=== PATIENT | male | born 1980 | race Caucasian/White ===

== ENCOUNTER 2017-02-17 04:46 | Inpatient (IN) | payer MEDICAID, OTHER ==
[~2017-02-17] VITALS: Ht 172.7 cm; Wt 77.2 kg
[2017-02-17] VITALS (7 sets, daily range): BP systolic 130–157; BP diastolic 70–94; PULSE 77–105; RESP 16–18; O2SAT 94–100
[~2017-02-17 04:46] MED LIST: CHLO25TA22 PO; FERR-74 PO; KLO1T PO
--- NOTE | 2017-02-17 06:17 | ED.REPORT ---
HPI-General Illness Date of Service Feb 17, 2017 ED Provider: Danny Lees MD A 36 year old male who is a paranoid schizophrenic with a history of diabetes presents to the ER via EMS complaining of pain and loss of function of the right lower extremity. He also alleges that there are "black lumps" on the right lower extremity localized around the knee. Pain is exacerbated with any movement. Associated symptoms include "vomiting black tar", a "taste of blood" in his mouth, and blood in his urine. Patient denies any trauma or injury to the affected extremity, fever, chills, and cough. He has spent several days in bed due to his symptoms, and has not been ambulatory due to the pain, "crawling " around his residence. History of gout "when he eats a lot of sugar". Currently he lives at the [facility]. Patient is a difficult historian. Nursing Notes Stated Complaint: RIGHT LEG ABRASIONS Chief Complaint: Skin Rash/Abscess Nursing Notes Reviewed: Yes Allergies: Coded Allergies: haloperidol (Verified Allergy, Unknown, 07/29/16) Scheduled Chlorpromazine (Chlorpromazine) 25 Mg Tablet 100 MG PO BID Clonazepam (Clonazepam) 1 Mg Tablet 0.5 MG PO DAILYWL Clonazepam (Clonazepam) 1 Mg Tablet 1.5 MG PO HS Ferrous Sulfate (Feosol) 325 Mg Tablet 325 MG PO DAILYWM General Time Seen by MD: 06:00 Chief Complaint Rash, Other (Right Leg Pain) Hx Obtained From: Patient Arrived By: Ambulance Sudden in Onset?: No Onset Occurred: Onset unknown Location: : Leg right Quality: Painful Severity: Current: Mild Severity: Maximum: Moderate Associated with: Reports: Vomiting, Denies: Cough, Fever Context Related History: Reports Diabetes mellitus Similar Sx Previous: No Past Medical History Past Medical History Hidradenitis suppurativa Paranoid schizophrenic Reports: Diabetes mellitus, Hyperlipidemia, Hypertension, Mental illness Past Surgical History hidradenitis w/multiple I&D, followed at wound care Family History Reviewed, not relevant Smoking History Never Smoker Social History Lives in a "clean and sober" house, 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 Physical Exam Vital Signs Vital Signs Date Time Temp Pulse Resp B/P Pulse Ox O2 Delivery O2 Flow Rate FiO2 02/17/17 08:03 37.2 90 16 138/83 98 02/17/17 05:00 37.7 105 18 130/82 97 Room Air Initial VS: Reviewed Head / Eyes: Atraumatic, Normocephalic Neck: Supple, Non-tender, Full range of motion Abdomen / GI: Soft, Non-tender, No guarding, No rebound, No distention Skin: Warm, Dry, No cyanosis Neurologic: Alert, Oriented, Nonfocal General/Constitutional: Awake, Alert, Well developed, Well nourished Respiratory / Chest: Breath sounds NL, No respiratory distress, No rales, No rhonchi, No wheezing Cardiovascular: Heart rate NL, Regular rhythm, Heart sounds NL, Cap refill not delayed, Peripheral circulation NL Lower Extremity / Pelvis / MS: No deformity, Neurologic intact, Vascular intact Brown pigment to the lateral aspect of the right knee Excoriated ulcers, inferior edge of the right knee cap, and medial aspect of lower leg. Extreme pain with movement of the right hip and knee. Right hip moves freely. Right knee is limited, resistance to range of motion. I am unable to fully flex or fully extend the right knee. Ankle / Foot: Atraumatic, Inspection NL, Full range of motion, Non-tender, No deformity, Neurologic intact, Vascular intact Interpretation & Diagnostics Lab Results Interpretation Result Diagram: 02/17/17 0730 02/17/17 0730 Test 02/17/17 07:21 02/17/17 07:30 02/17/17 09:22 Urine Color Yellow (YELLOW) Urine Appearance Hazy (CLEAR,HAZY) Urine pH 5.5 (5.0-8.0) Urine Specific [place] 1.025 (1.003-1.035) Urine Protein 30mg/dL (NEG,TRACE) Urine Glucose (UA) Negativemg/dL (NEGATIVE) Urine Ketones Negativemg/dL (NEGATIVE) Urine Occult Blood Trace (NEGATIVE) Urine Nitrite Negative (NEGATIVE) Urine Bilirubin Negative (NEGATIVE) Urine Urobilinogen Normalmg/dL (NORMAL) Urine Leukocyte Esterase Negative (NEGATIVE) Urine RBC 0-2/hpf (0-2) Urine WBC 0-5/hpf (0-5) Urine Epithelial Cells Occasional/hpf (NONE-MOD) Urine Crystals Amorphous urates (NONE Urine Bacteria Few/hpf (NONE-FEW) Urine Hyaline Casts None/lpf (NONE) Urine Granular Casts Occasional (NONE SEEN) Urine Waxy Casts None seen (NONE SEEN) Urine Red Blood Cell Casts None seen (NONE SEEN) Urine White Blood Cell Casts None seen (NONE SEEN) Urine Mucus None seen (None Seen) Urine Trichomonas None seen (NONE SEEN) Urine Yeast None (NONE SEEN) Urinalysis Comment None Urine Culture Reflexed Not indicated White Blood Count 14.4th/mm3 (3.8-10.1) Red Blood Count 4.60mil/mm3 (4.40-5.80) Hemoglobin 13.0g/dL (13.8-17.2) Hematocrit 36.8% (41.0-50.0) Mean Corpuscular Volume 80.0fL (81-100) Mean Corpuscular Hemoglobin 28.3pg (27.0-35.0) Mean Corpuscular Hemoglobin Concent 35.3% (32.0-37.0) Red Cell Distribution Width 13.7% (12.3-15.4) Platelet Count 294bil/L (150-400) Neutrophils (%) (Auto) 78.3% (40-74) Lymphocytes (%) (Auto) 10.2% (14-46) Monocytes (%) (Auto) 11.2% (4-12) Eosinophils (%) (Auto) 0% (0-5) Basophils (%) (Auto) 0.1% (0-3) Erythrocyte Sedimentation Rate 64mm/hr (0-15) Sodium Level 132mEq/L (134-144) Potassium Level 2.7mEq/L (3.5-5.2) Chloride Level 88mEq/L (97-108) Carbon Dioxide Level 24mmol/L (18-29) Blood Urea Nitrogen 30mg/dL (6-20) Creatinine 2.47mg/dL (0.76-1.27) Estimat Glomerular Filtration Rate 31mL/min (>59) Glucose Level 133mg/dL (60-99) Lactic Acid Level 0.8mmol/L (0.4-2.0) Calcium Level 7.6mg/dL (8.5-10.1) Phosphorus Level 3.2mg/dL (2.5-4.9) Magnesium Level 0.9mg/dL (1.6-2.6) Total Bilirubin 2.1mg/dL (0.0-1.2) Aspartate Amino Transf (AST/SGOT) 62U/L (0-50) Alanine Aminotransferase (ALT/SGPT) 46U/L (0-44) Alkaline Phosphatase 133U/L (25-150) Total Creatine Kinase 1422U/L (21-232) C-Reactive Protein 27.3mg/dL (0.0-0.5) Total Protein 6.9g/dL (6.4-8.4) Albumin 3.6g/dL (3.4-5.0) Thyroid Stimulating Hormone (TSH) 0.547uIU/mL (0.450-4.500) Salicylates Level < 3.0ug/mL (30-250) Acetaminophen Level < 15.0ug/mL Rx (10-25) Hold Jacobs Top Tube Received (Received) X-Ray Chest Interpretation Chest Xray Interpretation: IMPRESSION: Mildly reduced inspiratory volume, slight stranding behind the left heart potentially a manifestation of mild or early pneumonia. Followup PA and lateral chest plain film would be very helpful in more accurately assessing for pneumonia in that area. Dictated by: Gregg Pratt M.D. on 02/17/2017 at 9:49 Approved by: Gregg Pratt M.D. on 02/17/2017 at 9:50 View: Portable, 1 view Interpretation / Wet Read by: Interpret - Radiologist X-Ray Interpretation Xray Interpretation: IMPRESSION: No displaced fracture seen. If there is continued pain, followup exam or additional imaging such as MRI or CT could be performed for further assessment. Dictated by: Dimitri Thompson [facility] Interpreted: Gregg Pratt MD on 02/17/2017 at 9:11 Transcribed by: ALEXANDER on 02/17/2017 at 9:12 X-Ray Ordered: Pelvis, Hip right Interpretation / Wet Read by: Interpret - Radiologist Xray Interpretation: FINDINGS: Bones: No fractures or dislocations. No suspicious bony lesions. Soft tissues: Moderate diffuse disc shunt joint effusion. No suspicious soft tissue calcifications. IMPRESSION: 1. Moderate joint effusion. Dictated by: Dimitri WAYNE Interpreted: Gregg Pratt MD on 02/17/2017 at 9:10 Transcribed by: KEILA on 02/17/2017 at 13:41 PLEASE REVIEW 1ST SENTENCE UNDER SOFT TISSUES, NEEDS CORRECTED X-Ray Ordered: Knee right Interpretation / Wet Read by: Interpret - Radiologist US Renal/Urinary Tract PROCEDURE: US RENAL SONOGRAM INDICATIONS: acute renal failure TECHNIQUE: Real-time scanning was performed of the kidneys and bladder, with image documentation. COMPARISON: None. FINDINGS: Kidneys: Kidneys are normal in size. Right kidney measures 9.0 cm long; left kidney measures 9.1 cm long. Right renal cortical thickness is 1.6 cm; left renal cortical thickness is 1.4 cm. Renal cortical echotexture is normal. 6 mm nonobstructing left renal calcification. No suspicious solid mass lesions. Mildly complex right kidney cyst not significantly changed measuring 2.5 x 3.4 x 2.6 cm. Bladder: Pre-void bladder volume is 192 mL. Post-void residual is unable to be assessed. Miscellaneous: No free pelvic fluid. IMPRESSION: Mildly complex right renal cyst with no significant change and nonobstructing left renal calcification. Dictated by: Dimitri WAYNE Interpreted: Gregg Pratt MD on 02/17/2017 at 11:01 Transcribed by: ALEXANDER on 02/17/2017 at 11:04 Exam Performed by: Allied health pract Exam Type: Diagnostic Clinical Category: Symptom-based Exam Interpreted by: Radiologist Indication: Acute renal failure Re-Eval/Medical Decision Source of Hx: Old records Time of Eval: 09:08 Re-Evaluation/Progress Note: Discussed lab and radiology results and need for admission. Patient is amenable to the plan. All other questions addressed. Consultation #1: Referral / Consult Name: Raegan Stanton MD Consulted With: Nephrology Call Returned at: 09:11 Note: Agrees to consult. Consultation #2: Referral / Consult Name: Dimitri Thompson RPA RA Consulted With: On-call physician (Radiology) Call Returned at: 10:12 Note: Dr. Thompson called to discuss arthrocentesis results. Consultation #3: Referral / Consult Name: Griffin Call MD Consulted With: Orthopedic Call Returned at: 10:18 Note: Agrees to consult. Consultation #4: Referral / Consult Name: Talon Saucedo MD Consulted With: On-call physician (Infectious Disease) Call Returned at: 10:22 Note: Agrees to consult. Consultation #5: Referral / Consult Name: Shilo Aguilar MD Consulted With: Hospitalist Call Returned at: 11:31 Medical Technologist Clinical: Agrees with eval, Agrees with plan, Accepts admit Counseled Regarding: Diagnosis, Lab results, Need for admission Discharge & Departure Primary Impression: Acute renal failure Acute renal failure type: unspecified Qualified Code: N17.9 - Acute kidney failure, unspecified Additional Impressions: Septic arthritis Hypomagnesemia Schizophrenia, paranoid, chronic Hypokalemia Acute hepatitis Disposition: ADMITTED TO HOSPITAL Discharge Condition All VS Reviewed: Yes Condition: Stable Referrals: Jennifer Kessler MD (PCP) Crit Care Except Billable Proc Time Spent: 30-74 minutes Services Performed: Patient management by me, Time spent at bedside, Reviewing test results, Reviewing imaging, Discussing patient care, Documentation in record Scribe Attestation Portions of this note were transcribed by Michael Ojeda. I, Dr. Lees, personally performed the history, physical exam and medical decision-making; I reviewed and confirmed the accuracy of the information in the transcribed note. Signed by: Loyda Hendrix, 02/17/2017 and 11:32 copies to: Jennifer Kessler MD, Kirk H MD Feb 17, 2017 06:16 MICHAEL OJEDA Feb 17, 2017 06:21
[2017-02-17 07:38] LABS: APPEARANCE,URINE HAZY (CLEAR,HAZY); COLOR,URINE YELLOW (YELLOW); OCCULT BLOOD,URINE TRACE (NEGATIVE); PH,URINE 5.5 (5.0-8.0)
[2017-02-17 07:39] LABS: UROBILINOGEN,URINE NORMAL (NORMAL)
[2017-02-17 07:43] LABS: BASOPHILS % (AUTO) 0.1 % (0-3); EOSINOPHILS % (AUTO) 0 % (0-5); MONOCYTES % (AUTO) 11.2 % (4-12); Mean Corpuscular Hemoglobin 28.3 pg (27.0-35.0); NEUTROPHILS % (AUTO) 78.3 % (40-74); Platelet Count 294 bil/L (150-400)
[2017-02-17 08:58] LABS: ERYTHROCYTE SEDIMENTATION RATE 64 mm/hr (0-15)
[2017-02-17] MEDS ORDERED: 0.9% Sodium Chloride 1,000 ML IV ONE (09:00)
--- NOTE | 2017-02-17 09:12 | DRSVH ---
PROCEDURE: X-RAY PELVIS W/LAT HIP (RT) ([id number]) INDICATIONS: pain and limited ROM, no trauma hx TECHNIQUE: AP pelvis with lateral view(s) of the right hip(s). COMPARISON: None. FINDINGS: Bones: No fractures or dislocations. Pelvic ring appears intact. No suspicious bony lesions. Soft tissues: The visualized bowel gas pattern is normal. No suspicious soft tissue calcifications. IMPRESSION: No displaced fracture seen. If there is continued pain, followup exam or additional rehana ging such as MRI or CT could be performed for further assessment. Dictated by: Dimitri Thompson [facility] Interpreted: Gregg Pratt MD on 02/17/2017 at 9:11 Transcribed by: ALEXANDER on 02/17/2017 at 9:12 Approved by: Gregg Pratt M.D. on 02/17/2017 at 17:07
--- NOTE | 2017-02-17 09:51 | DRSVH ---
PROCEDURE: X-RAY CHEST ONE VIEW, PORTABLE ([id number]) INDICATIONS: leukocytosis TECHNIQUE: One view of the chest was acquired. COMPARISON: [facility], , CHEST 1VW (PORTABLE), 12/05/2014, 18:35. [facility], CR, CHEST 1VW (PORTABLE), 09/27/2014, 17:26. FINDINGS: Surgical changes and devices: None. Lungs and pleura: No pleural effusions or pneumothorax. Lungs are abnormal with mild or early pneum onia left lung base behind the heart. Mediastinum: Mediastinal contours appear normal. Heart size is normal. Bones and chest wall: No suspicious bony lesions. Overlying soft tissues appear unremarkable. IMPRESSION: Mildly reduced inspiratory volume, slight stranding behind the left heart potentially a m anifestation of mild or early pneumonia. Followup PA and lateral chest plain film would be very help ful in more accurately assessing for pneumonia in that area. Dictated by: Gregg Pratt M.D. on 02/17/2017 at 9:49 Approved by: Gregg Pratt M.D. on 02/17/2017 at 9:50
[2017-02-17 10:11] LABS: Creatine Kinase 1422 U/L (21-232)
[2017-02-17] MEDS ORDERED: cefTRIAXone Inj 2,000 MG in Dextrose 5% Minibag Plus 50 ML IV ONE (10:15)
[2017-02-17 10:41] LABS: Phosphorus 3.2 mg/dL (2.5-4.9)
--- NOTE | 2017-02-17 10:41 | DRSVH ---
PROCEDURE: X-RAY RIGHT KNEE, ONE OR TWO VIEWS ([id number]) INDICATIONS: PAIN AND LIMITED RANGE OF MOTION, NO TRAUMA HISTORY. TECHNIQUE: Two views of the knee were acquired. COMPARISON: None. FINDINGS: Bones: No fractures or dislocations. No suspicious bony lesions. Soft tissues: Moderate diffuse disc shunt joint effusion. No suspicious soft tissue calcific ations. IMPRESSION: 1. Moderate joint effusion. Dictated by: Dimitri Thompson [facility] Interpreted: Gregg Pratt MD on 02/17/2017 at 9:10 Transcribed by: KEILA on 02/17/2017 at 13:41 Approved by: Gregg Pratt M.D. on 02/17/2017 at 17:07 PLEASE REVIEW 1ST SENTENCE UNDER SOFT TISSUES, NEEDS CORRECTED
[2017-02-17 11:03] LABS: Magnesium 0.9 mg/dL (1.6-2.6)
--- NOTE | 2017-02-17 11:04 | DRSVH ---
PROCEDURE: US RENAL SONOGRAM INDICATIONS: acute renal failure TECHNIQUE: Real-time scanning was performed of the kidneys and bladder, with image documentation. COMPARISON: None. FINDINGS: Kidneys: Kidneys are normal in size. Right kidney measures 9.0 cm long; left kidney measures 9.1 cm long. Right renal cortical thickness is 1.6 cm; left renal cortical thickness is 1.4 cm. Renal cor tical echotexture is normal. 6 mm nonobstructing left renal calcification. No suspicious solid mass lesions. Mildly complex right kidney cyst not significantly changed measuring 2.5 x 3.4 x 2.6 cm. Bladder: Pre-void bladder volume is 192 mL. Post-void residual is unable to be assessed. Miscellaneous: No free pelvic fluid. IMPRESSION: Mildly complex right renal cyst with no significant change and nonobstructing left renal calcification. Dictated by: Dimitri SMALL Interpreted: Gregg Pratt MD on 02/17/2017 at 11:01 Transcribed by: ALEXANDER on 02/17/2017 at 11:04 Approved by: Gregg Pratt M.D. on 02/17/2017 at 17:08
[2017-02-17] MEDS ORDERED: KCl 40 mEq/D5W 500 mL 40 MEQ in IV Premix 1 EACH IV ONE (11:05)
[2017-02-17] MEDS ORDERED: Magnesium Sulf 2 Gm/50mL Water 2 GM in IV Premix 1 EACH IV ONE (11:05)
[2017-02-17] MEDS ORDERED: Ondansetron 2 mg/mL 2 mL Inj IVPUSH PRN ×2 (11:10→11:50)
[2017-02-17] MEDS ORDERED: HYDROmorphone 1 mg/mL Inj IVPUSH PRN (11:10)
[2017-02-17] MEDS ORDERED: Vancomycin Dose per Pharmacist XX ONE (11:35)
[2017-02-17] MEDS ORDERED: Vancomycin Inj 1,250 MG in 0.9% Sodium Chloride 250 ML IV ONE (11:55)
[2017-02-17] MEDS: 0.9% NaCl + KCl 20 mEq/L 1,000 ML IV SCH ×3 (12:00→23:20)
--- NOTE | 2017-02-17 12:24 | NUR ---
ADMIT NOTE Admitted a 36/M into room 8507 following report from Rosmery Chandler RN in ED. Pt moaning/crying out while transferred to bed per SUBSTATION SUPERVISOR/ED staff report. Pt states, "They hurt me because they are so rough!" Pt req pain medication for R knee which appears swollen with some bruising/scabbing. Pt rec'd IV Dilaudid in ED 30 min prior. Pt repeating questions, using a very 'whiny' voice, asking about his motel room. Pt's IV came out shortly after admission to floor, awaiting a replacement. Tele placed per order, per tech: SR in 's. Denies any N/V/D at this time, just requesting PRN pain medication. Offered reposition, ice, heat - pt refusing all interventions. Pt on RA.Sitter at bedside from ED. Bed in lowest, locked position and call light in reach. Addendum: 02/17/17 at 1229 by RISSA PRESTON RN Pt refusing to allow this RN to perform assessment. When pt allows, will document.
[2017-02-17] MEDS ORDERED: Magnesium Sulf 4 Gm/100 mL H2O 4 GM in IV Premix 1 EACH IV ONE ×2 (12:25→19:50)
[2017-02-17] MEDS ORDERED: Alum-Mag Hydrox-Simeth 30 mL Suspension PO PRN (12:35)
[2017-02-17] MEDS: Potassium Chloride 20 mEq/15 mL 15mL Oral Soln PO SCH ×3 (12:47→20:57)
--- NOTE | 2017-02-17 14:19 | NUR ---
Synovial fluid Rec'd a call from lab that synovial fluid was not sufficient for cx. Timbo DIETZ with this information.
--- NOTE | 2017-02-17 14:29 | PCM.HPMED ---
Subjective Date of Service Feb 17, 2017 Primary Provider: Admitting Physician: Raegan Stanton MD Primary Care Physician: Jennifer Kessler MD Attending Physician: Raegan Stanton MD Chief Complaint: right leg pain History of Present Illness: Bladimir is a 36-year-old male with history of paranoid schizophrenia, polysubstance abuse, and alcoholism who presented to the ER via EMS for complaint of right knee pain x 2 days. Patient is a somewhat poor historian but , he reports noticing the right knee pain and swelling came on slowly about 2 days ago and states that it became so severe that he was unable to get out of bed for 2 days. He denies any trauma but notes there were "black lumps" around his right knee. He denies pain in any other joints, rashes elsewhere, or been recently sick. He notes that he has been more sweaty recently but when asked if he has had any fevers or chills he specifically denied. He denies any current nausea, vomiting but reports that he had a one-time episode of vomiting of black tarry substance yesterday. He has not had any diarrhea and has not noticed any dark stool or blood in his stool. He denies any urinary symptoms but reports that his urine is very dark and he thinks that is due to the drugs he used. He also denies any headaches, chest pain, shortness of breath, or neck stiffness. He does have a history of methamphetamine abuse and reports he last used yesterday, but he reports he only smokes it because he is afraid of needles. He states that he was at his baseline function prior to 2 days ago. He reports that he has been compliant with his psychiatric medication except when he uses drugs because he is unsure of how his medications would interact with the drugs. He reports he has only been using meth and smokes intermittently but denies any other drug usage. He has a history of alcoholism, reports he has been sober for a few years and only has had a sparse drink in between. He also voices that he has a history of gout when he eats a lot of sugar, but that usually manifests in his big toe. He currently lives by himself at the [facility] and denies any sexual activity. When he arrived to the ED he was noted to be febrile with temperature 37.7 in site of tachycardic with a pulse of 105. He had a right knee x-ray that showed moderate joint effusion without calcifications. His CBC showed a white count of 14.4 with neutrophils 78.3% and ESR 64. His CMP was remarkable for potassium of 2.7 with BUN of 30 and creatinine of 2.47. His CRP was 27.3 and he had very mild transaminitis with an elevated total bili of 2.1. His lactic acid was 0.8, but his magnesium was 0.9 and his total CK was 1422. With his acute renal failure, a renal sonogram was performed which showed an unchanged mildly complex 3 cm right renal cyst and a normal obstruction left renal calcification Orthopedics was consulted and an arthrocentesis was performed with aspirate sent for analysis and culture. Sugars were drawn and patient was started on ceftriaxone and vancomycin Review of Systems: Telephone review of systems negative except as stated in history of present illness Allergies Coded Allergies: haloperidol (Verified Allergy, Unknown, 07/29/16) Home Medications Clonazepam Chlorpromazine Feosol H Paranoid schizophrenia Polysubstance abuse History of alcoholism Hidradenitis suppurativa Surgical History Reports multiple I&D's for his hidradenitis on his left and right axilla Family History He is uncertain of any family history Social History Hx Alcohol Use: Yes (reports he has only had one drink in the past few months) Hx Substance Use: Yes (methamphetamine) Hx Tobacco Use: Yes (he reports he smokes tobacco intermittently) Living Arrangement: Alf Exam Vital Signs Vital Sign - Last Date Time Temp Pulse Resp B/P Pulse Ox O2 Delivery O2 Flow Rate FiO2 02/17/17 12:41 100 02/17/17 11:55 37.5 18 157/82 94 Room Air Exam General: Well-developed jittery male who appears in mild pain, and appears mildly anxious HEENT: Normocephalic, atraumatic, PERRLA, EOMI, poor dentition noted, oropharynx nonerythematous, mucosa mildly dry Neck: Soft, nontender, trachea midline CV: Regular rate and rhythm with no murmurs rubs or gallops noted. Peripheral pulses intact and equal Respiratory: CTAB, normal respiratory effort Abdomen: Obese, soft, nontender, nondistended, normoactive bowel sounds noted MSK: Right knee mildly erythematous and moderately swollen, bandage in place over site of previous arthrocentesis. There are multiple excoriations and scabs on anterior knee and thigh. Patient refused muscle strength testing due to pain. No other joint erythema or tenderness noted. Neuro: Patient is alert and oriented 3, cranial nerves II-12 grossly intact, no focal weakness except right leg which patient refused further testing due to pain. Skin: Warm, dry, intact, no rashes noted Psychiatric: Patient has been cooperative, although occasionally slow to answer. He is fidgety at baseline and demonstrates poor judgment. He denies any hallucinations or SI. Lab and Diagnostics Result Diagram: 02/17/17 0730 02/17/17 0730 X-Rays, CTs and MRIs CXR portable IMPRESSION: Mildly reduced inspiratory volume, slight stranding behind the left heart potentially a manifestation of mild or early pneumonia. Followup PA and lateral chest plain film would be very helpful in more accurately assessing for pneumonia in that area. Hip xray IMPRESSION: No displaced fracture seen. If there is continued pain, followup exam or additional imaging such as MRI or CT could be performed for further assessment. R knee xray IMPRESSION: 1. Moderate joint effusion. Additional Diagnostics: Renal sonogram FINDINGS: Kidneys: Kidneys are normal in size. Right kidney measures 9.0 cm long; left kidney measures 9.1 cm long. Right renal cortical thickness is 1.6 cm; left renal cortical thickness is 1.4 cm. Renal cortical echotexture is normal. 6 mm nonobstructing left renal calcification. No suspicious solid mass lesions. Mildly complex right kidney cyst not significantly changed measuring 2.5 x 3.4 x 2.6 cm. Bladder: Pre-void bladder volume is 192 mL. Post-void residual is unable to be assessed. Miscellaneous: No free pelvic fluid. IMPRESSION: Mildly complex right renal cyst with no significant change and nonobstructing left renal calcification. Assessment & Plan Bladimir is a 36-year-old male with history of paranoid schizophrenia, polysubstance abuse, and alcoholism who presented to the ER via EMS for complaint of right knee pain x 2 days. He was also found to be in acute renal insufficiency, with hypokalemia and hypomagnesemia. #Sepsis, acute, POA Patient meets sepsis criteria with a temperature of 37.7 and tachycardia 105 with leukocytosis of 14.4 and his right knee as the source of infection on admission Patient was hydrated in the ED with a bolus of normal saline He had blood cultures drawn and was started on IV ceftriaxone 2 g daily and IV vancomycin (02/17) Further management as below #Septic Arthritis, Right Knee, Present on Admission Patient's right knee pain is likely due to septic joint infection. An arthrocentesis was performed and aspirate was sent for analysis, but there was not enough aspirate for culture. Uncertain of etiology of his infection, but certainly trauma and substance abuse is high on the list due to his history and the multiple scabs near his knee. He also reports a history of gout and this is also on the differential. He does deny any trauma or recent procedures, and so endocarditis is possible but unlikely. Infectious disease team has been consultation for further antibiotic management IV Dilaudid 0.5-1.0 mg for pain management. We will continue with IV ceftriaxone and IV vancomycin #Acute renal insufficiency, SRINI Patient's creatinine on admit was 2.47. He was noted to have a normal creatinine 1.01 in June 2016. Likely due to his infection, poor fluid intake , substance abuse, and possibly his psychiatric medications. Nephrology has been consulted and will be assisting. We will place on telemetry for CV monitoring The running IV normal saline at 150 mils per hour We will continue further management per nephrology #Hypokalemia, POA Likely due to depletion and substance abusePotassium level on admit was 2.7. This was replenished with 60 mEq of potassium chloride IV rider Patient refused any PO potassium chloride replacement We will continue to monitor and replenish as needed ECG as needed #Hypomagnesemia, POA Patient does have history of hypomagnesemia. His magnesium on admission was 0.9 , this was replenished with 2 g of mag sulfate Continue to monitor and replenish as needed #History of polysubstance abuse, SRINI Reports only methamphetamine abuse currently. Likely contributing to patient's renal insufficiency and electrolyte abnormalities. #History of alcoholism, SRINI Reports only rare alcohol consumption in the past few years, it is noted that he lives at a [facility]. #Paranoid schizophrenia, SUZIEA Patient has a fairly extensive history of paranoid schizophrenia .Uncertain if patient has been compliant with his medication regimen. He currently is alert and oriented and denies any hallucinations or SI. Of note, patient does have a history of severe aggression, but is currently redirectable. We will consult psychiatry for medication management. Tylenol prn fever and pain Zofran prn nausea Bowel regimen prn constipation CODE STATUS: Patient wishes to be full resuscitation Admission status: Due to patient's medical complexity and risk of adverse events , he will require at least 2 midnights for evaluation, stabilization, and treatment. Pain Evaluation: Pain not Controlled VTE Prophylaxis: Sub-Q Heparin (Unfractionated) Resuscitation Status: CPR: Attempt Resuscitation Attending Statement The patient was seen and examined together with Dr. Gtz on 02/17/2017 and I agree with the history, exam and plan as outlined in the note above. Eusebio Gtz DO Feb 17, 2017 14:29 Shilo Aguilar MD Feb 17, 2017 16:38
[2017-02-17] MEDS ORDERED: OLAN20TA16 PO (14:30)
[2017-02-17] MEDS ORDERED: KLO5T PO ×2 (14:30)
[2017-02-17] MEDS ORDERED: OLAN10TA19 PO (14:30)
[2017-02-17] MEDS ORDERED: PROP20TA5 PO (14:30)
[2017-02-17] MEDS ORDERED: DIVA500T6 PO (14:30)
[2017-02-17 15:16] LABS: OSMOLALITY, URINE 424 mOs/kH2O (250-1200)
--- NOTE | 2017-02-17 15:20 | PCM.PHAPRO ---
Progress Vancomycin Management by Pharmacy: -pt being initiated on Vancomycin for knee infection, arthrocentesis performed and aspirate sent -concurrent antibiotics include Ceftriaxone 2gm iv [id number] -pt was febrile on admit, wbc 14.4 and pulse 105 -presents with acute renal insufficiency, serum creatinine 2.47, est clearance ~ 39ml/min -Plan: IV site was pulled out, now restarted and Vancomycin 1.25gm iv to be given around 1600 today x 1. will need to evaluate renal function in am before subsequent doses can be ordered. information will be relayed to floor pharmacist following on 02/18 Lianet Quinones [facility] Feb 17, 2017 15:20
--- NOTE | 2017-02-17 15:34 | CONS ---
[address] [address] CONSULTATION REPORT PATIENT: DARBY BUSBY : 1980 MR#: [id number] ADMIT: 02/17/2017 JOB ID: [id number] DATE OF SERVICE: REQUESTING PHYSICIAN: Sussy Aguilar MD. REASON FOR CONSULTATION: Management of abnormal kidney function. CHIEF COMPLAINT: Right leg pain. PRESENT ILLNESS: This is a 66-year-old, male with significant past medical history of paranoid schizophrenia, hypertension ,who came to the emergency department due to right lower extremity pain. I have gathered the information from the patient and the medical record. I am not certain if the patient is a reliable historian. He reported that he started having right leg pain two days prior to the admission. The pain is mainly localized on the right knee. He had been in the bed for two days, unable to move his right leg due to severe pain. He noticed some skin lesions on the right leg as well. He reported black lumps on the lower extremity. He endorsed some sweating but no significant fever or chills. He reports no nausea, vomiting or diarrhea. He denied history of cough. No chest pain. No palpitations. No headaches, no back pain. No dysuria. He claimed that he has had dark urine. He denies any history of fall. He has history of gout in the past. He stated that it affected on the left lower extremity. He reported that if he drinks too much sugar drinks or pops, it will aggravate gout. Recently he had used methamphetamines. He does not use any IV injections of illicit drugs. He reports history of hypertension, but he did say that he has no history of diabetes. However, in the medical record, stated that he has had history of diabetes. The patient's baseline creatinine was 1.01 in June 2016. He has no history of kidney stones or vasculitis. At one point, he was told that he has some kidney dysfunction. He has no family history of kidney disease. Nobody is on dialysis or received a kidney transplant. Upon arrival, his initial vitals showed temperature of 37.7, pulse 105, respiratory 18, blood pressure 130/82, O2 sat 97% on room air. WBC 14.4, sodium 132, potassium 2.7, chloride 88, bicarb 24, BUN 30, creatinine 2.47. Glucose 133. Calcium 7.6, total bilirubin 2.1. AST 62, ALT 46. CRP 27.3. He was found to have right knee swelling. He had right knee arthrocentesis at the emergency department. The patient received IV vancomycin, IV Dilaudid, IV ceftriaxone in the emergency department. During my visit, the patient is complaining of severe pain on the right knee. He demanded no one to touch his right knee. He reports that he has not had any good appetite over the past several days. He denies taking any NSAIDs. PAST MEDICAL HISTORY: Per previous medical records, positive for paranoid schizophrenia, type 2 diabetes, hypertension, dyslipidemia, gout, hidradenitis suppurativa. PAST SURGICAL HISTORY: Hidradenitis, status post multiple I and D's. FAMILY HISTORY: Noncontributory. SOCIAL HISTORY: The patient lives in a motel. He uses methamphetamines. Has a positive history of alcohol drinking. REVIEW OF SYSTEMS: Constitutional: Positive for sweating. No fever, no chills. HEENT: No headaches. No blurry vision. Cardiovascular: No palpitations, no chest pain. No shortness of breath. Pulmonary: No cough. No hemoptysis. GI: No nausea, vomiting, diarrhea. : No dysuria. No hematuria. Skin: Positive for skin lesion on the right lower extremity. No excoriation, no new rashes. Neuro: No neurological deficit. Musculoskeletal: Positive for right lower extremity pain and right knee swelling. MEDICATIONS: 1. Clonazepam. 2. Olanzapine. 3. Propranolol. 4. Divalproex. PHYSICAL EXAMINATION: Vitals: Temperature 37.5, pulse 93, respiratory rate 18, blood pressure 157/82, O2 sat 94% on room air. General appearance: Awake, alert, oriented x3. In no acute distress. Flat affect. HEENT: No pallor, no jaundice. No JVD. No lymphadenopathy. No thyroid enlargement. Heart: Regular rhythm. Normal S1, S2. Lungs: Clear to auscultation bilaterally. No wheezing. No rhonchi. Abdomen soft, active bowel sounds. No hepatosplenomegaly. Extremities: No pitting edema. Positive right lower extremity swelling from knee down, especially on the right knee. Severe pain to touch. Positive for warmth. Limited range of motion due to pain. LABORATORY: Sodium 132, potassium 2.7, chloride 88, bicarb 24, BUN 30, creatinine 2.47, glucose 133. Calcium 7.6. WBC 14.4, hemoglobin 13.0. UA: Specific gravity 1.025, protein 30, 0-2 RBCs, 0-5 WBC. Urine creatinine 271. Urine protein 46. Urine sodium 18. Serum salicylates less than 3. Acetaminophen less than 15. Renal sonogram showed prevoid bladder volume is 192 cc, mildly complex right renal cyst with no significant change, and nonobstructing left renal calcifications. ASSESSMENT: 1. Acute kidney injury secondary to sepsis, and intravascular volume depletion. 2. Hyponatremia, could be related to poor oral intake and possible methamphetamine induced. 3. Hypokalemia, likely due to methamphetamine-induced and poor oral intake. 4. Mildly elevated serum CPK, rule out related to methamphetamine. 5. Right knee swelling, status post arthrocentesis. Rule out septic arthritis versus gouty arthritis. 6. SIRS. 7. Polysubstance abuse. 8. Severe hypomagnesemia. PLAN: I will put patient on magnesium sulfate 4 g infusion over 2 hours. Start patient on normal saline plus potassium at 20 mEq running at 150 cc/hour. Will put patient on potassium solution 40 mEq every 6 hours for four doses. Continue IV antibiotics until finalized culture obtained. check hepatitis panel , HIV and uric acid. Avoid nephrotoxins. Adjust medication per GFR. I will check a serum osmolality and urine osmolality, assessing for hyponatremia. Thank you, Dr. Aguilar for allowing me to participate in the care of your patient. [facility]
[2017-02-17] MEDS: Vancomycin Dose per Pharmacist XX SCH (15:40)
[2017-02-17] MEDS: HYDROmorphone 0.5 mg/0.5 mL iSecure Syringe IVPUSH PRN ×2 (16:07→20:14)
--- NOTE | 2017-02-17 16:09 | DRSVH ---
PROCEDURE: US GUIDED ASPIRATION OF SUPERFICIAL FLUID INDICATIONS: knee effusion COMPARISON: None. FINDINGS: After informed consent obtained right knee joint was examined sonographically site chosen for percutaneous arthrocentesis. Skin was prepped and draped in the usual fashion 1% lidocaine infiltrated from the skin down to the j oint surface. An 18 gauge needle was introduced into the joint fluid and roughly 2 cc of slightly mu rky joint fluid was aspirated. Needle was removed. Patient expressed no complications and the fluid was sent to the laboratory for analysis. IMPRESSION: Successful sonographic guided right knee joint arthrocentesis. Dictated by: Dimitri WAYNE Interpreted: Gregg Pratt MD on 02/17/2017 at 16:08 Transcribed by: ALEXANDER on 02/17/2017 at 16:09 Approved by: Gregg Pratt M.D. on 02/17/2017 at 17:08
[2017-02-17] MEDS: Sodium Chloride LOK Flush 10 mL Syringe IVFLUSH SCH (16:10)
[2017-02-17] MEDS: Heparin 5,000 Unit/mL Inj SUBQ SCH (16:10)
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
[2017-02-17 16:25] LABS: Magnesium 1.5 mg/dL (1.6-2.6)
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
--- NOTE | 2017-02-17 16:40 | CONS ---
[address] [address] CONSULTATION REPORT PATIENT: DARBY BUSBY : 1980 MR#: [id number] ADMIT: 02/17/2017 JOB ID: [id number] DATE OF SERVICE: 02/17/2017 INFECTIOUS DISEASE CONSULTATION: I thank Dr. Lees for this consult. REASON FOR CONSULT: Possible septic left knee. HISTORY OF PRESENT ILLNESS: The patient is a 36-year-old possible septic right knee. HISTORY OF PRESENT ILLNESS: The patient is a 36-year-old paranoid schizophrenic with history of polysubstance abuse. He was living in a [facility] until fairly recently, but he says he was "kicked out" and is now living in the [facility] here in [place]. He reports that he was ambulatory in his usual state of health until just a couple days ago when he developed the very sudden onset of severe right knee pain to the point he could not bear weight or fully extend the knee. This eventually led him to the emergency department today where he was evaluated and felt to have a possible septic joint. A tap was done but minimal fluid was obtained and that was only sent for Gram stain and cell count. Protein and glucose were not possible given the small amount of fluid obtained. The patient tells us he has had no associated fevers, chills or sweats. He is a difficult historian as he says too many people have already interrogated him today. In addition, he obviously suffers from some degree of active psychosis as he explained to us. He thinks that the problem began when he spilled some juice on his right knee and then subsequently spilled some meth he was planning to smoke onto his knee and that the chemical reaction may have produced a gouty attack in his right knee. He states there has been no trauma to the knee, has not had any thorns or needles or any projectile stuck into the knee and denies any similar problem though he does tell us he has been told in the past he has gout in both his ankles as they occasionally swell and are tender. However, when he was told about this gout remains unclear. The patient is a reluctant historian and basically refuses to answer some questions and comply with much of the examination as he is frustrated with his ongoing interactions with our healthcare system. PAST MEDICAL HISTORY: 1. Polysubstance abuse. 2. Paranoid schizophrenia. 3. Possible gout. 4. Hidradenitis. 5. Diabetes. 6. Hypertension. SOCIAL HISTORY: The patient lives at the [facility] by himself. He used to live in a [facility]. He is unemployed and is disabled by virtue of his schizophrenia. He sometimes smokes cigarettes. Does not drink alcohol but does smoke meth and may abuse other drugs as well including reportedly cocaine. FAMILY HISTORY: Not currently possible as the patient refuses to answer. REVIEW OF SYSTEMS: In general, the patient was not compliant with our questions about the review of systems other than denied fevers, chills or headache. He reports he has recently been well. No cough, fevers, chills, sweats, chest pain, nausea, vomiting, diarrhea, dysuria. Remainder of the review of systems could not be obtained or was negative. PHYSICAL EXAM: Was very limited by the patient's noncompliance and anger about being examined. His temperature was 37.7 in the ED. He is afebrile now at 37.5. Pulse 100, respiratory rate 18, blood pressure 157/82. He is in no acute distress though is a bit agitated. Examination of the head, no evidence of recent trauma. Eyes without conjunctivitis. Oral cavity without thrush or pharyngitis. The neck without notable abnormalities. Lungs clear. Cardiac tones: Regular rate and rhythm without murmur. Abdomen without organomegaly. The patient's right knee is swollen but not erythematous or warm. There is an abrasion over the lateral aspect of the knee. He has trouble moving the knee back and forth, and at this point, reports it is locked in flexion secondary to ongoing "gout." Bilateral ankle edema is noted and his ankles are mildly puffy and a little bit tender around the ankle joint. There are no skin lesions present over the ankles, however. Neurologic examination could not be performed as the patient was not cooperative. Much of the examination was difficult or impossible due to noncooperation. LABORATORIES: Include a white count of 14,400, hematocrit is 37. Creatinine 2.47. Liver function tests: Bilirubin 2.1, AST 62, ALT 46, alk phos normal. CRP is 27. Toxicology was negative for salicylates. Urinalysis negative. Blood cultures negative. Gram stain from the knee shows a few polys, no organisms yet. Chest x-ray was done. Shows moderately reduced volume, some straining behind the left heart. It is not a quality film, however. No fracture of the pelvis was seen. Knee film notable for moderate effusion. Retroperitoneal ultrasound with no obstruction though there was a left renal calcification. IMPRESSION: This is a very difficult case of a schizophrenic gentleman who presents with right knee pain as well as what appears to be acute renal failure. The renal failure is likely on the basis of poor oral intake though it is difficult to say until we have more information on the patient. The nature of his swollen and somewhat tender right knee also remains unclear. The patient tells us he has a history of gout which could be implicated as part of perhaps his inflammatory arthritis as well as potentially having something to do with his renal failure, but at this point, we have no confirmation of that. If the patient indeed has a septic joint, the likely causes here would be Staph, strep or perhaps gonococcal though the reports in the chart say the patient is not sexually active. RECOMMENDATIONS: 1. We await the Gram stain and culture from the knee. 2. I have discussed this case with Dr. Call of [facility] and she is planning to examine the patient and do arthroscopy tomorrow and obtain additional cultures. 3. Will continue with ceftriaxone for the time being. 4. Will obtain a MRSA screen of the nares. 5. HIV and hepatitis C should be checked. 6. Uric acid will be added onto his labs. 7. Thank you for involving us in this complex case of this schizophrenic gentleman with a swollen tender right knee.
--- NOTE | 2017-02-17 18:32 | NUR ---
Consent for surgery Dr Call in this afternoon to discuss surgery tomorrow afternoon with pt. Pt did consent to surgery with Dr. Call and this data analyst report writer as witness, however, he refused to sign consent stating, "I'll do it in the morning. Do whatever you want, I'll sign in the morning." A second RN witnessed his consent for surgery. All the above staff signed consent form.
--- NOTE | 2017-02-17 19:24 | CONS ---
[address] [address] CONSULTATION REPORT PATIENT: DARBY BUSBY : 1980 MR#: [id number] ADMIT: 02/17/2017 JOB ID: [id number] DATE OF SERVICE: 02/17/2017 ORTHOPEDIC CONSULTATION: CPT code 16439-17 REASON FOR CONSULTATION: I was asked to see this 36-year-old male with a painful swollen right knee with potential septic right knee in orthopedic consultation by the emergency department physician as well as the hospitalist service. HISTORY OF PRESENT ILLNESS: The patient has severe paranoid schizophrenia with history of polysubstance abuse and normally also uses methamphetamine. He noticed that he had some pain over the right knee and some bruising. He was states he was unable to get out of bed for two days and was crawling around the floor of his hotel room. He denied any actual history of injury. This patient has been hospitalized in the past at [facility]. Supposedly he has been taking his psychiatric medication. He also indicates that he might have a history of gout. The ER physician did aspirate his knee for small amount of synovial fluid and this was sent for analysis and culture. There was only about 2 mL of fluid and not enough for a full cell count. The patient does indicate he has had gouty episodes in his great toe in the past. Upon admission, he was also noted to have an elevated BUN and creatinine; BUN is 30 and creatinine 2.47. PAST MEDICAL HISTORY: Positive for paranoid schizophrenia, polysubstance abuse, and history of alcoholism but he states that he has not been recently drinking, and hidradenitis suppurativa. Also includes a history of diabetes and hypertension. PAST SURGICAL HISTORY: He has had multiple I and D's for his hidradenitis of his left and right axilla. SOCIAL HISTORY: He is currently living in a hotel room. History of methamphetamine substance abuse. Smokes intermittently. He has lived in a long-term in the past, but most recently in a hotel. REVIEW OF SYSTEMS: Unobtainable. The patient is very lethargic and does not respond to all questions. FAMILY HISTORY: Not obtainable. PHYSICAL EXAMINATION: Temperature on admission was 37.7, now it is 36.9, pulse rate 105 on admission and now 77. Blood pressure 146/94, pulse ox of 97. The patient is lying in bed. He will answer a few questions, but very limited. He does complain of pain in his right knee and pain with any motion on the right knee. He has bruising over the anterolateral aspect of the right knee. There is evidence where he has had a recent knee arthrocentesis that was performed in the emergency department by the emergency department physician with ultrasound guided aspiration. The patient has pain with any range of motion to the knee. He has 2+ knee effusion. The calf is soft. He has mild swelling in the right ankle. Small abrasion over the anterior aspect of the right tibia. Most of the patient's pain appears to be over the right knee. The right hip was also examined. He can move his right hip but any movement cause him to move his knee and hehas severe knee pain. Neurologic exam was limited due to the patient's cooperation. He also had swelling in his normal left ankle. The patient is not cooperative with much of any questioning or any examination. IMAGING: X-rays of the right knee show the knee effusion. X-rays of the right hip: No abnormalities. LABORATORY TESTING: White count 14,400, hemoglobin of 13, hematocrit of 36.8, neutrophils 78.3% PMNs 10.2% lymphocytes. Sedimentation rate is 64. Sodium 134, potassium 3.1, chloride 91, CO2 of 26, BUN 25, creatinine 1.90. Calcium 7.4. Magnesium 1.5; that was repeated from an original low of 0.9. Blood cultures are pending as well as Gram stain and culture. The Gram stain did show some white cells but no organisms. IMPRESSION: Right knee pain and effusion. Probable septic right knee. Also need to possibly rule out gouty arthropathy. The patient is very painful and with his swelling and history and elevated sedimentation rate there is a high index of suspicion for a septic knee. The case has been discussed with Dr. Saucedo. With all of the contusion on the knee, I am going to go see if the patient might be able to undergo an MRI scan of the right knee as well. The plan is to keep him n.p.o. after midnight and plan for arthroscopic irrigation and debridement of the right knee joint and obtain cultures, and possibly even a small amount of tissue for biopsy. If there is any crystalline deposit in the knee that might be consistent with gout that certainly could also be removed and sent to pathology. I was able to explain to the patient well enough that he needed to have the knee washed out to determine if he has any intra-articular infection. The explanation for the surgical procedure was limited since the patient does have paranoid schizophrenia and he tends to be very lethargic. He did, however, verbally agree to undergo the surgery when the nurse was present in the room. We have had the surgical consent signed by the patient with two nurses witnessing. Additional laboratory testing will be performed including human immunodeficiency virus and hepatitis C as well as uric acid. Whether the patient actually has gouty arthropathy versus a septic joint, I still believe it is in his best interest to have him undergo an aspiration and irrigation and debridement of the knee arthroscopically to make a more definitive diagnosis. The patient has been placed on IV antibiotics as per infectious disease. CC: [facility] - Orthopedics [facility]
[2017-02-17] MEDS ORDERED: 0.9% Sodium Chloride 100 ML ONE (19:53)
--- NOTE | 2017-02-17 21:13 | NUR ---
Refusal of Care At 2044, patient refused physical assessment and vital signs. Patient appears agitated and said, "God! Why can't you just let me sleep?... Blood pressure doesn't matter!...I'm so cold, you guys don't give me enough blankets and then you want me to take them off?" Patient denied shortness of breath/chest pain. Unable to assess affected right leg. Patient refused to put socks on because he doesn't want to move his leg, despite being offered help. Patient's bed is low and locked, urinal within reach, call light on bedside table. Addendum: 02/18/17 at 0433 by ANN ALICIA RN Patient has refused vital signs again with 399 assessment. Also, telemetry leads disconnected and patient refuses to have them replaced. paged with update - new order that it's okay to leave telemetry off for now, but "will eventually need them back on." Also, okayed giving a few ice chips despite the NPO at midnight order, as patient was reporting wanting something to drink.
[2017-02-18] VITALS (15 sets, daily range): BP systolic 93–136; BP diastolic 66–84; PULSE 68–89; RESP 13–20; O2SAT 91–97
[2017-02-18] MEDS: Heparin 5,000 Unit/mL Inj SUBQ SCH ×4 (00:30→20:45)
[2017-02-18] MEDS: Sodium Chloride LOK Flush 10 mL Syringe IVFLUSH SCH ×3 (00:30→16:23)
[2017-02-18] MEDS: Potassium Chloride 20 mEq/15 mL 15mL Oral Soln PO SCH (04:00)
[2017-02-18] MEDS: HYDROmorphone 0.5 mg/0.5 mL iSecure Syringe IVPUSH PRN ×3 (04:24→19:35)
[2017-02-18] MEDS ORDERED: 0.9% Sodium Chloride 250 ML IV PRN (05:00)
[2017-02-18] MEDS: 0.9% NaCl + KCl 20 mEq/L 1,000 ML IV SCH (06:03)
[2017-02-18 06:47] LABS: BASOPHILS % (AUTO) 0.1 % (0-3); EOSINOPHILS % (AUTO) 0 % (0-5); MONOCYTES % (AUTO) 8.8 % (4-12); Mean Corpuscular Hemoglobin 28.1 pg (27.0-35.0); Mean Corpuscular Volume 81.6 fL (81-100); NEUTROPHILS % (AUTO) 81.9 % (40-74); Platelet Count 322 bil/L (150-400)
[2017-02-18 07:13] LABS: Magnesium 2.4 mg/dL (1.6-2.6); Phosphorus 2.7 mg/dL (2.5-4.9)
[2017-02-18] MEDS ORDERED: cefTRIAXone Inj 2,000 MG in Dextrose 5% Minibag Plus 50 ML IV SCH (08:00)
[2017-02-18] MEDS ORDERED: Propofol 10,000 mCg/mL 20 mL Inj ONE (08:44)
[2017-02-18] MEDS ORDERED: fentaNYL-PF 50 mCg/mL 2 mL Inj ONE (08:44)
[2017-02-18] MEDS: Pantoprazole 40 mg ER24 Tablet PO SCH (09:31)
[2017-02-18] MEDS: Vancomycin Dose per Pharmacist XX SCH (09:46)
[2017-02-18] MEDS: 0.9% Sodium Chloride 1,000 ML IV SCH ×2 (10:28→16:24)
--- NOTE | 2017-02-18 11:22 | PCM.PNNEPH ---
Subjective Date of Service Feb 18, 2017 Subjective Patient became hypertensive overnight. Potassium level is 3.7. He reported that pain on the right knee is somewhat better. He is being nothing by mouth for right knee arthroscopy today. Exam Vital Signs Vital Sign - Last Date Time Temp Pulse Resp B/P Pulse Ox O2 Delivery O2 Flow Rate FiO2 02/18/17 09:02 36.5 77 16 130/77 96 Room Air Intake and Output 02/17/17 02/17/17 02/18/17 Cumulative From/Thru 15:00 23:00 07:00 02/17/17 05:00 - 02/18/17 06:41 Intake Total 1000 ml 673 ml 1133 ml 2806 ml Output Total 300 ml 460 ml 200 ml 960 ml Balance 700 ml 213 ml 933 ml 1846 ml Intake Oral 673 ml 200 ml 873 ml IV Total 1000 ml 933 ml 1933 ml Output Urine Total 300 ml 460 ml 200 ml 960 ml # Bowel Movements 0 0 Exam General appearance: Awake, alert, oriented x3. In no acute distress. Flat affect. HEENT: No pallor, no jaundice. No JVD. No lymphadenopathy. No thyroid enlargement. Heart: Regular rhythm. Normal S1, S2. Lungs: Clear to auscultation bilaterally. No wheezing. No rhonchi. Abdomen soft, active bowel sounds. No hepatosplenomegaly. Extremities: No pitting edema. Positive right lower extremity swelling from knee down, especially on the right knee. Pain to touch. Positive for warmth. Limited range of motion due to pain. Lab and Diagnostics Result Diagram: 02/18/17 0632 02/18/17 0632 X-Rays, CTs and MRIs CXR portable IMPRESSION: Mildly reduced inspiratory volume, slight stranding behind the left heart potentially a manifestation of mild or early pneumonia. Followup PA and lateral chest plain film would be very helpful in more accurately assessing for pneumonia in that area. Hip xray IMPRESSION: No displaced fracture seen. If there is continued pain, followup exam or additional imaging such as MRI or CT could be performed for further assessment. R knee xray IMPRESSION: 1. Moderate joint effusion. Additional Diagnostics Renal sonogram FINDINGS: Kidneys: Kidneys are normal in size. Right kidney measures 9.0 cm long; left kidney measures 9.1 cm long. Right renal cortical thickness is 1.6 cm; left renal cortical thickness is 1.4 cm. Renal cortical echotexture is normal. 6 mm nonobstructing left renal calcification. No suspicious solid mass lesions. Mildly complex right kidney cyst not significantly changed measuring 2.5 x 3.4 x 2.6 cm. Bladder: Pre-void bladder volume is 192 mL. Post-void residual is unable to be assessed. Miscellaneous: No free pelvic fluid. IMPRESSION: Mildly complex right renal cyst with no significant change and nonobstructing left renal calcification. Plan Impression ASSESSMENT: 1. Acute kidney injury secondary to sepsis, and intravascular volume depletion. 2. Chronic kidney disease baseline serum creatinine 1-1.3. Etiology could be due to hypertensive nephrosclerosis and urate nephropathy. Nonobstructing nephrolithiasis, questionable uric acid stone. 3. Hyponatremia, could be related to poor oral intake and possible methamphetamine induced. 4. Hypokalemia, improving 5. Hypomagnesemia, improving 6. Mildly elevated serum CPK, rule out related to methamphetamine. 7. Right knee swelling, Rule out septic arthritis versus gouty arthritis. - Hyperuricemia noted. 8. SIRS. 9. Polysubstance abuse. 10. History of hypertension 11. History of diabetes and gout. Plan Continue normal saline plus potassium 20 milliequivalent to run at 100 mL per hour. Recommend to add allopurinol once the episode of acute arthritis subsided. Adjust the medication per eGFR. Avoid nephrotoxins. Raegan Stanton MD Feb 18, 2017 11:22
[2017-02-18] MEDS ORDERED: Lidocaine 2%-Epi 1:100,000 20 mL Inj NERVEBLOCK ONE (13:55)
--- NOTE | 2017-02-18 15:03 | NUR ---
Social Work: Screening Data: Pt is a 36 y/o male admitted for acute renal failure. Pt's PCP is Dr Kessler, pt's insurance is [facility]. EMR reviewed. Pt has a hx of schizophrenia and polysubstance/alcohol abuse. has ordered a Psych consult. FORENSIC MATERIALS ENGINEER will follow regarding d/c and FORENSIC MATERIALS ENGINEER needs after this consult. FORENSIC MATERIALS ENGINEER will continue to follow. Assessment: Pt with mental illness and CD at baseline. Plan: Psych will consult with pt. FORENSIC MATERIALS ENGINEER will follow regarding further FORENSIC MATERIALS ENGINEER needs. PANTERA Hernandez
--- NOTE | 2017-02-18 15:22 | PCM.PNMED ---
Subjective Date of Service Feb 18, 2017 Subjective Was not cooperative with care overnight. Was not febrile, but was mildly hypertensive. Patient was somnolent this morning. He was arousable but refused to answer questions. He did deny any specific pain before going back to sleep. Exam Vital Signs Vital Sign - Last Date Time Temp Pulse Resp B/P Pulse Ox O2 Delivery O2 Flow Rate FiO2 02/17/17 20:00 91 02/17/17 17:02 36.9 16 146/94 97 Room Air Intake and Output 02/17/17 02/17/17 02/18/17 Cumulative From/Thru 15:00 23:00 07:00 02/17/17 05:00 - 02/18/17 06:41 Intake Total 1000 ml 673 ml 1133 ml 2806 ml Output Total 300 ml 460 ml 200 ml 960 ml Balance 700 ml 213 ml 933 ml 1846 ml Intake Oral 673 ml 200 ml 873 ml IV Total 1000 ml 933 ml 1933 ml Output Urine Total 300 ml 460 ml 200 ml 960 ml # Bowel Movements 0 0 Exam General: Well-developed male who is somnolent CV: Regular rate and rhythm with no murmurs rubs or gallops noted. Peripheral pulses intact and equal Respiratory: CTAB, normal respiratory effort Abdomen: Obese, soft, nontender, nondistended, normoactive bowel sounds noted MSK: Patient refused examination Neuro: Somnolent but arousable. Psychiatric: Noncooperative today. IVs and Medications Medications Reviewed: Medications were reviewed in detail Lab and Diagnostics Result Diagram: 02/18/17 0632 02/18/17 0632 X-Rays, CTs and MRIs CXR portable IMPRESSION: Mildly reduced inspiratory volume, slight stranding behind the left heart potentially a manifestation of mild or early pneumonia. Followup PA and lateral chest plain film would be very helpful in more accurately assessing for pneumonia in that area. Hip xray IMPRESSION: No displaced fracture seen. If there is continued pain, followup exam or additional imaging such as MRI or CT could be performed for further assessment. R knee xray IMPRESSION: 1. Moderate joint effusion. Additional Diagnostics Renal sonogram FINDINGS: Kidneys: Kidneys are normal in size. Right kidney measures 9.0 cm long; left kidney measures 9.1 cm long. Right renal cortical thickness is 1.6 cm; left renal cortical thickness is 1.4 cm. Renal cortical echotexture is normal. 6 mm nonobstructing left renal calcification. No suspicious solid mass lesions. Mildly complex right kidney cyst not significantly changed measuring 2.5 x 3.4 x 2.6 cm. Bladder: Pre-void bladder volume is 192 mL. Post-void residual is unable to be assessed. Miscellaneous: No free pelvic fluid. IMPRESSION: Mildly complex right renal cyst with no significant change and nonobstructing left renal calcification. Assessment & Plan Bladimir is a 36-year-old male with history of paranoid schizophrenia, polysubstance abuse, and alcoholism who presented to the ER via EMS for complaint of right knee pain x 2 days. He was also found to be in acute renal insufficiency, with hypokalemia and hypomagnesemia. #Sepsis, acute, POA Patient meets sepsis criteria with a temperature of 37.7 and tachycardia 105 with leukocytosis of 14.4 and his right knee as the source of infection on admission Patient was hydrated in the ED with a bolus of normal saline He had blood cultures drawn and was started on IV ceftriaxone 2 g daily Further management as below #Septic Arthritis, Right Knee, Present on Admission Patient's right knee pain is likely due to septic joint infection. An arthrocentesis was performed and aspirate was sent for analysis, but there was not enough aspirate for culture. Uncertain of etiology of his infection, but certainly trauma and substance abuse is high on the list due to his history and the multiple scabs near his knee. He also reports a history of gout and this is also on the differential. He does deny any trauma or recent procedures, and so endocarditis is possible but unlikely. Infectious disease team has been consulted for further antibiotic management IV Dilaudid 0.5-1.0 mg for pain management. We will continue with IV ceftriaxone Plan for MRI of right knee and surgery with Orthopedics, Dr. Call, today. #Acute renal insufficiency, POA Patient's creatinine on admit was 2.47. He was noted to have a normal creatinine 1.01 in June 2016. Likely due to his infection, poor fluid intake , substance abuse, and possibly his psychiatric medications. Nephrology has been consulted and will be assisting. We will place on telemetry for CV monitoring We will continue further management per nephrology #Hypokalemia, POA - resolved Likely due to depletion and substance abusePotassium level on admit was 2.7. This was replenished with 60 mEq of potassium chloride IV rider Patient refused any PO potassium chloride replacement We will continue to monitor and replenish as needed ECG as needed Potassium levels improved after replenishing #Hypomagnesemia, POA - resolved Patient does have history of hypomagnesemia. His magnesium on admission was 0.9 , this was replenished with 2 g of mag sulfate Continue to monitor and replenish as needed #History of polysubstance abuse, POMarvin Reports only methamphetamine abuse currently. Likely contributing to patient's renal insufficiency and electrolyte abnormalities. #History of alcoholism, POMarvin Reports only rare alcohol consumption in the past few years, it is noted that he lives at a retirement alf. #Paranoid schizophrenia, POA Patient has a fairly extensive history of paranoid schizophrenia .Uncertain if patient has been compliant with his medication regimen. He currently is alert and oriented and denies any hallucinations or SI. We will consult psychiatry for medication management. Patient was somnolent and uncooperative when woken today. Tylenol prn fever and pain Zofran prn nausea Bowel regimen prn constipation CODE STATUS: Patient wishes to be full resuscitation Admission status: Due to patient's medical complexity and risk of adverse events , he will require at least 2 midnights for evaluation, stabilization, and treatment. Pain Evaluation: Adequate Pain Control VTE Prophylaxis: Sub-Q Heparin (Unfractionated) Resuscitation Status: CPR: Attempt Resuscitation Attending Statement The patient was seen and examined together with Dr. Gtz on 02/18/2017 and I agree with the history, exam and plan as outlined in the note above. Eusebio Gtz DO Feb 18, 2017 07:49 Shilo Aguilar MD Feb 19, 2017 09:19
--- NOTE | 2017-02-18 15:30 | PCM.PNPSY ---
Subjective Date of Service Feb 18, 2017 Subjective Received request for psychiatric consultation regarding patient with history of schizophrenia now presenting with knee infection. Patient seen this morning x 2 but was unable to be roused beyond brief awakening. Still awaiting records from [facility]. Spoke with outpatient provider who verified that his current medications are as follows: Olanzapine 10mg po daily and 20mg po nightly Divalproex 500mg po bid Clonazepam 0.5mg po bid Propranolol 20mg po bid Current Medications Current Medications Acetaminophen 975 mg ONCE ONCE PO Last administered on 02/17/17 11:22; Admin Dose 975 MG; Start 02/17/17 at 11:10; Stop 02/17/17 at 11:11; Status DC Ceftriaxone Sodium 2000 mg/ Dextrose/Water 50 ml @ 100 mls/hr ONCE ONCE IV Last administered on 02/17/17 10:34; Admin Dose 100 MLS/HR; Start 02/17/17 at 10:15; Stop 02/17/17 at 10:44; Status DC Ceftriaxone Sodium/Dextrose/ Water 50 ml @ 100 mls/hr Q24H IV Last administered on 02/18/17 09:33; Admin Dose 100 MLS/HR; Start 02/18/17 at 08:00 Clonazepam 0.5 mg BID PO Last administered on 02/18/17 09:31; Admin Dose 0.5 MG ; Start 02/17/17 at 12:45 Clonazepam 1 mg HS PO Last administered on 02/17/17 20:14; Admin Dose 1 MG; Start 02/17/17 at 21:00 Colchicine 0.6 mg 0.6 mg BID PO Last administered on 02/18/17 09:32; Admin Dose 0.6 MG; Start 02/18/17 at 08:30 Divalproex Sodium 500 mg BID PO Last administered on 02/18/17 09:32; Admin Dose 500 MG; Start 02/17/17 at 20:30 Hydromorphone HCl 0.5-1MG Q4H PRN IVPUSH Last administered on 02/18/17 09:34; Admin Dose 1 MG; Start 02/17/17 at 15:50 Hydromorphone HCl 1 mg 1 mg Q15MIN PRN IVPUSH Last administered on 02/17/17 11 :23; Admin Dose 1 MG; Start 02/17/17 at 11:10; Stop 02/17/17 at 15:47; Status DC Lorazepam 1 mg Q4H PRN IVPUSH Last administered on 02/17/17 16:37; Admin Dose 1 MG; Start 02/17/17 at 15:50 Magnesium Sulfate 2 gm/Premix 50 ml @ 50 mls/hr ONCE ONCE IV Last administered on 02/17/17 11:22; Admin Dose 50 MLS/HR; Start 02/17/17 at 11:05; Stop at 12:25; Status DC Magnesium Sulfate/ Premix 100 ml @ 33.333 mls/ hr ONCE ONCE IV Last administered on 02/17/17 19:57; Admin Dose 33.333 MLS/HR; Start 02/17/17 at 12: 25; Stop 02/17/17 at 16:11; Status DC Olanzapine 10 mg DAILY PO Last administered on 02/18/17 09:31; Admin Dose 10 MG ; Start 02/18/17 at 08:30 Olanzapine 20 mg 20 mg HS PO Last administered on 02/17/17 20:57; Admin Dose 20 MG; Start 02/17/17 at 21:00 Pantoprazole 40 mg DAILYAC PO Last administered on 02/18/17 09:31; Admin Dose 40 MG; Start 02/18/17 at 07:30 Potassium Chloride In D5W/ Premix 500 ml @ 125 mls/hr Q4H ONCE IV Last administered on 02/17/17 12:47; Admin Dose 125 MLS/HR; Start 02/17/17 at 11:05 ; Stop 02/17/17 at 16:11; Status DC Potassium Chloride/Sodium Chloride 1,000 ml @ 150 mls/hr Q6H40M IV Last administered on 02/18/17 06:03; Admin Dose 150 MLS/HR; Start 02/17/17 at 10:00 ; Stop 02/18/17 at 08:59; Status DC Propranolol HCl 20 mg BID PO Last administered on 02/18/17 09:31; Admin Dose 20 MG; Start 02/17/17 at 20:30 Sodium Chloride 100 ml @ ud STK-MED ONCE .ROUTE Last administered on 02/17/17 19:57; Admin Dose 10 MLS/HR; Start 02/17/17 at 19:53; Stop 02/17/17 at 19:54; Status DC Sodium Chloride 1,000 ml @ 0 mls/hr Q0M ONCE IV Last administered on 02/17/17 09:25; Admin Dose 1,000 MLS/HR; Start 02/17/17 at 09:00; Stop 02/17/17 at 09:02 ; Status DC Sodium Chloride 1,000 ml @ 150 mls/hr Q6H40M IV Last administered on 02/18/17 10:28; Admin Dose 150 MLS/HR; Start 02/18/17 at 09:55 Sodium Chloride 10 ml 10 ml MUSA IVFLUSH Last administered on 02/18/17 09:33; Admin Dose 10 ML; Start 02/17/17 at 16:30 Vancomycin HCl 1250 mg/Sodium Chloride 250 ml @ 166.667 mls/hr OT ONCE IV Last administered on 02/17/17 16:41; Admin Dose 166.667 MLS/HR; Start 02/17/17 at 11:55; Stop 02/17/17 at 13:24; Status DC Mental Status Exam Vital Signs Vital Signs Date Time Temp Pulse Resp B/P Pulse Ox O2 Delivery O2 Flow Rate FiO2 02/18/17 12:35 37.1 79 20 123/73 96 Room Air 02/18/17 09:02 36.5 77 16 130/77 96 Room Air Appearance: Neat/well groomed Attitude: Other (only briefly rousable) Behavior: Other (somnolent, snoring) Affect: Blunted Mood: Other (unable to assess) Speech Production: Muter Thought Content: Other (unable to assess) Orientation: Unable to assess Memory: Untestable Insight: Unable to assess Judgement: Unable to assess Result Diagram: 02/18/1732 02/18/1732 Mental Health Plan Patient is a 36 year old male with a history schizophrenia, chronic paranoid type and antisocial personality disorder features who presents with acute knee infection. Patient could not be properly assessed due to somnolence. Patient was recently seen in the outpatient clinic and was reported as medication adherent and at his baseline. Patient will need full assessment when awake. [place] AXIS I: Schizophrenia, Chronic paranoid type. Methamphetamine use disorder AXIS II: Antisocial features vs. disorder, by history AXIS III: See medical history AXIS IV: Unknown AXIS V: GAF unable to assess Treatments 1. Would continue with current psychiatric medications until further assessed. 2. If remains somnolent, not secondary to narcotics, would recommend decrease of clonazepam or moving olanzapine all to bedtime. 3. Will complete full consult when patient able to engage in same. If remains somnolent, will complete consult as best as possible from available records. 4. Please contact psychiatry if you have any further questions Bj Sabillon MD Feb 18, 2017 15:30 Bj Sabillon MD Feb 18, 2017 15:30
--- NOTE | 2017-02-18 15:47 | NUR ---
Transferred to OR Patient transferred to OR at 1540. Primary RN witnessed patient signed consent form.
[2017-02-18] MEDS ORDERED: Lactated Ringer's 500 ML IV PRN (16:03)
[2017-02-18] MEDS ORDERED: Lactated Ringer's 1,000 ML IV SCH (16:03)
--- NOTE | 2017-02-18 16:03 | PCM.HPANE ---
Patient Data Surgeon Admitting Provider:Shilo Aguilar MD Attending Provider:Shilo Aguilar MD Primary Care Physician:Jennifer Kessler MD Other Provider: Reason for Visit Acute Renal Failure Ht/WT & BMI Height (Feet): 5 Height (Inches): 8.00 Weight (Kilograms): 77.200 Body Mass Index 25.79 Allergies Coded Allergies: haloperidol (Verified Allergy, Unknown, 07/29/16) Past Anesthesia History Anesthesia History: Denies:: Fam Anesthesia Reaction, Fam Malignant Hypertherm Diabetes History Hx Diabetes?: No MRSA MRSA: Yes Medications Hypertension Medication: No Home Meds Incl Beta Tavares: No Reported Medications Propranolol HCl 20 Mg [id number] Mg PO BID #60 02/17/17 Olanzapine 20 Mg [id number] Mg PO HS #28 02/17/17 Olanzapine 10 Mg [id number] Mg PO QAM #28 02/17/17 Divalproex 500 Mg Tablet.dr500 Mg PO BID #56 02/17/17 Clonazepam 0.5 Mg Tablet1.5 Mg PO HS Ref 0 02/17/17 Clonazepam 0.5 Mg Tablet0.5 Mg PO DAILYWL #112 02/17/17 Discontinued Scripts Clonazepam 1 Mg Tablet1.5 Mg PO HS 30 Days Prov:Gal Lieberman MD 08/15/16 Clonazepam 1 Mg Tablet0.5 Mg PO DAILYWL 30 Days Prov:Gal Lieberman MD 08/15/16 Chlorpromazine 25 Mg [id number] Mg PO BID 30 Days Prov:Gal Lieberman MD 08/15/16 Ferrous Sulfate (Feosol)325 Mg [id number] Mg PO DAILYWM 30 Days Prov:Gal Lieberman MD 08/15/16 History History of ENT Problems?: No HEENT History: Denies:: Cataracts Dysphagia Glaucoma Sinus Problem Hx of Heart Problems?: Yes Cardiovascular History: Positive for:: Hypertension Denies:: Chest Pain Congestive Heart Failure Edema Pacemaker Hx of Respiratory Problem?: Yes Respiratory History: Positive for:: Cough (CHRONIC) Denies:: Asthma (QUESTIONABLE ASTHMA) COPD Chest Surgery Dyspnea Pneumonia Tuberculosis Use of C-PAP Machine Hx Neurologic Problems?: No Neurological History: Denies:: Dementia Headaches Parkinson's Disease Seizures Hx of GI Problems?: No Gastrointestinal History: Positive for:: Rectal Bleeding (MINIMAL R/O HEMORRHOIDS) Denies:: Diverticulitis Gastroesphageal Reflux Gastrointestinal Bleeding Heartburn Hepatitis Hiatal Hernia Hx of Problems?: No Genitourinary History: Denies:: HX of Hemodialysis Kidney Stones Urinary Tract Infection HX of Peritoneal Dialysis: No Male Hx: Denies:: Prostate Problems Scrotal Mass Testicular Surgery Skin History: Positive for:: History Skin Disorders? (LT AXILLARY HYDRADENITIS ) Denies:: Pressure Ulcers Hx Musculoskeletal Problems?: No Hx of Psycho/Social Problems?: Yes (SCHIZOPHRENIA) Psycho Social History: Positive for:: Hx Depression Denies:: Anxiety Bipolar Disorder Suicide Attempt Hx Surgeries?: Yes (SKIN GRAFT, ) Hx Any Other Health Problems?: No Other History: Positive for:: Hospitalization (MULTIPLE INVOL HOLDS/ HOSPITALIZATIONS FOR SCHIZOPHRENIA) Denies:: Cancer Endocrine Disease Thyroid Disease History Blood Transfusions: Positive for:: Accept Blood Products? Denies:: Blood Transfuse Reaction Blood Transfusions Hx Diabetes: No Hx Alcohol Use: Yes (reports he has only had one drink in the past few months) Hx Substance Use: Yes (methamphetamine)Have You Smoked inLast 12 mo: No Stop/Bang Treated for Sleep Apnea?: No Do You Have a CPAP Machine?: No S-Snoring: Do You Snore Loudly: No T-Tired: feel tired, fatigued: Yes O-Obsered: Observed not breath: No P-Blood Pressure: treated: Yes B- Body Mass Index > 35 kg/m2: No A- Age over 50: No N- Neck Large Circumference: No G- Gender Male: Yes ANKITA Total Score: 3 ANKITA Risk Assessment: Low Risk, <3 Yes Risk Assessment Category Category 1A: Patient has history of documented sleep apnea, and HAS NOT received any narcotic, sedative or anesthesia administration during this stay. Category 1B: Patient has history of documented sleep apnea, and HAS received any narcotic , sedative or anesthesia administration during this stay Category 2: Patient has SUSPECTED Obstructive Sleep Apnea, and HAS received any narcotic , sedative or anesthesia administration during this stay. Category 3: Patient has SUSPECTED Obstructive Sleep Apnea and HAS NOT received narcotic, sedative or anesthesia administration during this stay. Category 4: Outpatient in Procedural Areas with known sleep apnea or who screen positive for High Risk via the STOP/BANG questionnaire. Exam Exam Vital Signs Vital Signs Date Time Temp Pulse Resp B/P Pulse Ox O2 Delivery O2 Flow Rate FiO2 02/18/17 12:35 37.1 79 20 123/73 96 Room Air 02/18/17 09:02 36.5 77 16 130/77 96 Room Air General Appearance: Oriented X3, Mild Distress Lungs: Normal Air Movement Heart: Regular Rate/Rhythm Meds/Labs/Diagnostics Admission Meds Current Medications Sodium Chloride 10 ml 10 ml MUSA IVFLUSH Last administered on 02/18/17 09:33; Start 02/17/17 at 16:30 Ceftriaxone Sodium/Dextrose/ Water (Rocephin Inj/ D5W Minibag Plus) 50 ml @ 100 mls/hr Q24H IV Last administered on 02/18/17 09:33; Start 02/18/17 at 08: 00 Clonazepam (KlonoPIN) 1 mg HS PO Last administered on 02/17/17 20:14; Start at 21:00 Pantoprazole (Protonix) 40 mg DAILYAC PO Last administered on 02/18/17 09:31; Start 02/18/17 at 07:30 Divalproex Sodium (Depakote) 500 mg BID PO Last administered on 02/18/17 09:32 ; Start 02/17/17 at 20:30 Propranolol HCl (Inderal) 20 mg BID PO Last administered on 02/18/17 09:31; Start 02/17/17 at 20:30 Olanzapine (ZyPREXA) 10 mg DAILY PO Last administered on 02/18/17 09:31; Start 02/18/17 at 08:30 Olanzapine 20 mg 20 mg HS PO Last administered on 02/17/17 20:57; Start at 21:00 Sodium Chloride (Normal Saline) 100 ml @ ud STK-MED ONCE .ROUTE Last administered on 02/17/17 19:57; Start 02/17/17 at 19:53; Stop 02/17/17 at 19:54 ; Status DC Colchicine 0.6 mg 0.6 mg BID PO Last administered on 02/18/17 09:32; Start at 08:30 Sodium Chloride (Normal Saline) 1,000 ml @ 150 mls/hr Q6H40M IV Last administered on 02/18/17 10:28; Start 02/18/17 at 09:55 Labs Test 02/17/17 07:21 02/17/17 07:30 02/17/17 09:22 02/17/17 15:32 Urine Color Yellow (YELLOW) Urine Appearance Hazy (CLEAR,HAZY) Urine pH 5.5 (5.0-8.0) Urine Specific [place] 1.025 (1.003-1.035) Urine Protein 30mg/dL (NEG,TRACE) Urine Glucose (UA) Negativemg/dL (NEGATIVE) Urine Ketones Negativemg/dL (NEGATIVE) Urine Occult Blood Trace (NEGATIVE) Urine Nitrite Negative (NEGATIVE) Urine Bilirubin Negative (NEGATIVE) Urine Urobilinogen Normalmg/dL (NORMAL) Urine Leukocyte Esterase Negative (NEGATIVE) Urine RBC 0-2/hpf (0-2) Urine WBC 0-5/hpf (0-5) Urine Epithelial Cells Occasional/hpf (NONE-MOD) Urine Crystals Amorphous urates (NONE Urine Bacteria Few/hpf (NONE-FEW) Urine Hyaline Casts None/lpf (NONE) Urine Granular Casts Occasional (NONE SEEN) Urine Waxy Casts None seen (NONE SEEN) Urine Red Blood Cell Casts None seen (NONE SEEN) Urine White Blood Cell Casts None seen (NONE SEEN) Urine Mucus None seen (None Seen) Urine Trichomonas None seen (NONE SEEN) Urine Yeast None (NONE SEEN) Urinalysis Comment None Urine Culture Reflexed Not indicated Urine Random Creatinine 271mg/dL (24-392) Urine Random Total Protein 46mg/dL (0-15) Urine Random Sodium 18mEq/L Urine Osmolality 424mOs/kH2O (250-1200) Osmolality 276 (275-300) Lactic Acid Level 0.8mmol/L (0.4-2.0) Total Creatine Kinase 1422U/L (21-232) Thyroid Stimulating Hormone (TSH) 0.547uIU/mL (0.450-4.500) Salicylates Level < 3.0ug/mL (30-250) Acetaminophen Level < 15.0ug/mL Rx (10-25) Hold Jacobs Top Tube Received (Received) Hemoglobin A1c 5.6% (4.8-5.6) Test 02/17/17 17:56 02/18/17 06:32 Hold Urine Received (Received) White Blood Count 13.2th/mm3 (3.8-10.1) Red Blood Count 4.30mil/mm3 (4.40-5.80) Hemoglobin 12.1g/dL (13.8-17.2) Hematocrit 35.1% (41.0-50.0) Mean Corpuscular Volume 81.6fL (81-100) Mean Corpuscular Hemoglobin 28.1pg (27.0-35.0) Mean Corpuscular Hemoglobin Concent 34.5% (32.0-37.0) Red Cell Distribution Width 13.9% (12.3-15.4) Platelet Count 322bil/L (150-400) Neutrophils (%) (Auto) 81.9% (40-74) Lymphocytes (%) (Auto) 8.9% (14-46) Monocytes (%) (Auto) 8.8% (4-12) Eosinophils (%) (Auto) 0% (0-5) Basophils (%) (Auto) 0.1% (0-3) Erythrocyte Sedimentation Rate 76mm/hr (0-15) Sodium Level 134mEq/L (134-144) Potassium Level 3.7mEq/L (3.5-5.2) Chloride Level 94mEq/L (97-108) Carbon Dioxide Level 24mmol/L (18-29) Blood Urea Nitrogen 27mg/dL (6-20) Creatinine 1.98mg/dL (0.76-1.27) Estimat Glomerular Filtration Rate 40mL/min (>59) Glucose Level 130mg/dL (60-99) Uric Acid 11.3mg/dL (2.6-7.2) Calcium Level 7.6mg/dL (8.5-10.1) Phosphorus Level 2.7mg/dL (2.5-4.9) Magnesium Level 2.4mg/dL (1.6-2.6) Total Bilirubin 1.1mg/dL (0.0-1.2) Aspartate Amino Transf (AST/SGOT) 47U/L (0-50) Alanine Aminotransferase (ALT/SGPT) 56U/L (0-44) Alkaline Phosphatase 166U/L (25-150) C-Reactive Protein 26.1mg/dL (0.0-0.5) Total Protein 5.5g/dL (6.4-8.4) Albumin 3.0g/dL (3.4-5.0) Plan Impression Patient chart reviewed, patient interviewed and anesthestic plan with risks, benefits, and alternatives discussed, and informed consent obtained. NPO Status: 2300 04/24/17 ASA Physical Status: ASA3 Severe Disease Anesthetic Plan: GA Bene/Risks/Altern/Consents: Yes HP Complete Prior to Induction: Yes Adair Dinh MD Feb 18, 2017 16:03
[2017-02-18] MEDS ORDERED: Ondansetron 2 mg/mL 2 mL Inj IVPUSH PRN (16:05)
[2017-02-18] MEDS ORDERED: EPHEDrine Sulfate 50 mg/mL Inj IVPUSH PRN (16:05)
[2017-02-18] MEDS ORDERED: HYDROmorphone 1 mg/mL Inj IVPUSH PRN (16:05)
[2017-02-18] MEDS ORDERED: Phenylephrine 10,000 mCg/mL Inj IVPUSH PRN (16:05)
[2017-02-18] MEDS ORDERED: Dexamethasone 4 mg/mL Inj IVPUSH PRN (16:05)
[2017-02-18] MEDS ORDERED: Lactated Ringer's 1,000 ML IV ONE (16:18)
[2017-02-18] MEDS ORDERED: Vancomycin Inj 1,000 MG in IV Premix 1 EACH IV SCH (16:30)
[2017-02-18] MEDS ORDERED: Lidocaine 1%-Epi 1:100,000 20 mL Inj INFILTRATE ONE (16:55)
[2017-02-18] MEDS ORDERED: Bupivacaine-MPF 0.5% 30 mL Inj INFILTRATE ONE (18:00)
--- NOTE | 2017-02-18 18:37 | PCM.ANEP2 ---
Post Anesthesia Evaluation ASA/CMS Post Anesthesia VS in Patient's Normal Range?: Yes Resp Stable; Airway Patent?: Yes CV Function & Hydration Stable: Yes Mental Status Recovered?: Yes Pain control Satisfactory?: Yes N/V Control Satisfactory?: Yes Adair Dinh MD Feb 18, 2017 18:37
--- NOTE | 2017-02-18 18:37 | PCM.ANEP1 ---
Post Anesthesia Phase 1 PACU Phase 1 Assessment Vital Signs Vital Signs Date Time Temp Pulse Resp B/P Pulse Ox O2 Delivery O2 Flow Rate FiO2 02/18/17 12:35 37.1 79 20 123/73 96 Room Air Anesthetic Administered: GA Level of Alertness: Sleepy, easy to arouse Pain: No Pain Scale Score: 10 Nausea or Vomiting: No Oxygen Delivery: Simple Mask Lungs: Normal Air Movement Adair Dinh MD Feb 18, 2017 18:37
[2017-02-18] MEDS: fentaNYL-PF 50 mCg/mL 2 mL Inj IVPUSH PRN ×2 (18:40→19:00)
[2017-02-18 19:54] LABS: BFWBC 36600 /mm3; MONOCYTES,BODY FLUID 2 %; OTHER CELLS,BODY FLUID 0
--- NOTE | 2017-02-18 21:37 | NUR ---
Return to [facility]/Refusal of care Patient arrived from PACU at 1920. Patient very agitated, repeating "You gave me heroin! I'm not an addict and you gave me heroin!" Patient received Fentanyl in OR. Patient hungry, gave food. Patient refused to elevate leg or use ice pack. Patient refused physical assessment. Patient refused Heparin. Will continue to provide care as patient allows.
--- NOTE | 2017-02-18 22:32 | OP ---
[address] [address] OPERATIVE REPORT PATIENT: DARBY BUSBY : 1980 MR#: [id number] ADMIT: 02/17/2017 JOB ID: [id number] DATE OF SURGERY: 02/18/2017 PREOPERATIVE DIAGNOSIS(ES): 1. Septic right knee. ICD 10 code for the septic knee M00.9. 2. Possible acute gouty arthropathy, right knee. ICD 10 code M10.9. POSTOPERATIVE DIAGNOSIS(ES): 1. Septic right knee. ICD 10 code for the septic knee M00.9. 2. Possible acute gouty arthropathy, right knee. ICD 10 code M10.9. PROCEDURE: 1. Right knee arthroscopic irrigation for septic joint. CPT - code 84096 2. Right knee partial synovectomy for gouty arthropathy. CPT - code 25194 3. Aspiration right knee joint CPT -code 64007 Fluid sent for cultures, gram stain and crystal analysis SURGEON: Dr. Griffin Call. ANESTHESIA: General. ESTIMATED BLOOD LOSS: Less than 5 mL. DRAINS: None. COMPLICATIONS: None. INDICATIONS: This is a 36-year-old male with a history of severe paranoid schizophrenia plus having pain, fevers and erythema of the right knee. He came to the hospital. A small amount of fluid was aspirated from his knee and noted to be cloudy and sent for bacteriology. He was admitted on the hospitalist service and placed on IV antibiotics. The patient evidently had been crawling around on the floor of his hotel with significant knee pain. He does have significant paranoid schizophrenia and has required hospitalization in the past for his mental illness. I was able to at least obtain an informed consent for surgery today. He also has a possible history of gouty arthropathy.Infectious disease has recommended arthroscopic lavage of his knee and possible tissue biopsy. PROCEDURE IN DETAIL: Under adequate general anesthetic, a well-padded tourniquet was applied to the right thigh. The right leg was placed in the arthroscopic leg rosen. Please note that prior to inflation of the tourniquet, I did aspirate the joint for 20 mL of yellow, cloudy fluid that was sent for aerobic, anaerobic cultures, gram stain, sensitivity as well as culture for GC and analysis for protein, crystals and glucose. There did appear to be some crystalline deposit in the fluid that was aspirated. The left leg was prepped and draped in sterile fashion. After appropriate time-out was called, the left leg was elevated, and it was not exsanguinated due to the infection. Tourniquet was inflated to 300 mmHg. The arthroscope was introduced into the anterolateral portal after 1st infiltrating with 1% lidocaine with epinephrine. A sequential examination of the knee was carried out. He was found have a significant amount of crystalloid deposit in the suprapatellar pouch with some chronic synovitis. The medial compartment and medial gutter actually showed a fair amount of crystalline deposit also within the medial gutter with chronic synovitis. The medial compartment itself had some crystalloid deposit along the meniscal rim but the meniscus was intact. The ACL was also intact, but there was a fair amount of crystalloid deposit within the intercondylar notch. The lateral compartment was also inspected. There was some mild fraying of the articular cartilage, but the lateral meniscus was intact. Attention was next turned to the anterior, medial and inferior portal. This was infiltrated with 1% lidocaine with epinephrine to help control any bleeding. A small incision was made. Utilizing the basket forceps as well as the pituitary grasper, a couple of specimens were removed and sent to Pathology to check for crystals. The arthroscopic shaver was then introduced into the joint and some of the crystalline deposit and chronic synovitis in the suprapatellar pouch was debrided as well as some of the crystalloid deposit along the anteromedial gutter and anterior aspect of the medial compartment was debrided. The knee joint was thoroughly irrigated with arthroscopic fluid. It was irrigated clear. Prior to deflation of the tourniquet, the wounds were closed with some interrupted sutures of 3-0 nylon. The patient was noted to have some skin partial thickness breakdown over the anterolateral portion of the knee but not directly over the surgical wounds. He was noted to have this preoperatively. The joint was infiltrated with 20 mL of 0.5% plain Marcaine. Xeroform and dry sterile bulky dressing was applied. The tourniquet was released just after suturing the wounds. The patient had good capillary refill and good return of pedal pulses. The patient was taken to recovery room in stable condition. Sponge and needle count correct. No complications. PLAN: The patient will still be maintained on the hospitalist service. He is to continue on IV antibiotics including IV vancomycin and Ancef. We will await permanent cultures. It is also apparent that he has acute gouty arthropathy in the joint with crystalline deposits. Evidently his uric acid was 12. The original knee dressing should stay in place for approximately two days and then it may be removed. Compliance issues may be a significant factor with this patient with severe mental illness. He should be able to be mobilized with physical therapy and weight bear as tolerated on that knee depending on his cooperation. I have also suggested that he be covered with Lovenox or subcutaneous heparin for DVT prophylaxis. Sutures will need to be removed in about two weeks. He may be seen back in the clinic in two weeks postoperatively. CC: [facility] CC: Lakesha Prince
[2017-02-19] MEDS: HYDROmorphone 0.5 mg/0.5 mL iSecure Syringe IVPUSH PRN ×5 (00:40→21:38)
[2017-02-19] MEDS: 0.9% Sodium Chloride 1,000 ML IV SCH ×3 (00:41→13:31)
[2017-02-19 00:53] VITALS: BP 110/74; PULSE 91; RESP 16; O2SAT 95
[2017-02-19] MEDS ORDERED: Acetaminophen 32.5 mg/mL 20 mL Liquid PO ONE (03:10)
[2017-02-19] MEDS: Heparin 5,000 Unit/mL Inj SUBQ SCH ×3 (03:15→20:44)
--- NOTE | 2017-02-19 03:21 | NUR ---
Temp/Refusal of care Patient's temperature overnight has been 38.4, 37.7, and then 38.2. Patient not cooperative with taking PO Tylenol. MD called, came to assess patient and ordered liquid PO Tylenol. Patient was agitated by being woken up, said, "Why can't you just leave me alone?!...You get paid by the hour, why can't you go see someone else?". Patient then requested to have "medication for my leg, Dilaudid, and warm blankets." Patient then agreeable to take PO Tylenol pills. Administered Tylenol and Dilaudid, gave warm blankets, and patient seemed to fall back asleep. Reported to MD that patient is refusing Heparin, ice to knee, and to keep leg elevated.
[2017-02-19 06:19] LABS: BASOPHILS % (AUTO) 0.3 % (0-3); EOSINOPHILS % (AUTO) 0.4 % (0-5); Mean Corpuscular Hemoglobin 28.1 pg (27.0-35.0); Mean Corpuscular Volume 84.2 fL (81-100); Platelet Count 301 bil/L (150-400)
[2017-02-19 06:29] VITALS: BP 124/82; PULSE 80; RESP 18; O2SAT 95
--- NOTE | 2017-02-19 06:31 | NUR ---
IV out/refusal of care Patient was found at 0620 with IV site displaced, catheter intact laying in the bed. Patient and bedding cleaned up. Attempted to take off old dressing that was saturated, and patient yelled, "What the f... are you doing? Just leave it alone!" Attempted to explain to patient that he needs IV access for his Dilaudid, and he replied, "I don't care! Just go away! You're talking too much!" As of now, patient does not have IV access. Will pass on to day RN.
[2017-02-19 06:36] LABS: ERYTHROCYTE SEDIMENTATION RATE 80 mm/hr (0-15)
[2017-02-19 06:41] LABS: Phosphorus 2.3 mg/dL (2.5-4.9)
[2017-02-19] MEDS: Sodium Chloride LOK Flush 10 mL Syringe IVFLUSH SCH ×4 (08:30→20:55)
[2017-02-19] MEDS: Pantoprazole 40 mg ER24 Tablet PO SCH (10:18)
--- NOTE | 2017-02-19 11:03 | NUR ---
IV Access/Behavior/Medications Pt pulled out IV during night. Unwilling to allow placement of new access per NOC report. Pt given sometime to relax. Attempted again to get IV access. Pt refuses, complains of having pain with last IV start. States "they shoved it in my bone and blood was spurting everywhere." Pt unwilling to allow other nurses to try. Pt gets angry with questioning and assessments. Will swear and yell. Reported pain earlier for knee at 8/10. Paged for order of PO medication because IV access is not available. Dose given, Pain diminished. paged about inability for IV access, plan to speak with pt during rounding.
--- NOTE | 2017-02-19 11:28 | PCM.PNNEPH ---
Subjective Date of Service Feb 19, 2017 Subjective Patient underwent right knee arthroscopic irrigation and partial synovectomy yesterday. During my visit today patient was screaming in pain and requested for more pain medications. Exam Vital Signs Vital Sign - Last Date Time Temp Pulse Resp B/P Pulse Ox O2 Delivery O2 Flow Rate FiO2 02/19/17 06:29 36.4 80 18 124/82 95 Room Air Intake and Output 02/18/17 02/18/17 02/19/17 Cumulative From/Thru 15:00 23:00 07:00 02/17/17 05:00 - 02/19/17 05:07 Intake Total 400 ml 1286 ml 4492 ml Output Total 1170 ml 2130 ml Balance -770 ml 1286 ml 2362 ml Intake Oral 0 ml 873 ml IV Total 400 ml 1286 ml 3619 ml Output Urine Total 1170 ml 2130 ml # Bowel Movements 0 0 Exam General appearance: Awake, alert, oriented x3. Incipient pain HEENT: No pallor, no jaundice. No JVD. No lymphadenopathy. No thyroid enlargement. Heart: Regular rhythm. Normal S1, S2. Lungs: Clear to auscultation bilaterally. No wheezing. No rhonchi. Abdomen soft, active bowel sounds. No hepatosplenomegaly. Extremities: 1+ pitting edema. Dressing on the right knee. Limited range of motion of right knee due to pain. Lab and Diagnostics Result Diagram: 02/19/17 0603 02/19/17 0603 X-Rays, CTs and MRIs CXR portable IMPRESSION: Mildly reduced inspiratory volume, slight stranding behind the left heart potentially a manifestation of mild or early pneumonia. Followup PA and lateral chest plain film would be very helpful in more accurately assessing for pneumonia in that area. Hip xray IMPRESSION: No displaced fracture seen. If there is continued pain, followup exam or additional imaging such as MRI or CT could be performed for further assessment. R knee xray IMPRESSION: 1. Moderate joint effusion. Additional Diagnostics Renal sonogram FINDINGS: Kidneys: Kidneys are normal in size. Right kidney measures 9.0 cm long; left kidney measures 9.1 cm long. Right renal cortical thickness is 1.6 cm; left renal cortical thickness is 1.4 cm. Renal cortical echotexture is normal. 6 mm nonobstructing left renal calcification. No suspicious solid mass lesions. Mildly complex right kidney cyst not significantly changed measuring 2.5 x 3.4 x 2.6 cm. Bladder: Pre-void bladder volume is 192 mL. Post-void residual is unable to be assessed. Miscellaneous: No free pelvic fluid. IMPRESSION: Mildly complex right renal cyst with no significant change and nonobstructing left renal calcification. Plan Impression ASSESSMENT: 1. Acute kidney injury secondary to sepsis, and intravascular volume depletion. Improving 2. Chronic kidney disease baseline serum creatinine 1-1.3. Etiology could be due to hypertensive nephrosclerosis and urate nephropathy. Nonobstructing nephrolithiasis, questionable uric acid stone. 3. Hypocalcemia and hypophosphatemia, need to rule out vitamin D deficiency. 4. Mildly elevated serum CPK, rule out related to methamphetamine. 5. Right knee swelling, Rule out septic arthritis versus gouty arthritis. - Hyperuricemia noted. 6. History of paranoid schizophrenia. 7. Polysubstance abuse. 8. History of hypertension 9. History of diabetes and gout. Plan Start on Neutra-Phos 250 mg 4 times a day. Check vitamin D level Repeat CBC and BMP and magnesium and phosphorus. Decrease rate of NS to 80 mL per hour. Once the inflammation subsided, recommend to start allopurinol 100 mg daily. Raegan Stanton MD Feb 19, 2017 11:28
--- NOTE | 2017-02-19 11:58 | PCM.PNORTH ---
Subjective Date of Service: Feb 19, 2017 Visit Information: Reason for Visit Acute Renal Failure Surgery/Surgery Date Post-Op Day # Date of Admission: Feb 17, 2017 at 09:50 Hospital Day # Subjective Status post day #1 right knee washout for possible septic joint. Patient not complaining of pain. Patient is not communicating super well, feels like he was doing really well today until somebody made him move in bed. Postop General: No Complaints, No Shortness of Breath, No Chest Pain Objective Exam Objective Patient is resting in bed when entering the room. Does not appear to be in acute distress. Not answering questions appropriately, not communicating with some questions that were asked as he wants to rest. Patient does have schizophrenia. Right knee dressing is clean dry and intact. Calf has significant edema which is his baseline but does not appear red, tight, soft and nontender with palpation. Patient able to wiggle toes, sensation intact. Vital Signs and I/O Vital Sign - Last Date Time Temp Pulse Resp B/P Pulse Ox O2 Delivery O2 Flow Rate FiO2 02/19/17 06:29 36.4 80 18 124/82 95 Room Air Intake and Output 02/18/17 02/18/17 02/19/17 Cumulative From/Thru 15:00 23:00 07:00 02/17/17 05:00 - 02/19/17 05:07 Intake Total 400 ml 1286 ml 4492 ml Output Total 1170 ml 2130 ml Balance -770 ml 1286 ml 2362 ml Intake Oral 0 ml 873 ml IV Total 400 ml 1286 ml 3619 ml Output Urine Total 1170 ml 2130 ml # Bowel Movements 0 0 Lab & Micro Results Laboratory Tests Test 02/18/17 19:12 02/19/17 06:03 Body Fluid Source Synovial fluid Body Fluid Color Bloody (Clear) Body Fluid Appearance Turbid Body Fluid WBC 60057/mm3 Body Fluid RBC 27633/mm3 Body Fluid Polynuclear WBCs 98% Body Fluid Lymphocytes 0% Body Fluid Monocytes 2% Body Fluid Eosinophils 0% Body Fluid Basophils 0% White Blood Count 9.6th/mm3 (3.8-10.1) Red Blood Count 3.99mil/mm3 (4.40-5.80) Hemoglobin 11.2g/dL (13.8-17.2) Hematocrit 33.6% (41.0-50.0) Mean Corpuscular Volume 84.2fL (81-100) Mean Corpuscular Hemoglobin 28.1pg (27.0-35.0) Mean Corpuscular Hemoglobin Concent 33.3% (32.0-37.0) Red Cell Distribution Width 14.3% (12.3-15.4) Platelet Count 301bil/L (150-400) Neutrophils (%) (Auto) 63.0% (40-74) Lymphocytes (%) (Auto) 23.1% (14-46) Monocytes (%) (Auto) 13.0% (4-12) Eosinophils (%) (Auto) 0.4% (0-5) Basophils (%) (Auto) 0.3% (0-3) Erythrocyte Sedimentation Rate 80mm/hr (0-15) Sodium Level 140mEq/L (134-144) Potassium Level 4.3mEq/L (3.5-5.2) Chloride Level 101mEq/L (97-108) Carbon Dioxide Level 26mmol/L (18-29) Blood Urea Nitrogen 23mg/dL (6-20) Creatinine 1.51mg/dL (0.76-1.27) Glucose Level 159mg/dL (60-99) Calcium Level 7.8mg/dL (8.5-10.1) Phosphorus Level 2.3mg/dL (2.5-4.9) C-Reactive Protein 22.3mg/dL (0.0-0.5) Albumin 2.7g/dL (3.4-5.0) Microbiology 02/17/17 Blood Culture - Preliminary, Resulted No growth at 2 days; culture examined... 02/18/17 Gram Stain - Final, Resulted 02/18/17 Fluid Crystals - Final, Resulted 02/18/17 Culture & Sensitivity - Preliminary, Resulted No growth to date Result Diagram: 02/19/17 0603 02/19/17 0603 Assessment & Plan Impression Status post day #1 right knee washout. Culture still pending. Patient is comfortable. Problems: Plan Dressing will remain clean dry and intact until tomorrow when this will most likely be changed. Patient will continue Lovenox for DVT prophylaxis. Patient will be able to be weightbearing as tolerated and able to work with physical therapy for transfers and gait training if patient compliant and agreeable. Anticipated that the patient will stay in the hospital for at least 1 more day until he can have appropriate antibiotic coverage depending on cultures. VTE Prophylaxis: Sub-Q Heparin (Unfractionated) Resuscitation Status: CPR: Attempt Resuscitation Jesus He PA-C Feb 19, 2017 11:58
[2017-02-19] MEDS ORDERED: Vancomycin Inj 1,000 MG in IV Premix 1 EACH IV SCH (12:30)
--- NOTE | 2017-02-19 15:26 | PCM.PNMED ---
Subjective Date of Service Feb 19, 2017 Subjective Bladimir Freedman is a 36-year-old male with history of paranoid schizophrenia, polysubstance abuse, and alcoholism who presented to the ER via EMS for complaint of right knee pain x 2 days. He was also found to be in acute renal insufficiency, with hypokalemia and hypomagnesemia. Currently under treatment for gouty arthritis and possible septic arthritis. Hospital day #3 Overnight: Patient lost his IV access and refused to have another IV placed. He intermittently refused care. Today: The patient is sleeping and does not want to interact with any of the staff saying that "we just need to let him get some sleep." He noted to the RN that he has knee pain that is 8/10. A comprehensive review of systems could not be performed due to the patient's non-compliance. Exam Vital Signs Vital Sign - Last Date Time Temp Pulse Resp B/P Pulse Ox O2 Delivery O2 Flow Rate FiO2 02/19/17 06:29 36.4 80 18 124/82 95 Room Air Intake and Output 02/18/17 02/18/17 02/19/17 Cumulative From/Thru 15:00 23:00 07:00 02/17/17 05:00 - 02/19/17 05:07 Intake Total 400 ml 1286 ml 4492 ml Output Total 1170 ml 2130 ml Balance -770 ml 1286 ml 2362 ml Intake Oral 0 ml 873 ml IV Total 400 ml 1286 ml 3619 ml Output Urine Total 1170 ml 2130 ml # Bowel Movements 0 0 Exam General: Well-developed male who is somnolent CV: Regular rate and rhythm with no murmurs rubs or gallops noted. Peripheral pulses intact and equal Respiratory: CTAB, normal respiratory effort Abdomen: Obese, soft, nontender, nondistended, normoactive bowel sounds noted MSK: Patient refused examination Neuro: Somnolent but awakens to voice Psychiatric: Noncooperative today. IVs and Medications Medications Reviewed: Medications were reviewed in detail Lab and Diagnostics Result Diagram: 02/19/17 0603 02/19/17 0603 X-Rays, CTs and MRIs X-RAY CHEST ONE VIEW, PORTABLE IMPRESSION: Mildly reduced inspiratory volume, slight stranding behind the left heart potentially a manifestation of mild or early pneumonia. Followup PA and lateral chest plain film would be very helpful in more accurately assessing for pneumonia in that area. Dictated by: Gregg Pratt M.D. on 02/17/2017 at 9:49 US RENAL SONOGRAM IMPRESSION: Mildly complex right renal cyst with no significant change and nonobstructing left renal calcification. Dictated by: Dimitri Thompson [facility] Interpreted: Gregg Pratt MD on 02/17/2017 at 11 :01 Assessment & Plan Bladimir Freedman is a 36-year-old male with history of paranoid schizophrenia, polysubstance abuse, and alcoholism who presented to the ER via EMS for complaint of right knee pain x 2 days. He was also found to be in acute renal insufficiency, with hypokalemia and hypomagnesemia. Currently under treatment for gouty arthritis and possible septic arthritis. Hospital day #3 1. Gouty arthritis with possible septic arthritis, right knee, present on admission -Noted to have gout crystals on arthroscopic irrigation with probable superimposed infection -Infectious disease team has been consulted for further antibiotic management -IV Dilaudid 0.5-1.0 mg for pain management. -We will continue with IV ceftriaxone and vancomycin -Orthopedics consulted, appreciate the expertise of Dr. Call. 2. Sepsis, acute, present on admission, resolved -Patient meets sepsis criteria with a temperature of 37.7 and tachycardia 105 with leukocytosis of 14.4 and his right knee as the source of infection on admission -Patient was hydrated in the ED with a bolus of normal saline -He had blood cultures drawn and was started on IV ceftriaxone 2 g daily 3. Acute renal insufficiency, present on admission, improving -Patient's creatinine on admit was 2.47. He was noted to have a normal creatinine 1.01 in June 2016. -Likely due to his infection and poor fluid intake. -Nephrology has been consulted appreciate the expertise -Patient refusing telemetry -We will continue further management per nephrology -Normal saline at 80 cc/hr 4. Hypokalemia, present on admission - resolved -Likely due to depletion and substance abuse -Potassium level on admit was 2.7. This was replenished with 60 mEq of potassium chloride IV rider -Patient refused any PO potassium chloride replacement -We will continue to monitor and replenish as needed 5. Hypocalcemia and hypophosphatemia -Need to rule out vitamin D deficiency. -Start on Neutra-Phos 250 mg 4 times a day per nephrology -Vitamin D level pending 6. Hypomagnesemia, present on admission - resolved -Patient does have history of hypomagnesemia. -His magnesium on admission was 0.9, this was replenished with 2 g of mag sulfate -Continue to monitor and replenish as needed 7. History of polysubstance abuse, present on admission -Reports only methamphetamine abuse currently. Likely contributing to patient's renal insufficiency and electrolyte abnormalities. 8. History of alcoholism, present on admission -Reports only rare alcohol consumption in the past few years, it is noted that he [facility] at a [facility]. 9. Paranoid schizophrenia, present on admission -Patient has a fairly extensive history of paranoid schizophrenia. -Uncertain if patient has been compliant with his medication regimen. He currently is alert and oriented and denies any hallucinations or SI. -Psychiatry consulted for medication management. Appreciate time and expertise. -Patient was somnolent and uncooperative when woken today. Tylenol prn fever and pain Zofran prn nausea Bowel regimen prn constipation CODE STATUS: Patient wishes to be full resuscitation Dispo: Anticipate patient will be in the hospital for several more days as his cultures result. VTE Prophylaxis: Sub-Q Heparin (Unfractionated) Resuscitation Status: CPR: Attempt Resuscitation Attending Statement The patient was seen and examined together with Dr. Oneal on 02/19/2017 and I agree with the history, exam and plan as outlined in the note above. Iris Oneal DO Feb 19, 2017 15:26 Shilo Aguilar MD Feb 20, 2017 11:27 Iris Oneal DO Feb 19, 2017 15:26
--- NOTE | 2017-02-19 15:27 | PROG NOTE ---
[address] [address] PROGRESS NOTE PATIENT: DARBY BUSBY : 1980 MR#: [id number] ADMIT: 02/17/2017 JOB ID: [id number] DATE: 02/19/2017 INFECTIOUS DISEASE FOLLOW UP NOTE: REASON FOR FOLLOWUP: Monoarthritis. INTERVAL HISTORY: Recall that this is a 36-year-old gentleman we were asked to see a couple of days ago because of a tender right knee which was thought to be potentially septic at that time. The patient told us he thought he had developed gout because of bad dietary habits and spilling some fluid on his knee. He was not clear as to whether he had a prior history as it is very hard to get a history from him because of his underlying paranoid schizophrenia. In any event, over the past couple days, the patient has undergone additional evaluation including an arthroscopic evaluation of his right knee. He continues to have a great deal of pain there but is free of fever or chills. PHYSICAL EXAMINATION: Is limited by the patient's lack of cooperation. His current temperature is 36.4, but he was febrile to 38.4 earlier. Pulse 80, respiratory rate 18, blood pressure 124/82. He does not appear in any acute distress but is not getting along well with some of the nursing and allied staff on the ortiz. His lungs are clear. His abdomen is without notable abnormality. His knee remains painful. LABORATORIES: Labs include white count 9600, which has dropped from 14,000. Sed rate is around 80. His creatinine is 1.51 down from 2.5 a couple days ago. His CRP is 22, still extremely elevated. Uric acid was 11.3 which is grossly elevated. Albumin 2.7. The sample from the knee done yesterday by Orthopedics has 36,000 white cells and 54,000 red cells. The fluid that was obtained from the culture is positive for monosodium urate crystals. No white cells or organisms were seen and the culture remains negative at this point. Note that an earlier tap in the ED was sent for crystals and those were negative interestingly. Blood cultures are negative and the cultures both from the ED and from yesterday's tap are negative. IMPRESSION: This patient is now status post a right knee washout. It appears that this was all due to gout as the patient had told us on the first day. It is worthwhile keeping in mind that about 5 or 10% of the time when we appear to have a classic gouty monoarthritis such as this that Staph aureus will grow in the culture a few days later so will be keeping our eye on the patient's cultures over the next few days but do not plan to see him again unless something changes. RECOMMENDATIONS: 1. Antibiotics can be discontinued at this time as we have no proof of a septic joint. 2. Will follow along with you until the cultures are negative which will be in a total of five days. Assuming that no bacteria are cultured from this, will conclude that this was a monoarthritis due to gout involving the right knee. ID will sign off at this point [facility]
[2017-02-19] MEDS: Sodium-Potassium Phosphorus Packet PO SCH ×3 (15:40→20:54)
[2017-02-19 17:42] VITALS: BP 109/68; PULSE 91; RESP 18; O2SAT 95
[2017-02-19 20:47] VITALS: BP 129/82; PULSE 84; RESP 18; O2SAT 97
[2017-02-20] MEDS: Heparin 5,000 Unit/mL Inj SUBQ SCH ×2 (00:44→11:15)
[2017-02-20] MEDS: 0.9% Sodium Chloride 1,000 ML IV SCH ×3 (00:44→15:51)
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
--- NOTE | 2017-02-20 01:37 | NUR ---
refusal of care Pt refused any form of assessment, including LE assessment, and his heparin shot. was re approached, still refused. Dilaudid given per pt's request for 07/09 R leg pain with good relief. Addendum: 02/20/17 at 0542 by ROBB VASQUEZ RN refused RLE ortho assessment. Pt accidentally pulled IV out from rolling in bed too much. Tylenol given for pain. able to go back to sleep.
[2017-02-20] MEDS: HYDROmorphone 0.5 mg/0.5 mL iSecure Syringe IVPUSH PRN (02:52)
[2017-02-20 06:19] VITALS: PULSE 85; RESP 18; O2SAT 96
[2017-02-20] MEDS: HYDROcodone-APAP 5-325 mg Tablet PO PRN ×2 (09:30→21:03)
[2017-02-20] MEDS: Pantoprazole 40 mg ER24 Tablet PO SCH (09:32)
[2017-02-20] MEDS: Sodium-Potassium Phosphorus Packet PO SCH ×4 (09:34→21:07)
[2017-02-20] MEDS: Sodium Chloride LOK Flush 10 mL Syringe IVFLUSH SCH ×2 (09:34→15:51)
--- NOTE | 2017-02-20 09:52 | NUR ---
Evaluation completed. Please go to "Notes" then click on "Assessments and Notes" (bottom left corner of screen). Then select appropriate discipline tab on top of screen.
[2017-02-20 10:22] LABS: BASOPHILS % (AUTO) 0.2 % (0-3); MONOCYTES % (AUTO) 10.6 % (4-12); Mean Corpuscular Hemoglobin 27.5 pg (27.0-35.0); Mean Corpuscular Volume 84.6 fL (81-100); NEUTROPHILS % (AUTO) 63.8 % (40-74); Platelet Count 351 bil/L (150-400)
[2017-02-20 10:54] LABS: Phosphorus 2.7 mg/dL (2.5-4.9)
[2017-02-20] MEDS ORDERED: Magnesium Sulf 4 Gm/100 mL H2O 4 GM in IV Premix 1 EACH IV ONE (11:40)
[2017-02-20 12:00] VITALS: BP 132/92; PULSE 90; RESP 16; O2SAT 94
[2017-02-20] MEDS: Magnesium Chloride SR 64 mg ER24 Tablet PO SCH (12:34)
--- NOTE | 2017-02-20 12:44 | NUR ---
Aggression/meds Pt very aggressive towards RN this AM. Stated didn't "appreciate" being woken up at 09 today. Lots of profanity used. Allowed RN to assess R leg/ft initially and refused at the next check. Pt compliant with oral and IV meds. Will continue to monitor.
--- NOTE | 2017-02-20 14:11 | PCM.PNMED ---
Subjective Date of Service Feb 20, 2017 Subjective Continues to refuse care over night. Was afebrile. Bladimir again was very sleepy this morning. He was difficult to arouse, but when he did wake up, he answered only simple questions. He reports continued pain in his right knee. Denies any pain elsewhere. He only wants to be left alone to go back to sleep because he thinks sleeping will heal his pain. Exam Vital Signs Vital Sign - Last Date Time Temp Pulse Resp B/P Pulse Ox O2 Delivery O2 Flow Rate FiO2 02/20/17 06:19 85 18 96 Room Air 02/19/17 20:47 37.3 129/82 Intake and Output 02/19/17 02/19/17 02/20/17 Cumulative From/Thru 15:00 23:00 07:00 02/17/17 05:00 - 02/20/17 06:59 Intake Total 830 ml 800 ml 1870 ml 7992 ml Output Total 1450 ml 1850 ml 1150 ml 6580 ml Balance -620 ml -1050 ml 720 ml 1412 ml Intake Oral 830 ml 800 ml 1870 ml 4373 ml IV Total 3619 ml Output Urine Total 1450 ml 1850 ml 1150 ml 6580 ml # Bowel Movements 0 Exam General: Well-developed male who is somnolent but arousable with loud noises CV: Regular rate and rhythm with no murmurs rubs or gallops noted. Peripheral pulses intact and equal Respiratory: CTAB, normal respiratory effort Abdomen: Obese, soft, nontender, nondistended, normoactive bowel sounds noted MSK: Right knee tender to palpation, wrapped in compressive dressing. Neuro: Somnolent but awakens to loud noises, answers yes or no questions. Psychiatric:slightly more cooperative today. IVs and Medications Medications Reviewed: Medications were reviewed in detail Lab and Diagnostics Result Diagram: 02/19/1760202/19/17 06 X-Rays, CTs and MRIs X-RAY CHEST ONE VIEW, PORTABLE IMPRESSION: Mildly reduced inspiratory volume, slight stranding behind the left heart potentially a manifestation of mild or early pneumonia. Followup PA and lateral chest plain film would be very helpful in more accurately assessing for pneumonia in that area. Dictated by: Gregg Pratt M.D. on 02/17/2017 at 9:49 US RENAL SONOGRAM IMPRESSION: Mildly complex right renal cyst with no significant change and nonobstructing left renal calcification. Dictated by: Dimitri Thompson [facility] Interpreted: Gregg Pratt MD on 02/17/2017 at 11 :01 Assessment & Plan Bladimir Freedman is a 36-year-old male with history of paranoid schizophrenia, polysubstance abuse, and alcoholism who presented to the ER via EMS for complaint of right knee pain x 2 days. He was also found to be in acute renal insufficiency, with hypokalemia and hypomagnesemia. Currently under treatment for gouty arthritis and possible septic arthritis. Hospital day #3 1. Gouty arthritis exacerbation of right knee, present on admission -Noted to have gout crystals on arthroscopic irrigation by orthopedics. -Infectious disease team has been consulted for further antibiotic management -Pain management switched to PO [place] -IV ceftriaxone and vancomycin started initially, but discontinued due to the low likelihood of infection. -Orthopedics consulted, appreciate the expertise of Dr. Call. -Initiated Colchicine and Allopurinol for treatment of his gout. 2 Acute renal insufficiency, present on admission, improving -Patient's creatinine on admit was 2.47. He was noted to have a normal creatinine 1.01 in June 2016. -Likely due to his gout and poor fluid intake. -Nephrology has been consulted appreciate the expertise -Patient refused telemetry -Normal saline at 80 cc/hr - Cr normalized today 4. Hypokalemia, present on admission - resolved -Likely due to depletion and substance abuse -Potassium level on admit was 2.7. This was replenished with 60 mEq of potassium chloride IV rider -Patient refused any PO potassium chloride replacement -We will continue to monitor and replenish as needed 5. Hypocalcemia and hypophosphatemia -Need to rule out vitamin D deficiency. -Started on Neutra-Phos 250 mg 4 times a day per nephrology -Vitamin D level pending 6. Hypomagnesemia, present on admission - resolved -Patient does have history of chronic hypomagnesemia. -His magnesium on admission was 0.9, this was replenished with 2 g of mag sulfate -Was low again with Mg of 1.0, will replenish with IV rider. He is also on Slow mag daily 7. History of polysubstance abuse, present on admission -Reports only methamphetamine abuse currently. Likely contributing to patient's renal insufficiency and electrolyte abnormalities. 8. History of alcoholism, present on admission -Reports only rare alcohol consumption in the past few years, it is noted that [facility] at a [facility]. 9. Paranoid schizophrenia, present on admission -Patient has a fairly extensive history of paranoid schizophrenia. -Uncertain if patient has been compliant with his medication regimen. He currently is alert and oriented and denies any hallucinations or SI. -Psychiatry consulted for medication management. Appreciate time and expertise. -Patient was somnolent again, will plan to decrease morning Clonazepam dosage. Tylenol prn fever and pain Zofran prn nausea Bowel regimen prn constipation CODE STATUS: Patient wishes to be full resuscitation Dispo: Likely discharge in 1-2 more days if stable. Pain Evaluation: Adequate Pain Control VTE Prophylaxis: Sub-Q Heparin (Unfractionated) Resuscitation Status: CPR: Attempt Resuscitation Attending Statement The patient was seen and examined together with Dr. Gtz on 02/20/2017 and I agree with the history, exam and plan as outlined in the note above. Eusebio Gtz DO Feb 20, 2017 07:59 Shilo Aguilar MD Feb 21, 2017 11:22
--- NOTE | 2017-02-20 14:35 | PCM.PNPSY ---
Subjective Date of Service Feb 20, 2017 Subjective The patient had a number of physical requests and requested additional pain medication. He denied acute psychiatric issues. Sleep: okay Appetite: okay Suicidal and homicidal ideation: denies Auditory hallucinations/Visual hallucinations: denies Other Psychotic Symptoms: N/A Anxiety/Depression: "why are you asking me all these questions?" Current Medications Current Medications Acetaminophen 975 mg Q6H PRN PO Last administered on 02/20/17 09:31; Admin Dose 975 MG; Start 02/18/17 at 18:55 Acetaminophen/ Hydrocodone Bitart 1 tablet 1 tablet Q4 PRN PO Last administered on 02/20/17 09:30; Admin Dose 1 TABLET; Start 02/20/17 at 09:15 Bupivacaine HCl 30 ml STK-MED ONCE INFILTRATE Last administered on 02/18/17 18: 00; Admin Dose 30 ML; Start 02/18/17 at 18:00; Stop 02/18/17 at 18:22; Status DC Colchicine 1.2 mg ONCE ONCE PO Last administered on 02/19/17 15:40; Admin Dose 1.2 MG; Start 02/19/17 at 08:45; Stop 02/19/17 at 09:09; Status DC Fentanyl Citrate 25-50 mcg IV every 5 min p... Q5MIN PRN IVPUSH Last administered on 02/18/17 19:00; Admin Dose 50 MCG; Start 02/18/17 at 16:05; Stop 02/18/17 at 19:21; Status DC Lactated Ringer's 1,000 ml @ ud STK-MED ONCE IV Last administered on 02/18/17 16:18; Start 02/18/17 at 16:18; Stop 02/18/17 at 17:01; Status DC Lidocaine/ Epinephrine 10 ml STK-MED ONCE INFILTRATE Last administered on 16:55; Admin Dose 10 ML; Start 02/18/17 at 16:55; Stop 02/18/17 at 18:22; Status DC Magnesium Chloride 64 mg DAILY PO Last administered on 02/20/17 12:34; Admin Dose 64 MG; Start 02/20/17 at 11:40; Stop 02/27/17 at 11:41 Magnesium Sulfate/ Premix 100 ml @ 25 mls/hr ONCE ONCE IV Last administered on 02/20/17 12:31; Admin Dose 25 MLS/HR; Start 02/20/17 at 11:40; Stop at 15:39 Oxycodone HCl 5 mg ONCE ONCE PO Last administered on 02/19/17 10:20; Admin Dose 5 MG; Start 02/19/17 at 09:58; Stop 02/19/17 at 09:59; Status DC Potassium/ Phosphorus/Sodium 1 ea PCHS PO Last administered on 02/20/17 12:32; Admin Dose 1 EA; Start 02/19/17 at 13:00; Stop 02/26/17 at 13:01 Vancomycin/0.9 % Sod Chloride/ Premix 200 ml @ 133.333 mls/hr Q24H IV Last administered on 02/18/17 20:44; Admin Dose 133.333 MLS/HR; Start 02/18/17 at 16 :30; Stop 02/19/17 at 11:35; Status DC Mental Status Exam Vital Signs Vital Signs Date Time Temp Pulse Resp B/P Pulse Ox O2 Delivery O2 Flow Rate FiO2 02/20/17 12:00 36.5 90 16 132/92 94 Room Air Appearance: Neat/well groomed Attitude: Cooperative, Guarded Behavior: Other (marginally cooperative with interview) Affect: Restricted Mood: Euthymic, Irritable Thought Process/Associations: Logical/Sequential, Goal Directed Speech Production: Paucity Speech Rate: Normal Speech Articulation: Normal Thought Content: Appropriate Danger to Self/Suicidal Ideati: None Danger to Others: None Delusions: Paranoid (Denies) Hallucinations: Auditory (Denies), Visual (Denies) Consciousness: Somnolent Orientation: Person, Place, Situation Memory: Untestable (due to minimal cooperation, but appears grossly intact.) Estimate Intellectual Function: Average Basis for IQ estimate: Word use/vocabulary, Educational history Attention/Concentration & Cogn: Impaired Insight: Limited Judgement: Limited Result Diagram: 02/20/17 1015 02/20/17 1015 Mental Health Plan The patient is a 36-year-old male with an extensive mental health, criminal, and substance use history, who presents with right knee sepsis. According to his outpatient treatment team, he is likely near his baseline. He is not expressing any acute symptoms and his irritability and anger appear to be more related to personality disorder. He appears to be adequately treated with his current medications. [place] AXIS I: Schizophrenia, Chronic paranoid type. Methamphetamine use disorder AXIS II: Antisocial features vs. disorder, by history AXIS III: See medical history AXIS IV: Unknown but significant history of multiple incarcerations, substance use, and recent loss of housing. AXIS V: GAF 45 Medications 1. Clonazepam 0.5 mg daily and 1.5 mg nightly. 2. Ferrous sulfate 325 mg daily. 3. Olanzapine 10 mg daily and 20 mg nightly. 4. Propranolol 20 mg twice daily. 5. Divalproex 500mg twice daily Treatments 1. Would continue psychiatric medications as currently written. 2. Should the patient develop excessive sedation, clonazepam could be reduced to 0.5 mg daily and 1 mg at bedtime. 3. The patient is reporting no acute psychiatric issues and would like no changes to his current regimen. 4. Will follow-up patient on 02/22/17 and if remains stable, will sign off. 5. Please contact psychiatry if you have any further questions Bj Sabillon MD Feb 20, 2017 14:35
--- NOTE | 2017-02-20 15:31 | PATH ---
SURGICAL PATHOLOGY Attending Physician:Damián Becker CASE STATUS: Signed Out PATIENT NAME: DARBY BUSBY PID: [id number] : 1980 DATE COLLECTED:02/18/2017 00:00 SPECIMEN: Soft Tissue Mass, Biopsy CLINICAL HISTORY: SEPTIC RIGHT KNEE JOINT 1). CRYSTAL TISSUE RIGHT KNEE FINAL DIAGNOSIS: 1.SPECIMEN DESIGNATED CRYSTAL TISSUE, RIGHT KNEE: FIBROFATTY TISSUE WITH SEVERE DIFFUSE ACUTE INFLAMMATION WITH FOCAL NECROSIS. ICD10 M00.9 GROSS DESCRIPTION: The specimen is received in one formalin filled container labeled with the patient's name, sublabeled "crystal tissue RT knee" and consists of 3 portions of tissue which aggregate to 0.7 x 0.5 x 0.2 CM. The specimen is entirely submitted in one cassette. 02/19/2017 [facility] MICRO DESCRIPTION: See diagnosis. ICD-9 CODES: CPT CODES: 62049 Electronically Signed Out Charles Argueta MD [facility] Pathology [facility] [address], [place] [address] Technical component performed at [facility], [facility] [address], [place], [address]
--- NOTE | 2017-02-20 18:28 | NUR ---
R knee dressing change Surgeon in to assess and rewrap R knee. Will continue to follow pt but left instructions for RN care to area. 5x9 xeroform, 4x4, cast dressing, jacek wrap. Order placed in chart.
[2017-02-20 20:57] VITALS: BP 110/74; PULSE 98; RESP 18; O2SAT 96
--- NOTE | 2017-02-20 20:58 | PROG NOTE ---
[address] [address] PROGRESS NOTE PATIENT: DARBY BUSBY : 1980 MR#: [id number] ADMIT: 02/17/2017 JOB ID: [id number] DATE: 02/20/2017 CONSULTATION FOLLOWUP NOTE: Patient's dressing was changed today from his right knee arthroscopy and debridement of his significantly swollen, gouty knee. There was no sign of infection. He did have an area that was somewhat abraded preoperatively over the lateral aspect of the knee and that was re-dressed with some Xeroform. The arthroscopic wounds are clean and dry. Neurovascular exam is intact. IMPRESSION: Gouty arthropathy, right knee with acute knee pain. PLAN: Patient will be difficult to manage with his significant paranoid schizophrenia. I have concerns that if he is discharged to his own recognizance that he may well come back in with superinfection in the knee wound since he will not be able to care for the wounds himself. Those sutures need to be removed probably in about 10 days. I highly recommend hopefully that he may continue with medical treatment here until at least the wounds are stable. If you have any further questions, please do not hesitate to contact us. The patient may be ambulated. Weight bear as tolerated with a walker or crutches. They may do some gentle range of motion to knee. CC: [facility]
[2017-02-21] MEDS ORDERED: Vancomycin Serum Trough XX ONE
[2017-02-21] MEDS: Sodium Chloride LOK Flush 10 mL Syringe IVFLUSH SCH ×3 (00:30→17:35)
[2017-02-21 05:23] VITALS: BP 135/84; PULSE 86; RESP 18; O2SAT 95
[2017-02-21 05:58] LABS: BASOPHILS % (AUTO) 0.1 % (0-3); EOSINOPHILS % (AUTO) 4.3 % (0-5); MONOCYTES % (AUTO) 8.2 % (4-12); Mean Corpuscular Hemoglobin 27.8 pg (27.0-35.0); Mean Corpuscular Volume 85.4 fL (81-100); NEUTROPHILS % (AUTO) 52.3 % (40-74); Platelet Count 403 bil/L (150-400)
[2017-02-21 06:19] LABS: Magnesium 1.8 mg/dL (1.6-2.6)
[2017-02-21 06:36] LABS: ERYTHROCYTE SEDIMENTATION RATE 48 mm/hr (0-15)
[2017-02-21] MEDS: Sodium-Potassium Phosphorus Packet PO SCH ×5 (08:30→20:38)
[2017-02-21] MEDS ORDERED: Ergocalciferol (Vit D2) 50,000 Unit Capsule PO SCH (08:35)
[2017-02-21] MEDS: HYDROcodone-APAP 5-325 mg Tablet PO PRN ×3 (09:38→20:40)
[2017-02-21] MEDS: Magnesium Chloride SR 64 mg ER24 Tablet PO SCH (09:40)
--- NOTE | 2017-02-21 11:45 | NUR ---
BM Pt refusing to communicate date of last BM stating, "Just leave me alone!" Attempted to discuss importance of regular BM's while using narcotics, pt continued to refuse to give date or allow this RN to do an assessment for bowel tones, distention, etc. This RN asked pt if I got an order for MiraLax would it be okay to give him that and pt said, "I don't care what you do! Just leave me alone!" This RN verified that when order rec'd for MiraLax, it would be given mixed in juice and pt stated again, "I don't care." paged for order.
--- NOTE | 2017-02-21 12:29 | PCM.PNMED ---
Subjective Date of Service Feb 21, 2017 Subjective Was afebrile overnight. Patient was awake and eating breakfast this morning. He reports he still has some moderate pain in his right knee, but denies pain elsewhere and denies any shortness of breath. Exam Vital Signs Vital Sign - Last Date Time Temp Pulse Resp B/P Pulse Ox O2 Delivery O2 Flow Rate FiO2 02/21/17 05:23 37.0 86 18 135/84 95 Room Air Intake and Output 02/20/17 02/20/17 02/21/17 Cumulative From/Thru 14:59 22:59 06:59 02/17/17 05:00 - 02/21/17 06:08 Intake Total 1450 ml 1338 ml 85767 ml Output Total 200 ml 2375 ml 9155 ml Balance 1250 ml -1037 ml 1625 ml Intake Oral 1000 ml 436 ml 5809 ml IV Total 450 ml 902 ml 4971 ml Output Urine Total 200 ml 2375 ml 9155 ml # Bowel Movements 0 Exam General: Well-developed male who appears in no acute distress while eating breakfast CV: Regular rate and rhythm with no murmurs rubs or gallops noted. Peripheral pulses intact and equal Respiratory: CTAB, normal respiratory effort Abdomen: Obese, soft, nontender, nondistended, normoactive bowel sounds noted MSK: Right knee tender to palpation, wrapped in compressive dressing. Peripheral pulses intact and equal. 1+ pitting edema of RLE Neuro: Alert and oriented, nonfocal exam Psychiatric:slightly more cooperative today. IVs and Medications Medications Reviewed: Medications were reviewed in detail Lab and Diagnostics Result Diagram: 02/21/1752402/21/17524 X-Rays, CTs and MRIs X-RAY CHEST ONE VIEW, PORTABLE IMPRESSION: Mildly reduced inspiratory volume, slight stranding behind the left heart potentially a manifestation of mild or early pneumonia. Followup PA and lateral chest plain film would be very helpful in more accurately assessing for pneumonia in that area. Dictated by: Gregg Pratt M.D. on 02/17/2017 at 9:49 US RENAL SONOGRAM IMPRESSION: Mildly complex right renal cyst with no significant change and nonobstructing left renal calcification. Dictated by: Dimitri Thompson [facility] Interpreted: Gregg Pratt MD on 02/17/2017 at 11 :01 Assessment & Plan Bladimir Freedman is a 36-year-old male with history of paranoid schizophrenia, polysubstance abuse, and alcoholism who presented to the ER via EMS for complaint of right knee pain x 2 days. He was also found to be in acute renal insufficiency, with hypokalemia and hypomagnesemia. Currently under treatment for gouty arthritis and possible septic arthritis. Hospital day #3 1. Gouty arthritis exacerbation of right knee, present on admission -Noted to have gout crystals on arthroscopic irrigation by orthopedics. -Infectious disease team has been consulted for further antibiotic management -Pain management switched to PO [place] -IV ceftriaxone and vancomycin started initially, but discontinued due to the low likelihood of infection. -Orthopedics consulted, appreciate the expertise of Dr. Call. -Initiated Colchicine and Allopurinol for treatment of his gout. -Dressing change by orthopedics yesterday afternoon. They recommend custodial facility placement while the knee heals after surgery 2 Acute renal insufficiency, present on admission, improving -Patient's creatinine on admit was 2.47. He was noted to have a normal creatinine 1.01 in June 2016. -Likely due to his gout and poor fluid intake. -Nephrology has been consulted appreciate the expertise -Patient refused telemetry -Resolved 4. Hypokalemia, present on admission - resolved -Likely due to depletion and substance abuse -Potassium level on admit was 2.7. This was replenished with 60 mEq of potassium chloride IV rider -Patient refused any PO potassium chloride replacement -We will continue to monitor and replenish as needed 5. Hypocalcemia and hypophosphatemia secondary to vitamin D deficiency -Vitamin D level of 10 -Started on Neutra-Phos 250 mg 4 times a day per nephrology -Ergocalciferol started per nephrology 6. Hypomagnesemia, present on admission - resolved -Patient does have history of chronic hypomagnesemia. -His magnesium level has been labile, but easily correctable with IV magnesium riders -Magnesium today was 1.8. Daily Slow-Mag was started by nephrology 7. History of polysubstance abuse, present on admission -Reports only methamphetamine abuse currently. Likely contributing to patient's renal insufficiency and electrolyte abnormalities. 8. History of alcoholism, present on admission -Reports only rare alcohol consumption in the past few years, it is noted that [facility] a [facility]. 9. Paranoid schizophrenia, present on admission -Patient has a fairly extensive history of paranoid schizophrenia. -Uncertain if patient has been compliant with his medication regimen. He currently is alert and oriented and denies any hallucinations or SI. -Psychiatry consulted for medication management. Appreciate time and expertise. -Patient less somnolent today with decrease in clonazepam dosage Tylenol prn fever and pain Zofran prn nausea Bowel regimen prn constipation CODE STATUS: Patient wishes to be full resuscitation Prophylaxis: Patient refused his heparin and Lovenox injections despite education on necessity Dispo: Likely discharge in 1-2 more days if stable. Pain Evaluation: Adequate Pain Control VTE Prophylaxis: Sub-Q Heparin (Unfractionated) Resuscitation Status: CPR: Attempt Resuscitation Attending Statement The patient was seen and examined together with Dr. Gtz on 02/21/2017 and I agree with the history, exam and plan as outlined in the note above. Eusebio Gtz DO Feb 21, 2017 12:29 Shilo Aguilar MD Feb 22, 2017 11:31
[2017-02-21 12:33] VITALS: BP 128/89; PULSE 90; RESP 20; O2SAT 99
--- NOTE | 2017-02-21 12:49 | PCM.PNNEPH ---
Subjective Date of Service Feb 21, 2017 Subjective Patient has no fever overnight. He is not cooperative. Kidney function continues to improve. Exam Vital Signs Vital Sign - Last Date Time Temp Pulse Resp B/P Pulse Ox O2 Delivery O2 Flow Rate FiO2 02/21/17 12:33 36.8 90 20 128/89 99 Room Air Intake and Output 02/20/17 02/20/17 02/21/17 Cumulative From/Thru 15:00 23:00 07:00 02/17/17 05:00 - 02/21/17 06:08 Intake Total 1450 ml 1338 ml 62830 ml Output Total 200 ml 2375 ml 9155 ml Balance 1250 ml -1037 ml 1625 ml Intake Oral 1000 ml 436 ml 5809 ml IV Total 450 ml 902 ml 4971 ml Output Urine Total 200 ml 2375 ml 9155 ml # Bowel Movements 0 Exam General appearance: Lying in bed comfortably in on acute distress. HEENT: No pallor, no jaundice. No JVD. No lymphadenopathy. No thyroid enlargement. Heart: Regular rhythm. Normal S1, S2. Lungs: Clear to auscultation bilaterally. No wheezing. No rhonchi. Abdomen soft, active bowel sounds. No hepatosplenomegaly. Extremities: 1+ pitting edema. Dressing on the right knee. Limited range of motion of right knee due to pain. Lab and Diagnostics Result Diagram: 02/21/1752402/21/17524 X-Rays, CTs and MRIs X-RAY CHEST ONE VIEW, PORTABLE IMPRESSION: Mildly reduced inspiratory volume, slight stranding behind the left heart potentially a manifestation of mild or early pneumonia. Followup PA and lateral chest plain film would be very helpful in more accurately assessing for pneumonia in that area. Dictated by: Gregg Pratt M.D. on 02/17/2017 at 9:49 US RENAL SONOGRAM IMPRESSION: Mildly complex right renal cyst with no significant change and nonobstructing left renal calcification. Dictated by: Dimitri Thompson [facility] Interpreted: Gregg Pratt MD on 02/17/2017 at 11 :01 Plan Impression 1. Acute kidney injury secondary to sepsis, and intravascular volume depletion. Improving 2. Hypocalcemia and hypophosphatemia, secondary to vitamin D deficiency. 3. Right knee swelling related to acute gouty arthritis. Septic arthritis ruled out. Status post right arthroscopy and synovectomy. (+) Monosodium urate crystals. 4. History of gout and hyperuricemia. 5. History of paranoid schizophrenia. 6. Polysubstance abuse. 7. History of hypertension. 8. History of diabetes. Plan: Will start patient on ergocholecalciferol 50,000 units by route weekly. Renal service will sign off. Please do not hesitate to call with any questions or concern. Raegan Stanton MD Feb 21, 2017 12:49
[2017-02-21] MEDS: Polyethylene Glycol (PEG) 17 Gm Powder PO SCH (13:51)
--- NOTE | 2017-02-21 14:38 | NUR ---
Social Work-continued d/c planning: data& assessment:EMR reviewed. Pt is on day 4 of hospitalization for acute renal failure per H&P. Per MD, pt is several days out from discharge. SW followed up with pt at bedside to discuss CD assessment and discharge planning, SW role explained. Pt under covers and not willing to engage with SW. SW discussed DPOA/ advanced directive, pt states he is not interested in any information and does not want to do this. SW asked pt about his substance use and ETOH history. Pt states he has not used in a long time and wants SW to leave. Psychiatry will continue to follow with pt. SW will continue to follow. Plan:Pt to discharge back to [facility] when medically stable. SW to follow up again regarding CD assessment, pt not willing to engage today. Psychiatry will continue to follow with pt. SW will continue to follow. PANTERA Roberts
--- NOTE | 2017-02-21 18:12 | NUR ---
Compliance Pt continues to refuse to allow assessments to done, R knee bandage to be assessed, stating, "Leave me alone!" MiraLax given earlier, when questioned further about date of last BM, pt states, "I told you earlier!" Pt refused to work with PT x2. Pt has a hx of DM, refused blood sugars. Initially refused to allow this RN to flush IV then did allow later. Pt did self transfer to BR and pulled call light in BR once there. Per [employer] DEVEL[employer]CHIT[employer], pt a little unsteady while amb back to bed. Currently resting comfortably, bed in lowest, locked position and call light in reach.
[2017-02-21 20:34] VITALS: BP 133/85; PULSE 86; RESP 18; O2SAT 96
[2017-02-22] MEDS: Sodium Chloride LOK Flush 10 mL Syringe IVFLUSH SCH ×3 (00:22→15:48)
[2017-02-22 05:13] VITALS: BP 139/86; PULSE 93; RESP 18; O2SAT 96
--- NOTE | 2017-02-22 05:48 | NUR ---
PT ACTIVITY/REFUSAL OF CARE Pt has remained in bed during shift. Pt either spilled urine or was incontinent on large amt of urine. Bedding and gown changed. Pt continues to refuse physical assessments. Pt does take scheduled medications. Continue to monitor. Call light in reach. Intentional rounding.
[2017-02-22 05:54] LABS: BASOPHILS % (AUTO) 0.3 % (0-3); EOSINOPHILS % (AUTO) 3.5 % (0-5); MONOCYTES % (AUTO) 9.5 % (4-12); Mean Corpuscular Volume 84.2 fL (81-100); NEUTROPHILS % (AUTO) 49.6 % (40-74); Platelet Count 404 bil/L (150-400)
[2017-02-22 06:32] LABS: Magnesium 1.1 mg/dL (1.6-2.6)
[2017-02-22] MEDS ORDERED: Magnesium Sulf 4 Gm/100 mL H2O 4 GM in IV Premix 1 EACH IV ONE ×2 (06:40→08:40)
[2017-02-22] MEDS: Sodium-Potassium Phosphorus Packet PO SCH ×4 (08:48→20:18)
[2017-02-22] MEDS: Magnesium Chloride SR 64 mg ER24 Tablet PO SCH (08:49)
[2017-02-22] MEDS: HYDROcodone-APAP 5-325 mg Tablet PO PRN ×2 (08:50→20:18)
[2017-02-22] MEDS: Polyethylene Glycol (PEG) 17 Gm Powder PO SCH (08:50)
--- NOTE | 2017-02-22 10:00 | NUR ---
IV IV became dislodged, wrapped around pt's torso and in blankets. Pt telling this RN to "just leave it" when attempting to remove remainder of drsg and place a band-aid. IV therapy called due to pt's behavior with IV placement in the past. Addendum: 02/22/17 at 1226 by RISSA PRESTON RN IVT was able to replace IV that was dislodged. Pt swearing but allowed IV to be placed. Shortly after, pt did allow this RN to change drsg to R knee. Following drsg change, urinal spilled in bed so pt assisted to chair at bedside so linen and gown could be change. Pt screaming and yelling about financial issues, wanting his mother to let him live with her and getting his tattoo's removed. Pt assisted back to bed and currently resting.
--- NOTE | 2017-02-22 11:19 | PCM.PNPSY ---
Subjective Date of Service Feb 22, 2017 Subjective Following introductions, the patient stated, " I thought you said you weren't going to bother me for a few minutes?" I clarified with the patient that this was a psychiatric visit and he briefly answered questions and he reported no acute psychiatric issues. He denied side effects to medications. Sleep: okay Appetite: okay Suicidal and homicidal ideation: denies Auditory hallucinations/Visual hallucinations: denies Other Psychotic Symptoms: N/A Anxiety/Depression: Denies Current Medications Current Medications Allopurinol 100 mg HS PO Last administered on 02/21/17 20:37; Admin Dose 100 MG ; Start 02/20/17 at 21:00 Clonazepam 0.5 mg 0.5 mg DAILY PO Last administered on 02/22/17 08:48; Admin Dose 0.5 MG; Start 02/21/17 at 08:30 Ergocalciferol 50,000 unit WEEKLY PO Last administered on 02/21/17 09:39; Admin Dose 50,000 UNIT; Start 02/21/17 at 08:35 Magnesium Chloride 64 mg DAILY PO Last administered on 02/22/17 08:49; Admin Dose 64 MG; Start 02/20/17 at 11:40; Stop 02/27/17 at 11:41 Magnesium Sulfate/ Premix 100 ml @ 25 mls/hr ONCE ONCE IV Last administered on 02/20/17 12:31; Admin Dose 25 MLS/HR; Start 02/20/17 at 11:40; Stop at 15:39; Status DC Magnesium Sulfate/ Premix 100 ml @ 25 mls/hr ONCE ONCE IV Last administered on 02/22/17 06:49; Admin Dose 25 MLS/HR; Start 02/22/17 at 06:40; Stop at 10:39; Status DC Morphine Sulfate 2 mg ONCE ONCE IVPUSH Last administered on 02/20/17 18:13; Admin Dose 2 MG; Start 02/20/17 at 18:05; Stop 02/20/17 at 18:08; Status DC Polyethylene Glycol 17 gm 17 gm DAILY PO Last administered on 02/22/17 08:50; Admin Dose 17 GM; Start 02/21/17 at 11:45 Mental Status Exam Vital Signs Vital Signs Date Time Temp Pulse Resp B/P Pulse Ox O2 Delivery O2 Flow Rate FiO2 02/22/17 05:13 37.1 93 18 139/86 96 Room Air Appearance: Neat/well groomed Attitude: Guarded Behavior: Other (marginally cooperative with interview) Affect: Restricted Mood: Euthymic, Irritable Thought Process/Associations: Logical/Sequential, Goal Directed Speech Production: Paucity Speech Rate: Normal Speech Articulation: Normal Thought Content: Appropriate Danger to Self/Suicidal Ideati: None Danger to Others: None Delusions: Paranoid (Denies) Hallucinations: Auditory (Denies), Visual (Denies) Consciousness: Alert Orientation: Person, Place, Situation Memory: Untestable (due to minimal cooperation, but appears grossly intact.) Estimate Intellectual Function: Average Basis for IQ estimate: Word use/vocabulary, Educational history Attention/Concentration & Cogn: Impaired Insight: Limited Judgement: Limited Result Diagram: 02/22/17 0537 02/22/17 0537 Mental Health Plan The patient is a 36-year-old male with an extensive mental health, criminal, and substance use history, who presents with right knee sepsis. According to his outpatient treatment team, he is likely near his baseline. He is not expressing any acute symptoms and his irritability and anger appear to be more related to personality disorder rather than an exacerbation of his schizophrenia. He appears to be adequately treated with his current medications. [place] AXIS I: Schizophrenia, Chronic paranoid type. Methamphetamine use disorder AXIS II: Antisocial features vs. disorder, by history AXIS III: See medical history AXIS IV: Unknown but significant history of multiple incarcerations, substance use, and recent loss of housing. AXIS V: GAF 45 Medications 1. Clonazepam 0.5 mg daily 3. Olanzapine 10 mg daily and 20 mg nightly. 4. Propranolol 20 mg twice daily. 5. Divalproex 500mg twice daily 1. Colchicine 0.6mg po bid 2. [place] 5-325 q 4 hr prn pain 3. Polyethylene glycol 17gram daily 4. Magnesium chloride 64mg daily 5. Phos-NaK Powder daily 6. Allopurinol 100 mg nightly 7. Vitamin D2 50,000 units weekly 8. Lovenox 40 mg daily subcutaneous Treatments 1. Would continue psychiatric medications as currently written. 2. Should the patient develop difficulty sleeping, clonazepam could be increased to 0.5 mg twice daily. 3. The patient is reporting no acute psychiatric issues. 4. Will plan for follow-up on patient next week unless symptoms change; please contact psychiatry to see earlier. 5. Please contact psychiatry if you have any further questions Bj Sabiloln MD Feb 22, 2017 11:19
--- NOTE | 2017-02-22 11:34 | PCM.PNMED ---
Subjective Date of Service Feb 22, 2017 Subjective Pt is very uncooperative this morning. He states he continues to have pain in his knee and refuses to walk or participate with PT. He denies any other symptoms and demands to be "left alone". Exam Vital Signs Vital Sign - Last Date Time Temp Pulse Resp B/P Pulse Ox O2 Delivery O2 Flow Rate FiO2 02/22/17 05:13 37.1 93 18 139/86 96 Room Air Intake and Output 02/21/17 02/21/17 02/22/17 Cumulative From/Thru 15:00 23:00 07:00 02/17/17 05:00 - 02/22/17 06:35 Intake Total 1382 ml 1400 ml 97723 ml Output Total 1130 ml 1125 ml 73218 ml Balance 252 ml 275 ml 2152 ml Intake Oral 1382 ml 1400 ml 8591 ml IV Total 4971 ml Output Urine Total 1130 ml 1125 ml 93929 ml # Voids 1 1 # Bowel Movements 1 1 Exam GENERAL: NAD, Pt laying in bed comfortably HEENT: AT/NC, PERRLA, EOMI, Mucus Membranes are moist CARDIAC: RRR; No M/R/G PULM: CTAB; No wheezes or rhonchi bilaterally NEURO: Alert and oriented x3; Following all commands PSYCH: Very agitated Lab and Diagnostics Result Diagram: 02/22/1753602/22/17 05 X-Rays, CTs and MRIs X-RAY CHEST ONE VIEW, PORTABLE IMPRESSION: Mildly reduced inspiratory volume, slight stranding behind the left heart potentially a manifestation of mild or early pneumonia. Followup PA and lateral chest plain film would be very helpful in more accurately assessing for pneumonia in that area. Dictated by: Gregg Pratt M.D. on 02/17/2017 at 9:49 US RENAL SONOGRAM IMPRESSION: Mildly complex right renal cyst with no significant change and nonobstructing left renal calcification. Dictated by: Dimitri Thompson [facility] Interpreted: Gregg Pratt MD on 02/17/2017 at 11 :01 Assessment & Plan Bladimir Freedman is a 36-year-old male with history of paranoid schizophrenia, polysubstance abuse, and alcoholism who presented to the ER via EMS for complaint of right knee pain x 2 days. He was also found to be in acute renal insufficiency, with hypokalemia and hypomagnesemia. Currently under treatment for gouty arthritis and possible septic arthritis. Hospital day #3 1. Gouty arthritis exacerbation of right knee, present on admission -Noted to have gout crystals on arthroscopic irrigation by orthopedics. -Infectious disease team has been consulted for further antibiotic management -Pain management switched to PO [place] -IV ceftriaxone and vancomycin started initially, but discontinued after infection was ruled out -Orthopedics consulted, appreciate the expertise of Dr. Call. -Initiated Colchicine and Allopurinol for treatment of his gout. -Dressing change by orthopedics yesterday afternoon. They recommend longterm facility placement while the knee heals after surgery 2 Acute renal insufficiency, present on admission, Resolved -Patient's creatinine on admit was 2.47. He was noted to have a normal creatinine 1.01 in June 2016. -Likely due to his gout and poor fluid intake. -Nephrology has been consulted appreciate the expertise -Patient refused telemetry -Resolved 3. Hypomagnesemia - Replace with 4 grams Magnesium Sulphate IV now - Recheck Mg level in AM 4. Hypokalemia, present on admission - resolved -Likely due to depletion and substance abuse -Potassium level on admit was 2.7. This was replenished with 60 mEq of potassium chloride IV rider -Patient refused any PO potassium chloride replacement -We will continue to monitor and replenish as needed 5. Hypocalcemia and hypophosphatemia secondary to vitamin D deficiency -Vitamin D level of 10 -Started on Neutra-Phos 250 mg 4 times a day per nephrology -Ergocalciferol started per nephrology 6. History of polysubstance abuse, present on admission -Reports only methamphetamine abuse currently. Likely contributing to patient's renal insufficiency and electrolyte abnormalities. 7. History of alcoholism, present on admission -Reports only rare alcohol consumption in the past few years, it is noted that he lives at a long term shelter. 8. Paranoid schizophrenia, present on admission -Patient has a fairly extensive history of paranoid schizophrenia. -Uncertain if patient has been compliant with his medication regimen. He currently is alert and oriented and denies any hallucinations or SI. -Psychiatry consulted for medication management. Appreciate time and expertise. -Patient less somnolent today with decrease in clonazepam dosage Tylenol prn fever and pain Zofran prn nausea Bowel regimen prn constipation CODE STATUS: Patient wishes to be full resuscitation Prophylaxis: Patient refused his heparin and Lovenox injections despite education on necessity Dispo: Awaiting SNF placement, however this is proving difficult VTE Prophylaxis: Sub-Q Heparin (Unfractionated) Resuscitation Status: CPR: Attempt Resuscitation Shilo Aguilar MD Feb 22, 2017 11:34
[2017-02-22 17:31] VITALS: BP 135/84; PULSE 92; RESP 18; O2SAT 94
--- NOTE | 2017-02-22 20:07 | CONS ---
[address] [address] CONSULTATION REPORT PATIENT: DARBY BUSBY : 1980 MR#: [id number] ADMIT: 02/17/2017 JOB ID: [id number] DATE OF SERVICE: Orthopedic post op note CPT code 28747 02/22/2017 CHIEF COMPLAINT: Followup on this 36-year-old male with severe paranoid schizophrenic disorder with pain and swelling in the right knee. The patient has had acute gouty attack in the right knee and they were trying to rule out possible sepsis. I arthroscopically debrided his right knee on February 18, 2017. I did send off some analysis for crystal analysis as well as culture and sensitivity. Cultures thus far have been negative. He does have positive evidence for crystals. He had evidence for monosodium urate crystals seen. This is consistent with gout. Again, cultures thus far have been negative including GC. The patient's dressing has been changed by nursing staff regularly. The abrasion over the lateral aspect of the knee is healing and the surgical wounds are clean and dry. The patient has been noncompliant with any physical therapy. He has been out of bed to bedside commode and to the bathroom. He will not use a walker or crutches. He basically sleeps most of the day. The patient has been evaluated by Psychiatry as well. IMPRESSION: Acute gouty attack, right knee, with pain and swelling. The swelling is resolving and there were no obvious positive cultures at this time. PLAN: The patient will need his sutures removed on or about March 02. He may ambulate as tolerated. He is going to be followed by Psychiatry. The patient is not capable of caring for himself with his postsurgical wound. Trying to discharge him to his own recognizance would only most assuredly result in potential superinfection of the wounds. I would therefore hope that he remain under some type of protective and closely monitored medical situation. His sutures could be removed on or about March 02. He may weightbear as tolerated on the knee. He will not use crutches or a walker. If you have any further questions, please do not hesitate to contact us. I will sign off for now and plan to arrange for suture removal, either perhaps in the clinic, or if he is still at the hospital, one of the PAs could remove the sutures on her about March 02. CC: [facility] CC: Lakesha Prince
[2017-02-22 21:49] VITALS: BP 128/92; PULSE 102; RESP 18; O2SAT 94
[2017-02-23] MEDS: Sodium Chloride LOK Flush 10 mL Syringe IVFLUSH SCH ×3 (00:30→16:30)
[2017-02-23] MEDS: HYDROcodone-APAP 5-325 mg Tablet PO PRN ×2 (02:12→21:19)
[2017-02-23 05:21] VITALS: BP 129/80; PULSE 82; RESP 18; O2SAT 93
[2017-02-23] MEDS: Magnesium Chloride SR 64 mg ER24 Tablet PO SCH (08:40)
[2017-02-23] MEDS: Polyethylene Glycol (PEG) 17 Gm Powder PO SCH (08:41)
[2017-02-23] MEDS: Sodium-Potassium Phosphorus Packet PO SCH ×4 (08:41→22:00)
[2017-02-23] MEDS ORDERED: Magnesium Sulf 4 Gm/100 mL H2O 4 GM in IV Premix 1 EACH IV ONE (08:50)
--- NOTE | 2017-02-23 11:23 | NUR ---
Transfer to [facility] Patient report called to Juan Paz on [facility]. Patient notified of move and belongings packed. Patient transferred via bed to room 3008. [facility] nurse notified of patient arrival.
[2017-02-23 12:47] LABS: BASOPHILS % (AUTO) 0.6 % (0-3); EOSINOPHILS % (AUTO) 3.3 % (0-5); MONOCYTES % (AUTO) 9.5 % (4-12); Mean Corpuscular Hemoglobin 27.7 pg (27.0-35.0); Mean Corpuscular Volume 84.9 fL (81-100); NEUTROPHILS % (AUTO) 51.5 % (40-74); Platelet Count 447 bil/L (150-400)
[2017-02-23 13:24] LABS: Magnesium 3.2 mg/dL (1.6-2.6); Phosphorus 3.4 mg/dL (2.5-4.9)
[2017-02-23 14:07] VITALS: BP 125/83; PULSE 89; RESP 18; O2SAT 94
--- NOTE | 2017-02-23 15:54 | PCM.PNMED ---
Subjective Date of Service Feb 23, 2017 Subjective Afebrile and uneventful night Bladimir was in his usual state this morning. He just wanted to be left alone to sleep. He denied any CP, SOB, or fevers and only complains of pain in his right knee. He continues to refuse PT Exam Vital Signs Vital Sign - Last Date Time Temp Pulse Resp B/P Pulse Ox O2 Delivery O2 Flow Rate FiO2 02/23/17 14:07 36.8 89 18 125/83 94 Room Air Intake and Output 02/22/17 02/22/17 02/23/17 Cumulative From/Thru 14:59 22:59 06:59 02/17/17 05:00 - 02/23/17 06:14 Intake Total 1674 ml 1600 ml 48723 ml Output Total 2000 ml 1225 ml 49634 ml Balance -326 ml 375 ml 2201 ml Intake Oral 1500 ml 1600 ml 23855 ml IV Total 174 ml 5145 ml Output Urine Total 2000 ml 1225 ml 10137 ml # Voids 1 # Bowel Movements 0 1 Exam General: Well-developed male who appears in no acute distress while laying in bed CV: Regular rate and rhythm with no murmurs rubs or gallops noted. Peripheral pulses intact and equal Respiratory: CTAB, normal respiratory effort Abdomen: Obese, soft, nontender, nondistended, normoactive bowel sounds noted MSK: Right knee tender to palpation, wrapped in compressive dressing. Peripheral pulses intact and equal. 1-2+ pitting edema of RLE Neuro: Alert and oriented, nonfocal exam Psychiatric: Somewhat cooperative to questioning today. IVs and Medications Medications Reviewed: Medications were reviewed in detail Lab and Diagnostics Result Diagram: 02/23/17 1235 02/23/17 0500 X-Rays, CTs and MRIs X-RAY CHEST ONE VIEW, PORTABLE IMPRESSION: Mildly reduced inspiratory volume, slight stranding behind the left heart potentially a manifestation of mild or early pneumonia. Followup PA and lateral chest plain film would be very helpful in more accurately assessing for pneumonia in that area. Dictated by: Gregg Pratt M.D. on 02/17/2017 at 9:49 US RENAL SONOGRAM IMPRESSION: Mildly complex right renal cyst with no significant change and nonobstructing left renal calcification. Dictated by: Dimitri Thompson [facility] Interpreted: Gregg Pratt MD on 02/17/2017 at 11 :01 Assessment & Plan Bladimir Freedman is a 36-year-old male with history of paranoid schizophrenia, polysubstance abuse, and alcoholism who presented to the ER via EMS for complaint of right knee pain x 2 days. He was also found to be in acute renal insufficiency, with hypokalemia and hypomagnesemia. Currently under treatment for gouty arthritis 1. Gouty arthritis exacerbation of right knee, present on admission -Noted to have gout crystals on arthroscopic irrigation by orthopedics. -Infectious disease team has been consulted for further antibiotic management -Pain management switched to PO [place] -IV ceftriaxone and vancomycin started initially, but discontinued after infection was ruled out -Orthopedics consulted, appreciate the expertise of Dr. Call. -Initiated Colchicine and Allopurinol for treatment of his gout. -Dressing change by orthopedics yesterday afternoon. They recommend longterm facility placement while the knee heals after surgery -Knee and leg continues to be edematous due to patient's refusal of care other than dressing change. 2 Acute renal insufficiency, present on admission, Resolved -Patient's creatinine on admit was 2.47. He was noted to have a normal creatinine 1.01 in June 2016. -Likely due to his gout and poor fluid intake. -Nephrology has been consulted appreciate the expertise -Patient refused telemetry -Resolved 3. Hypomagnesemia,resolved -initial Mg 0.9.Mg improved today - Replaced with Magnesium Sulphate IV - Currently on Slow-mag daily. - Continue to monitor 4. Hypokalemia, present on admission - resolved -Likely due to depletion and substance abuse -Potassium level on admit was 2.7. This was replenished with potassium chloride IV rider -Patient refused any PO potassium chloride replacement -We will continue to monitor and replenish as needed 5. Hypocalcemia and hypophosphatemia secondary to vitamin D deficiency -Vitamin D level of 10 -Started on Neutra-Phos 250 mg 4 times a day per nephrology -Ergocalciferol 50,000 weekly started per nephrology 6. History of polysubstance abuse, present on admission -Reports only methamphetamine abuse currently. Likely contributing to patient's renal insufficiency and electrolyte abnormalities. 7. History of alcoholism, present on admission -Reports only rare alcohol consumption in the past few years, it is noted that he lives at a [facility]. 8. Paranoid schizophrenia, present on admission -Patient has a fairly extensive history of paranoid schizophrenia. -Uncertain if patient has been compliant with his medication regimen. He currently is alert and oriented and denies any hallucinations or SI. -Psychiatry consulted for medication management. Appreciate time and expertise. -Patient less somnolent today with decrease in clonazepam dosage Tylenol prn fever and pain Zofran prn nausea Bowel regimen prn constipation CODE STATUS: Patient wishes to be full resuscitation Prophylaxis: Patient refused his heparin and Lovenox injections despite education on necessity Dispo: Awaiting SNF placement, transferring to [facility] for surgical care. Pain Evaluation: Adequate Pain Control VTE Prophylaxis: Sub-Q Heparin (Unfractionated) Resuscitation Status: CPR: Attempt Resuscitation Attending Statement The patient was seen and examined independently on 02/23/2017and case discussed with Dr. Gtz , I agree with the history, exam and plan as outlined in the note above. Eusebio Gtz DO Feb 23, 2017 15:53 Cecilio Gan MD Feb 23, 2017 16:47
--- NOTE | 2017-02-23 19:42 | NUR ---
Care Refusal Patient refused some care, declining dressing changes and some medication despite education. Patient reports pain at a tolerable level, denies nausea or other difficulty. Care is ongoing.
[2017-02-23 21:20] VITALS: BP 130/89; PULSE 104; RESP 21; O2SAT 95
[2017-02-24] MEDS: Sodium Chloride LOK Flush 10 mL Syringe IVFLUSH SCH ×3 (01:13→16:07)
--- NOTE | 2017-02-24 04:38 | NUR ---
refusal of care pt took his scheduled medications. he was polite with staff and used call light appropriately. however he did refuse to allow nurse to do any assessments. he refused a dressing changed, then later asked for his dressing to be changed but again refused when nurse came in the room. pt states he will allow it to be changed later this morning. care continues
--- NOTE | 2017-02-24 06:35 | NUR ---
PtIdris witt AM. Addendum: 02/24/17 at 0635 by JAIRO GOODEN CNA Amended: Links added.
[2017-02-24 07:39] LABS: Magnesium 1.7 mg/dL (1.6-2.6)
[2017-02-24 10:06] VITALS: BP 138/89; PULSE 105; RESP 14; O2SAT 92
[2017-02-24] MEDS: Polyethylene Glycol (PEG) 17 Gm Powder PO SCH (10:27)
[2017-02-24] MEDS: HYDROcodone-APAP 5-325 mg Tablet PO PRN ×2 (10:29→16:07)
[2017-02-24] MEDS: Magnesium Chloride SR 64 mg ER24 Tablet PO SCH (10:32)
[2017-02-24] MEDS: Sodium-Potassium Phosphorus Packet PO SCH ×3 (10:40→18:08)
--- NOTE | 2017-02-24 11:57 | NUR ---
Social Work Note - Discharge LAY OUT MAKER met with pt - Pt may be able to d/c today. Pt states that he plans to return to [facility] - He is nervous because he is paid thru the month of January at the [facility] and he does not have money to extend his stay. Pt states that he got sick when he should have been looking for permanent housing. Pt makes $659.00 per month. PT has attempted to work with pt - Pt has refused to be evaluated. He is weight bearing as tolerated. He states that he has been up to the bathroom on his own. LAY OUT MAKER explored mental health - Pt states that he is OK - VOA states that he is open with [facility], that he is on an LRO for medication compliance. LRO continues through 02/28/17. Pt's worker is Domo Zamudio [phone]. Pt asked that LAY OUT MAKER call his [facility] worker - Left message for Domo. Pt understands that he may d/c today - he is not sure yet how he will transport home. LAY OUT MAKER will continue to follow. Plan: Return to [facility], [facility] is following for mental health. NICOL Schumacher Addendum: 02/24/17 at 1547 by EVELYN CONTI Social Work SW spoke with pt regarding discharge plan. Pt states his mom can take him home. SW spoke with mother Helen Freedman [phone] who is agreeable to taking pt back to [facility] at 6:30/7 pm. BRADLEY updated MD and RN. Pt to discharge home with mother to transport via POV. Merlyn Oliveros LAY OUT MAKER
--- NOTE | 2017-02-24 16:05 | PCM.DIMED ---
Discharge Instructions Date of Service Feb 24, 2017 Dates of Hospitalization Feb 17, 2017 at 09:50 Discharge Diagnosis Discharge Diagnosis Gouty arthritis right knee Medication Instructions Do dressing changes daily. Stitches need to come out 4/3 either with primary care provider or orthopedics Diet No restrictions, Other (cut down on red meat and seafood alcohol (beer, wine, liquor)-dose corn syrup. He lots of low-fat dairy products whole gr and vegetables) Patient Instructions Follow-up Provider: Jennifer Kessler MD Provider: Griffin Call MD Follow-up in: Other (4/3) Attending's Statement Patient refused to participate in physical therapy or anything nursing was offering. He was discharged with his mom are's assistance back to his hotel where he is patent to the end of the month. Enrike Norton MD Feb 24, 2017 16:05
[2017-02-24] MEDS ORDERED: MAGN64TA7 PO (16:13)
[2017-02-24] MEDS ORDERED: COLC0.6T52 PO (16:13)
[2017-02-24] MEDS ORDERED: Ergocalciferol (Vitamin D2) PO (16:13)
[2017-02-24] MEDS ORDERED: HYDR-4003 PO (16:13)
[2017-02-24] MEDS ORDERED: ZYL100 PO (16:13)
--- NOTE | 2017-02-24 16:22 | PCM.DC.MED ---
Discharge Summary Date of Service Feb 24, 2017 Dates of Hospitalization Date of Hospital Admission Feb 17, 2017 at 09:50 Date of Discharge: Feb 24, 2017 Providers: Admitting Physician: Shilo Aguilar MD Primary Care Physician: Jennifer Kessler MD Attending Physician: Shilo Aguilar MD Diagnosis at Time of Discharge Diagnosis at Time of Discharge Gouty arthritis right knee Consultations Psychiatry, orthopedics, infectious disease thank you Procedures XRay, CTs & MRIs X-RAY CHEST ONE VIEW, PORTABLE IMPRESSION: Mildly reduced inspiratory volume, slight stranding behind the left heart potentially a manifestation of mild or early pneumonia. Followup PA and lateral chest plain film would be very helpful in more accurately assessing for pneumonia in that area. Dictated by: Gregg Pratt M.D. on 02/17/2017 at 9:49 US RENAL SONOGRAM IMPRESSION: Mildly complex right renal cyst with no significant change and nonobstructing left renal calcification. Dictated by: Dimitri Thompson RR Interpreted: Gregg Pratt MD on 02/17/2017 at 11 :01 Brief History 36-year-old male with history of paranoid schizophrenia, polysubstance abuse, and alcoholism who presented to the ER via EMS for complaint of right knee pain x 2 days. Patient is a somewhat poor historian but , he reports noticing the right knee pain and swelling came on slowly about 2 days ago and states that it became so severe that he was unable to get out of bed for 2 days. He denies any trauma but notes there were "black lumps" around his right knee. Hospital Course 36-year-old male with history of paranoid schizophrenia, polysubstance abuse, and alcoholism who presented to the ER 02/17 via EMS for complaint of right knee pain x 2 days. He was also found to be in acute renal insufficiency, with hypokalemia and hypomagnesemia. Currently under treatment for gouty arthritis. 02/24 I met this patient on the date of discharge. As far as I can tell he has been lying in bed refusing physical therapy and many nurses interventions for the last several days. He does not open his eyes to speak with me, when I discuss what we are dealing with him he becomes very emotional and it is clear at that he is poorly functional. We do worry that his knee incision will become infected, stitches are to come out /3 he cannot be housed in the hospital with no further medical interventions especially since he is not participating in any therapy and has been witnessed ambulating and standing up independently so we are discharging him today. His mother is coming to pick him up at 6:30 PM to drop them off at the hotel where he resides. 1. Gouty arthritis exacerbation of right knee, present on admission -Noted to have gout crystals on arthroscopic irrigation by orthopedics. -Infectious disease team has been consulted for further antibiotic management -Pain management switched to PO [place] -IV ceftriaxone and vancomycin started initially, but discontinued after infection was ruled out -Orthopedics consulted, appreciate the expertise of Dr. Call. -Initiated Colchicine and Allopurinol for treatment of his gout. -Dressing change by orthopedics yesterday afternoon. They recommend [facility] facility placement while the knee heals after surgery -Knee and leg continues to be edematous due to patient's refusal of care other than dressing change. 2 Acute renal insufficiency/CKD3, present on admission, Resolved -Patient's creatinine on admit was 2.47. He was noted to have a normal creatinine 1.01 in June 2016. -Likely due to his gout and poor fluid intake. -Nephrology has been consulted appreciate the expertise -Patient refused telemetry -Resolved 3. Hypomagnesemia,resolved -initial Mg 0.9.Mg improved today - Replaced with Magnesium Sulphate IV - Currently on Slow-mag daily. - Continue to monitor 4. Hypokalemia, present on admission - resolved -Likely due to depletion and substance abuse -Potassium level on admit was 2.7. This was replenished with potassium chloride IV rider -Patient refused any PO potassium chloride replacement -We will continue to monitor and replenish as needed 5. Hypocalcemia and hypophosphatemia secondary to vitamin D deficiency -Vitamin D level of 10 -Started on Neutra-Phos 250 mg 4 times a day per nephrology -Ergocalciferol 50,000 weekly started per nephrology 6. History of polysubstance abuse, present on admission -Reports only methamphetamine abuse currently. Likely contributing to patient's renal insufficiency and electrolyte abnormalities. 7. History of alcoholism, present on admission -Reports only rare alcohol consumption in the past few years, it is noted that he lives at a [facility] detention. 8. Paranoid schizophrenia, present on admission -Patient has a fairly extensive history of paranoid schizophrenia. -Uncertain if patient has been compliant with his medication regimen. He currently is alert and oriented and denies any hallucinations or SI. -Psychiatry consulted for medication management. Appreciate time and expertise. -Patient less somnolent today with decrease in clonazepam dosage Tylenol prn fever and pain Zofran prn nausea Bowel regimen prn constipation CODE STATUS: Patient wishes to be full resuscitation Prophylaxis: Patient refused his heparin and Lovenox injections despite education on necessity Dispo: Awaiting SNF placement, transferring to [facility] for surgical care. Exam Vital Signs (Last) Date Time Temp Pulse Resp B/P Pulse Ox O2 Delivery O2 Flow Rate FiO2 02/24/17 10:06 36.8 105 14 138/89 92 Room Air Exam General: Well-developed male who appears in no acute distress while laying in bed Eyes: Patient refuses to open them, the eyelids are normal there is no discharge HEENT normal ears, normal nose, trachea midline CV: Normal rate Respiratory: normal respiratory rate/effort Abdomen: Obese, MSK: Extremities moving 4 despite the fact that patient states his leg is stiff I observe him bending both extremities beyond 90 Neuro: nonfocal exam, patient wakes up and is responsive and seems oriented 3 Psychiatric: Patient is lying in bed and minimized his interaction with staff all day. He attempted to ignore me when I came into the room. When I will not go away she becomes rather emotional saying simply he "cannot" and refuses to confront the situation any further. He seems to have the capacity of an 8-year- old Test 02/17/17 07:21 02/17/17 07:30 02/17/17 09:22 02/17/17 15:32 Urine Color Yellow (YELLOW) Urine Appearance Hazy (CLEAR,HAZY) Urine pH 5.5 (5.0-8.0) Urine Specific [place] 1.025 (1.003-1.035) Urine Protein 30mg/dL (NEG,TRACE) Urine Glucose (UA) Negativemg/dL (NEGATIVE) Urine Ketones Negativemg/dL (NEGATIVE) Urine Occult Blood Trace (NEGATIVE) Urine Nitrite Negative (NEGATIVE) Urine Bilirubin Negative (NEGATIVE) Urine Urobilinogen Normalmg/dL (NORMAL) Urine Leukocyte Esterase Negative (NEGATIVE) Urine RBC 0-2/hpf (0-2) Urine WBC 0-5/hpf (0-5) Urine Epithelial Cells Occasional/hpf (NONE-MOD) Urine Crystals Amorphous urates (NONE Urine Bacteria Few/hpf (NONE-FEW) Urine Hyaline Casts None/lpf (NONE) Urine Granular Casts Occasional (NONE SEEN) Urine Waxy Casts None seen (NONE SEEN) Urine Red Blood Cell Casts None seen (NONE SEEN) Urine White Blood Cell Casts None seen (NONE SEEN) Urine Mucus None seen (None Seen) Urine Trichomonas None seen (NONE SEEN) Urine Yeast None (NONE SEEN) Urinalysis Comment None Urine Culture Reflexed Not indicated Urine Random Creatinine 271mg/dL (24-392) Urine Random Total Protein 46mg/dL (0-15) Urine Random Sodium 18mEq/L Urine Osmolality 424mOs/kH2O (250-1200) Osmolality 276 (275-300) Lactic Acid Level 0.8mmol/L (0.4-2.0) Total Creatine Kinase 1422U/L (21-232) Thyroid Stimulating Hormone (TSH) 0.547uIU/mL (0.450-4.500) Salicylates Level < 3.0ug/mL (30-250) Acetaminophen Level < 15.0ug/mL Rx (10-25) Hold Jacobs Top Tube Received (Received) Hemoglobin A1c 5.6% (4.8-5.6) Test 02/17/17 17:56 02/18/17 06:32 02/18/17 19:12 02/20/17 10:15 Hold Urine Received (Received) Uric Acid 11.3mg/dL (2.6-7.2) Hepatitis B Surface Antigen Negative (Negative) HIV (1&2) Ag and Ab, 4th Generation Non reactive (Non Reactive) Body Fluid Source Synovial fluid Body Fluid Color Bloody (Clear) Body Fluid Appearance Turbid Body Fluid WBC 32382/mm3 Body Fluid RBC 21305/mm3 Body Fluid Polynuclear WBCs 98% Body Fluid Lymphocytes 0% Body Fluid Monocytes 2% Body Fluid Eosinophils 0% Body Fluid Basophils 0% Vitamin D 25-Hydroxy 10.9ng/mL (30.0-100.0) Test 02/21/17 05:25 02/23/17 05:00 02/23/17 12:35 02/24/17 06:00 Erythrocyte Sedimentation Rate 48mm/hr (0-15) C-Reactive Protein 7.2mg/dL (0.0-0.5) Phosphorus Level 3.4mg/dL (2.5-4.9) White Blood Count 6.3th/mm3 (3.8-10.1) Red Blood Count 4.76mil/mm3 (4.40-5.80) Hemoglobin 13.2g/dL (13.8-17.2) Hematocrit 40.4% (41.0-50.0) Mean Corpuscular Volume 84.9fL (81-100) Mean Corpuscular Hemoglobin 27.7pg (27.0-35.0) Mean Corpuscular Hemoglobin Concent 32.7% (32.0-37.0) Red Cell Distribution Width 14.4% (12.3-15.4) Platelet Count 447bil/L (150-400) Neutrophils (%) (Auto) 51.5% (40-74) Lymphocytes (%) (Auto) 33.7% (14-46) Monocytes (%) (Auto) 9.5% (4-12) Eosinophils (%) (Auto) 3.3% (0-5) Basophils (%) (Auto) 0.6% (0-3) Sodium Level 140mEq/L (134-144) Potassium Level 4.6mEq/L (3.5-5.2) Chloride Level 97mEq/L (97-108) Carbon Dioxide Level 28mmol/L (18-29) Blood Urea Nitrogen 19mg/dL (6-20) Creatinine 1.28mg/dL (0.76-1.27) Estimat Glomerular Filtration Rate 67mL/min (>59) Glucose Level 144mg/dL (60-99) Calcium Level 9.8mg/dL (8.5-10.1) Magnesium Level 1.7mg/dL (1.6-2.6) Total Bilirubin 0.2mg/dL (0.0-1.2) Aspartate Amino Transf (AST/SGOT) 43U/L (0-50) Alanine Aminotransferase (ALT/SGPT) 60U/L (0-44) Alkaline Phosphatase 277U/L (25-150) Total Protein 6.2g/dL (6.4-8.4) Albumin 3.0g/dL (3.4-5.0) Discharge Medications Discharge Medications ([Ergocalciferol (Vitamin D2)]) 54382 UNIT CAPSULE 50,000 UNIT PO WEEKLY Prescribed by: EMILIA ALMAZAN MD Allopurinol (Allopurinol) 100 Mg Tablet 100 MG PO HS Prescribed by: EMILIA ALMAZAN MD Clonazepam (Clonazepam) 0.5 Mg Tablet 0.5 MG PO DAILYWL (Reported) Clonazepam (Clonazepam) 0.5 Mg Tablet 1.5 MG PO HS (Reported) Colchicine (Colcrys) 0.6 Mg Tablet 0.6 MG PO BID Prescribed by: EMILIA ALMAZAN MD Divalproex (Divalproex) 500 Mg Tablet.dr 500 MG PO BID (Reported) Magnesium Chloride (Mag64) 64 Mg Tablet.er 64 MG PO DAILY Prescribed by: EMILIA ALMAZAN MD Olanzapine (Olanzapine) 10 Mg Tablet 10 MG PO QAM (Reported) Olanzapine (Olanzapine) 20 Mg Tablet 20 MG PO HS (Reported) Propranolol HCl (Propranolol HCl) 20 Mg Tablet 20 MG PO BID (Reported) As needed Hydrocodone-Acetaminophen 5-325 mg (Hydrocodone-Acetaminophen 5-325 mg) 1 Each Tablet 1 TABLET PO Q4 PRN PRN For Mild Pain Prescribed by: EMILIA ALMAZAN MD Additional med instructions Do dressing changes daily. Stitches need to come out 4/3 either with primary care provider or orthopedics Followup Plan Disposition: Patient mother is coming to pick him up and drop them off at the hotel where he is paid off till the end of the month. Follow-up plan Patient is instructed to do daily dressing changes, this seems unlikely given his refusal to have them done for him here in the hospital. Discharge Diet: No restrictions, Other (cut down on red meat and seafood alcohol (beer, wine, liquor)-dose corn syrup. He lots of low-fat dairy products whole gr and vegetables) Follow-up Provider: Jennifer Kessler MD Follow-up with PCP in: Other (as soon as possible) Provider: Griffin Call MD Follow-up in: Other (4/) Time spent Greater than 30 minutes Attending Statement If it were possible I would send out a home health nurse to do dressing changes however I do not think the patient would be compliant regardless. Serious concerns remain over this patient's capacity function independently care for his wound and take his medications. copies to: Jennifer Kessler MD, Andris E MD Feb 24, 2017 16:22
[2017-02-24] MEDS ORDERED: NAPH1POW2 PO (16:27)
--- NOTE | 2017-02-24 18:52 | NUR ---
DISCHARGE Patient to be discharged this evening, waiting for mother who is to give him ride. Iv catheter removed intact, dressing on knee changed (no signs of infection), medications and new prescriptions provided to patient as well as care notes on gout and infection. Patient denies pain, nausea and shortness of breath, verbalizes understanding of medications and follow up instructions.
== END 2017-02-24 18:52 | disposition home or self-care (01) | DRG 488 ==
LOC: SED 04:46 → MPC 09:50 → OSC 02-23 11:20
PROVIDERS: ADMIT Family Medicine; ATTEND Family Medicine
PROC: 3E1U38X Irrigation of Joints using Irrigating Substance, Percutaneous Approach, Diagnostic (ICD-10-PCS; 2017-02-18)
PROC: 0SBC4ZZ Excision of Right Knee Joint, Percutaneous Endoscopic Approach (ICD-10-PCS; principal; 2017-02-18 15:30)
DX: M10.9 Gout, unspecified (principal); F20.0 Paranoid schizophrenia; N17.9 Acute kidney failure, unspecified; E83.42 Hypomagnesemia; E55.9 Vitamin D deficiency, unspecified; N18.3 Chronic kidney disease, stage 3 (moderate); E87.6 Hypokalemia; E11.9 Type 2 diabetes mellitus without complications; E78.5 Hyperlipidemia, unspecified; F15.10 Other stimulant abuse, uncomplicated; F10.20 Alcohol dependence, uncomplicated; Z72.0 Tobacco use; F60.2 Antisocial personality disorder; E83.39 Other disorders of phosphorus metabolism; I12.9 Hypertensive chronic kidney disease with stage 1 through stage 4 chronic kidney disease, or unspecified chronic kidney disease

== ENCOUNTER 2017-03-09 18:54 | Inpatient (IN) | payer OTHER, MEDICAID ==
[~2017-03-09] VITALS: Ht 172.7 cm; Wt 76.9 kg
[~2017-03-09 18:54] MED LIST changes: -CHLO25TA22 PO; +COLC0.6T52 PO; +DIVA500T6 PO; +Ergocalciferol (Vitamin D2) PO; -FERR-74 PO; +HYDR-4003 PO; -KLO1T PO; +KLO5T PO; +MAGN64TA7 PO; +NAPH1POW2 PO; +OLAN10TA19 PO; +OLAN20TA16 PO; +PROP20TA5 PO; +ZYL100 PO
[2017-03-09 18:58] VITALS: BP 146/78; PULSE 123; RESP 20; O2SAT 98
--- NOTE | 2017-03-09 20:14 | ED.REPORT ---
HPI-Extremity Problem Lower Date of Service Mar 09, 2017 ED Provider: Moriah Laird History of Present Illness: 36-year-old male here for right lower extremity pain. He states he has gout. He does not know when his lower extremity started to hurt. He is a drug user last smoked meth this morning. States he is here week ago for leg infection. He vomited today but no fever and no current nausea. He is homeless. His right lower extremity is swollen he does not know when the swelling began. Multiple abrasions on his right lower leg. Looking back in his records it does appear that he was here and hospitalized in late January for psychiatric issues and lower extremity cellulitis. Nursing Notes Stated Complaint: GOUT IN RT LEG/NOT SLEEPING Chief Complaint: Extremity Trauma Nursing Notes Reviewed: Yes Allergies: Coded Allergies: haloperidol (Verified Allergy, Unknown, 07/29/16) Scheduled ([Ergocalciferol (Vitamin D2)]) 62965 UNIT CAPSULE 50,000 UNIT PO WEEKLY Allopurinol (Allopurinol) 100 Mg Tablet 100 MG PO HS Clonazepam (Clonazepam) 0.5 Mg Tablet 0.5 MG PO DAILYWL Clonazepam (Clonazepam) 0.5 Mg Tablet 1.5 MG PO HS Colchicine (Colcrys) 0.6 Mg Tablet 0.6 MG PO BID Divalproex (Divalproex) 500 Mg Tablet.dr 500 MG PO BID Magnesium Chloride (Mag64) 64 Mg Tablet.er 64 MG PO DAILY Naph,Mb-Db/K pH,Mbdb (Phos-Nak Packet) 1 Each Powd.pack 1 EA PO PCHS Olanzapine (Olanzapine) 10 Mg Tablet 10 MG PO QAM Olanzapine (Olanzapine) 20 Mg Tablet 20 MG PO HS Propranolol HCl (Propranolol HCl) 20 Mg Tablet 20 MG PO BID Scheduled PRN Hydrocodone-Acetaminophen 5-325 mg (Hydrocodone-Acetaminophen 5-325 mg) 1 Each Tablet 1 TABLET PO Q4 PRN PRN For Mild Pain General Time Seen by MD: 20:13 Chief Complaint Leg injury right Hx Obtained From: Patient Arrived By: Walk-in Onset Occurred: Onset unknown Location: : Leg left: Leg right Severity: Current: Moderate Severity: Maximum: Severe Associated with: Reports: Vomiting Recent Healthcare: Recent doctor visit, Recent hospitalization Similar Sx Previous: Yes Risk-Extremity Prob Lower Well's Criteria for DVT Entire leg swollen (1), Calf swelling >3cm (1) Past Medical History Past Medical History Hidradenitis suppurativa Paranoid schizophrenic Reports: Diabetes mellitus, Hyperlipidemia, Hypertension, Mental illness Past Surgical History hidradenitis w/multiple I&D, followed at wound care Family History Reviewed, not relevant Smoking History Never Smoker Social History Lives in a "clean and sober" house, despite continuing to drink ETOH Alcohol Use: In recovery Drug Use: Meth Other Social History: Good social support, Local resident Occupation disabled Ambulatory Status Independent Review of Systems Basic Review of Systems Eyes: Vision NL, No discharge ENT: Hearing NL, No pain, No nasal congestion, No pharyngeal pain Respiratory: No shortness of breath, No cough, No wheeze Cardiovascular: No chest pain, No dyspnea on exertion, No orthopnea, No parox noct dyspnea, No palpitations GI: No abdominal pain, No anorexia, No nausea, No vomiting Constitutional: Denies: Fatigue Musculoskeletal: Reports: Extremity pain, Extremity swelling, Joint pain, Joint swelling Complete sys rev & neg: except as marked. GI: Reports: Vomiting Physical Exam Initial Vital Signs Vital Signs (First) Date Time Temp Pulse Resp B/P Pulse Ox O2 Delivery O2 Flow Rate FiO2 03/09/17 18:58 36.8 123 20 146/78 98 Room Air Initial VS: Reviewed Head / Eyes: Atraumatic, Normocephalic, PERRL Respiratory: Breath sounds normal, Clear to auscultation, No respiratory distress Cardiovascular: Regular rate & rhythm, Heart sounds normal, Intact distal pulses Skin: Warm, Dry, No cyanosis Neurologic: Alert, Oriented, Nonfocal Psychiatric: Mood/affect normal, Behavior normal, Normal thought content RLE very edematous, cellulitic, erythematous with superficial abrasians which he picks at. RLE >LLE. 2+pitting edema Ankle / Foot: Atraumatic, Inspection NL, Full range of motion, No swelling, Non -tender, No deformity, Neurologic intact, Vascular intact, No edema mild swelling R foot General/Constitutional: Awake, Alert, Well appearing Respiratory / Chest: Breath sounds NL, Breath sounds = bilat, No respiratory distress, No rales, No rhonchi, No wheezing Cardiovascular: Heart rate NL, Regular rhythm, Heart sounds NL, Peripheral circulation NL Color / Condition: Positive: Erythema localized (RLE), Rash present Interpretation & Diagnostics Lab Results Interpretation Test 03/09/17 21:45 Re-Eval/Medical Decision Med Decision/Clinical Course [address] Marion Discharge & Departure Referrals: Jennifer Kessler MD (PCP) Moriah Laird Mar 09, 2017 20:14
[2017-03-09] MEDS ORDERED: 0.9% Sodium Chloride 1,000 ML IV ONE (20:41)
--- NOTE | 2017-03-09 21:37 | DRSVH ---
PROCEDURE: X-RAY CHEST ONE VIEW, PORTABLE ([id number]) INDICATIONS: Infection TECHNIQUE: One view of the chest was acquired. COMPARISON: [facility], CR, XR CHEST 1VW (PORTABLE), 02/17/2017, 9:22. FINDINGS: Surgical changes and devices: None. Lungs and pleura: No pleural effusions or pneumothorax. Lungs are clear. Mediastinum: Mediastinal contours appear normal. Heart size is normal. Bones and chest wall: No suspicious bony lesions. Overlying soft tissues appear unremarkable. IMPRESSION: 1. No acute cardiopulmonary disease. Dictated by: Toni Fraire M.D. on 03/09/2017 at 21:33 Approved by: Toni Fraire M.D. on 03/09/2017 at 21:35
[2017-03-09 21:55] LABS: BASOPHILS % (AUTO) 0.4 % (0-3); EOSINOPHILS % (AUTO) 0.8 % (0-5); MONOCYTES % (AUTO) 12.1 % (4-12); Mean Corpuscular Hemoglobin 27.4 pg (27.0-35.0); Mean Corpuscular Volume 82.1 fL (81-100); NEUTROPHILS % (AUTO) 63.5 % (40-74); Platelet Count 409 bil/L (150-400)
[2017-03-09 22:25] LABS: Magnesium 1.1 mg/dL (1.6-2.6)
[2017-03-09] MEDS ORDERED: Magnesium Sulf 4 Gm/100 mL H2O 4 GM in IV Premix 1 EACH IV ONE (22:35)
[2017-03-09] MEDS ORDERED: Potassium Chloride 20 mEq SR Tablet PO ONE (22:35)
[2017-03-09] MEDS ORDERED: Piperacillin-Tazo 3.375 Gm Inj 3.375 GM in Dextrose 5% Minibag Plus 50 ML IV ONE (23:55)
[2017-03-10] MEDS ORDERED: Vancomycin Dose per Pharmacist XX ONE
[2017-03-10] MEDS ORDERED: Vancomycin Inj 1,750 MG in 0.9% Sodium Chloride 500 ML IV ONE (00:05)
[2017-03-10 01:46] VITALS: BP 140/73; PULSE 107; RESP 20; O2SAT 99
[2017-03-10 02:44] VITALS: BP 140/73; PULSE 107; RESP 20; O2SAT 99
[2017-03-10 03:08] VITALS: BP 121/80; PULSE 96; RESP 18; O2SAT 97
[2017-03-10] MEDS ORDERED: Ondansetron 2 mg/mL 2 mL Inj IVPUSH PRN (03:20)
[2017-03-10] MEDS ORDERED: Alum-Mag Hydrox-Simeth 30 mL Suspension PO PRN (03:20)
[2017-03-10] MEDS ORDERED: Polyethylene Glycol (PEG) 17 Gm Powder PO PRN (03:20)
--- NOTE | 2017-03-10 03:28 | PCM.HPMED ---
Subjective Date of Service Mar 10, 2017 Primary Provider: Admitting Physician: Pretty Reis DO Primary Care Physician: Jennifer Kessler MD Attending Physician: Pretty Reis DO Admit Status: From the Emergency Department Chief Complaint: Right leg pain History of Present Illness: 36 y/o male with history of paranoid schizophrenia, polysubstance abuse, and alcoholism who presented to the ED with the complaint of pain in his right leg and concern for gout flare. Patient is a somewhat poor historian and does not remember when his leg started to hurt. He denies any trauma and denies pain in any other joints, fever or chills. Additionally, he denies any current nausea but reports an episode of vomiting earlier today. He denies shortness of breath , chest pain, palpitations, GI or symptoms. He endorses smoking meth intermittently but denies any IV use or other drugs. He has a history of alcoholism and reports he has been sober for a few years with only an occasional drink. He also reports a history of gout with typical flares in his big toe. Of note, he was admitted to [facility] on 02/17/17 for a septic right knee and underwent arthroscopic irrigation and partial synovectomy for gouty arthropathy on 02/18/17 (Dr. Call). Per chart review, there was concern at time of discharge for reinfection due to patient compliance with dressing changes and ongoing care. In the ED, vitals: 36.8, BP 146/78, pulse 123, RR 20, SpO2 98% on room air. Labs : wbc 11.0, H/H 11.8/35.4, plts 409, sodium 135, potassium 3.2, chloride 89, bicarb 26, BUN 22, creatinine 1.68, serum glucose 129, magnesium 1.1. Ultrasound of right lower extremity with no evidence of DVT. Review of Systems: A comprehensive review of systems was conducted with the patient and found to be negative except as above in the History of Present Illness. Allergies Coded Allergies: haloperidol (Verified Allergy, Unknown, 07/29/16) Home Medications Reported, med rec incomplete at time of admission. Allopurinol 100 MG PO HS Clonazepam 0.5 MG PO DAILYWL Clonazepam 1.5 MG PO HS Colchicine0.6 MG PO BID Divalproex 500 MG PO BID Magnesium Chloride 64 MG PO DAILY Olanzapine 10 MG PO QAM Olanzapine 20 MG PO HS Propranolol HCl 20 MG PO BID Hydrocodone-Acetaminophen 5-325 mg 1 TABLET PO Q4 PRN For Mild Pain PMH Hidradenitis suppurativa Paranoid schizophrenic Diabetes mellitus Hyperlipidemia Hypertension Mental illness Polysubstance abuse History of alcoholism Surgical History Reports multiple I&D's for his hidradenitis on his left and right axilla Family History Uncertain of any family history. Social History Hx Alcohol Use: Yes (once in a while) Hx Substance Use: Yes (methamphetamine) Hx Tobacco Use: Yes (he reports he smokes tobacco intermittently) Smoking Status: Never Smoker Living Arrangement: Other (Lives in a "clean and sober" house, despite continuing to drink ETOH) Exam Vital Signs Vital Sign - Last Date Time Temp Pulse Resp B/P Pulse Ox O2 Delivery O2 Flow Rate FiO2 03/10/17 03:08 36.8 96 18 121/80 97 Room Air Exam General: Well-developed, male, appears comfortable in no acute distress. HEENT: Normocephalic, atraumatic, PERRLA, poor dentition noted, mucosa dry Neck: Soft, nontender, trachea midline, no JVD or lymphadenopathy CV: Regular rate and rhythm with no murmurs rubs or gallops noted. Respiratory: lungs clear to auscultation, no crackles or wheezing. normal respiratory effort Abdomen: soft, nontender, nondistended, normoactive bowel sounds noted MSK/skin: Right lower ext edematous, erythematous with 2+pitting edema; multiple excoriations and scabs on anterior knee and thigh. Neuro: alert and oriented 3, cranial nerves II-12 grossly intact Psych: cooperative, slow to answer. Lab and Diagnostics Labs Laboratory Tests Test 03/09/17 21:45 03/10/17 03:05 White Blood Count 11.0th/mm3 (3.8-10.1) Red Blood Count 4.31mil/mm3 (4.40-5.80) Hemoglobin 11.8g/dL (13.8-17.2) Hematocrit 35.4% (41.0-50.0) Mean Corpuscular Volume 82.1fL (81-100) Mean Corpuscular Hemoglobin 27.4pg (27.0-35.0) Mean Corpuscular Hemoglobin Concent 33.3% (32.0-37.0) Red Cell Distribution Width 14.4% (12.3-15.4) Platelet Count 409bil/L (150-400) Neutrophils (%) (Auto) 63.5% (40-74) Lymphocytes (%) (Auto) 22.9% (14-46) Monocytes (%) (Auto) 12.1% (4-12) Eosinophils (%) (Auto) 0.8% (0-5) Basophils (%) (Auto) 0.4% (0-3) Sodium Level 135mEq/L (134-144) Potassium Level 3.2mEq/L (3.5-5.2) Chloride Level 89mEq/L (97-108) Carbon Dioxide Level 26mmol/L (18-29) Blood Urea Nitrogen 22mg/dL (6-20) Creatinine 1.68mg/dL (0.76-1.27) Estimat Glomerular Filtration Rate 49mL/min (>59) Glucose Level 129mg/dL (60-99) Lactic Acid Level 1.1mmol/L (0.4-2.0) Calcium Level 7.1mg/dL (8.5-10.1) Magnesium Level 1.1mg/dL (1.6-2.6) Total Bilirubin 0.5mg/dL (0.0-1.2) Aspartate Amino Transf (AST/SGOT) 27U/L (0-50) Alanine Aminotransferase (ALT/SGPT) 27U/L (0-44) Alkaline Phosphatase 132U/L (25-150) Total Protein 7.2g/dL (6.4-8.4) Albumin 3.7g/dL (3.4-5.0) Microbiology 03/09/17 Blood Culture, Received Pending Result Diagram: 03/09/17214403/09/172144 X-Rays, CTs and MRIs X-RAY CHEST ONE VIEW IMPRESSION: 1. No acute cardiopulmonary disease. Dictated by: Toni Fraire M.D. on 03/09/2017 at 21:33 Approved by: Toni Fraire M.D. on 03/09/2017 at 21:35 Additional Diagnostics: US Right Lower Extremity IMPRESSION: No evidence of DVT. Radiologist: Angelia Reyes MD 03/09/2017 - 11:16:37 PM PDT Assessment & Plan 36 y/o male with history of paranoid schizophrenia, polysubstance abuse, alcoholism and septic arthritis of his right knee with recent [facility] admission last month who presented to the ED c/o right leg pain and swelling. Admitted for further management and evaluation of right leg cellulitis and acute kidney injury with hypokalemia and hypomagnesemia. 1. Right leg cellulitis, poa. Active. -hx of gout, recent [facility] admission for septic arthritis of right knee, s/p arthroscopic irrigation on 02/18/17. -Ultrasound negative for DVT -received 1L bolus of NS, dose of vanco/zosyn in the ED -blood cultures pending -MRSA screen pending -continue IVFs, normal saline at 100mls/hr -continue vanco/zosyn, pending cultures -consider consult to Orthopedics due to recent joint infection 2. Acute kidney injury, poa. Active. -Creatinine 1.68 -likely prerenal secondary to poor po intake, infection -IVFs normal saline at 100mls/hr -CMP in the morning 3. Hypokalemia, poa. Active. -Likely due to depletion and substance abuse -s/p 40mEq of potassium chloride IV -CMP in morning 4. Hypomagnesemia,poa. Active -Hx of hypomagnesemia. -1.1 on admission, replenished with 4g of mag sulfate in the ED. -recheck in the morning 5. History of polysubstance abuse, poa. Ongoing -Likely contributing to renal insufficiency and electrolyte abnormalities. -Social work consult placed 6. History of alcoholism, poa. Ongoing -Denies current alcohol use. -no signs/symptoms of active withdrawal -check blood alcohol level -consider placing patient on CIWA 7. Paranoid schizophrenia, poa. Ongoing -Uncertain if compliant with medications; reportedly has a hx of aggression, appropriate this admission. -Consider consultation to Psychiatry for medication management. PRN: Acetaminophen-fever/headache/mild/moderate pain Antiemetics, as needed Bowel regimen, as needed. Pain Evaluation: Adequate Pain Control GI Prophylaxis: Not indicated VTE Prophylaxis Indicated: Meets Criteria for Anticoag Therapy VTE Prophylaxis: Sub-Q Heparin (Unfractionated) Resuscitation Status: CPR: Attempt Resuscitation Attending Statement The patient was seen and examined together with house staff on 03/10/2017 and I agree with the history, exam and plan as outlined in the note above. Swati Smart Mar 10, 2017 03:28 Pretty Reis DO Mar 10, 2017 05:45 Swati Smart DO Mar 10, 2017 03:28 Resuscitation Status: CPR: Attempt Resuscitation Swati Smart DO Mar 10, 2017 03:28 GI Prophylaxis: Not indicated VTE Prophylaxis Indicated: Meets Criteria for Anticoag Therapy VTE Prophylaxis: Sub-Q Heparin (Unfractionated) Resuscitation Status: CPR: Attempt Resuscitation Swati Smart Mar 10, 2017 03:28 -Denies current alcohol use. -no signs/symptoms of active withdrawal - 7. Paranoid schizophrenia, poa. Ongoing -Uncertain if compliant with medications.Currently is alert and oriented and denies any hallucinations or SI. -Of note, patient reportedly has a hx of severe aggression, currently appropriate and redirectable. -Consider consultation to Psychiatry for medication management. PRN: Acetaminophen-fever/headache/mild/moderate pain Antiemetics, as needed Bowel regimen, as needed. Swati Smart Mar 10, 2017 03:28 and oriented and denies any hallucinations or SI. Of note, patient does have a history of severe aggression, but is currently redirectable. We will consult psychiatry for medication management. 1. Right leg cellulitis CODE STATUS: FEN: IVF: GI Prophylaxis: DVT Prophylaxis: Sub-q Heparin, 5,000units Q8h PRN: Acetaminophen-fever/headache/mild/moderate pain Antiemetics, as needed Bowel regimen, as needed. : Polyethylene glycol, senokot, maalox (al hydroxide/mg hydroxide) Disposition: Patient admitted under inpatient status with expected length of stay > 2 midnights for severity of present symptoms, complexities of treatment plan and risk for adverse event. JelanibrigitteSwati rodríguez Mar 10, 2017 03:28
[2017-03-10 03:43] LABS: APPEARANCE,URINE CLEAR (CLEAR,HAZY); COLOR,URINE YELLOW (YELLOW); OCCULT BLOOD,URINE NEGATIVE (NEGATIVE); PH,URINE 5.5 (5.0-8.0); UROBILINOGEN,URINE NORMAL (NORMAL)
[2017-03-10] MEDS: 0.9% Sodium Chloride 1,000 ML IV SCH ×2 (04:23→15:14)
--- NOTE | 2017-03-10 05:17 | NUR ---
admit pt arrived to [facility] room 1028 at 0300. He is alert and oriented. he was able to ambulate from the gurney to the bed. he walks slowly due to pain in his R leg but is steady on his feet. VSS and afebrile. admit complete. pt oriented to room, call light and bed controls. hourly rounding continues.
--- NOTE | 2017-03-10 05:53 | PCM.CONPHA ---
Subjective Date of Service: Mar 10, 2017 Right leg pain Reason for Pharmacy Consult: Vancomycin Dosing Objective Vital Signs Date Time Temp Pulse Resp B/P Pulse Ox O2 Delivery O2 Flow Rate FiO2 03/10/17 03:08 36.8 96 18 121/80 97 Room Air 03/10/17 02:44 36.8 107 20 140/73 99 Room Air 03/10/17 01:46 36.8 107 20 140/73 99 Room Air 03/09/17 18:58 36.8 123 20 146/78 98 Room Air Weight (Kilograms): 76.900 Height (Feet): 5 Height (Inches): 8.00 Test 03/09/17 21:45 03/10/17 03:05 White Blood Count 11.0th/mm3 (3.8-10.1) Red Blood Count 4.31mil/mm3 (4.40-5.80) Hemoglobin 11.8g/dL (13.8-17.2) Hematocrit 35.4% (41.0-50.0) Mean Corpuscular Volume 82.1fL (81-100) Mean Corpuscular Hemoglobin 27.4pg (27.0-35.0) Mean Corpuscular Hemoglobin Concent 33.3% (32.0-37.0) Red Cell Distribution Width 14.4% (12.3-15.4) Platelet Count 409bil/L (150-400) Neutrophils (%) (Auto) 63.5% (40-74) Lymphocytes (%) (Auto) 22.9% (14-46) Monocytes (%) (Auto) 12.1% (4-12) Eosinophils (%) (Auto) 0.8% (0-5) Basophils (%) (Auto) 0.4% (0-3) Sodium Level 135mEq/L (134-144) Potassium Level 3.2mEq/L (3.5-5.2) Chloride Level 89mEq/L (97-108) Carbon Dioxide Level 26mmol/L (18-29) Blood Urea Nitrogen 22mg/dL (6-20) Creatinine 1.68mg/dL (0.76-1.27) Estimat Glomerular Filtration Rate 49mL/min (>59) Glucose Level 129mg/dL (60-99) Lactic Acid Level 1.1mmol/L (0.4-2.0) Calcium Level 7.1mg/dL (8.5-10.1) Magnesium Level 1.1mg/dL (1.6-2.6) Total Bilirubin 0.5mg/dL (0.0-1.2) Aspartate Amino Transf (AST/SGOT) 27U/L (0-50) Alanine Aminotransferase (ALT/SGPT) 27U/L (0-44) Alkaline Phosphatase 132U/L (25-150) Total Protein 7.2g/dL (6.4-8.4) Albumin 3.7g/dL (3.4-5.0) Urine Color Yellow (YELLOW) Urine Appearance Clear (CLEAR,HAZY) Urine pH 5.5 (5.0-8.0) Urine Specific Huger 1.020 (1.003-1.035) Urine Protein Negativemg/dL (NEG,TRACE) Urine Glucose (UA) Negativemg/dL (NEGATIVE) Urine Ketones Tracemg/dL (NEGATIVE) Urine Occult Blood Negative (NEGATIVE) Urine Nitrite Negative (NEGATIVE) Urine Bilirubin Negative (NEGATIVE) Urine Urobilinogen Normalmg/dL (NORMAL) Urine Leukocyte Esterase Negative (NEGATIVE) Urine RBC 0-2/hpf (0-2) Urine WBC 0-5/hpf (0-5) Urine Epithelial Cells Occasional/hpf (NONE-MOD) Urine Crystals None seen (NONE SEEN) Urine Bacteria None/hpf (NONE-FEW) Urine Hyaline Casts None/lpf (NONE) Urine Granular Casts None seen (NONE SEEN) Urine Waxy Casts None seen (NONE SEEN) Urine Red Blood Cell Casts None seen (NONE SEEN) Urine White Blood Cell Casts None seen (NONE SEEN) Urine Mucus None seen (None Seen) Urine Trichomonas None seen (NONE SEEN) Urine Yeast None (NONE SEEN) Urine Culture Reflexed Not indicated Assessment/Plan Assessment/Plan VANCOMYCIN DOSING PER PHARMACY A/ Rt leg cellulitis previously admitted last month with septic arthritis of Rt knee. Received loading dose vancomycin 1750mg IV x1 in ED at 0120 03/10 history of VANDA, SCr=1.68 GFR=57 P/ Will dose vancomycin 1000mg IV Q12H starting 03/10 1300 with trough before the 4th dose at 12 1230. Pharmacy will continue to follow and adjust as needed. Thank you for the consult. Librado [facility] Mar 10, 2017 05:53
[2017-03-10 06:01] LABS: BASOPHILS % (AUTO) 0.4 % (0-3); MONOCYTES % (AUTO) 8.3 % (4-12); Mean Corpuscular Hemoglobin 27.7 pg (27.0-35.0); Mean Corpuscular Volume 82.9 fL (81-100); NEUTROPHILS % (AUTO) 64.6 % (40-74); Platelet Count 359 bil/L (150-400)
[2017-03-10 06:23] LABS: Magnesium 2.4 mg/dL (1.6-2.6)
[2017-03-10] MEDS: Piperacillin-Tazo 3.375 Gm Inj 3.375 GM in Dextrose 5% Minibag Plus 50 ML IV SCH ×2 (07:32→17:30)
[2017-03-10] MEDS ORDERED: KCl 40 mEq/100 mL (CENTRAL) 40 MEQ in IV Premix 1 EACH IV ONE (07:40)
[2017-03-10] MEDS ORDERED: KCl 40 mEq/D5W 500 mL 40 MEQ in IV Premix 1 EACH IV ONE (07:45)
[2017-03-10] MEDS ORDERED: Vancomycin Dose per Pharmacist XX SCH (08:30)
[2017-03-10 09:26] VITALS: BP 139/86; RESP 20; O2SAT 96
--- NOTE | 2017-03-10 10:03 | DRSVH ---
PROCEDURE: US VENOUS LEG DUPLEX BILATERAL INDICATIONS: pain, swelling TECHNIQUE: Real-time imaging, as well as color and pulse Doppler interrogation, were performed of the deep veins of both legs from the inguinal ligament to the popliteal fossa. COMPARISON: [facility], US, US VENOUS LEG DPLX BILAT, 06/09/2016, 11:40. FINDINGS: The deep veins are normally compressible, and free of intraluminal thrombus. Color and pu lse Doppler demonstrate normal phasic intravascular flow. There is normal augmentation response to d istal compression maneuver. IMPRESSION: No deep venous thrombosis identified within either the left or right lower extremities. Dictated by: Dimitri WAYNE Interpreted: Faith Ceballos MD on 03/10/2017 at 10:01 Transcribed by: SOL on 03/10/2017 at 10:03 Approved by: Faith Ceballos M.D. on 03/10/2017 at 17:12
[2017-03-10] MEDS ORDERED: Indomethacin 25 mg Capsule PO ONE (10:20)
[2017-03-10] MEDS: Heparin 5,000 Unit/mL Inj SUBQ SCH ×2 (10:59→17:30)
[2017-03-10] MEDS ORDERED: Vancomycin Inj 1,000 MG in 0.9% Sodium Chloride 250 ML IV SCH (13:00)
[2017-03-10] MEDS ORDERED: Vancomycin Inj 1,000 MG in IV Premix 1 EACH IV SCH (13:00)
[2017-03-10] MEDS: Magnesium Chloride SR 64 mg ER24 Tablet PO SCH (15:13)
[2017-03-10] MEDS ORDERED: CHOL500050 PO (16:27)
--- NOTE | 2017-03-10 18:25 | NUR ---
Pain/activity Pt stating pain 7-09/08, treated with PO Tylenol, and scheduled medication for gout. pt stated pain still bad, but is sleeping almost the whole shift. pt up to BSC, having loose stool.
[2017-03-10 18:34] VITALS: BP 127/84; PULSE 79; RESP 18; O2SAT 98
[2017-03-11] MEDS: Heparin 5,000 Unit/mL Inj SUBQ SCH ×3 (00:30→16:00)
[2017-03-11 01:38] VITALS: BP 103/66; PULSE 80; RESP 24; O2SAT 96
[2017-03-11] MEDS: 0.9% Sodium Chloride 1,000 ML IV SCH ×3 (02:08→19:52)
[2017-03-11] MEDS: Piperacillin-Tazo 3.375 Gm Inj 3.375 GM in Dextrose 5% Minibag Plus 50 ML IV SCH ×3 (02:08→15:59)
[2017-03-11 06:44] LABS: Mean Corpuscular Hemoglobin 27.2 pg (27.0-35.0); Mean Corpuscular Volume 85.8 fL (81-100)
[2017-03-11] MEDS: Magnesium Chloride SR 64 mg ER24 Tablet PO SCH (10:08)
[2017-03-11] MEDS ORDERED: Vancomycin Serum Trough XX ONE (12:30)
[2017-03-11 13:08] VITALS: BP 106/72; PULSE 82; RESP 22; O2SAT 97
[2017-03-11] MEDS ORDERED: DIVA500T6 PO (13:14)
[2017-03-11] MEDS ORDERED: COLC0.6T52 PO (13:14)
[2017-03-11] MEDS ORDERED: ZYL100 PO (13:14)
[2017-03-11] MEDS ORDERED: OLAN20TA16 PO (13:14)
[2017-03-11] MEDS ORDERED: OLAN10TA19 PO (13:14)
--- NOTE | 2017-03-11 15:59 | NUR ---
Social Work-screening: data:EMR Reviewed. Pt is a 36 y/o male who was admitted on 03/10/17 for cellulitis per H&P. Pt's insurance is [facility] [employer] and PCP is Jennifer Kessler MD. EMR reviewed. Pt's readmission score is 5-high risk. SW met with pt to discuss discharge planning, SW role explained. Pt was residing at [facility], but has recently been living on the streets. Pt goes to [facility] for Mental Health services. Pt confirms that he plans to discharge back to the streets. Pt is independent at baseline. would like SW to work on getting pt's medications filled and bringing them to hospital. UR specialist went over and got pt's medications. 2 Medications pt is not able to get them filled due to just being filled. UR specialist called [facility]- no record of them. Message left at [facility]. Pt's belonging were looked through also and medications are not in them. Pt declining any DPOA/ advanced directive paperwork. SW will continue to follow. Assessment:Pt who is homeless. Plan:Pt to discharge back to Homelessness when medically stable. SW to continue work on getting pt's medications for him. 2 medications have been filled and provided to RN to lock up. Message has been left at [facility]. SW will continue to follow. PANTERA Roberts
--- NOTE | 2017-03-11 17:22 | PCM.PNMED ---
Subjective Date of Service Mar 11, 2017 Subjective Patient was seen and examined at bedside today. Patient denies any chest pain, shortness of breath, nausea, vomiting, diarrhea. Patient only complains of right knee pain which has improved since yesterday. Overnight events: None Exam Vital Signs Vital Sign - Last Date Time Temp Pulse Resp B/P Pulse Ox O2 Delivery O2 Flow Rate FiO2 03/11/17 13:08 36.6 82 22 106/72 97 Room Air Intake and Output 03/10/17 03/10/17 03/11/17 Cumulative From/Thru 15:00 23:00 07:00 03/09/17 18:58 - 03/11/17 06:23 Intake Total 2678 ml 1048 ml 4743 ml Output Total 1575 ml 2375 ml Balance 1103 ml 1048 ml 2368 ml Intake Oral 1330 ml 2130 ml IV Total 1348 ml 1048 ml 2613 ml Output Urine Total 1575 ml 2375 ml # Bowel Movements 4 4 Exam Physical Exam: GEN: Patient was awake, alert, responding appropriately to questions HEENT: Pupils equal round and reactive to light, extraocular eye muscles intact , Neck soft supple, trachea midline, nomocephalic/atraumatic CV: +S1/S2, regular rate and rhythm, no murmurs auscultated Respiratory: CTAB, no wheezes, rales, rhonchi GI: +bowel sounds x4, soft, compressible, nontender to palpation EXT: no clubbing, cyanosis, edema of the left lower extremity, right lower extremity no clubbing cyanosis or edema and heat from this knee has improved significantly Neuro: Cranial nerves II-XII grossly intact Psych: mood and affect were appropriate IVs and Medications Medications Reviewed: Medications were reviewed in detail Lab and Diagnostics Result Diagram: 03/11/1761903/11/17 0620 X-Rays, CTs and MRIs X-RAY CHEST ONE VIEW IMPRESSION: 1. No acute cardiopulmonary disease. Dictated by: Toni Fraire M.D. on 03/09/2017 at 21:33 Approved by: Toni Fraire M.D. on 03/09/2017 at 21:35 Additional Diagnostics US Right Lower Extremity IMPRESSION: No evidence of DVT. Radiologist: Angelia Reyes MD 03/09/2017 - 11:16:37 PM PDT Assessment & Plan 36 y/o male with history of paranoid schizophrenia, polysubstance abuse, alcoholism and septic arthritis of his right knee with recent [facility] admission last month who presented to the ED c/o right leg pain and swelling. Admitted for further management and evaluation of right leg cellulitis and acute kidney injury with hypokalemia and hypomagnesemia. Right knee gout -Leukocytosis has resolved -Uric acid levels yesterday were 9.9 today 5.9 significantly improved (within normal limits) -Discontinue antibiotics -Blood cultures negative 24 hours -Pain controlled with one dose of indomethacin -Continue colchicine and allopurinol Acute kidney injury, poa. Active. (Resolving) -Creatinine 1.68 trending down and currently 1.35 -likely prerenal secondary to poor po intake -Discontinue IV fluids -Follow up labs in the morning Hypokalemia, present on admission (resolved) -Likely due to depletion and substance abuse -s/p 40mEq of potassium chloride IV 2 doses -CMP in morning Hypomagnesemia,poa. Resolved -Hx of hypomagnesemia. -1.1 on admission, replenished with 4g of mag sulfate in the ED. -Currently 2.4 History of polysubstance abuse, poa. Ongoing -Likely contributing to renal insufficiency and electrolyte abnormalities. -Social work consult placed History of alcoholism, poa. Ongoing -Denies current alcohol use. -no signs/symptoms of active withdrawal Paranoid schizophrenia, poa. Ongoing -Uncertain if compliant with medications; reportedly has a hx of aggression, appropriate this admission. -Continue Zyprexa 10 mg in the morning and 20 mg at night History of seizures -Continue clonazepam daily -Continue Depakote 500 mg twice a day Disposition: Patient is clinically stable at this time and his gout seems to have resolved. At first it seemed like he had a lower extremity cellulitis but this turned out to be a gouty infection. The patient is currently homeless and we are in the process of obtaining the patient's medications. Once we have the patient's medications he will go home with these medications as last time he was discharged he did not have the medications to take. The patient should be ready for discharged tomorrow. PRN: Acetaminophen-fever/headache/mild/moderate pain Antiemetics, as needed Bowel regimen, as needed. GI Prophylaxis: Not indicated VTE Prophylaxis: Sub-Q Heparin (Unfractionated) Resuscitation Status: CPR: Attempt Resuscitation Shelbi Barrios DO Mar 11, 2017 17:22
--- NOTE | 2017-03-11 18:03 | NUR ---
Behavior Patient has been sleeping all day, except sitting up to eat meals. Tolerating diet and fluids well. Voiding - Having BMs. Complained of lower leg discomfort. Refused Tylenol, stating, "It doesn't do anything for it."
[2017-03-11 19:23] VITALS: BP 151/92; PULSE 98; RESP 20; O2SAT 98
[2017-03-12] MEDS: Piperacillin-Tazo 3.375 Gm Inj 3.375 GM in Dextrose 5% Minibag Plus 50 ML IV SCH ×2 (00:30→08:30)
[2017-03-12] MEDS: Heparin 5,000 Unit/mL Inj SUBQ SCH ×3 (00:30→16:29)
--- NOTE | 2017-03-12 04:30 | NUR ---
Activity Pt. has been using urinal this shift. Pt. has had a good appetite, and has been eating snacks throughout the night. Will continue to monitor.
[2017-03-12] MEDS: 0.9% Sodium Chloride 1,000 ML IV SCH ×2 (05:16→15:16)
[2017-03-12] MEDS: Magnesium Chloride SR 64 mg ER24 Tablet PO SCH (09:10)
[2017-03-12 09:16] LABS: Mean Corpuscular Hemoglobin 27.6 pg (27.0-35.0); Mean Corpuscular Volume 86.2 fL (81-100)
[2017-03-12 10:07] LABS: Magnesium 1.1 mg/dL (1.6-2.6)
--- NOTE | 2017-03-12 10:18 | NUR ---
Called and left message for CM at [facility], trying to locate his medication filled yesterday. Also called [facility] they have never filled for this patient before. Addendum: 03/12/17 at 1438 by SUDEEP TOSCANO Spoke with Kory Zamudio at [facility] [phone], he does have patients medication and he said patient can come and get his medications. Patient will need to take the bus there and tonight he would not make it. Updated Kory and plan will be to discharge patient tomorrow and send him to [facility].
[2017-03-12] MEDS ORDERED: Magnesium Sulf 4 Gm/100 mL H2O 4 GM in IV Premix 1 EACH IV ONE (11:00)
[2017-03-12 14:35] VITALS: BP 122/79; PULSE 66; RESP 20; O2SAT 100
--- NOTE | 2017-03-12 15:47 | NUR ---
Social Work: Continued discharge planning Data & Assessment: SW was notified by UR specialist that Kory Zamudio at [facility] [phone] has patients medication and he said patient can come and get his medications. 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 SW notified patient's attending physician and the plan is for the patient to to discharge tomorrow if he is medically stable. SW will continue to follow and assist patient throughout stay. Plan: Patient is likely to discharge to homelessness. 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 SW will continue to follow. Suzanne Azevedo, NALLELY, ACM
--- NOTE | 2017-03-12 16:11 | PCM.PNMED ---
Subjective Date of Service Mar 12, 2017 Subjective Patient was seen and examined at bedside today. Patient denies any chest pain, shortness of breath, nausea, vomiting, diarrhea. Patient still reports R knee pain however this seems to be improved from yesterday. Overnight events:None Exam Vital Signs Vital Sign - Last Date Time Temp Pulse Resp B/P Pulse Ox O2 Delivery O2 Flow Rate FiO2 03/12/17 14:35 37.1 66 20 122/79 100 Room Air Intake and Output 03/11/17 03/11/17 03/12/17 Cumulative From/Thru 15:00 23:00 07:00 03/09/17 18:58 - 03/12/17 05:54 Intake Total 1200 ml 1800 ml 1539 ml 9282 ml Output Total 500 ml 2820 ml 1690 ml 7385 ml Balance 700 ml -1020 ml -151 ml 1897 ml Intake Oral 1200 ml 1800 ml 1539 ml 6669 ml IV Total 2613 ml Output Urine Total 500 ml 2820 ml 1690 ml 7385 ml # Voids 2 2 # Bowel Movements 0 0 4 Exam Physical Exam: GEN: Patient was awake, alert, responding appropriately to questions HEENT: Pupils equal round and reactive to light, extraocular eye muscles intact , Neck soft supple, trachea midline, nomocephalic/atraumatic CV: +S1/S2, regular rate and rhythm, no murmurs auscultated Respiratory: CTAB, no wheezes, rales, rhonchi GI: +bowel sounds x4, soft, compressible, nontender to palpation EXT: no clubbing, cyanosis, edema, right knee pain has significantly improved patient is now nontender to palpation of the right knee Neuro: Cranial nerves II-XII grossly intact Psych: mood and affect were appropriate IVs and Medications Medications Reviewed: Medications were reviewed in detail Lab and Diagnostics Result Diagram: 03/12/17 0910 03/12/17 0910 X-Rays, CTs and MRIs X-RAY CHEST ONE VIEW IMPRESSION: 1. No acute cardiopulmonary disease. Dictated by: Toni Fraire M.D. on 03/09/2017 at 21:33 Approved by: Toni Fraire M.D. on 03/09/2017 at 21:35 Additional Diagnostics US Right Lower Extremity IMPRESSION: No evidence of DVT. Radiologist: Angelia Reyes MD 03/09/2017 - 11:16:37 PM PDT Assessment & Plan 36 y/o male with history of paranoid schizophrenia, polysubstance abuse, alcoholism and septic arthritis of his right knee with recent [facility] admission last month who presented to the ED c/o right leg pain and swelling. Admitted for further management and evaluation of right leg cellulitis and acute kidney injury with hypokalemia and hypomagnesemia. Right knee gout -Leukocytosis has resolved -Uric acid levels yesterday were 9.9 today 5.9 significantly improved (within normal limits) -Discontinue antibiotics -Blood cultures negative 24 hours -Pain controlled with one dose of indomethacin -Continue colchicine and allopurinol Acute kidney injury, poa. Active. (Resolved) -Creatinine 1.68 trending down and currently 1.17 -likely prerenal secondary to poor po intake -Discontinue IV fluids -Follow up labs in the morning Hypokalemia, present on admission (resolved) -Likely due to depletion and substance abuse -s/p 40mEq of potassium chloride IV 2 doses -CMP in morning Hypomagnesemia,poa. Active -Magnesium is currently 1.1 -Replenished with 4 g of mag sulfate -Stop magnesium chloride and start mag oxide 400 mg daily History of polysubstance abuse, poa. Ongoing -Likely contributing to renal insufficiency and electrolyte abnormalities. -Social work consult placed History of alcoholism, poa. Ongoing -Denies current alcohol use. -no signs/symptoms of active withdrawal Paranoid schizophrenia, poa. Ongoing -Uncertain if compliant with medications; reportedly has a hx of aggression, appropriate this admission. -Continue Zyprexa 10 mg in the morning and 20 mg at night History of seizures -Continue clonazepam daily -Continue Depakote 500 mg twice a day Disposition: Yesterday the patient was ready for discharge however a repeat magnesium level today showed the patient had a mag level 1.1. Patient's magnesium was repleted and his magnesium medication was changed to mag oxide which is more potent. The patient had some difficulty with IV access today and I personally placed an IV and the patient in order to complete the IV magnesium therapy. We will continue to monitor the patient. There were some concerns as to whether or not the patient did have access to medications. The patient currently has medications that were filled at the pharmacy and will be given to him upon discharge. The patient's seizure medications are currently at his psychiatric clinic and he is willing to go and pick those up upon discharge. Patient seems to be clinically stable and if his magnesium level is within normal range he will be discharged tomorrow. PRN: Acetaminophen-fever/headache/mild/moderate pain Antiemetics, as needed Bowel regimen, as needed. GI Prophylaxis: Not indicated VTE Prophylaxis: Sub-Q Heparin (Unfractionated) Resuscitation Status: CPR: Attempt Resuscitation Shelbi Barrios DO Mar 12, 2017 16:11
--- NOTE | 2017-03-12 19:18 | NUR ---
Mg Level/IV's Mg level critically low today, received order for IV Mg supplement. Placed new IV in Right forearm. Retirement through IV administration, IV catheter become slightly pulled out. IV therapy attempted to place new line, but patient refused on 2nd try. Notified MD and got new IV line placed in left hand. Mg rider finished infusing. Care continues.
[2017-03-13] MEDS: Heparin 5,000 Unit/mL Inj SUBQ SCH ×2 (00:39→11:01)
[2017-03-13] MEDS: 0.9% Sodium Chloride 1,000 ML IV SCH ×2 (01:16→11:16)
--- NOTE | 2017-03-13 04:12 | NUR ---
Activity Pt. has been sleeping most of the night. Pt. does wake up occasionally for snacks. No complaints about leg or foot noted. Will continue to monitor.
[2017-03-13 07:36] LABS: Mean Corpuscular Hemoglobin 27.7 pg (27.0-35.0); Mean Corpuscular Volume 86.1 fL (81-100)
[2017-03-13 08:04] LABS: Magnesium 1.6 mg/dL (1.6-2.6)
[2017-03-13] MEDS ORDERED: Magnesium Sulf 2 Gm/50mL Water 2 GM in IV Premix 1 EACH IV ONE (08:45)
[2017-03-13] MEDS ORDERED: MAGN400T23 PO (08:46)
--- NOTE | 2017-03-13 12:29 | PCM.DIMED ---
Discharge Instructions Date of Service Mar 13, 2017 Dates of Hospitalization Mar 10, 2017 at 02:14 Discharge Diagnosis Discharge Diagnosis Gout of the right knee Acute kidney injury (resolved) Hypokalemia (resolved) Hypomagnesemia (resolved) Medication Instructions Please take all of your medications as prescribed. Please continue to take the cold to seen and the allopurinol as these 2 medications will help to keep the right knee pain away. If you do not take these medications the right knee pain will come back. Please remember to take all of her seizure medications daily. Please take your magnesium daily as this medication also helps to prevent seizures. Diet No restrictions Activity No restrictions (gradually returned to her normal daily activities) Call your provider Fever or Chills, Shortness of breath, Weakness (unilateral) Patient Instructions The patient will follow-up with his psychiatric clinic as they currently have all of his psychiatric medications and his seizure medications. The patient states that he understands that his medications are they are there and he will go and pick them up. Follow-up Provider: Jennifer Kessler MD Follow-up with PCP in: 1 week (if an appointment has not been made please call to schedule an appointment) Shelbi Barrios DO Mar 13, 2017 12:29
--- NOTE | 2017-03-13 12:31 | PCM.DC.MED ---
Discharge Summary Date of Service Mar 13, 2017 Dates of Hospitalization Date of Hospital Admission Mar 10, 2017 at 02:14 Date of Discharge: Mar 13, 2017 Providers: Admitting Physician: Pretty Reis DO Primary Care Physician: Jennifer Kessler MD Attending Physician: Pretty Reis DO Diagnosis at Time of Discharge Diagnosis at Time of Discharge Gout of the right knee Acute kidney injury (resolved) Hypokalemia (resolved) Hypomagnesemia (resolved) Procedures XRay, CTs & MRIs X-RAY CHEST ONE VIEW IMPRESSION: 1. No acute cardiopulmonary disease. Dictated by: Toni Fraire M.D. on 03/09/2017 at 21:33 Approved by: Toni Fraire M.D. on 03/09/2017 at 21:35 Other Diagnostics US Right Lower Extremity IMPRESSION: No evidence of DVT. Radiologist: Angelia Reyes MD 03/09/2017 - 11:16:37 PM PDT Brief History 36 y/o male with history of paranoid schizophrenia, polysubstance abuse, and alcoholism who presented to the ED with the complaint of pain in his right leg and concern for gout flare. Patient is a somewhat poor historian and does not remember when his leg started to hurt. He denies any trauma and denies pain in any other joints, fever or chills. Additionally, he denies any current nausea but reports an episode of vomiting earlier today. He denies shortness of breath , chest pain, palpitations, GI or symptoms. He endorses smoking meth intermittently but denies any IV use or other drugs. He has a history of alcoholism and reports he has been sober for a few years with only an occasional drink. He also reports a history of gout with typical flares in his big toe. Of note, he was admitted to [facility] on 02/17/17 for a septic right knee and underwent arthroscopic irrigation and partial synovectomy for gouty arthropathy on 02/18/17 (Dr. Call). Per chart review, there was concern at time of discharge for reinfection due to patient compliance with dressing changes and ongoing care. In the ED, vitals: 36.8, BP 146/78, pulse 123, RR 20, SpO2 98% on room air. Labs : wbc 11.0, H/H 11.8/35.4, plts 409, sodium 135, potassium 3.2, chloride 89, bicarb 26, BUN 22, creatinine 1.68, serum glucose 129, magnesium 1.1. Ultrasound of right lower extremity with no evidence of DVT. Hospital Course 36 y/o male with history of paranoid schizophrenia, polysubstance abuse, alcoholism and septic arthritis of his right knee with recent [facility] admission last month who presented to the ED c/o right leg pain and swelling. Admitted for further management and evaluation of right leg cellulitis and acute kidney injury with hypokalemia and hypomagnesemia. The patient was admitted to the hospital for a right leg cellulitis which actually turned out to be right knee gout. The patient was also diagnosed with significant hypomagnesemia. The patient responded well to colchicine and allopurinol. The patient has a little bit of a social case as well as he states that he is now homeless. The patient's medications were filled at the pharmacy and brought to him so that he would have the medications present. However some of the patient's seizure medications and psych medications were not able to be filled as he had recently filled them and the prescriptions are currently at his psychiatric facility. 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 The patient has also been prescribed mag oxide as this has more penetration to maintain his magnesium level however his insurance company will not pay for this as it is [id number]. The patient was encouraged to take the medication [id number] however if he cannot afford it that he should continue taking the magnesium chloride at this time. The patient is being discharged in stable condition For full hospital course please see below: Right knee gout -Leukocytosis has resolved -Uric acid levels yesterday were 9.9 today 5.9 significantly improved (within normal limits) -Discontinue antibiotics -Blood cultures negative 24 hours -Pain controlled with one dose of indomethacin -Continue colchicine and allopurinol Acute kidney injury, poa. Active. (Resolved) -Creatinine 1.68 trending down and currently 1.17 -likely prerenal secondary to poor po intake -Discontinue IV fluids -Follow up labs in the morning Hypokalemia, present on admission (resolved) -Likely due to depletion and substance abuse -s/p 40mEq of potassium chloride IV 2 doses -CMP in morning Hypomagnesemia,poa. Active -Magnesium is currently 1.1 -Replenished with 4 g of mag sulfate -Stop magnesium chloride and start mag oxide 400 mg daily History of polysubstance abuse, poa. Ongoing -Likely contributing to renal insufficiency and electrolyte abnormalities. -Social work consult placed History of alcoholism, poa. Ongoing -Denies current alcohol use. -no signs/symptoms of active withdrawal Paranoid schizophrenia, poa. Ongoing -Uncertain if compliant with medications; reportedly has a hx of aggression, appropriate this admission. -Continue Zyprexa 10 mg in the morning and 20 mg at night History of seizures -Continue clonazepam daily -Continue Depakote 500 mg twice a day Disposition: Yesterday the patient was ready for discharge however a repeat magnesium level today showed the patient had a mag level 1.1. Patient's magnesium was repleted and his magnesium medication was changed to mag oxide which is more potent. The patient had some difficulty with IV access today and I personally placed an IV and the patient in order to complete the IV magnesium therapy. We will continue to monitor the patient. There were some concerns as to whether or not the patient did have access to medications. The patient currently has medications that were filled at the pharmacy and will be given to him upon discharge. The patient's seizure medications are currently at his psychiatric clinic and he is willing to go and pick those up upon discharge. Patient seems to be clinically stable and if his magnesium level is within normal range he will be discharged tomorrow. PRN: Acetaminophen-fever/headache/mild/moderate pain Antiemetics, as needed Bowel regimen, as needed. Exam Vital Signs (Last) Date Time Temp Pulse Resp B/P Pulse Ox O2 Delivery O2 Flow Rate FiO2 03/12/17 14:35 37.1 66 20 122/79 100 Room Air Exam Physical Exam: GEN: Patient was awake, alert, responding appropriately to questions HEENT: Pupils equal round and reactive to light, extraocular eye muscles intact , Neck soft supple, trachea midline, nomocephalic/atraumatic CV: +S1/S2, regular rate and rhythm, no murmurs auscultated Respiratory: CTAB, no wheezes, rales, rhonchi GI: +bowel sounds x4, soft, compressible, nontender to palpation EXT: no clubbing, cyanosis, edema, right knee is no longer tender to palpation or warm or erythematous Neuro: Cranial nerves II-XII grossly intact Psych: mood and affect were appropriate Test 03/09/17 21:45 03/10/17 03:05 03/10/17 05:15 03/12/17 09:10 Lactic Acid Level 1.1mmol/L (0.4-2.0) Urine Color Yellow (YELLOW) Urine Appearance Clear (CLEAR,HAZY) Urine pH 5.5 (5.0-8.0) Urine Specific [place] 1.020 (1.003-1.035) Urine Protein Negativemg/dL (NEG,TRACE) Urine Glucose (UA) Negativemg/dL (NEGATIVE) Urine Ketones Tracemg/dL (NEGATIVE) Urine Occult Blood Negative (NEGATIVE) Urine Nitrite Negative (NEGATIVE) Urine Bilirubin Negative (NEGATIVE) Urine Urobilinogen Normalmg/dL (NORMAL) Urine Leukocyte Esterase Negative (NEGATIVE) Urine RBC 0-2/hpf (0-2) Urine WBC 0-5/hpf (0-5) Urine Epithelial Cells Occasional/hpf (NONE-MOD) Urine Crystals None seen (NONE SEEN) Urine Bacteria None/hpf (NONE-FEW) Urine Hyaline Casts None/lpf (NONE) Urine Granular Casts None seen (NONE SEEN) Urine Waxy Casts None seen (NONE SEEN) Urine Red Blood Cell Casts None seen (NONE SEEN) Urine White Blood Cell Casts None seen (NONE SEEN) Urine Mucus None seen (None Seen) Urine Trichomonas None seen (NONE SEEN) Urine Yeast None (NONE SEEN) Urine Culture Reflexed Not indicated Neutrophils (%) (Auto) 64.6% (40-74) Lymphocytes (%) (Auto) 25.4% (14-46) Monocytes (%) (Auto) 8.3% (4-12) Eosinophils (%) (Auto) 1.0% (0-5) Basophils (%) (Auto) 0.4% (0-3) Uric Acid 6.3mg/dL (2.6-7.2) Total Bilirubin 0.2mg/dL (0.0-1.2) Aspartate Amino Transf (AST/SGOT) 25U/L (0-50) Alanine Aminotransferase (ALT/SGPT) 45U/L (0-44) Alkaline Phosphatase 135U/L (25-150) Total Protein 6.3g/dL (6.4-8.4) Albumin 3.4g/dL (3.4-5.0) Test 03/13/17 07:25 White Blood Count 8.4th/mm3 (3.8-10.1) Red Blood Count 4.69mil/mm3 (4.40-5.80) Hemoglobin 13.0g/dL (13.8-17.2) Hematocrit 40.4% (41.0-50.0) Mean Corpuscular Volume 86.1fL (81-100) Mean Corpuscular Hemoglobin 27.7pg (27.0-35.0) Mean Corpuscular Hemoglobin Concent 32.2% (32.0-37.0) Red Cell Distribution Width 14.8% (12.3-15.4) Platelet Count 357bil/L (150-400) Sodium Level 138mEq/L (134-144) Potassium Level 4.5mEq/L (3.5-5.2) Chloride Level 99mEq/L (97-108) Carbon Dioxide Level 27mmol/L (18-29) Blood Urea Nitrogen 20mg/dL (6-20) Creatinine 1.15mg/dL (0.76-1.27) Estimat Glomerular Filtration Rate 76mL/min (>59) Glucose Level 110mg/dL (60-99) Calcium Level 9.9mg/dL (8.5-10.1) Magnesium Level 1.6mg/dL (1.6-2.6) Discharge Medications Discharge Medications Allopurinol (Allopurinol) 100 Mg Tablet 100 MG PO HS Prescribed by: SHELBI BARRIOS DO Cholecalciferol (Vitamin D3) (Vitamin D) 50,000 Unit Capsule 50,000 UNIT PO WEEKLY (Reported) Clonazepam (Clonazepam) 0.5 Mg Tablet 0.5 MG PO DAILYWL (Reported) Clonazepam (Clonazepam) 0.5 Mg Tablet 1.5 MG PO HS (Reported) Colchicine (Colcrys) 0.6 Mg Tablet 0.6 MG PO BID Prescribed by: SHELBI BARRIOS DO Divalproex (Divalproex) 500 Mg Tablet.dr 500 MG PO BID Prescribed by: SHELBI BARRIOS DO Magnesium Oxide (Mag-Oxide) 400 Mg Tablet 400 MG PO DAILY Prescribed by: SHELBI BARRIOS DO Naph,Mb-Db/K pH,Mbdb (Phos-Nak Packet) 1 Each Powd.pack 1 EA PO PCHS Prescribed by: EMILIA ALMAZAN MD Olanzapine (Olanzapine) 10 Mg Tablet 10 MG PO QAM Prescribed by: SHELBI BARRIOS DO Olanzapine (Olanzapine) 20 Mg Tablet 20 MG PO HS Prescribed by: SHELBI BARRIOS DO Propranolol HCl (Propranolol HCl) 20 Mg Tablet 20 MG PO BID (Reported) As needed Hydrocodone-Acetaminophen 5-325 mg (Hydrocodone-Acetaminophen 5-325 mg) 1 Each Tablet 1 TABLET PO Q4 PRN PRN For Mild Pain Prescribed by: EMILIA ALMAZAN MD Additional med instructions Please take all of your medications as prescribed. Please continue to take the cold to seen and the allopurinol as these 2 medications will help to keep the right knee pain away. If you do not take these medications the right knee pain will come back. Please remember to take all of her seizure medications daily. Please take your magnesium daily as this medication also helps to prevent seizures. Followup Plan Discharge Diet: No restrictions Discharge Activity: No restrictions (gradually returned to her normal daily activities) Patient Instructions The patient will follow-up with his psychiatric clinic as they currently have all of his psychiatric medications and his seizure medications. The patient states that he understands that his medications are they are there and he will go and pick them up. Follow-up Provider: Jennifer Kessler MD Follow-up with PCP in: 1 week (if an appointment has not been made please call to schedule an appointment) Time spent Greater than 35 minutes Shelbi Barrios DO Mar 13, 2017 12:31
--- NOTE | 2017-03-13 14:10 | NUR ---
Discharge Appeal Patient stated he does not feel like he is ready to be discharged, stated he cannot walk due to pain, even though we discussed how he was able to walk to the beside commode without any issue earlier this shift, he stated he would like to appeal his discharge. Was only able to leave a voice message for [facility] social work with this information.
--- NOTE | 2017-03-13 14:19 | NUR ---
Faxed [facility] form to [facility] requesting orange picker at [phone] in [facility] and patient will be discharging directly to [facility] to see his CM there Kory Zamudio [phone]. Updated [address]IVE TESTER
--- NOTE | 2017-03-13 15:25 | NUR ---
Discharge Note Patient given all discharge instructions and information at this time, would not sign the discharge form. IV discontinued intact at this time. Patient given medications previously filled for him. Patient transported via wheelchair to [facility].
[2017-03-17] MEDS ORDERED: Ergocalciferol (Vit D2) 50,000 Unit Capsule PO SCH (08:30)
== END 2017-03-13 15:39 | disposition home or self-care (01) | DRG 554 ==
LOC: SED 18:54 → OSC 03-10 02:14
PROVIDERS: ADMIT Internal Medicine; ATTEND Internal Medicine
DX: M10.9 Gout, unspecified (principal); N17.9 Acute kidney failure, unspecified; F20.0 Paranoid schizophrenia; E78.5 Hyperlipidemia, unspecified; I10 Essential (primary) hypertension; E87.6 Hypokalemia; E83.42 Hypomagnesemia; G40.909 Epilepsy, unspecified, not intractable, without status epilepticus; Z59.0 Homelessness

== ENCOUNTER 2017-03-23 01:33 | Emergency (ER) | payer OTHER, MEDICAID ==
[~2017-03-23] VITALS: Ht 172.7 cm; Wt 79.5 kg
[~2017-03-23 01:33] MED LIST changes: +CHOL500050 PO; -Ergocalciferol (Vitamin D2) PO; +MAGN400T23 PO; -MAGN64TA7 PO
--- NOTE | 2017-03-23 01:39 | ED.REPORT ---
HPI-General Illness Date of Service Mar 23, 2017 ED Provider: MD Wilber This is a 36 year old male with a history of gout, hidradenitis suppurativa, paranoid schizophrenia, polysubstance abuse, DM, hyperlipidemia, HTN presenting to the emergency department due to joint pain secondary to gout flare up. He describes right ankle and knee pain. Pt also discusses mental health concerns, states homelessness is causing suicidal ideation. Pt denies fever, chills, nausea, vomiting, abdominal pain, bowel or bladder changes at this time. He is not taking any medications at this time, reports being off of psychiatric medications including Zyprexa, propranolol, and Depakote. Nursing Notes Stated Complaint: GOUT MEDS AND PSYCH Nursing Notes Reviewed: Yes Allergies: Coded Allergies: haloperidol (Verified Allergy, Unknown, 03/23/17) Scheduled Allopurinol (Allopurinol) 100 Mg Tablet 100 MG PO HS Allopurinol (Allopurinol) 300 Mg Tablet 300 MG PO DAILY Cholecalciferol (Vitamin D3) (Vitamin D) 50,000 Unit Capsule 50,000 UNIT PO WEEKLY Clonazepam (Clonazepam) 0.5 Mg Tablet 0.5 MG PO DAILYWL Clonazepam (Clonazepam) 0.5 Mg Tablet 1.5 MG PO HS Colchicine (Colcrys) 0.6 Mg Tablet 0.6 MG PO BID Divalproex (Divalproex) 500 Mg Tablet.dr 500 MG PO BID Divalproex DR (Depakote DR) 500 Mg Tablet 500 MG PO BID Swallowed whole without chewing to avoid local irritation of the mouth and throat. Magnesium Oxide (Mag-Oxide) 400 Mg Tablet 400 MG PO DAILY Naph,Mb-Db/K pH,Mbdb (Phos-Nak Packet) 1 Each Powd.pack 1 EA PO PCHS Olanzapine (Olanzapine) 10 Mg Tablet 10 MG PO QAM Olanzapine (Olanzapine) 20 Mg Tablet 20 MG PO HS Olanzapine (Zyprexa) 10 Mg Tablet 10 MG PO DAILY Olanzapine (Zyprexa) 20 Mg Tablet 20 MG PO HS Propranolol HCl (Propranolol HCl) 20 Mg Tablet 20 MG PO BID Scheduled PRN Hydrocodone-Acetaminophen 5-325 mg (Hydrocodone-Acetaminophen 5-325 mg) 1 Each Tablet 1 TABLET PO Q4 PRN PRN For Mild Pain General Time Seen by MD: 01:39 Chief Complaint Other Hx Obtained From: Patient Arrived By: Walk-in Sudden in Onset?: Yes Onset Occurred: Just prior to arrival Symptom Duration: Since onset Severity: Current: Mild Pertinent Negative: Pt denies other symptoms Recent Healthcare: No recent doctor visit, No recent hospitalization Similar Sx Previous: No Past Medical History Past Medical History Hidradenitis suppurativa Paranoid schizophrenic Reports: Diabetes mellitus, Hyperlipidemia, Hypertension, Mental illness Past Surgical History hidradenitis w/multiple I&D, followed at wound care Family History Reviewed, not relevant Smoking History Never Smoker Social History Alcohol Use: In recovery Drug Use: Meth Other Social History: Good social support, Homeless Occupation disabled Ambulatory Status Independent Review of Systems Full Review of Systems Constitutional: Denies: Chills, Fever Respiratory: Denies: Non-productive cough, Shortness of breath Musculoskeletal: Reports: Joint pain, Denies: Back pain, Neck pain Psychiatric: Reports: Suicidal ideation, Denies: Homicidal ideation Complete sys rev & neg: except as marked. Physical Exam Vital Signs Vital Signs Date Time Temp Pulse Resp B/P Pulse Ox O2 Delivery O2 Flow Rate FiO2 03/23/17 03:29 108 18 130/61 100 Room Air 03/23/17 01:46 36.0 109 14 169/116 100 Room Air - Initial VS: Reviewed Head / Eyes: Atraumatic, Normocephalic, PERRL ENT: Mucous membranes moist, Conjunctiva normal, No scleral icterus Neck: Supple, Non-tender, Full range of motion Respiratory: Breath sounds normal, Clear to auscultation, No respiratory distress Cardiovascular: Regular rate & rhythm, Heart sounds normal, Intact distal pulses Skin: Warm, Dry, No cyanosis General/Constitutional: Awake, Alert Upper Extremities Upper Extremity / MS: Inspection NL, Full range of motion, No swelling, Neurologic intact, Vascular intact Lower Extremity / Pelvis / MS: Full range of motion, No swelling, Neurologic intact, Vascular intact Psychiatric: Not homicidal Abnormal Thinking / Perception: Positive: Suicidal, no plan Interpretation & Diagnostics Lab Results Interpretation Result Diagram: 03/23/17 0206 03/23/17 0206 Test 03/23/17 02:06 White Blood Count 9.1th/mm3 (3.8-10.1) Red Blood Count 4.38mil/mm3 (4.40-5.80) Hemoglobin 12.3g/dL (13.8-17.2) Hematocrit 36.6% (41.0-50.0) Mean Corpuscular Volume 83.6fL (81-100) Mean Corpuscular Hemoglobin 28.1pg (27.0-35.0) Mean Corpuscular Hemoglobin Concent 33.6% (32.0-37.0) Red Cell Distribution Width 14.9% (12.3-15.4) Platelet Count 257bil/L (150-400) Neutrophils (%) (Auto) 49.8% (40-74) Lymphocytes (%) (Auto) 36.7% (14-46) Monocytes (%) (Auto) 11.2% (4-12) Eosinophils (%) (Auto) 1.7% (0-5) Basophils (%) (Auto) 0.4% (0-3) Sodium Level 138mEq/L (134-144) Potassium Level 2.8mEq/L (3.5-5.2) Chloride Level 92mEq/L (97-108) Carbon Dioxide Level 26mmol/L (18-29) Blood Urea Nitrogen 14mg/dL (6-20) Creatinine 1.04mg/dL (0.76-1.27) Estimat Glomerular Filtration Rate 85mL/min (>59) Glucose Level 125mg/dL (60-99) Uric Acid 11.1mg/dL (2.6-7.2) Calcium Level 8.1mg/dL (8.5-10.1) Total Bilirubin 0.6mg/dL (0.0-1.2) Aspartate Amino Transf (AST/SGOT) 57U/L (0-50) Alanine Aminotransferase (ALT/SGPT) 63U/L (0-44) Alkaline Phosphatase 162U/L (25-150) Total Protein 6.5g/dL (6.4-8.4) Albumin 3.6g/dL (3.4-5.0) Hold Jacobs Top Tube Received (Received) Alcohols < 10mg/dL (0-10) Re-Eval/Medical Decision Med Decision/Clinical Course 36-year-old with psychosis, polysubstance abuse, homelessness, presents off his current meds with low-grade suicidal ideation and no particular plan. He is willing to resume his prescribed meds, which include Zyprexa and Depakote and propranolol. I am not certain propranolol would be advisable, given his intercurrent use of methamphetamine. I have provided Zyprexa and Depakote alone. He also received a dose of oral Ativan. [facility] has interviewed him and will be willing to take him in this morning for stabilization on his psych meds. These are provided by prescription after doses given tonight. Additional issue is chronic gout, and he does indeed have a very elevated uric acid. He is not on ongoing allopurinol, but needs to be. This was started tonight and will be prescribed also. He is signed out at [address] Contreras Counseled Regarding: Diagnosis, Lab results, Need for follow-up Discharge & Departure Shift Change Sign-Out Patient Care Transferred: No Response to Therapy: Improved Primary Impression: Paranoid schizophrenia Additional Impressions: Gout Gout site: ankle Gout etiology: unspecified cause Laterality: right Chronicity: unspecified Qualified Code: M10.9 - Gout, unspecified Depression Depression Type: unspecified Qualified Code: F32.9 - Major depressive disorder, single episode, unspecified Acute situational disturbance Substance abuse Disposition: Home Discharge Condition All VS Reviewed: Yes Condition: Stable Patient Instructions: Acute Gouty Arthritis (ED) Additional Instructions: Resume your prescribed medications. Zyprexa 10 mg each morning and 20 mg each night. Allopurinol daily. Resume your Depakote as directed. We do not recommend propranolol when you are actively using methamphetamine. We suggest you discontinue the use of methamphetamine. Follow-up at [facility]. Take meds as instructed by staff. Referrals: Jennifer Kessler MD (PCP) Scribe Attestation Portions of this note were transcribed by Andrea Tabor. I, Dr. Merino personally performed the history, physical exam and medical decision-making; I reviewed and confirmed the accuracy of the information in the transcribed note. Signed by Loyda Byrd, 03/22/2017 at 06:00. copies to: Jennifer Kessler MD, Christopher W MD Mar 23, 2017 01:39 ANDREA TABOR Mar 23, 2017 01:41
[2017-03-23 01:46] VITALS: BP 169/116; PULSE 109; RESP 14; O2SAT 100
[2017-03-23 02:29] LABS: Mean Corpuscular Volume 83.6 fL (81-100)
[2017-03-23 02:30] LABS: BASOPHILS % (AUTO) 0.4 % (0-3); EOSINOPHILS % (AUTO) 1.7 % (0-5); MONOCYTES % (AUTO) 11.2 % (4-12); Mean Corpuscular Hemoglobin 28.1 pg (27.0-35.0); NEUTROPHILS % (AUTO) 49.8 % (40-74); Platelet Count 257 bil/L (150-400)
[2017-03-23] MEDS ORDERED: OLANZapine Zydis ODT 5 mg Tablet PO ONE (02:55)
[2017-03-23] MEDS ORDERED: LORazepam 1 mg Tablet PO ONE (02:55)
[2017-03-23 03:29] VITALS: BP 130/61; PULSE 108; RESP 18; O2SAT 100
[2017-03-23] MEDS ORDERED: ALLO300T2 PO (05:53)
[2017-03-23] MEDS ORDERED: OLAN10TA3 PO (05:53)
[2017-03-23] MEDS ORDERED: OLAN20TA3 PO (05:53)
[2017-03-23] MEDS ORDERED: DEP500A PO (05:53)
[2017-03-23 08:58] VITALS: BP 144/100; PULSE 103; RESP 18; O2SAT 100
== END 2017-03-23 08:42 | disposition home or self-care (01) ==
LOC: SED 01:33
DX: F20.0 Paranoid schizophrenia (principal); M10.071 Idiopathic gout, right ankle and foot; F32.9 Major depressive disorder, single episode, unspecified; F43.0 Acute stress reaction; F19.10 Other psychoactive substance abuse, uncomplicated; E11.9 Type 2 diabetes mellitus without complications; I10 Essential (primary) hypertension; E78.5 Hyperlipidemia, unspecified; Z79.899 Other long term (current) drug therapy; Z88.8 Allergy status to other drugs, medicaments and biological substances
CPT/HCPCS: 36415; 80053; 84550; 85025; 96372; 99284; G0480; J1885

== ENCOUNTER 2017-04-01 01:23 | Emergency (ER) | payer OTHER, MEDICAID ==
[~2017-04-01] VITALS: Ht 172.7 cm; Wt 79.5 kg
[~2017-04-01 01:23] MED LIST changes: +ALLO300T2 PO; +DEP500A PO; +OLAN10TA3 PO; +OLAN20TA3 PO
[2017-04-01 01:25] VITALS: BP 161/106; PULSE 107; RESP 18; O2SAT 97
--- NOTE | 2017-04-01 03:11 | ED.REPORT ---
HPI-General Illness Date of Service April 01, 2017 ED Provider: Peterson Marion MD A 36 year old homeless male with a medical history including gout, paranoid schizophrenia, diabetes, hypertension, methamphetamine use, and hidradenitis suppurativa presents to the ED via EMS reporting bilateral leg pain onset "a couple of days ago." The patient also reports generalized myalgias. He admits to using methamphetamines "all day." The patient was in the ED one week ago with lower extremity joint pain secondary to gout. He has been walking a lot recently. The patient denies injury/trauma or other symptoms. Nursing Notes Stated Complaint: METH USE AND HEALTH CONCERNS Chief Complaint: Substance Abuse Nursing Notes Reviewed: Yes Allergies: Coded Allergies: haloperidol (Verified Allergy, Unknown, 03/23/17) Scheduled Allopurinol (Allopurinol) 100 Mg Tablet 100 MG PO HS Allopurinol (Allopurinol) 300 Mg Tablet 300 MG PO DAILY Cholecalciferol (Vitamin D3) (Vitamin D) 50,000 Unit Capsule 50,000 UNIT PO WEEKLY Clonazepam (Clonazepam) 0.5 Mg Tablet 0.5 MG PO DAILYWL Clonazepam (Clonazepam) 0.5 Mg Tablet 1.5 MG PO HS Colchicine (Colcrys) 0.6 Mg Tablet 0.6 MG PO BID Divalproex (Divalproex) 500 Mg Tablet.dr 500 MG PO BID Divalproex DR (Depakote DR) 500 Mg Tablet 500 MG PO BID Swallowed whole without chewing to avoid local irritation of the mouth and throat. Magnesium Oxide (Mag-Oxide) 400 Mg Tablet 400 MG PO DAILY Naph,Mb-Db/K pH,Mbdb (Phos-Nak Packet) 1 Each Powd.pack 1 EA PO PCHS Olanzapine (Olanzapine) 10 Mg Tablet 10 MG PO QAM Olanzapine (Olanzapine) 20 Mg Tablet 20 MG PO HS Olanzapine (Zyprexa) 10 Mg Tablet 10 MG PO DAILY Olanzapine (Zyprexa) 20 Mg Tablet 20 MG PO HS Propranolol HCl (Propranolol HCl) 20 Mg Tablet 20 MG PO BID Scheduled PRN Hydrocodone-Acetaminophen 5-325 mg (Hydrocodone-Acetaminophen 5-325 mg) 1 Each Tablet 1 TABLET PO Q4 PRN PRN For Mild Pain General Time Seen by MD: 03:09 Chief Complaint Other (Bilateral Leg Pain) Hx Obtained From: Patient Arrived By: Ambulance Sudden in Onset?: No Onset Occurred: 3 days ago ("a couple days") Symptom Duration: Since onset Location: : Leg left: Leg right Quality: Painful Severity: Current: Moderate Severity: Maximum: Moderate Pertinent Negative: Relieved by nothing Context Related History: Reports Diabetes mellitus, Reports Drug use/abuse suspected, Reports Psychiatric history Recent Healthcare: Recent doctor visit Similar Sx Previous: Yes Past Medical History Past Medical History Hidradenitis suppurativa Paranoid schizophrenic Gout Reports: Diabetes mellitus, Hyperlipidemia, Hypertension, Mental illness Past Surgical History hidradenitis w/multiple I&D, followed at wound care Family History Reviewed, not relevant Smoking History Never Smoker Social History Alcohol Use: In recovery Drug Use: Meth Other Social History: Good social support, Homeless Occupation disabled Ambulatory Status Independent Review of Systems Full Review of Systems Constitutional: Denies: Fever Respiratory: Denies: Non-productive cough, Shortness of breath GI: Denies: Diarrhea, Vomiting Musculoskeletal: Reports: Extremity pain (Bilateral Lower Extremities), Myalgia (Generalized) Complete sys rev & neg: except as marked. Physical Exam Vital Signs Vital Signs Date Time Temp Pulse Resp B/P Pulse Ox O2 Delivery O2 Flow Rate FiO2 04/01/17 01:25 36.3 107 18 161/106 97 Room Air Initial VS: Reviewed, Vital signs abnormal Head / Eyes: Atraumatic, Normocephalic ENT: Conjunctiva normal, No scleral icterus Neck: Supple, Full range of motion General/Constitutional: Awake Patient is constantly scratching at himself Respiratory / Chest: Breath sounds NL, Breath sounds = bilat, No respiratory distress Cardiovascular: Heart rate NL, Regular rhythm, Heart sounds NL Abdomen: Soft, Non-tender Obese and protuberant Lower Extremity / Pelvis / MS: Inspection NL, No swelling, Non-tender, Neurologic intact, Vascular intact No joint inflammation Skin: No rash, Warm, Dry Re-Eval/Medical Decision Med Decision/Clinical Course 36-year-old male chronic homeless methamphetamine user. He has not been taking his psychiatric medications or blood pressure medications. He has a complaint of leg pain but his examination is essentially normal. No further evaluation seems necessary at this time. He is encouraged to follow up as an outpatient with his primary doctor. He will return as needed for urgent/emergent care. Source of Hx: Old records Time of Eval: 06:14 Patient Status: Condition improved Re-Evaluation/Progress Note: Discussed with patient diagnosis and plan for discharge. Follow-up and return to the ER instructions given. Patient agrees with plan for care and all questions were addressed. Counseled Regarding: Diagnosis, Need for follow-up Discharge & Departure Primary Impression: Methamphetamine abuse Additional Impressions: Schizophrenia, paranoid, chronic Homelessness Disposition: Home Discharge Condition All VS Reviewed: Yes Condition: Improved Additional Instructions: Follow-up today with your regular doctor at [facility] to get back on your medications. Do not use methamphetamine.. Return to the ER with any new or worsening symptoms. Referrals: Jennifer Kessler MD (PCP) [facility] Scribe Attestation Portions of this note were transcribed by Gayatri Gutierrez. I, Dr. Marion, personally performed the history, physical exam, and medical decision-making; I reviewed and confirmed the accuracy of the information in the transcribed note. Signed by: Loyda Perez, 04/01/2017, 06:45 copies to: [facility]; Jennifer Kessler MD, Howard L MD April 01, 2017 03:11 GAYATRI GUTIERREZ April 01, 2017 03:32
== END 2017-04-01 06:42 | disposition home or self-care (01) ==
LOC: EDUNIT# 01:23 → SED 01:23 → EDBD 01:23 → SED 06:42
DX: F15.10 Other stimulant abuse, uncomplicated (principal); F20.0 Paranoid schizophrenia; Z59.0 Homelessness; E11.9 Type 2 diabetes mellitus without complications; E78.5 Hyperlipidemia, unspecified; I10 Essential (primary) hypertension; Z88.8 Allergy status to other drugs, medicaments and biological substances; Z79.899 Other long term (current) drug therapy

== ENCOUNTER 2017-04-08 16:55 | Emergency (ER) | payer OTHER ==
[~2017-04-08] VITALS: Ht 172.7 cm; Wt 79.5 kg
[2017-04-08 17:15] VITALS: BP 149/95; PULSE 78; RESP 6; O2SAT 96
--- NOTE | 2017-04-08 17:46 | ED.REPORT ---
HPI-Extremity Problem Lower Date of Service April 08, 2017 ED Provider: Pradip Daley PA-C TM is an otherwise healthy 36-year-old male brought [facility] emergency department from [facility] have concern for bilateral ankle pain. Patient reports ankle pain right greater than left for the last 3 days, after he became incarcerated. He reports a history of gout, with his last flare 2 weeks ago. Denies exogenous estrogen, trauma, surgery, immobilization, chest pain, shortness of breath, palpitations, history of DVT/PE, IV drug use. Admits to methamphetamine use. Referred from [facility] to rule out DVT. Nursing Notes Stated Complaint: LEG PAIN Chief Complaint: Extremity Trauma Nursing Notes Reviewed: Yes Allergies: Coded Allergies: haloperidol (Verified Allergy, Unknown, 04/08/17) Scheduled Allopurinol (Allopurinol) 100 Mg Tablet 100 MG PO HS Allopurinol (Allopurinol) 300 Mg Tablet 300 MG PO DAILY Cholecalciferol (Vitamin D3) (Vitamin D) 50,000 Unit Capsule 50,000 UNIT PO WEEKLY Clonazepam (Clonazepam) 0.5 Mg Tablet 0.5 MG PO DAILYWL Clonazepam (Clonazepam) 0.5 Mg Tablet 1.5 MG PO HS Colchicine (Colcrys) 0.6 Mg Tablet 0.6 MG PO BID Divalproex (Divalproex) 500 Mg Tablet.dr 500 MG PO BID Divalproex DR (Depakote DR) 500 Mg Tablet 500 MG PO BID Swallowed whole without chewing to avoid local irritation of the mouth and throat. Magnesium Oxide (Mag-Oxide) 400 Mg Tablet 400 MG PO DAILY Naph,Mb-Db/K pH,Mbdb (Phos-Nak Packet) 1 Each Powd.pack 1 EA PO PCHS Olanzapine (Olanzapine) 10 Mg Tablet 10 MG PO QAM Olanzapine (Olanzapine) 20 Mg Tablet 20 MG PO HS Olanzapine (Zyprexa) 10 Mg Tablet 10 MG PO DAILY Olanzapine (Zyprexa) 20 Mg Tablet 20 MG PO HS Propranolol HCl (Propranolol HCl) 20 Mg Tablet 20 MG PO BID Scheduled PRN Hydrocodone-Acetaminophen 5-325 mg (Hydrocodone-Acetaminophen 5-325 mg) 1 Each Tablet 1 TABLET PO Q4 PRN PRN For Mild Pain General Time Seen by MD: 17:23 Chief Complaint Other (bilateral ankle pain) Risk-Extremity Prob Lower Well's Criteria for DVT Altern dx DVT likely (-2) Well's DVT Score: 0 pts (low risk 5%) Past Medical History Past Medical History Hidradenitis suppurativa Paranoid schizophrenic Gout Reports: Diabetes mellitus, Hyperlipidemia, Hypertension, Mental illness Past Surgical History hidradenitis w/multiple I&D, followed at wound care Family History Reviewed, not relevant Smoking History Former Smoker Social History Alcohol Use: In recovery Drug Use: Meth Other Social History: Good social support, Homeless Occupation disabled Ambulatory Status Independent Review of Systems Review of Systems Note: Negative unless stated otherwise in history of present illness Physical Exam General: Well appearing, well developed, well nourished, no acute distress. Head: Atraumatic, normocephalic. Eyes: No scleral icterus or injection. No discharge. Vision grossly intact. ENT: Voice clear, hearing grossly intact. Respiratory: Regular rate and rhythm. Breath sounds present, clear to auscultation and equal bilaterally. No respiratory distress. No increased work of breathing, speaks in complete sentences. Cardiovascular: Regular rate and rhythm, without murmur, gallop or rub. No pedal edema. Gastrointestinal: Abdomen flat and non-tender without guarding or rebound. Bowel sounds normoactive. Skin: Warm and dry. Legs: Calves 38 cm bilaterally measured 10 cm below the tibial tuberosity. Negative calf tenderness, negative Homans sign. Ankles: Mild edema bilaterally. DP and PT pulses 3+ bilaterally. Mild tenderness. Negative redness, heat. Neurological: Grossly nonfocal. Psychological: Alert and oriented. Speech appropriate, linear and logical. Behavior appropriate. Initial Vital Signs Vital Signs (First) Date Time Temp Pulse Resp B/P Pulse Ox O2 Delivery O2 Flow Rate FiO2 04/08/17 17:15 36.6 78 6 149/95 96 Room Air Initial VS: Vital signs abnormal (elevated blood pressure) Re-Eval/Medical Decision Med Decision/Clinical Course 36-year-old male brought in from [facility] of concern for bilateral ankle pain to rule out DVT. He reports three-day history of bilateral ankle pain right greater than left, which began after he became incarcerated. Patient states this is likely gout. Skull examination is benign with mild swelling around bilateral ankles. Negative pitting edema, unilateral leg swelling, redness, heat in the joints. Reassured that this is unlikely to be DVT based on the well's criteria for DVT. Likewise I believe septic joints are unlikely. Gout is a possibility, but unlikely be bilateral as well. I believe we have ruled out immediately dangerous causes of the patient's leg pain. Advise [id number] analgesia, primary care follow-up, provided emergency return precautions. Discharge & Departure Impression: Primary Impression: Bilateral ankle pain Chronicity: acute Qualified Code: M25.571 - Pain in right ankle and joints of right foot Disposition: Home Discharge Condition All VS Reviewed: Yes Condition: Stable Additional Instructions: Evaluation in the emergency department for bilateral ankle pain includes history and physical examination which are reassuring that this pain is unlikely to be caused by immediately dangerous conditions such as a DVT or infection in the joint. I believe you are stable and safe to be discharged. The pain is best treated with 800 mg of ibuprofen (Advil, Motrin) every 6 hours , or 1000 mg of acetaminophen (Tylenol) every 6 hours. These drugs can be taken at the same time for more severe pain. Follow-up with the providers at the [facility] a few days to be sure this is progressing as expected. Return to emergency department for new or worsening symptoms including increasing pain, redness, swelling, fever or inability to use the affected limb. Referrals: Jennifer Kessler MD (PCP) [facility] Provider for [facility]: Danny Lees MD copies to: Jennifer Kessler MD, Seth PA-C April 08, 2017 17:46
[2017-04-08 17:59] VITALS: BP 149/95; PULSE 78; RESP 6; O2SAT 96
== END 2017-04-08 18:01 | disposition home or self-care (01) ==
LOC: SED 16:55
DX: M25.571 Pain in right ankle and joints of right foot (principal); M25.572 Pain in left ankle and joints of left foot; I10 Essential (primary) hypertension; E11.9 Type 2 diabetes mellitus without complications; E78.5 Hyperlipidemia, unspecified; F20.0 Paranoid schizophrenia; Z59.0 Homelessness; Z87.891 Personal history of nicotine dependence; Z88.5 Allergy status to narcotic agent

== ENCOUNTER 2017-06-24 16:47 | Inpatient (IN) | payer MEDICAID, OTHER ==
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
[2017-06-24 17:00] VITALS: BP 163/108; PULSE 84; RESP 18; O2SAT 95
[2017-06-24 17:45] LABS: BASOPHILS % (AUTO) 0.6 % (0-3); EOSINOPHILS % (AUTO) 4.4 % (0-5); MONOCYTES % (AUTO) 8.5 % (4-12); Mean Corpuscular Hemoglobin 27.4 pg (27.0-35.0); NEUTROPHILS % (AUTO) 56.4 % (40-74); Platelet Count 331 bil/L (150-400)
[2017-06-24 23:33] VITALS: BP 144/100; PULSE 78; RESP 16; O2SAT 99
[2017-06-25] MEDS ORDERED: Alum-Mag Hydrox-Simeth 30 mL Suspension PO PRN (16:50)
[2017-06-25] MEDS ORDERED: Magnesium Hydroxide 10 mL Oral Concentration PO PRN (16:50)
[2017-06-25] MEDS ORDERED: Benzocaine-Menthol Lozenge 2/Pkg PO PRN (16:50)
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
[2017-06-26 09:00] VITALS: BP 166/109; PULSE 105; RESP 20; O2SAT 98
[2017-06-26 13:42] VITALS: BP 165/99; PULSE 114; RESP 18; O2SAT 98
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
[2017-06-26] MEDS: LORazepam 1 mg Tablet PO PRN (20:31)
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
--- NOTE | 2017-06-27 00:09 | NUR ---
Observations 1900 to 0700 Pt is in seclusion room at start of shift and is on 1 to 1 monitoring close observation. Please read RNs note to why pt is in seclusion and for more detail. Pt offered fluids, snacks and bathroom. Pt currently has urinal in seclusion room as pt declined last offer of restroom.
--- NOTE | 2017-06-27 06:00 | NUR ---
[id number] Nursing Note Sleep=over 10+ hrs sleep. S: "Oh, never mind, I cant walk, I don't need to go". O: Patient continues to report he has a snake bite to his leg. When attempting to get up to go to the bathroom, patient made the above statement. Patient indicating that the pain is located primarily around his Rt knee. Patient took his medications with juice at bed time. Refused toileting/snack and vital signs at this time. A: Adequate amounts of sleep obtained this shift. P: Monitor for safety and response to treatment. Follow plan of care. PRNs Ativan 2 mg @ 2030 for anxiety. Effective.
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
--- NOTE | 2017-06-27 14:34 | NUR ---
Nursing Note [id number] Seclusion S/O: Pt has been in seclusion during this shift. 1:1 monitoring done via camera in seclusion room. Pt has been sleeping/resting much of the time while in seclusion. Pt d/n respond to staff when asked questions. Questions need to be asked several times before he might reply. Pt stated, "I'm not a fucking child molester....Why don't you me the fuck alone....I have a bullet in my head....I have snake venom in my leg." Urinal left with pt & intructions to try to use it. Pt attempted use, but got urine on his clothing & bed sheets. Pt d/n want to change. Pt did change his clothing & bed sheets when staff left them in the seclusion room. "I'm not a fucking child molester....Why don't you me the fuck alone....I have a bullet in my head....I have snake venom in my leg." Pt could not reliably contract for safety or explain what behaviors are needed to get out of seclusion. A: Pt is not ready to get out of seclusion at this time. P: Provide supportive environment. Monitor medications & effects. Take out of seclusion when he can verbalize how to be safe on unit.
--- NOTE | 2017-06-27 17:03 | NUR ---
Observations 0700 - 1900 Pt was in seclusion at start of shift due to threatening behaviors and unable to verbalize being safe on the unit. (see nurses note) Pt speech and eye contact was poor. Pt ate 100% of his meals. Pt was offered snack and fluids. Pt was able to clean himself after urinating on mattress and floor while trying to use urinal. Pt was given clean sheet, blanket and scrubs to put on. Pt was observed at all times and documented every 15 minutes through the shift as ordered.
--- NOTE | 2017-06-27 22:24 | NUR ---
NURSING NOTE [id number] Mood: "I'm not fucking molesting little girls!" Affect: tearful, intermittently explosive and screaming Behavior: pt. has been in seclusion for duration of shift. See Seclusion Reassessments under Interventions. Thought processes: delusional, paranoid, devoid of insight into his condition and why he is here (believes he is being accused of child molestation "and doing crack"), unable to contract for safety to himself or others.
--- NOTE | 2017-06-28 06:29 | NUR ---
[id number] Nursing Note Sleep=5.25 hrs sleep. S:"I don't want to be in shelter, they molest people-even if they are not guilty". O: Patient yelling and agitated, unable to redirect. Patient had urinated in his clothing and bed. Patient initially refusing to allow staff to change his clothing or bedding. With continued encouragement and persuasion, patient allowed clothing /bedding to be changed, get washed up and finally used urinal. A: Patient anxious, disorganized, disheveled, sentences are fragmented, very resistant to following directions. P: Monitor for safety and response to treatment. Follow plan of care.
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
--- NOTE | 2017-06-28 13:54 | NUR ---
nursing note 7-3pm S) "yes I will cooperate if nobody tries to molest me or take a swing at me" O) pt in seclusion this am removed at 1220, patient debriefed and contracted to keep self and others safe, took shower and able to walk to room, earlier reported that has a snake bite on his leg unable to point to any place he is having pain, Tylenol given, shouts out occasionally at unseen persons, remains quiet and cooperative at this time, dressed in scrubs, ate meals A) calmer, able to remove from seclusion with contract, cooperative with medications P) monitor behavior and medications effectiveness, encourage participation in treatment
[2017-06-28] MEDS: LORazepam 1 mg Tablet PO PRN (19:51)
--- NOTE | 2017-06-28 21:15 | NUR ---
NURSING NOTE [id number] Mood: "I'm not doing that fucking stuff with ten guys! Stop calling me a child molester!" Affect: depressed, tearful, intermittently explosive and agitated Behavior: mostly isolating to his room this shift, resting in bed. He came out at 18:30 asking to take a shower and then began screaming "I'm not a child molester!" Pt. took a shower, asked for snacks multiple times, continued to scream off and on but able to calm down when given medications and allowed staff to assist him back to his room. Thought processes: continues to be delusional, depressed,agitated, fearful at times. Nursing note: pt. continues to limp on his right leg. He complains that there is "snake venom" in it. Declined offer of PRN Tylenol this evening as he states he needs antibiotics for it.
--- NOTE | 2017-06-29 05:33 | NUR ---
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 Restless but in control of behavior and emotions. Pt came out of room twice asking for a snack but was redirect able. At 0000 went to bed and slept until 0500, when he could be heard in his room saying loudly Im not a child molester. They think I am but they are the ones. Pt came to med window, calmly requesting to take a shower, and was accommodated. Monitor pt q 15 minute face checks for safety, location and accountability
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
[2017-06-29] MEDS: LORazepam 1 mg Tablet PO PRN (15:22)
[2017-06-29] MEDS ORDERED: Ziprasidone 20 mg/mL Inj IM PRN (15:45)
--- NOTE | 2017-06-29 18:55 | NUR ---
NURS NOTE DAY Mood:Irritable. Affect: Irritable. Thought Process/Content: "I'm not a fucking child molester." Frequent verbal outbursts. Tangential, loose associations. Threatening to staff. Behavior: Pt in bed at start of shift. became agitated at [address] seclusion see seclusion documentation for details. PRNs/NURS: Pt is taken schedule medications.
--- NOTE | 2017-06-29 20:09 | NUR ---
Obs Dayshift Pt spent the morning in his room, taking multi showers daily. Later in the morning, pt became more irritable, yelling from his room, out in the gonzales and in the milieu. Pt was able to be escorted back to his room many times. Pt then started coming out of his room yelling and naked, Security was called and he was escorted to Seclusion. Pt is repeating his delusions about being a child rapist, halfway and snitches, etc. Pt is very disruptive on the unit, difficult to redirect, not able to listen to staff directions. Continues to be in Seclusion due to being unable to follow staff direction, keep clothing on, and not yelling and disrupting the unit. Unsafe for the patient, staff and peers. Poor ADL's, Good meals
--- NOTE | 2017-06-29 21:43 | NUR ---
[id number] NURSING NOTE Pt. remains in seclusion. Pt. has been unable to contract for safety w/staff and yells belligerently and curses at staff when behavioral expectations are explained to him. He has been screaming about not being a child molester and how he is here on unit "because I'm a fucking murderer! I killed my relatives!" He is delusional, continues to threaten staff and posture. He has been agreeable to take his medications as scheduled. PRN Jaquelinien included w/HS meds. Continue to monitor.
--- NOTE | 2017-06-30 06:56 | NUR ---
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 06/30 015 2 hour Seclusion Assessment Unable to debrief pt. as when approached he began to mcghee and puff angrily and pulled blanket over his head. Sleeping at this time however wakes up periodically. Remains disorganized, with angry affect and body language. Urinated in a cup, which spilled on himself, despite a having urinal at bedside. He initially was uncooperative with getting out of bed so linens could be changed, but with significant prompting did get up and was cooperative with staff changing his sheets and assisting him with cleaning himself up. While staff in room pt. became agitated, ranting illogical statements but settled into bed when staff left the seclusion room. 06/30 035 Continuation Seclusion Assessment Pt restless in bed with covers pulled over head. Attempted to engage pt. in discussion about safety and condition for release however pt. did not respond. Refused prn medication. 06/30 0550 2 hour Seclusion Assessment. Pt remains with poor insight, judgement, poor impulse control, disrobing and exposing himself. When attempting to debrief pt. he gets visibly upset and pulls the blanket over his head. Seclusion ongoing. Hand off given to oncoming RN
--- NOTE | 2017-06-30 08:49 | NUR ---
Seclusion continued Pt yelling and swearing stating "I fucking molest little girls and you don't!" Pt throwing his breakfast around seclusion room then yelling "Clean that up!" Pt given morning medications with security present. He was resistive yelling out "I don't listen to Jamaicans...Slavery!" Pt continued rambling dialogue of delusional and paranoid thought content. He did eventually take oral medication. He is unable to verbally agree to behavior contract in order to end seclusion. He remains labile and unpredictable. Seclusion order renewal obtained from Dr Lieberman at 8520. Used urinal x 2. BM x1. Addendum: 06/30/17 at 1201 by JENNIE GOODMAN RN Seclusion continues. Thought content remains delusional and disorganized. Behavior unpredictable. He is unable to verbalize understanding of behaviors needed to maintain safely outside of seclusion. Written renewal of seclusion order obtained from Dr Lieberman @ [id number].
[2017-06-30] MEDS: LORazepam 1 mg Tablet PO PRN ×3 (09:30→21:54)
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
--- NOTE | 2017-06-30 17:11 | NUR ---
Obs Dayshift Seclusion continues, pt continues to be demanding, yelling, vulgar. Yelling about not being a child molester. Yelling and demanding food, yelling at staff. Pt is taking clothing off, masturbating. Sleeps for short periods, and wakes up yelling. Throws his food on the ground, urinates on the floor. Not able to follow staff directions, yells over staff when they attempt to talk with him, disorganized, dismissive, labile, irritable, delusional, and responding to IS. Poor ADL's, Good meals
--- NOTE | 2017-06-30 20:19 | NUR ---
NURSING NOTE [id number] Pt. remains in seclusion. Pt. continues to be unable to contract for safety toward others, and cannot agree to maintain behavioral control. Pt. has mostly been resting in bed w/intermittent explosive yelling and cursing at staff. Whenever behavioral expectations are laid out to him the pt. becomes agitated and yells at this medical underwriter or ignores this medical underwriter entirely. Pt. is delusional, yelling about arson, skilled nursing, being a child molester, and "killing all the motherfuckers!". He has been med compliant. See Seclusion Reassessment Interventions for further details.
[2017-07-01 02:00] VITALS: BP 117/85; PULSE 85; RESP 16
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
--- NOTE | 2017-07-01 15:46 | NUR ---
Obs Dayshift Pt remained in Seclusion in the morning, continued to yell about wanting more food, not being a child molester and killing other child molesters. Pt is loud, disorganized, delusional, not able to follow staff directions/redirection. Pt became slightly more calm, using the urinal appropriately and making attempts to clean himself and the room. Pt requested a shower, staff discontinued the seclusion for the shower and attempted to have pt stay in his room if he wasn't able to follow directions or yell and be vulgar out in the milieu. Pt maintained for a very short time, came out approx three times and was redirected back to his room and door closed (unlocked) due to him yelling at . Pt came out again demanding food, yelling at staff. When staff attempted to escort him back into his room, he turned and pushed staff and went back to his room. Staff then attempted to give meds and he threw the water at/on staff. Code was called and pt was escorted back into Seclusion for his safety, other patients safety and staff safety, yelling, vulgar and delusional statements at peers and staff. PT continues not able to follow directions, not Oriented to situation, date, or time. Poor ADL's, Good meals
[2017-07-01 16:25] VITALS: BP 121/76; PULSE 87; RESP 18
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
--- NOTE | 2017-07-02 03:08 | NUR ---
seclusion note 11-7 s- i want yogurt. i want milk. i'm not a child molester. you bitch. o- lying quietly at 2245. has direct line of sight observation with q 15 minute assessments. pounded on the door and demanded a snack which he received. returned to lying quietly on the mattress. pounded on the door at 0100 demanding snacks and postured/threatened staff when told he would have to wait. he returned to lying quietly. a- no apparent physical distress. p- assist with regaining behavioral control appropriate for return to the open milieu. continue seclusion for safety due to recent threatening behaviors. cindy
--- NOTE | 2017-07-02 05:38 | NUR ---
nursing, nights, 11-7 s/o- has appeared to sleep after 0400 during q 15 minute assessments. a- volatile and unpredictable, no apparent physical distress. p- monitor behavior/emotional state, quality, times and amount of sleep, use and effect of medication. cindy
[2017-07-02 10:00] VITALS: BP 107/84; PULSE 118; RESP 18
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
--- NOTE | 2017-07-02 21:50 | NUR ---
Seclusion Continued Seclusion continued at 2145 per MD. No changes in patient behavior. 1:1 for patient safety.
[2017-07-02] MEDS: LORazepam 1 mg Tablet PO PRN (23:27)
--- NOTE | 2017-07-03 01:45 | NUR ---
Seclusion renewal Received verbal order from Dr Nava to continue with seclusion for this pt. PT continues to hit at glass on door. PT voided in urinal and dumped it all over the room. PT was agreeable to changing his urine soaked clothing and all of his person attire was laundered. PT continues to have aggressive tendencies and is not safe for others to come out of seclusion at this time. Order continued for another 4 hours at this time.
--- NOTE | 2017-07-03 04:22 | NUR ---
NOC PT is currenlty sleeping at this time. Ativan appears to have helped calm him a bit to where he was able to fall asleep finally. Will CTM.
--- NOTE | 2017-07-03 04:38 | NUR ---
FRANK PT has finally been asleep for a few hours now. Lights are on in room for monitoring, so head is covered with blankets. For safety, every time staff goes into room we have security standby. Behavior has not been aggressive to staff this porsche. Will CTM with current POC and monitor for any A/R to meds.
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
--- NOTE | 2017-07-03 14:37 | NUR ---
Nursing Note [id number] Seclusion Pt has been sleeping on & off during the day. Pt has been agitated every time he is awake. He has been cursing, yelling, & threatening staff. AM medications offered with breakfast. Pt began to yell calling staff "faggot" and threatening staff. Pt continued yelling after staff left. He was able to urinate in urinal. Attempted to obtain vital signs from patient at 1250. Pt refused to listen to staff & sit still so that B/P could be done. Pt yelling & cursing at staff. Pt again went to sleep after lunch eaten. Pt d/n use utensils to eat with, but shoves it in his mouth with his hands. Seclusion orders renewed as needed. A: Pt has no insight & is unable to maintain any kind of behavioral control. P: We will continue seclusion until pt is able to manage his behavior.
[2017-07-03 16:26] VITALS: BP 101/77; PULSE 102; RESP 18
--- NOTE | 2017-07-03 16:55 | NUR ---
Nursing Day Shift Seclusion: S: "Those pills take away my manhood!" O: Patient offered medication prior to taking a shower. Very resistive to the idea and escalated to the point of getting out of bed to lunge at staff yelling the above numerous times. Also stated "I'll never take a shower in a million years if I got to take those pills." A: Agitated over medication. P: CPOC. Monitor mood and behavior. Continue seclusion for safety of patient and others.
[2017-07-03] MEDS: LORazepam 1 mg Tablet PO PRN (20:46)
[2017-07-04] MEDS: LORazepam 1 mg Tablet PO PRN ×2 (00:29→23:46)
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
[2017-07-04 10:32] VITALS: BP 123/90; PULSE 98; RESP 18
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
--- NOTE | 2017-07-04 16:20 | NUR ---
Observations 0700 to 1900 Pt is in seclusion at start of shift (please read additional notes) and remained in seclusion due to behavior. Pt ate a snack. Pt has a flat, guarded, blunt affect. Pt is paranoid and unable to handle basic ADL needs and has poor hygiene, including voiding on the floor despite having a urinal. Pt responds better to male staff. Pt is delusional and observed yelling and talking to self numerous times throughout shift. Staff completed 15 min close observations as ordered.
--- NOTE | 2017-07-05 06:06 | NUR ---
Nursing Note Staff Home Therapy Rn 7pm to 7am 214 Seclusions continuation Order obtained for continuation from Dr. Nava. Pts mood remains irritable thoughts loose and tangential, suspicious and perseverative. Attempted to discuss behavioral expectations with pt. Yelled repeatedly, Im going to stab you bitch Given pt. is currently threatening the safety of staff, he remains inappropriate to release from seclusion. Pt took a shower and given clean scrubs. Took HS medications, given a 2 snack and left 2 cups of water by his bedside. 2345 2 hour Assessment -Pt very restless thrashing around in bed, yelling out, jumping in and out of bed banging on the store, making demands for food I need food. You are starving me. Pt reminded that he had had dinner and two snacks and that the next meal. Pt given Ambien 5mg and Ativan 2mg po prn 0145 4 hour Continuation Assessment - Obtained continuation from Dr. Nava . Pt seen standing near the urinal which was on the floor a few feet away and tried to urinate in it. Pt urinated on himself and became childlike, almost crying yelling I peed on myself I need to shower. Pt accompanied to shower by 2 security officers while staff cleaned the floor in the seclusion room. Pt would not put his clean scrubs on but walked to his room wrapped in a towel slipped walking into his room, lowered himself to the floor. Pt would not allow staff to assess him. Denied pain and got into bed naked and pulled sheets over himself. Pt then began screaming and yelling at what appeared to be internal stimuli. What do you think you are I didn't do anything and was inconsolable. Pt given Geodon 20mg IM for agitation at 0045 with good effect. Pt went to sleep 0345 2 Hour Assessment - Pt fluctuating between wakefulness and sleep, crying out in his sleep as if having nightmares. 0545 4 hour Continuation Order - Obtained continuation order from Dr. Nava. Pt currently sleeping after getting an IM of Geodon 20mg for agitation and disruptive behavior. Pt continues to toss and turn, vocalizing childlike squeals in his sleep. At one point he got out of bed and urinated on the floor despite urinal next to his bed and returned to sleep. Monitoring ongoing with 1:1 sitter.
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
[2017-07-05 09:59] LABS: Mean Corpuscular Hemoglobin 27.2 pg (27.0-35.0); Mean Corpuscular Volume 82.3 fL (81-100)
[2017-07-05 10:00] LABS: Platelet Count 333 bil/L (150-400)
[2017-07-05 10:01] LABS: BASOPHILS % (AUTO) 0.9 % (0-3); MONOCYTES % (AUTO) 9.2 % (4-12); NEUTROPHILS % (AUTO) 52.4 % (40-74)
[2017-07-05 12:00] VITALS: BP 97/61; PULSE 78; RESP 16
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
--- NOTE | 2017-07-05 18:00 | NUR ---
Observations 0300 - 1900 Pt was in seclusion at start of shift due to threatening behaviors, verbally agressive and unable to verbalize being able to stay safe on the unit. Pt speech was vulgar, agressive, refusing to respond and pressured. Pt eye contact was poor, intense and looks to the side or downward when responding. Pt ate 100% of his meals. Pt was offered snack and fluids. Pt was urinating on the floor early in the shift and was redirected and was able to use the bathroom in the afternoon. Pt was observed at all times by 1:1 and documented on every 15 minutes through the shift as ordered.
[2017-07-05] MEDS ORDERED: Divalproex (QD) 500 mg ER24 Tablet PO ONE (21:00)
[2017-07-05] MEDS: LORazepam 1 mg Tablet PO PRN (21:05)
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
[2017-07-06 09:30] VITALS: BP 128/82; PULSE 101; RESP 16
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
[2017-07-06] MEDS: OLANZapine Zydis ODT 5 mg Tablet PO PRN (17:27)
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
[2017-07-06] MEDS: LORazepam 1 mg Tablet PO PRN (19:42)
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
[2017-07-06] MEDS: Divalproex (QD) 500 mg ER24 Tablet PO SCH (20:58)
[2017-07-06] MEDS: risperiDONE 2 mg Tablet PO SCH (20:58)
[2017-07-07] MEDS: OLANZapine Zydis ODT 5 mg Tablet PO PRN ×2 (01:04→15:22)
[2017-07-07] MEDS: LORazepam 1 mg Tablet PO PRN (01:05)
--- NOTE | 2017-07-07 05:13 | NUR ---
Observations 2300 - 0700 Pt was in seclusion at start of shift due to threatening behaviors, being verbally aggressive, yelling out to unseen others and unable to verbalize being able to stay safe on the unit. Pt speech was vulgar, aggressive, intense and pressured. Pt eye contact was poor. Pt was laying on mattress resting when my shift started. Pt had broken sleep and continues to shout, cuss, yell at unseen others but was cooperative when let out of room to use restroom. Pt would begin shouting and being verbally aggressive once door was shut. Pt was observed at all times by 1:1 sitter and other staff through audio and visual. Pt was observed and documented on every 15 minutes throughout the shift as ordered.
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
[2017-07-07] MEDS: risperiDONE 2 mg Tablet PO SCH ×2 (07:45→20:30)
--- NOTE | 2017-07-07 08:14 | NUR ---
Nursing Dayshift 744 : Pt continues in seclusion d/t paranoid delusions with violent thoughts, impulsive and unpredictable behavior. Pt provided morning medications with security present. He used his urinal. Urinal emptied and floor cleaned by staff. Pt unable to follow behavioral expectations. He was irritable and yelling at staff "You are going to be murdered, You fucking rat!" Addendum: 07/07/17 at 1136 by JENNIE GOODMAN RN 0945: Verbal order obtained from Dr. Nava to continue seclusion. Behavior remains impulsive and unpredictable with paranoid delusional thoughts. Addendum: 07/07/17 at 1221 by JENNIE GOODMAN RN 1145: 2 hour assessment. Pt told visiting court attorneys "I'll murder your f*cking family." Seclusion continues for impulsive unpredictable behavior with violent thoughts. Addendum: 07/07/17 at 1354 by JENNIE GOODMAN RN 1345: Verbal order obtained from Dr. Nava to continue seclusion. Behavior remains impulsive and unpredictable with paranoid delusional thoughts.
--- NOTE | 2017-07-07 12:55 | PROG NOTE ---
[address] [address] PROGRESS NOTE PATIENT: DRABY BUSBY : 1980 MR#: [id number] ADMIT: 06/26/2017 JOB ID: [id number] DATE: 07/07/2017 CHIEF COMPLAINT: "No response." HISTORY OF PRESENT ILLNESS: As stated above. The patient made no response with myself and nursing staff. He remains in seclusion and has been consistently held in seclusion over the past five days. The patient continues to be despondent with periodic inappropriate comments with both staff and Dr. Sabillon. Yesterday evening he was openly identifying concerns that he believes that the individuals were going to cut off his genitalia. He continues to ramble with significant sexualized fashion and inappropriate commentary. He continues have uncontrollable incontinence of urine and bowel. Medication changes over the past several days have improved the patient's clarity of thought and concern of disinhibition. MEDICATIONS: His current medication over the past several days have been clarified to: 1. Depakote 500 mg q.h.s. 2. Risperdal 3 mg b.i.d. 3. Cogentin 1 mg b.i.d. 4. Olanzapine 10 mg q.h.s. with intent to discontinue over the next 3-5 days. 5. Ambien 5-10 mg h.s. 6. Ativan 1 mg q.4 h. as needed. 7. Allopurinol 100 mg daily. 8. Propranolol 20 mg daily. OBJECTIVE/MENTAL STATUS EXAMINATION: Was not completed due to the patient's uncooperative nature. His current vital signs include temperature unlisted, pulse 101, respirations 16, BP 128/82. Medication review includes Depakote 1500 mg ER q.h.s., Zyprexa 10 mg q.h.s., Risperdal 3 mg b.i.d., Cogentin 1 mg b.i.d., Ativan 1 mg q.4 h. p.r.n., propranolol 20 mg b.i.d., Ambien 5 mg q.h.s. p.r.n. and allopurinol 100 mg daily. ASSESSMENT: AXIS I: 1. Schizophrenia, paranoid type. 2. Polysubstance use disorder. AXIS II: Antisocial personality disorder. AXIS III: History of gout. AXIS IV: Stressors are noted for repeated noncompliance with decompensation, repeated incarceration. AXIS V: Global Assessment of Functioning, current 30. PLAN: 1. Recommendations for continuation of taper and intent to discontinue Zyprexa. 2. Continuation of Risperdal 3 mg b.i.d., Cogentin 1 mg b.i.d., Depakote ER 1500 mg q.h.s., Ativan 1 mg q.4 h. p.r.n., and Ambien 5-10 mg q.h.s. as well as propranolol 20 mg b.i.d. 3. Applications for MR 90 to be filed tomorrow for continuation of pursuit of [facility] hospitalization due to the patient's repetitive hospitalizations, inability to stabilize in a least restrictive sector. MTDD
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
[2017-07-07] MEDS: Divalproex (QD) 500 mg ER24 Tablet PO SCH (21:00)
--- NOTE | 2017-07-07 23:11 | NUR ---
Nurses Note Seclusion Patient remains in seclusion due to inability to process behaviors with delusional thoughts of molesters,snitches,killing and verbally threatening at times to staff. Patient received Zyprexa Zydis 10mg PRN at 1522 for tormented screaming at people who were not there. His behavior mellowed slightly afterwards and has been able to shower with security guards present and has used his urinal the rest of the shift. Patient refused his HS medications. Appetite and hydration have been good. Will maintain seclusion for safety.
--- NOTE | 2017-07-08 01:37 | NUR ---
Nursing Nightshift Seclusion: S: "Can I get something to eat and some juice?" O: Patient appropriately requesting PO items. No aggression toward staff thus far this shift. Of note patient yells obscenities often while in bed at "snitches", "bitches", and "child molesters". Also naming the Helmary grace's [place] in his rants. These rants often are around 10-20 minutes in length. Voiding appropriately in the urinal with staff emptying on a regular basis. A: Loud and angry at times while alone in his room. Calm with staff present. P: CPOC. Monitor mood and behavior. Seclusion to continue due to loud threatening language. Addendum: 07/08/17 at 0458 by PENELOPE SERRANO RN Patient continues with the above behavior. Has napped for short periods. Will continue seclusion due to danger to others. Addendum: 07/08/17 at 0642 by PENELOPE SERRANO RN Patient presently asleep and has been for a couple of hours. Will continue to monitor.
[2017-07-08] MEDS: risperiDONE 2 mg Tablet PO SCH (08:30)
--- NOTE | 2017-07-08 10:52 | NUR ---
Nursing Dayshift Seclusion continues with 1:1 monitoring. His behavior remains impulsive and unpredictable. He continues to swear and yell out violent themes "I will f*ck you in the *ss you [place] b*tch!" Two staff present to provide meals & toileting. Seclusion order obtained from Dr Nava 0945. Addendum: 07/08/17 at 1112 by JENNIE GOODMAN RN Pt refused morning medications prior to court. Addendum: 07/08/17 at 1511 by EJNNIE GOODMAN RN Seclusion continues pt continues to yell out delusional themes of a sexual and violent theme. Pt masturbating in seclusion room, using urinal and pooped on his lunch tray because he reports unable to get to the bathroom in time.
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
--- NOTE | 2017-07-08 18:29 | NUR ---
Locomotive Electrician/Counselor: S: "I want to take a shower, get some clean clothes, clip my toenails, and shave." O: Patient slept 4.75 hours last night per staff. Patient denies S/I and H/I. He also denies auditory and visual hallucinations. Depression is 0/10 and anxiety is 0/10. A: Patient is cooperative, unkept, disheveled, blunted affect, irritable, suspicious, paranoid, no insight, poor judgment. P: Follow the care plan, coordinate with out-patient providers.
--- NOTE | 2017-07-08 18:29 | NUR ---
[facility] Day Shift Pt remains in seclusion due to erratic and threatening behavior. Pt spends most of the shift restlessly laying on mattress or loudly attending to internal stimuli. Pt requests snacks, toileting, and bathing frequently throughout the shift, with varying degrees of appropriateness. Pt ate approx 80% of all meals.
[2017-07-08] MEDS: risperiDONE 1 mg Tablet PO SCH ×2 (20:30→21:24)
[2017-07-08] MEDS ORDERED: risperiDONE 2 mg Tablet PO SCH (20:30)
[2017-07-08] MEDS: Divalproex (QD) 500 mg ER24 Tablet PO SCH ×2 (21:00→21:23)
--- NOTE | 2017-07-08 22:45 | NUR ---
Nurses Note Evening Patient remained in seclusion this shift. He has had brief periods of coherent remarks and requests which have been short-lived due to screaming out delusional persecutory statements, threats of harm to others. Patient has been able to toilet with staff assist and returned to seclusion without difficulty. Patient has been eating and drinking well almost to excess and has requested a high protein shake. He remains behaviorally unpredictable due to his delusional thinking with no insight into his illness. Maintain 1:1 constant monitoring for safety,support,reality test as tolerated. Addendum: 07/08/17 at 2310 by SVETLANA MARTINO RN Amended: Links added. Addendum: 07/08/17 at 2342 by SVETLANA MARTINO RN Nurses Note Medications Patient Refused all HS medications. He screamed "I"m not mental."
--- NOTE | 2017-07-09 01:27 | NUR ---
seclusion nursing 11-7 s- i'm not mental. can i have juice ? new bedding ? i won't give you guys any trouble. god brian osborne. i'll get you. o- received bedding but did not make bed. postures and threatening toward staff at times. taking fluids and using the urinal. tossed juice containers and pounded urinal at times. mostly lying restless on mattress. a- unpredictable behavior and poor impulse control. paranoid and responding to internal stimuli at times. no apparent physical distress. unable to verbalize behavioral expectations. p- monitor behavior/emotional state, quality, times and amount of sleep, use and effect of medication. offer medication and assistance as patient will accept. encourage appropriate behavior for the open milieu. continue seclusion for safety. cindy Addendum: 07/09/17 at 0359 by SATYA MACIAS RN nursing 0320 s- mother f==king laurita. i'll kill you. i didn't have sex with a rubber. don't snitch on me. nazi f==king dylon. o- has been lying quietly 0320 with above sudden outburst. most of it was unintelligible but sounded quite threatening. appeared to be disoriented for a moment then rearranged his bedding and returned to lying quietly. 4 hour seclusion order continued at [address] olivo. a- ? nightmare. volatile and threatening at times. no apparent physical distress. p- monitor behavior/emotional state, quality, times and amount of sleep, use and effect of medication. offer medication and assistance as patient will accept. encourage appropriate behavior for the open milieu. continue seclusion for safety. cindy
[2017-07-09] MEDS: risperiDONE 1 mg Tablet PO SCH ×3 (08:30→22:10)
[2017-07-09] MEDS: Benztropine 1 mg/mL 2 mL Inj IM SCH ×3 (10:05→22:10)
--- NOTE | 2017-07-09 10:21 | NUR ---
Nursing Dayshift Order obtained for continued seclusion from Dr. Nava @ 2416. Pt's behavior remains impulsive, unpredictable and sexually inappropriate. From 0700 to 0930 he had masturbated three separate times. When lab was performing a blood draw he had one arm under his blanket and his hand was inside the elastic of his pants resting on the area of his genitalia. His hand was moving back and forth slowly. He was staring intently at the tutorial laboratory supervisor performing the blood draw and breathing heavily. Pt refused his morning medication stating "I'm not taking medication. I have the right not to take medication." Pt stated to nursing staff "I know why you are doing this! You are a bunch of snitches and want me to go back to nursing home!" VS WNL, eating all meals plus snacks. Using toilet and urinal appropriately. Addendum: 07/09/17 at 1240 by JENNIE GOODMAN RN Pt continues restless, with intermittent outbursts yelling "You f*cking snitches." He continues to excessively masturbate. He pooped in the seclusion room despite having used the toilet x 2 so far this shift, he used his sheet to wipe with. Staff cleaned his bedding and room. He ate about 60% of his meal. Urinal place in room and offered toileting every two hours. Addendum: 07/09/17 at 1404 by JENNIE GOODMAN RN Seclusion order continued @ 2500 Dr. Nava. Pt remains impulsive, unpredictable and sexually inappropriate. Offered toilet declined stating "I don't need to poop."
[2017-07-09 10:28] LABS: BASOPHILS % (AUTO) 0.3 % (0-3); EOSINOPHILS % (AUTO) 2.1 % (0-5); Mean Corpuscular Hemoglobin 27.3 pg (27.0-35.0); Mean Corpuscular Volume 81.2 fL (81-100); NEUTROPHILS % (AUTO) 64.3 % (40-74); Platelet Count 272 bil/L (150-400)
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
[2017-07-09 14:00] VITALS: BP 133/89; PULSE 101
[2017-07-09] MEDS: Divalproex (QD) 500 mg ER24 Tablet PO SCH (22:10)
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
--- NOTE | 2017-07-10 02:28 | NUR ---
Observations 1900 to 0700 Pt is in seclusion with 1:1 observation. Pt ate several snacks of crackers. Pt lays in bed resting most of shift. Please see RNs note on pts behavior when offered meds. Pt was loud, posturing and threatening. Staff completed 15 min close observations as ordered.
[2017-07-10] MEDS: Benztropine 1 mg/mL 2 mL Inj IM SCH ×2 (08:30→20:30)
[2017-07-10] MEDS: risperiDONE 1 mg Tablet PO SCH ×2 (08:35→20:08)
[2017-07-10 08:45] VITALS: BP 107/70; PULSE 85; RESP 18
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
--- NOTE | 2017-07-10 12:57 | NUR ---
Nursing Note [id number] Seclusion S/O: Pt has been resting most of the day. Pt allowed lab to draw blood & VS to be taken. Pt started yelling & cursing when am medications given. Lights turned on during the day to encourage his to be more awake. A: Pt unable to control behavior so that seclusion can be discontinued. Pt has no insight into why he is in seclusion. P: Provide safe environment. Monitor medications & effects. Addendum: 07/10/17 at 1426 by KATHERYN SUTHERLAND RN Pt has been calm in seclusion room. We will allow pt to shower & evaluate his behavior while in shower to see if he is able to maintain behavioral control.
[2017-07-10] MEDS: LORazepam 1 mg Tablet PO PRN ×2 (15:36→20:06)
--- NOTE | 2017-07-10 19:07 | NUR ---
Observations 0700 - 1900 Pt was in seclusion at start of shift due to threatening behaviors and unable to verbalize being safe on the unit. Pt speech and eye contact was poor. Pt ate 100% of his meals. Pt ate snack and drank plenty of fluids. Pt took a shower and attended to ADL's. Pt was able to agree to stay safe on the unit, remain appropriate with staff and peers, keep his clothes on and not threaten others while on the unit. Pt was moved to room 229 at 1545. Pt used the phone a couple of times to call his mom. Pt was observed every 15 minutes through the shift as ordered.
[2017-07-10] MEDS: Divalproex (QD) 500 mg ER24 Tablet PO SCH (20:07)
--- NOTE | 2017-07-10 20:52 | NUR ---
Outbound Sales Consultant/Counselor: S/O: Patient slept a few hours last night per staff. Patient denies S/I and H/I. He also denies auditory and visual hallucinations. Depression and anxiety were not rated. A: Patient is cooperative, unkept, disheveled, blunted affect, irritable, suspicious, paranoid, no insight, poor judgment. P: Follow the care plan, coordinate with out-patient providers.
--- NOTE | 2017-07-10 22:45 | NUR ---
NURSING NOTE [id number] Mood: "I'm okay but I think my arms are losing weight? Can I weigh myself?" Affect: mostly calm and cooperative, able to maintain behavioral control and was redirectable in the one instance where he was beginning to escalate Behavior: pt. out of seclusion at 15:45 (see Seclusion Interventions). Took PRN Ativan 1 mg at this time. Pt. was agreeable to be safe to self and others, to maintain behavioral control, to refrain from milieu disruption and yelling. Pt. has been compliant w/this agreement for duration of shift. At 20:00 the pt. came to the NS and placed his hands over his ears and in a raised voice and called out "I ain't a snitch!". Staff responded and pt. quieted down, agreed to go to his room and remained calm for the duration of the shift. He was med compliant at HS. Made frequent requests for snacks but did not lose behavioral control and was redirectable when reminded of unit snack times. Med compliant @ HS. Thought processes: denied AH/VH but did appear to be responding to internal stimuli (e.g. covering his ears and raising his voice at unseen others). Denies SI. Thought content is disorganized at times but he is able to answer most of this senior mortgage underwriter's questions appropriately. Addendum: 07/11/17 at 0653 by YOSELYN WETZEL RN Pt. received PRN Ativan 1 mg @ HS. He slept 8.5 hrs.
[2017-07-11] MEDS: Benztropine 1 mg/mL 2 mL Inj IM SCH ×2 (08:30→20:30)
[2017-07-11 08:43] VITALS: BP 108/70; PULSE 93; RESP 14
[2017-07-11] MEDS: risperiDONE 1 mg Tablet PO SCH ×2 (08:43→21:26)
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
--- NOTE | 2017-07-11 14:01 | NUR ---
Nursing Note [id number] Behavior S/O: Pt has good appetite. Pt became upset when labor arbitrator came to draw blood. Male MHA able to redirect pt. Pt glaring at mechanical design technician. Pt offered shower & was able to calm down. Pt has been in room most of the day only coming out of room for meals & snacks. Conversation has been short & blunted. Pt seen talking to himself when in room. A: Pt appears to be responding to internal stimuli. He is easily irritated. P: Provide redirection when pt becomes irritated. Monitor for safety. Monitor medications & effects.
--- NOTE | 2017-07-11 17:35 | NUR ---
Observations 0700 to 1900 Pt attended recreational activities of going onto patios and is observed reading and writing. Pt ate a snack. Pt is pleasant and cooperative. Pt was not observed interacting with peers. Pt expressed goals of going to school for batterii in the future but stated I just need to work right now and stop being a burden on people. Pt maintained behavioral control and showed no signs of abnormal behavior. While asleep, respirations were observed while asleep. Breakfast: 100%. Lunch: 100%. Dinner: 100%. Staff completed 15 min close observations as ordered. Addendum: 07/11/17 at 1736 by EVELYN RASCON [facility] Please ignore note. This note was input for the wrong patient
--- NOTE | 2017-07-11 17:37 | NUR ---
Observations 0700 to 1900 Pt did not attend recreational activities. Pt ate a snack. Pt showered. Pt continues to be antisocial, but remains in room resting throughout shift. Pt maintained behavioral control. While asleep, respirations were observed while asleep. Breakfast: 100%. Lunch: 100%. Dinner: 100%. Staff completed 15 min close observations as ordered.
[2017-07-11] MEDS: Divalproex (QD) 500 mg ER24 Tablet PO SCH (19:52)
[2017-07-11] MEDS: LORazepam 1 mg Tablet PO PRN (21:26)
--- NOTE | 2017-07-11 22:00 | NUR ---
S: "Is there any hygiene stuff in my things"? "I would like to get my stuff and take a shower". O: Patient had a visitor who brought him some personal items, patient refused to see visitor, stating that he only wanted this belongings and to take a shower. A: Flat/blunted affect. Isolative, but out for meals. Redirectable. No outbursts this shift. Little to no insight. P: Monitor for response to treatment. Q 15 min checks for safety. Follow plan of care.to treatment. Follow
--- NOTE | 2017-07-11 22:13 | NUR ---
Disregard previous note. Entered on wrong pt.
--- NOTE | 2017-07-11 22:14 | NUR ---
S: "I spoke to the director and was told that I was being transferred to a wheelchair unit". If not transferring, "then you don't need to talk to me". "I said that you don't need to speak to me". O: Patient in dining room in wheelchair. Refused to speak to keno writer / runner this evening. Patient has poor hygiene. Patient showered tonight-angry, yelling at times. A: Flat affect. Distant, manipulative. P: Monitor for response to treatment. Q 15 min checks for safety. Follow plan of care. Addendum: 07/11/17 at 3856 by LUIZA CAMEJO RN This note entered on wrong patient.
--- NOTE | 2017-07-12 06:52 | NUR ---
Nursing Note Dust Sampler 11pm to 7am Pt asleep at start of shift and remained asleep for the duration of the shift. No complaints voiced or observed. Monitored pt q 15 minutes for safety, location and accountability
[2017-07-12] MEDS ORDERED: Paliperidone Palmitate 234 mg/1.5 mL Inj IM SCH ×2 (08:00)
[2017-07-12] MEDS: Benztropine 1 mg/mL 2 mL Inj IM SCH ×2 (08:30→20:30)
[2017-07-12] MEDS: risperiDONE 1 mg Tablet PO SCH ×2 (08:46→20:25)
--- NOTE | 2017-07-12 12:19 | NUR ---
Nursing Note [id number] Behavior S/O: Pt has good appetite. Pt con't to be agitated with staff. Pt demanding "shake" (Ensure) with lunch. Pt stays in room most of the time. Pt showered this morning. No noted interaction with peers. Only interaction with staff is to make demands. Poor eye contact except a piercing stare. A: Appears to be responding to internal stimuli. P: Provide structured, safe environment. Monitor medications & effects.
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
--- NOTE | 2017-07-12 18:51 | NUR ---
NURSING NOTE [id number] Mood: "I better get my milkshake at dinner!" Affect: preoccupied, mostly calm w/a few episodes of agitation Behavior: pt. mostly isolating to his room, does come out to use the phone and for meals. Continues to be fixated on food and requested additional food w/his dinner. Despite receiving assurance he would get double portions this evening, the pt. was upset that he had not received the double portions at lunch time and was demanding more and becoming agitated. Staff asked pt. to leave the NS and go back to his room, he complied, and was able to deescalate and calm himself down. No other behavioral outbursts after that. Thought processes: appears internally preoccupied, paranoid at times, denies any psychiatric issues w/this securities underwriter Addendum: 07/12/17 at 2030 by YOSELYN WETZEL RN At med pass pt. became agitated when this securities underwriter informed he had an Invega shot scheduled. Pt. began yelling in his room: "I'm not fucking taking that! That's illegal!" Per on-call doctor, will attempt tomorrow when more staff are present.
[2017-07-12] MEDS: Divalproex (QD) 500 mg ER24 Tablet PO SCH (20:25)
[2017-07-12] MEDS: LORazepam 1 mg Tablet PO PRN (20:26)
--- NOTE | 2017-07-13 06:46 | NUR ---
Nursing Note Erp Project Manager 11pm to 7am Pt asleep at start of shift and slept the duration of the shift. Monitored pt q 15 minutes for safety, location and accountability.
[2017-07-13] MEDS: risperiDONE 1 mg Tablet PO SCH (08:21)
[2017-07-13] MEDS: Benztropine 1 mg/mL 2 mL Inj IM SCH ×2 (08:30→20:30)
--- NOTE | 2017-07-13 11:05 | NUR ---
Nursing Dayshift Pt seen with the doctor. Bladimir verbally agreed to take the Invega injection "I don't have to take pills for 5 days. I will take it." Pt gave a thumbs up sign to both the nurse and the doctor that he agreed to the Invega injection. Pt received the Invega injection in the right deltoid @ 1100. "Will you guys just let me sleep!"
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
[2017-07-13] MEDS: Divalproex (QD) 500 mg ER24 Tablet PO SCH (20:46)
--- NOTE | 2017-07-13 20:56 | NUR ---
NURSING NOTE [id number] Mood: "fine" Affect: flat, irritable at times Behavior: pt. isolating to room except for meal times and coming out off and on to ask staff at the if he can have additional snacks. Pt. has not had any behavioral outbursts this shift, and has not shown any agitation or aggression when his requests for snacks are denied. Pt. signed to refuse HS meds tonight prior to court. Thought processes: disorganized, paranoid, denies AH/VH but did express some delusional thought content.
--- NOTE | 2017-07-14 00:36 | NUR ---
Observations 1900 to 0700 Pt attended wrap up group. Pt ate a snack. Pt does not interact with peers and spends free time in room on bed except for brief periods of pacing units until a demand is met. Pt makes numerous requests for high quantities of snacks. Pt showered at start of shift. Pt appeared asleep from 2230- 2330. Pt is currently resting in bed. Pt respirations were observed when asleep. Staff completed 15 min close observations as ordered.
[2017-07-14] MEDS: Benztropine 1 mg/mL 2 mL Inj IM SCH (08:30)
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
--- NOTE | 2017-07-14 13:13 | NUR ---
Obs Dayshift Pt remains in bed during the first half of the shift, comes to the dining room for meals and some snacks. Polite with some staff, irritable and short tempered w/ others. Pt states that he is tired and wants to be left alone while in bed. Showers daily, and does laundry daily. Better at controlling his anger, still will yell at staff or peers at times. Refusing to participate on the unit or in court proceedings. Not future thinking. Appears Oriented.
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
[2017-07-14] MEDS: Divalproex (QD) 500 mg ER24 Tablet PO SCH (20:29)
[2017-07-14] MEDS: risperiDONE 2 mg Tablet PO SCH (20:29)
[2017-07-14] MEDS: LORazepam 1 mg Tablet PO PRN (20:29)
--- NOTE | 2017-07-14 23:37 | NUR ---
Observations 1900 to 0700 Pt attended wrap up group. Pt ate a snack. Pt has flat, blunt affect. Pt does not interact with peers and remains in room during evening hours. Pt maintained behavioral control. Pt appeared asleep at 2230 and has remained asleep. Pt respirations were observed when asleep. Staff completed 15 min close observations as ordered.
--- NOTE | 2017-07-15 02:34 | NUR ---
Nursing, NOC shift [id number] Patient noted to be asleep at begin of shift, at time of this note is still sleeping, no prn requests. Received PRN Ativan 5mg @ HS. Continue w/ Q15min safety and room checks.
[2017-07-15] MEDS: risperiDONE 2 mg Tablet PO SCH ×2 (08:30→20:58)
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
--- NOTE | 2017-07-15 16:46 | NUR ---
Shareholder/Counselor: S/O: Patient slept 6.5 hours last night per staff. Patient denies S/I and H/I. He also denies auditory and visual hallucinations. Depression is 0/10 and anxiety is 0/10. A: Patient is cooperative, disheveled, blunted affect, guarded, irritable, suspicious, paranoid, no insight, poor judgment. P: Follow the care plan, coordinate with out-patient providers, monitor behavior.
--- NOTE | 2017-07-15 17:35 | NUR ---
Nursing Pt calmer with decreased agitation. He has been out for all meals, took his morning medications without difficulty and then resting in his room for a large portion of the day. No aggressive language or behavior.
--- NOTE | 2017-07-15 18:43 | NUR ---
[facility] Day Shift Pt maintained behavioral control throughout the shift. Pt affect appears flat, blunt. Pt spends most of the shift resting in his room, only leaving to attend meals and shower. Pt is not social with staff or peers. Pt attended all meals and ate approx 100% of all meals.
[2017-07-15 19:15] VITALS: BP 127/78; PULSE 89; RESP 18
[2017-07-15] MEDS: Divalproex (QD) 500 mg ER24 Tablet PO SCH (20:59)
[2017-07-15] MEDS: LORazepam 1 mg Tablet PO PRN (21:00)
--- NOTE | 2017-07-16 04:56 | NUR ---
Nursing Noc "Im suppose to have a snack at 0300", Can I have a snack now. Pt noted to be pacing the unit eating or secluding in room. Pt unwilling to carry conversation with database report writer. Taking medication as prescribed. Continuing to monitor mood/behavior and emotional state, Q15 minute safety checks throughout the shift as directed. BHCP
[2017-07-16] MEDS: risperiDONE 2 mg Tablet PO SCH (08:43)
--- NOTE | 2017-07-16 14:32 | NUR ---
Nursing Note [id number] Behavior S/O: Pt has good appetite. Blunted conversation. Pt talks minimally with staff to make his needs known. Pt demanding at times. Pt has been in room all day today except for meals. Poor eye contact. A: Pt con't to be paranoid & minimally cooperative with care. P: Provide supportive environment. Monitor medications & effects.
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
[2017-07-16] MEDS: LORazepam 1 mg Tablet PO PRN (20:47)
[2017-07-16] MEDS: Divalproex (QD) 500 mg ER24 Tablet PO SCH (20:47)
[2017-07-16] MEDS ORDERED: risperiDONE 2 mg Tablet PO SCH (21:00)
--- NOTE | 2017-07-16 22:52 | NUR ---
nursing: Continues guarded, isolating in his room. Will interact with one word replies. No outbursts today and was compliant with meds.
--- NOTE | 2017-07-17 05:14 | NUR ---
nursing, nights, 11-7 s/o- has appeared to sleep after 2114 during q 15 minute assessments. a- no apparent distress. p- monitor behavior/emotional state, quality, times and amount of sleep, use and effect of medication. cindy
[2017-07-17 09:09] LABS: Bilirubin, Direct 0.2 mg/dL (0.0-0.3)
--- NOTE | 2017-07-17 10:02 | NUR ---
Nursing Day Pt agitated when lab came for a blood draw this morning. However, he did allow the blood draw. He was able to calm and took morning medications without difficulty. He refused his nicotine patch stating "I don't need it. I don't even smoke." Pt ate breakfast and spending the rest of the morning in bed. Pt remains isolative and unable to tolerate activity on the unit, easily overstimulated.
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
--- NOTE | 2017-07-17 19:34 | NUR ---
Venereal Disease Control Head/Counselor: S:/O: Patient slept 8.5 hours last night per staff. Patient denies S/I and H/I. He also denies auditory and visual hallucinations. Depression is 0/10 and anxiety is 0/10. A: Patient is cooperative, disheveled, unkept, blunted affect, guarded, irritable, unpredictable, no insight, poor judgment. P: Follow the care plan, coordinate with out-patient providers, monitor behavior.
[2017-07-17] MEDS: Divalproex (QD) 500 mg ER24 Tablet PO SCH (20:38)
[2017-07-17] MEDS ORDERED: risperiDONE 2 mg Tablet PO SCH (21:00)
--- NOTE | 2017-07-17 21:15 | NUR ---
Observations 0900 - 0 Pt affect and mood was isolative, guarded and withdrawn. Pt was in his room and in bed most of the shift. Pt was pleasant, polite and cooperative when approached. Pt maintained behavior throughout the shift. Pt was unsocial and mostly keeps to himself. Pt attended meals in D.R. and ate 100% of his meals. Pt ate snack. Pt took a shower and washed a load of clothes. Pt was observed every 15 minutes through the shift as ordered.
--- NOTE | 2017-07-18 06:33 | NUR ---
Nursing Note [employer] Mammal Trainer 7pm to 7am Pt awake at start of shift, in dayroom interacting minimally with select peers. Thoughts appeared logical and linear, No delusional content elicited or observed. Pt went to bed at approx. 2145 and slept through the night with 1 interruption. . Monitored pt. q 15 minutes for safety, location, and accountability
[2017-07-18] MEDS ORDERED: Paliperidone Palmitate 156 mg/mL Inj (NC) IM ONE (08:30)
--- NOTE | 2017-07-18 11:39 | NUR ---
day shift nursing note S/O-Pt. has been isolative and guarded. He is appropriate with staff but does not answer questions. He willingly takes his meds and comes out for meals. He is disheveled with a blunted affect and tends to be irritable if overstimulated out on the unit. A-No insight. Psychosis. P-Monitor for safety per protocol. Assess efficacy of meds to manage target sxs. Encourage engagement in groups.
[2017-07-18 12:52] VITALS: BP 113/81; PULSE 75; RESP 18
--- NOTE | 2017-07-18 16:21 | NUR ---
Observations 0700 - 1900 Pt affect and mood was isolative, guarded and withdrawn. Pt was in his room and in bed most of the shift. Pt was pleasant, polite and cooperative when approached. Pt maintained behavior throughout the shift. Pt was unsocial and mostly keeps to himself. Pt attended meals in D.R. and ate 100% of his meals. Pt ate snack. Pt took a shower and washed a load of clothes. Pt visited with his mom for a short period and it appeared to go well. Pt was observed every 15 minutes through the shift as ordered.
[2017-07-18] MEDS: Divalproex (QD) 500 mg ER24 Tablet PO SCH (20:50)
--- NOTE | 2017-07-19 06:05 | NUR ---
nursing, nights, 11-7 s- can i have some crystal light and crackers ? o- has appeared to sleep after 2144. up briefly at 0130 and easily returned to sleep. assessed q 15 minutes. a- generally appropriate, no apparent distress. p- monitor behavior/emotional state, quality, times and amount of sleep, use and effect of medication. cindy
[2017-07-19 07:48] VITALS: BP 125/86; PULSE 72; RESP 18
--- NOTE | 2017-07-19 18:05 | NUR ---
Observations [id number] Pt cooperative and isolative much of shift. Pt slept much of the day, attending meals, eating 100%. Pt did not participate in any group activities. Pt appropriate, requesting a shower, to do laundry, and to speak to community liaison officer. Pt good with ADL's, not observed talking to himself and limited interaction with other peers or staff. Pt was observed every 15 minutes of shift as directed.
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
[2017-07-19] MEDS: Divalproex (QD) 500 mg ER24 Tablet PO SCH (21:10)
--- NOTE | 2017-07-19 22:23 | NUR ---
Nurses Note Evening Patient remains isolative to his room except for dinner and snacks. Patient has been medication compliant. Will maintain q 15min. checks for safety. Addendum: 07/19/17 at 2234 by SVETLANA MARTINO RN Amended: Links added.
--- NOTE | 2017-07-20 05:27 | NUR ---
Nightshift Nurse Note 11pm to 7am: Pt was in bed at the beginning of the shift at 2300 and appeared to sleep through the night. Pt was monitored q 15 minutes for safety, location, and accountability
[2017-07-20] MEDS ORDERED: Paliperidone Palmitate 156 mg/mL Inj (NC) IM ONE (10:00)
[2017-07-20 10:26] LABS: BASOPHILS % (AUTO) 0.6 % (0-3); EOSINOPHILS % (AUTO) 2.5 % (0-5); MONOCYTES % (AUTO) 13.5 % (4-12); Mean Corpuscular Hemoglobin 27.6 pg (27.0-35.0); Mean Corpuscular Volume 80.9 fL (81-100); NEUTROPHILS % (AUTO) 58.9 % (40-74); Platelet Count 289 bil/L (150-400)
--- NOTE | 2017-07-20 14:10 | NUR ---
nursing note day shift O) minimal interaction with staff or peers, remained in room most of shift except for meals and snacks, took medication without problems, has dark piercing stare but makes no comments, overheard shouting in room, dressed in clothes, showered this am A) isolates, guarded, compliant with medication P) monitor behavior and medication effectiveness and encourage participation in treatment
[2017-07-20 15:30] VITALS: BP 122/77; PULSE 75; RESP 17
--- NOTE | 2017-07-20 16:27 | NUR ---
Livestock Speculator/Counselor S: "I"m not paranoid and I'm not scared of no none. The pills are too big and are making me sterile." O: Patient denies any SI or HI, no AVH, no anxiety and no depression. A: Patient has been in his room all day and has not interacted with other patients, except for meal times. Has to be asked several times before answering a question, or will just ignore question completely. P: Follow care plan and coordinate with outpatient providers.
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
--- NOTE | 2017-07-20 17:26 | NUR ---
Observations 00 - 0 Pt affect and mood remained the same as previous shifts. Pt was in his room and in bed most of the shift. Pt was pleasant, polite and cooperative when approached. Pt maintained behavior throughout the shift. Pt continues to be unsocial and mostly keeps to himself. Pt attended meals in D.R. and ate 100% of his meals. Pt ate snacks. Pt took a shower and washed a load of clothes. Pt is still declining to come to group and/or participate in unit activities. Pt was observed every 15 minutes through the shift as ordered.
[2017-07-20] MEDS: Divalproex (QD) 500 mg ER24 Tablet PO SCH (22:19)
--- NOTE | 2017-07-20 22:23 | NUR ---
Nurse Note Evening Shift 3pm to 11pm: Pt was in his bedroom at the beginning of the shift and then came out briefly to the dayroom at 1550. Pt showered during the shift, but mostly stayed to his room. Pt monitored q 15 minutes for safety, location and accountability.
[2017-07-21] MEDS ORDERED: risperiDONE 2 mg Tablet ONE (00:37)
--- NOTE | 2017-07-21 00:52 | NUR ---
Agitation Pt started yelling in his room disrupting other patient's sleep. This nurse went in his room and asked him to keep it down. He yelled "I will do whatever the fuck I want you bitch! Why don't you get a gun!" Doctor called and an order obtained for Risperidone 2mg po. Security called and nursing staff offered medication at that time. Sheng got off of his bed in an intimidating stance and yelled "I am not taking any fucking pills you bitch! I am not a fucking child molester!!!" Doctor called and an order obtained for Ativan 2mg IM for agitation if refuses po. Pt allowed to cool off in his room and no further yelling noted. Will continue to monitor mood, violent thoughts and behavior. Addendum: 07/21/17 at 0206 by JENNIE GOODMAN RN Pt has remained calm and appears asleep by 199.
[2017-07-21] MEDS ORDERED: risperiDONE 2 mg Tablet PO ONE (01:40)
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
--- NOTE | 2017-07-21 05:11 | NUR ---
Nursing Note [place] 11pm to 7am Pt in bed at start of shift. At approx. 0100 pt. began swearing and yelling in his room, and verbally assaultive towards staff. Pt was offered prn medication and declined and was able to self-regulate without further intervention and return to sleep Pt monitored q 15 minutes for safety, location and accountability
[2017-07-21 08:15] VITALS: BP 123/90; PULSE 88; RESP 16
--- NOTE | 2017-07-21 12:07 | NUR ---
nursing note day shift S)'no thank you, I do not need any pills" O) pt calm, but with intense manner, polite to this global technical writer but refused all morning medications, some shouting done over breakfast with no apparent cause or directed at anyone, out for meals but most of time isolate in room, some shouting in room to internal stimuli, continued to be polite to staff A) AH/VH, refusing medications, kept under behavior control P)encourage medication compliance and monitor behavior
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
--- NOTE | 2017-07-21 15:28 | NUR ---
Obs Dayshift Pt is much more appropriate w/ staff, little to no engagement w/ peers. Pt keeps to himself, and mostly stays in his room. Is responding and at times yelling at IS. Pt is co-operative w/ staff at shutting his door when he is yelling or swearing at IS. Asking questions that are reasonable and appropriate. Pt does not participate w/ anything on the unit. Has very good ADL's, and good meals.
--- NOTE | 2017-07-21 16:13 | NUR ---
Inseam Trimming Machine Operator/Counselor S:" I got something in my head and it needs to be examined." O: Patient denies any SI or HI, and no AVH. Patient did not respond to rating of anxiety or depression. A: Patient has kept to his room for most of the day, and just stares intently at the speaker. He does not engage with other patients on the unit. P: Follow care plan and coordinate with outpatient providers.
[2017-07-21] MEDS: Divalproex (QD) 500 mg ER24 Tablet PO SCH (21:00)
[2017-07-21] MEDS: risperiDONE 2 mg Tablet PO SCH (21:00)
[2017-07-21] MEDS ORDERED: risperiDONE 2 mg Tablet PO SCH (21:00)
--- NOTE | 2017-07-21 21:18 | NUR ---
Refused HS medication Pt resting in bed. He was approached by nursing staff and offered his HS medications. He glared for a minute with no verbal response. When staff asked if he would take his medication he loudly stated "No!" He closed his eyes and turned over in bed. Addendum: 07/22/17 at 0608 by JENNIE GOODMAN RN Pt has isolated in his room and slept all evening and night. No behavioral outbursts this shift.
--- NOTE | 2017-07-22 10:32 | NUR ---
nursing note dayshift S)"no I don't need them" O) pt up early took shower and ate breakfast continues to refuse medications, minimal interaction with staff and none with peers, keeps door shut and isolates, no shouting this am A)isolates guarded, uncooperative with medication management P) monitor behavior and encourage medication compliance and participation in treatment
[2017-07-22 11:43] VITALS: BP 126/88; PULSE 87; RESP 18
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
--- NOTE | 2017-07-22 16:36 | NUR ---
Obs Dayshift Pt is much better with requests, polite, and appropriate. Better at waiting, not demanding, calm. Pt is doing well with staying in his room when responding to IS or yelling. Keeping to himself. Pt is not showing any signs of aggression or irritability. Remains in his room other than showering, asking for meds, or eating meals.
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
[2017-07-22] MEDS: risperiDONE 2 mg Tablet PO SCH (20:25)
[2017-07-22] MEDS: Divalproex (QD) 500 mg ER24 Tablet PO SCH (20:25)
--- NOTE | 2017-07-22 20:27 | NUR ---
Nursing Noc Pt has maintained behavioral control. He stays mostly in his room and out for meals and snacks. He continues to refuse oral meds stating calmly "I'm not taking no meds". He still responds to internal stimuli and will talk loudly at them. Will continue to monitor mood, behavior and sleep cycle through the night. Addendum: 07/23/17 at 8387 by JENNIE GOODMAN RN Pt has been up at different times during the night. Total sleep 3+ hours.
--- NOTE | 2017-07-23 14:01 | NUR ---
Nursing note 7a-7p Pt. has refused any nursing care today, refusing morning vitals and medications at 0930 this morning stating "I'm fucking sleeping, I'm not taking any meds". Later when asked if he would like to be evaluated he said "no", and wouldn't say anything more. Pt. has been isolated in his room except for a shower this morning and mealtimes where he comes out to the dining room to eat but does not interact with peers. He has been very quiet and has not been talking to himself at all. Will continue to monitor.
--- NOTE | 2017-07-23 17:16 | NUR ---
Senior Php Web Developer/Counselor: S: "Can I get some orange juice?" O: Patient slept 5.25 hours last night per staff. Patient denies S/I and H/I. He denies auditory and visual hallucinations. Depression is 0/10 and anxiety is 0/10. He also would not respond to depression and anxiety. When asked his mood, patient stated, "Fine." A: Patient is cooperative, unkept, guarded, disheveled, labile, suspicious, somatic preoccupation, unpredictable, no insight, poor judgment. P: Follow the care plan, coordinate with out-patient providers, monitor behavior.
--- NOTE | 2017-07-23 19:30 | NUR ---
Observations 1300 - 1930 Pt affect and mood remained the same as previous shifts. Pt was in his room and in bed most of the shift. Pt was pleasant, polite and cooperative when approached. Pt maintained behavior throughout the shift. Pt continues to be unsocial and mostly keeps to himself. Pt attended meals in D.R. and ate 100% of his meals. Pt ate snacks. Pt washed a load of clothes. Pt comes out of his room to check time, look around milieu briefly and then goes back to his room. Pt was observed every 15 minutes through the shift as ordered.
[2017-07-23] MEDS: Divalproex (QD) 500 mg ER24 Tablet PO SCH (21:00)
[2017-07-23] MEDS: risperiDONE 2 mg Tablet PO SCH (21:00)
--- NOTE | 2017-07-24 03:00 | NUR ---
Nursing Noc Pt pleasant and isolative this shift. Pt unwilling to interact with journalists and other writers or others. Noted to refuse prescribed medications and patient noted to have an verbal outburst yelling at internal stimuli. Patient was able to regain emotional outburst with direction from journalists and other writers. Pt noted to come out and have snack fifteen minutes later appearing relaxed and at ease. Back to room directly after completing snacks and fluids. Noted to remain asleep throughout the shift. Continuing to monitor mood, behavior and emotional state. BHCP , q15 minute safety checks as prescribed.
--- NOTE | 2017-07-24 14:01 | NUR ---
Nursing Note [id number] Behavior S/O: Pt ate 70-80% of meals. Pt refused all oral medications. Pt out of room only for meals. Fall affect with piercing eyes. Conversation minimal with staff. No interactions seen with peers. A: Pt appears paranoid. P: Provide supportive environment. Monitor medications & effects.
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
[2017-07-24] MEDS ORDERED: Benztropine 1 mg/mL 2 mL Inj IM PRN (16:20)
[2017-07-24 17:44] VITALS: BP 120/81; PULSE 78; RESP 16
--- NOTE | 2017-07-24 19:08 | NUR ---
Canal Structure Operator/Counselor: S: "I'm fine, I don't need meds." O: Patient slept 8 hours last night per staff. Patient denies S/I and H/I. He denies auditory and visual hallucinations. Depression is 0/10 and anxiety is 0/10. When asked his mood, patient stated, "Fine." A: Patient is cooperative, unkept, guarded, disheveled, labile, suspicious, somatic preoccupation, unpredictable, no insight, poor judgment. P: Follow the care plan, coordinate with out-patient providers, monitor behavior.
--- NOTE | 2017-07-24 20:53 | NUR ---
Observations 00 - 0 Pt affect and mood remained the same as previous shifts. Pt was in his room and in bed most of the shift. Pt was pleasant, polite and cooperative when approached. Pt maintained behavior throughout the shift. Pt continues to be unsocial and keeps to himself when out of his room. Pt attended meals in D.R. and ate 100% of his meals. Pt ate snacks. Pt took a shower and washed a load of clothes. Pt comes out of his room to check time, look around milieu briefly and then goes back to his room. Pt was observed every 15 minutes through the shift as ordered.
[2017-07-24] MEDS: risperiDONE 2 mg Tablet PO SCH (21:00)
[2017-07-24] MEDS: Divalproex (QD) 500 mg ER24 Tablet PO SCH (21:00)
--- NOTE | 2017-07-24 22:54 | NUR ---
Observations 1900 to 0700 Pt ate a snack. Pt has a flat, blunt affect with an aggressive underlying edge to him. Pt remained in room except for snack. Pt does appear annoyed by other pts. Pt was overheard yelling in his room. Pt maintained behavioral control thus far into shift. Staff completed 15 min close observations as ordered.
--- NOTE | 2017-07-25 05:46 | NUR ---
Nursing noc Patient noted to have angry outburst in room this evening directly after being in common area at the same time as another acutely ill disruptive patient. Pt was able to achieve behavioral control quickly and independently. Continuing to monitor mood, behavior, and emotional state and medications. q15 minute safety checks performed throughout the shift. BHCP
[2017-07-25 11:48] VITALS: BP 119/76; PULSE 73; RESP 12
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
--- NOTE | 2017-07-25 16:54 | NUR ---
Observations 0700 - 1900 Pt affect and mood remained the same as previous shifts. Pt was in his room and in bed most of the shift. Pt was pleasant, polite and cooperative when approached. Pt maintained behavior throughout the shift. Pt continues to be unsocial and keeps to himself when out of his room. Pt attended meals in D.R. and ate 100% of his meals. Pt ate snacks. Pt continues to come out of his room to check time, look around milieu briefly and then goes back to his room. Pt used phone to call his mom but she didn't answer. Pt was observed every 15 minutes through the shift as ordered.
--- NOTE | 2017-07-25 18:38 | NUR ---
[id number]. nurs. S/O: Pt adamantly refusing cogentin, allopurinol and propranolol at am med pass adamant that he had injection Invega and not open to info that meds where for other medical needs and s/es. Pt coming to ask when mealtimes were and take care showering and laundry needs otherwise isolative in bedrm. Pt has flat affect gets quickly angry and unco operative re, taking meds. Pt does not interact with staff or peers otherwise. P:MINERVA
[2017-07-25] MEDS: risperiDONE 2 mg Tablet PO SCH (21:00)
[2017-07-25] MEDS: Divalproex (QD) 500 mg ER24 Tablet PO SCH (21:00)
--- NOTE | 2017-07-26 03:28 | NUR ---
Observations 1900 to 0700 Pt ate a snack. Pts behavior has not changed from recent previous shifts, in which pt isolates to room except for snack. Pt lays in bed resting when in room and not observed engaging in other activities, such as reading or writing. Pt has a flat, blunt, hostile affect and appears paranoid. Pt maintained behavioral control. Pt appeared asleep 0 and has remained asleep. Pt respirations were observed when asleep. Staff completed 15 min close observations as ordered.
--- NOTE | 2017-07-26 05:59 | NUR ---
Nursing Noc Pt isolative to room this shift, out for snacks only. monitor behavior/emotional state, quality, times and amount of sleep, use and effect of medication.
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
--- NOTE | 2017-07-26 18:03 | NUR ---
[id number]. nurs. S/O: Pt continues same pattern of refusing medication in am and getting angry when offered, and purpose of meds explained. Pt continues to isolate in bedrm come out for meals and request to have rm cleaned, laundry done and look after ADLs. Pt mood is flat apart from irritable reaction re. meds. Pt does not interact with others or participate in unit program. P:CNCP
--- NOTE | 2017-07-26 19:58 | NUR ---
behavior/sleep: pt. came out for snack, denied wanting any evening meds. goes back to room, isolated, not visiting with any other patients or staff. Pt. slept most of night.
[2017-07-26] MEDS: Divalproex (QD) 500 mg ER24 Tablet PO SCH (20:28)
[2017-07-26] MEDS: risperiDONE 2 mg Tablet PO SCH (20:28)
--- NOTE | 2017-07-27 14:22 | NUR ---
Nursing Day Shift: S: "No, I don't have any depression." O: Denies anxiety, depression, harmful thoughts, and hallucinations. Has been in his room most of the shift getting up for meals and snacks with a good appetite. Approachable. A: Calm. Quiet. Refusing meds. P: CPOC. Monitor mood and behavior.
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
--- NOTE | 2017-07-27 15:55 | NUR ---
Liquor Tester/Counselor S:"I need someone to check on my money." O: Patient denies any SI or HI, no AVH, no anxiety or depression. A: Patient is cooperative, unkept, disheveled,poor insight, poor judgment. Has kept to his room, which has an odor of urine. P: Follow care plan and coordinate with outpatient providers.
--- NOTE | 2017-07-27 17:41 | NUR ---
Observations [id number] Pt reserved, flat, preoccupied. Isolated to room much of the day, only appearing for snacks and to shower. Pt did do laundry, and was cooperative with staff and requests. Pt attended all meals, eating 100%. He was observed every 15 minutes of shift as directed.
[2017-07-27] MEDS: risperiDONE 2 mg Tablet PO SCH (20:50)
[2017-07-27] MEDS: Divalproex (QD) 500 mg ER24 Tablet PO SCH (20:50)
--- NOTE | 2017-07-28 06:31 | NUR ---
Nursing Note Research And Development Researcher 7pm-7am Patient isolating in room at start of shift. Refused all evening medications. He was noted to be asleep at [id number] and at 0230 and through the rest of the night. Pt monitored q 15 minutes for safety, location and accountability.
[2017-07-28 09:30] VITALS: BP 130/91; PULSE 90; RESP 17
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
--- NOTE | 2017-07-28 16:39 | NUR ---
Observations [id number] Pt continues to isolate to room much of the day, sleeping and resting. He was concerned regarding belongings, and asked for a few other items in the back that this policy writer provided to him. Pt cooperative with staff and peers. He continues to present as quiet, flat, and guarded. Pt good with ADL's. Pt attended all meals eating an average of 80%. He was observed every 15 minutes of shift as directed.
--- NOTE | 2017-07-28 18:25 | NUR ---
Nursing Dayshift: S: "Can I get my laundry washed?" O: Patient making appropriate requests. Has been in his room quietly resting for the most part. Out of his room for meals and snacks with a good appetite. Approachable. A: Quiet. Calm. P: CPOC. Monitor mood and behavior.
--- NOTE | 2017-07-29 03:47 | NUR ---
Nursing Noc Pt isolative to room this shift, out for snacks only. Pt noted to present in a calm manner while in common area, zero emotional outbursts or agitation from internal stimuli. monitor behavior/emotional state, quality, times and amount of sleep, use and effect of medication.
[2017-07-29 12:36] VITALS: BP 121/77; PULSE 113
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
--- NOTE | 2017-07-29 17:50 | NUR ---
[id number]. nurs. S/O: Pt has maintained pattern of remaining in bed in bedrm most of day apart from coming out for meals and to take care of showering and getting laundry done, maintained polite brief responses to address these needs. Pt attentive to hygiene and maintaining order re his self care in this area, pt avoids any other interaction or eye contact with peers or staff. P:CNCP.
--- NOTE | 2017-07-29 18:11 | NUR ---
Obs Dayshift Pt has reasonable requests, is calm and co-operative w/ staff. Pt doesn't engage w/ peers, and only w/ staff when he needs something. Pt has used to phone a few times today to call mom. Showered x2, good about laundry and asking for housekeeping to assist or clean his room. Pt is polite and calm w/ staff. Pt does not participate in any activities on the unit, isolates mostly to his bedroom. Good ADL's, Good meals
[2017-07-30 10:14] VITALS: BP 118/73; PULSE 123; RESP 16
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
--- NOTE | 2017-07-30 16:45 | NUR ---
Observations 0700 to 1900 Pt did not attend community meeting. Pt did not attend recreational activities. Pt refused to do daily goal stating I dont do any of that group stuff! Pt ate a snack. Pt maintained behavioral control and showed no signs of abnormal behavior, except minor agitation when maintenance needed to work on repair in room. Pt was able to regain control of behavior and compromise with staff. Pt spent free time resting in room. Respirations were observed while asleep. Breakfast: 75%. Lunch: 100%. Staff completed 15 min close observations as ordered.
--- NOTE | 2017-07-30 18:18 | NUR ---
[id number]. nurs. S: "I want to go to the seclusion room " O: Pt continued usual pattern of isolating in bed, coming to meals, taking care of showering and laundry avoiding interaction with staff and peers, other than to met these needs. Pt needed to leave his bedrm to allow repair work in bathrm and quickly lost control and demanded to go to seclusion rm where he could lie down rather than any other space on unit but did accept his mattress on floor in multi purpose rm and then shifted to another bedrm as available without further outburst. A: Pt avoiding eye contact and exhibits poor tolerance of stimulation or any change in his selected routine, P:CNCP
--- NOTE | 2017-07-31 02:55 | NUR ---
Nursing Noc Pt noted to settle into new room without obvious distress this shift. Out to common area for snacks, but isolative and not interacting with other patients or staff. Taking medications as instructed. Continuing to monitor mood, behavior, emotional state, sleep quality and quantity. Q15 minute safety checks throughout the night. CP
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
--- NOTE | 2017-07-31 16:09 | NUR ---
Observations 0700 - 1900 Pt affect and mood remained the same as previous shifts. Pt was in his room and in bed most of the shift. Pt was pleasant, polite and cooperative when approached. Pt maintained behavior throughout the shift. Pt continues to be unsocial and keeps to himself when out of his room. Pt attended meals in D.R. and ate 100% of his meals. Pt ate snacks. Pt took a shower and washed a load of clothes. Pt comes out of his room to check time, look around milieu briefly and then goes back to his room. Pt made a phone call to his mom and was telling her that everyone was out to get him and stated "I'm not paranoid" Pt was observed every 15 minutes through the shift as ordered.
--- NOTE | 2017-07-31 18:42 | NUR ---
S: "Im fine". O: Patient continues to be isolative, out for meals. Communication improving, but patient continues to give minimal information. A: Isolative, affect flat/blunted. P: Monitor for safety and response to treatment. Follow plan of care.
--- NOTE | 2017-07-31 19:56 | NUR ---
Honeycomb Decapper/Counselor: S: "I'm not signing anything because I don't trust people." O: Patient slept 9 hours last night per staff. Patient denies S/I and H/I. He denies auditory and visual hallucinations. Depression is 0/10 and anxiety is 0/10. When asked his mood, patient stated, "Fine." A: Patient is cooperative, unkept, guarded, disheveled, labile, suspicious, somatic preoccupation, unpredictable, no insight, poor judgment. P: Follow the care plan, coordinate with out-patient providers, monitor behavior.
[2017-07-31] MEDS: risperiDONE 1 mg Tablet PO SCH (20:40)
--- NOTE | 2017-08-01 06:38 | NUR ---
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 Pt has been refusing HS riperidone. Marcia JEFFERS obtained and IM back up of Zyprexa in the event pt refused it tonight. Security called during med pass to stand by in the event IM needed to be administered however pt eventually agreed to take by mouth. Monitor with q 15 minute face checks for safety, location and accountability
[2017-08-01 15:04] LABS: APPEARANCE,URINE CLEAR (CLEAR,HAZY); COLOR,URINE YELLOW (YELLOW); OCCULT BLOOD,URINE NEGATIVE (NEGATIVE); UROBILINOGEN,URINE NORMAL (NORMAL)
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
--- NOTE | 2017-08-01 15:31 | NUR ---
Observations 0900 to 2130 Pt ate a snack. Pt had clothes washed. Pt continues to isolate to room where he spends majority of time lying in bed sleeping. Pt showered. Pt maintained behavioral control and showed no signs of abnormal behavior. Pt respirations were observed when asleep. Staff completed 15 min close observations as ordered.
--- NOTE | 2017-08-01 18:28 | NUR ---
Nursing Note [id number] S: "I am ok". O: Patient out for meals only, little to no interaction with peers or staff. A: Isolative, irritable, blunted, paranoid, internally preoccupied. P: Monitor for safety and response to treatment. Follow plan of care.
[2017-08-01] MEDS: risperiDONE 1 mg Tablet PO SCH (21:43)
--- NOTE | 2017-08-01 21:45 | NUR ---
Nurses Note Evenings Patient was extremely pleasant and polite tonight accepting Risperdal 3mg PO at HS. Will maintain q 15min. checks for safety and support.
--- NOTE | 2017-08-02 04:55 | NUR ---
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 Pt took HS meds without needing too much prompting and went to sleep, sleeping through the night. Monitored pt with q 15 minute face checks for safety location and accountability
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
--- NOTE | 2017-08-02 17:58 | NUR ---
Nursing Notes [id number] S: "I'm ok, I don't want anything". O: Patient isolating in room-out for meals/snacks. Does not want to interact with staff or peers. Easily agitation in social situations. A: Isolative, guarded, blunted. P: Monitor for safety and response to treatment. Follow plan of care.
--- NOTE | 2017-08-02 19:20 | NUR ---
Observations 00 - 0 Pt affect and mood remained the same as previous shifts. Pt was in his room and in bed most of the shift. Pt was pleasant, polite and cooperative when approached. Pt maintained behavior throughout the shift. Pt continues to be unsocial and keeps to himself when out of his room. Pt gets easily agitated with too much stimulation and in social situation. Pt attended meals in D.R. and ate 100% of his meals. Pt ate snacks. Pt took a shower and washed a load of clothes. Pt continues to come out of his room to check time, look around milieu briefly and then goes back to his room. Pt made a phone call to his mom and left her a message to bring him some toiletries. Pt was observed every 15 minutes through the shift as ordered.
[2017-08-02] MEDS: risperiDONE 1 mg Tablet PO SCH (20:09)
--- NOTE | 2017-08-03 05:58 | NUR ---
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 Came out to dining room for evening snack and took HS medications with no issue. Patient returned to room and remained there for the rest of the night. Patient slept 8.25+ hours. Pt monitored q 15 minutes for safety, location and accountability.
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
[2017-08-03 13:00] VITALS: BP 105/64; PULSE 73; RESP 18
--- NOTE | 2017-08-03 14:28 | NUR ---
Nursing Dayshift: S: "Can I get some q-tips?" O: Patient has been in his room much of the day. Out for meals and requests. Coop with allopurinol meds. No c/o distress. Good appetite. A: Quiet. Isolative. P: CPOC. Monitor mood and behavior.
--- NOTE | 2017-08-03 15:26 | NUR ---
Observations 0900 - 1700 Pt affect and mood remained the same as previous shifts. Pt declined coming out for community meeting and declined to set a daily goal. Pt was in his room and in bed most of the shift. Pt was pleasant, polite and cooperative when approached. Pt maintained behavior throughout the shift. Pt continues to be unsocial and keeps to himself when out of his room. Pt attended meals in D.[facility]. and ate 100% of breakfast and 50% of lunch. Pt ate snacks. Pt took a shower and washed a load of clothes. Pt continues to come out of his room to check time, look around milieu briefly and then goes back to his room. Pt made a phone call to his mom. Pt was observed every 15 minutes through the shift as ordered.
--- NOTE | 2017-08-03 17:11 | NUR ---
Bar And Filler Assembler/Counselor S:" My appetite is fine. I'm just fine." O: Patient denies any SI or HI, no AVH, no anxiety or depression. A: Patient has secluded himself to his room and has not had any interactions or participated in group activities. He was pleasant and cooperative when spoken to. P: Follow care plan and coordinate with outpatient providers.
[2017-08-03] MEDS: risperiDONE 1 mg Tablet PO SCH (20:48)
--- NOTE | 2017-08-04 00:58 | NUR ---
Observations 1900 to 0700 Pt ate a snack. Pt continues to isolate to room where he rests in bed. Pt has a flat bunt affect. Pt maintained behavioral control and showed no signs of abnormal behavior. Pt appeared asleep at 2100 and has remained asleep. Pt respirations were observed when asleep. Staff completed 15 min close observations as ordered.
--- NOTE | 2017-08-04 06:27 | NUR ---
Nursing Note Dam Worker 7pm-7am Patient in room at start of shift. Came out to dining room for evening snack and took HS medications with no issue. Patient returned to room and remained there for the rest of the night. Patient slept 9+ hours. Pt monitored q 15 minutes for safety, location and accountability.
[2017-08-04 13:00] VITALS: BP 146/93; PULSE 149; RESP 18
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
--- NOTE | 2017-08-04 16:54 | NUR ---
Observations [id number] Pt polite with staff, isolative to room for much of shift attending meals and snack. Pt good with ADL's, more communicative and approachable. Pt focused on discharge plan- "I've been here for a while and I'm ready to find a place to live." Pt attended all meals, eating an average of 75%, showered and cooperative. Was not observed to be responding to any internal stimuli but still presents as guarded. Pt was observed every 15 minutes of shift as directed.
--- NOTE | 2017-08-04 17:15 | NUR ---
Manager Privacy/Counselor S:"They said you're working on my housing." O: Patient denies any SI or HI, no AVH, no anxiety and no depression. A: Patient has kept to his room for most of the day except to ask about his housing situation repetitively. Pleasant and cooperative when spoken to. P: Follow care plan and coordinate with outpatient providers.
--- NOTE | 2017-08-04 18:15 | NUR ---
Nursing Day Shift: S: "I've got this lump here that I didn't notice before." O: Patient showed this RN a raised area upper inner left thigh/groin area about 1 cm diameter with what appeared to be a small open area in the middle. C/O pain on palpation. Wound consult ordered. Patient has been in his room for the most part coming out for appropriate requests, snacks, and meals. Initiates conversation when he has a need. A: Flat. Quiet. P: CPOC. Monitor mood and behavior.
[2017-08-04] MEDS: risperiDONE 1 mg Tablet PO SCH (21:24)
--- NOTE | 2017-08-05 06:23 | NUR ---
NIGHT NURSE NOTE [id number]: Pt was in his room most of the shift, briefly coming out into the milieu around 2014. Pt appeared to be sleeping for most of the night. Pt slept 8.5 hrs. Pt monitored q15min for location, safety and accountability.
--- NOTE | 2017-08-05 11:01 | NUR ---
Inpatient Wound Nurse Patient seen for nodule in L groin fold. Approximate size 1 cm x 0.5 cm firm, raised area, warm but without redness, patient described as painful, no open wound, no drainage noted. Patient was instructed to keep area clean and dry, avoid squeezing or attempting to drain. If this is enlarged lymph node, it is likely to drain internally on its own without intervention. If this area opens and begins draining, CWON can assess for packing, dressings, and further intervention. Patient was offered Tylenol and heat pack for pain.
--- NOTE | 2017-08-05 16:52 | NUR ---
Obs Dayshift Pt is mostly out of his room for showers, meals, and some snacks. Is using the often, not participating in activities on the unit. Pt is polite w/ staff, does little to no engaging w/ peers. Pt is making eye contact, appropriate w/ requests and attitude on the unit. Pt is much more clear, understanding, and expressing his appreciation. Goals are to DC soon back to his apartment. Good ADL's, Good meals
[2017-08-05 17:43] VITALS: BP 120/81; PULSE 75; RESP 18
--- NOTE | 2017-08-05 17:53 | NUR ---
[facility] Day Shift Pt maintained behavioral control throughout the shift. Pt affect appears mostly flat, somewhat more animated than noted on previous shifts. Pt continues to spend most of the shift resting in his room, only entering the dining room to attend meals and request unit amenities. Pt appears much more appropriate with staff and peers than noted on previous shifts. Pt did not attend community meeting or group activities throughout the shift. Pt attended all meals and ate approx 30% of breakfast and lunch, and approx 50% of dinner.
--- NOTE | 2017-08-05 18:56 | NUR ---
Nursing Notes [id number] S: "I have a boil on my groin, it hurts". O: Wound care evaluated and recommended heat-patient refused. No open sore/no drainage. A: Isolative, guarded and blunted. P: Monitor for safety and response to treatment. Follow plan of care.
[2017-08-05] MEDS: risperiDONE 1 mg Tablet PO SCH (20:41)
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
--- NOTE | 2017-08-06 02:50 | NUR ---
NIGHT NURSE NOTE [id number]: Pt mostly stayed in his room, coming out for HS meds and snack. Pt was cooperative and appropriate. Pt went to bed at 2100. Pt monitored q15 for location, safety, and accountability.
[2017-08-06 14:33] VITALS: BP 111/69; PULSE 79; RESP 16
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
--- NOTE | 2017-08-06 16:51 | NUR ---
Nursing Note [id number] S: "I am ok, you don't need to see it, it is better". O: Patient reporting the area on his groin is feeling better today. Patient refusing to allow staff to look at the area, refusing the warm pack, recommended by wound care. Patient out for meals, isolating in room. Otherwise cooperative. A: Guarded, restricted, paranoid and isolative. P: Monitor for safety and response to treatment. Follow plan of care.
--- NOTE | 2017-08-06 18:30 | NUR ---
Inspector Tool/Counselor: S: "I'm fine." O: Patient slept 7.25 hours last night per staff. Patient denies S/I and H/I. He denies auditory and visual hallucinations. Depression is 0/10 and anxiety is 0/10. When asked his mood, patient stated, "Fine." A: Patient is cooperative, unkept, guarded, disheveled, labile, suspicious, limited insight, poor judgment. P: Follow the care plan, coordinate with out-patient providers.
--- NOTE | 2017-08-06 20:01 | NUR ---
Observations 00 - 0 Pt affect and mood remained the same as previous shifts. Pt declined coming out for community meeting and declined to set a daily goal. Pt was in his room and in bed most of the shift. Pt was pleasant, polite and cooperative when approached. Pt maintained behavior throughout the shift. Pt continues to be unsocial and keeps to himself when out of his room. Pt attended meals in D.R. and ate 100% of meals. Pt ate snacks. Pt made a phone call to his mom. Pt was observed every 15 minutes through the shift as ordered.
[2017-08-06] MEDS: risperiDONE 1 mg Tablet PO SCH (20:40)
--- NOTE | 2017-08-07 03:24 | NUR ---
Nursing Noc Pt appears relaxed and at ease. Participated in conversation with leader writer appropriately, but continues to be blunt or flat. Taking all scheduled medications as directed. Isolative to room except when out for snacks and HS medications. Continuing to monitor mood, behavior, emotional state, sleep quality and quantity. BHCP Q15 minute safety checks as directed.
[2017-08-07] MEDS: LORazepam 1 mg Tablet PO PRN (08:12)
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
--- NOTE | 2017-08-07 14:51 | NUR ---
NURSE NOTE DAY "I'm fine. I just want to sleep." Patient denies depression, anxiety. Restricted affect. Denies SI, HI. Denies AH, VH. Pt isolated in room much of shift. Able to maintain behavioral control. Took scheduled medication. In AM, pt was observed in boxing stance, ready to spar with antoehr pt. Pt was easily redirected and given PRN lorazepam.
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
--- NOTE | 2017-08-07 19:09 | NUR ---
Engineering Designer/Counselor: S: "I'm doing fine." O: Patient slept 6.75 hours last night per staff. Patient denies S/I and H/I. He denies auditory and visual hallucinations. Depression is 0/10 and anxiety is 0/10. When asked his mood, patient stated, "Good." A: Patient is cooperative, unkept, guarded, disheveled, labile, suspicious, limited insight, poor judgment. P: Follow the care plan, coordinate with out-patient providers.
[2017-08-07] MEDS: risperiDONE 1 mg Tablet PO SCH (20:04)
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
--- NOTE | 2017-08-08 04:13 | NUR ---
Nursing Noc Taking all scheduled medications as directed. Isolative to room except when out for snacks and HS medications. Continuing to monitor mood, behavior, emotional state, sleep quality and quantity. BHCP Q15 minute safety checks as directed.
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
[2017-08-08 16:21] VITALS: BP 131/71; PULSE 72; RESP 16
--- NOTE | 2017-08-08 17:44 | NUR ---
[id number]. nurs. S/O: Pt has continued pattern of isolating in his bedrm except for getting meals ans attending to hygiene and laundry needs. Pt's mother visited today and reported her concern that pt was more paranoid and that medication did not seem to be correcting this px. Pt had apparently been telling her about people putting strychnine in his food and that she could look up court website and see that people where being racist about him there. Pt's mother also reported that pt was more social with her and able to play cards with her and focus on details of card game with mother. P:CNCP
--- NOTE | 2017-08-08 18:01 | NUR ---
Stabber/Counselor S:" Did they find me housing?" O: Patient denies any SI or HI, no AVH, no anxiety or depression. A: Patient had a visit with his mom, and inquired about his evaluation with [facility]. He has been out on the unit, and has been pleasant and friendly during all interactions.
--- NOTE | 2017-08-08 18:12 | NUR ---
[facility] Day Shift Pt maintained behavioral control throughout the shift. Pt continues to spend most of the shift resting in his room, only entering the dining room to attend meals and request unit amenities. Pt appears more polite and appropriate with staff and peers when active on the unit. Pt appears much more appropriate with staff and peers than noted on previous shifts. Pt did not attend community meeting or group activities throughout the shift. Pt attended all meals and ate approx 80% of all meals.
[2017-08-08] MEDS: risperiDONE 1 mg Tablet PO SCH (20:16)
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
[2017-08-09 16:33] VITALS: BP 128/91; PULSE 122; RESP 18
--- NOTE | 2017-08-09 17:16 | NUR ---
Filter Tip Inspector/Counselor S: "I'm good." O: Patient denies S/I and H/I. He denies auditory and visual hallucinations. No depression or anxiety. A: Patient is cooperative, unkept, guarded, disheveled, labile, suspicious, limited insight, poor judgment. Patient slept for 9 hours and has kept to his room. P: Follow the care plan, coordinate with out-patient providers.
--- NOTE | 2017-08-09 17:47 | NUR ---
[facility] Day Shift Pt affect and behavior unchanged from previous shifts. Pt maintained behavioral control throughout the shift. Pt continues to spend most of the shift resting in his room, only entering the dining room to attend meals and request unit amenities. Pt appears more polite and appropriate with staff and peers when active on the unit. Pt did not attend community meeting or group activities throughout the shift. Pt attended all meals and ate approx 90% of all meals.
[2017-08-09] MEDS: risperiDONE 1 mg Tablet PO SCH (20:39)
--- NOTE | 2017-08-10 02:45 | NUR ---
Nursing, NOC shift Patient in room at beginning of shift, continues to be isolative. Accepted medications w/o any problems. Continue with Q15 min safety and room checks thru the NOC.
--- NOTE | 2017-08-10 14:11 | NUR ---
Nursing Dayshift: S: "Do they have any new information on [facility]?" O: Patient asking above question to the MD. Smiled during interaction. Has been out of his room for meals, snacks, and appropriate requests. Eating well at meals and snacks. Calm on approach. Fair eye contact. A: Calm. Quiet. P: CPOC. Monitor mood and behavior.
--- NOTE | 2017-08-10 16:15 | NUR ---
Physical Education Department Chair/Counselor S:"When do I find out about [facility]." O: Patient denies S/I and H/I. He denies auditory and visual hallucinations. No depression or anxiety. A: Patient is cooperative, unkept, guarded, disheveled, labile, suspicious, limited insight, poor judgment. Friendly when spoken to. Has kept to his room for most of the day other than to come out and ask questions about when he may be going home. P: Follow the care plan, coordinate with out-patient providers.
--- NOTE | 2017-08-10 17:58 | PROG NOTE ---
[address] [address] PROGRESS NOTE PATIENT: DARBY BUSBY : 1980 MR#: [id number] ADMIT: 06/26/2017 JOB ID: [id number] DATE: 08/10/2017 CHIEF COMPLAINT: "I heard that [facility] is supposed to reviewing my case. Do you know when I will find out?" This per patient report. HISTORY OF PRESENT ILLNESS: As stated above, the patient did meet with myself and remembered myself by name and was able to communicate appropriately. He maintained good eye contact throughout the course of conversation as well. Per staff report, the patient has shown significant stabilization over the past three weeks with considerable improvement of social skills and self-care. He remains on a wait list under MR 90 for both the forensic evaluation and also mental health placement. The patient reportedly has shown significant repetitive hospitalizations with inability to stabilize in the outpatient community and has had repetitive admission with acute instability throughout. Currently, the patient is maintained on doses of Invega Sustenna, last injection on July 18 of 156 mg, Risperdal 3 mg at bedtime, and p.r.n. doses of Ativan. MENTAL STATUS EXAM: The patient, as noted above, did maintain improved eye contact. He recalls myself by name. His speech is of normal tone, frequency, and volume. His mood is neutral. His affect remains inappropriate and incongruent. His thought process shows continuation of loose and disorganized thinking, per staff report. He does have transient episodes of racing thoughts, however, denies any of current. His thought content: He denied any evidence of current suicidal or homicidal ideation. He remains quite paranoid and responding to internal stimulus throughout the course of conversation. His insight and judgment are deemed poor. PHYSICAL EXAM: Vital signs are current. Temperature is 35.8, pulse 122, respirations 18, BP 128/91. MEDICATION REVIEW: Includes Invega Sustenna, last injection July 18, 156 mg, Ativan 2 mg t.i.d. IM p.r.n. if refuses oral medications, Cogentin 1 mg b.i.d. p.r.n., allopurinol 300 mg daily, Risperdal 3 mg q.h.s. ASSESSMENT: [place] I1. Schizophrenia, chronic paranoid type. [place] IIAntisocial personality disorder. [place] III1. Acute hepatitis secondary to medication, resolving. 2. Acute kidney injury, resolved. [place] IVStressors are noted for repetitive incarcerations and chronic mental illness. [place] VGlobal assessment of functioning current 40. PLANS: 1. Recommendation is for continuation of MR 90 both for mental health placement as well as competency oriental orthodox. 2. Continuation of all medications noted.
[2017-08-10 18:50] VITALS: BP 122/81; PULSE 94; RESP 16
[2017-08-10] MEDS: risperiDONE 1 mg Tablet PO SCH (20:10)
--- NOTE | 2017-08-11 02:26 | NUR ---
Observations 1900 to 0700 Pt did not attend wrap up group. Pt ate a snack. Pt remains in bed throughout free time. Pts behavior has not changed since previous shifts. Pt maintained behavioral control. Pt appeared asleep at 2100 and has remained asleep. Pt respirations were observed when asleep. Staff completed 15 min close observations as ordered.
--- NOTE | 2017-08-11 04:59 | NUR ---
Nursing Noc Taking all scheduled medications as directed. Isolative to room except when out for snacks and HS medications. Noted to be asleep at 2100 and remained asleep throughout the shift. Prolactin level elevated to 46.5 ng/ml. Continuing to monitor mood, behavior, emotional state, sleep quality and quantity. CP Q15 minute safety checks as directed.
--- NOTE | 2017-08-11 11:30 | PROG NOTE ---
[address] [address] PROGRESS NOTE PATIENT: DARBY BUSBY : 1980 MR#: [id number] ADMIT: 06/26/2017 JOB ID: [id number] DATE: 08/11/2017 CHIEF COMPLAINT: "So, why can't they come here and evaluate me here? Why do I have to go to [place]?" HISTORY OF PRESENT ILLNESS: As stated above attempt the patient did meet with me today, maintaining a piercing eye contact with some elevation of affect. The patient reports that he is quite distraught that he has been in the hospital for quite some time and states that he does not understand why he needs to continue. He reportedly was admitted on June 26 and is on an MR 90 at this time awaiting placement and transfer to [facility], either for mental health placement forensic evaluation. The patient reports that he is aware that the earliest that he can be admitted to the forensic unit would be on the of this month. Per staff report the patient has shown considerable improvement with appropriate interaction with staff but the patient continues to show significant manifestations of paranoia, some difficulties with inappropriate affect, and mood dysregulation at times. He reportedly remains on medications including doses of Risperdal 3 mg at bedtime. His last injection of Invega Sustenna was within the past two weeks. OBJECTIVE: On mental status exam, as noted above the patient did meet with myself at length and discussed feelings of frustration and anger that he remains in the hospital. He was informed that we are awaiting placement disposition at [facility], both for mental health and competency evaluation. His speech is of normal tone, frequency, and volume. His eye contact is piercing at times and inappropriate. His mood is mildly dysphoric. His affect is irritable. His thought process shows no evidence of racing thoughts, loose or disconnected thinking. His thought content: He denied any evidence of current suicidal, homicidal ideation. He denied any evidence of active hallucinations or delusions. There is some concern of continuation of perceptual distortion. His insight and judgment are poor. PHYSICAL EXAMINATION: Vital signs of current: Temperature is 36.1, pulse 94, respirations 16, BP 122/81. MEDICATION REVIEW: Includes allopurinol 300 mg daily, Ativan 1 mg q.4 h. p.r.n. anxiety, Ativan 2 mg IM t.i.d. p.r.n. if refused p.o. med, olanzapine 5 mg IM h.s. p.r.n. if patient refuses Risperdal, Invega Sustenna last injection July 14 and next injection on August 14, Risperdal 3 mg q.h.s. ASSESSMENT: [place] I: Schizophrenia, paranoid type. [place] II: Antisocial personality disorder. [place] III: History of gout. [place] IV: Stressors are noted for chronic mental health disturbance, long-term disposition planning. [place] V: Global Assessment of Functioning of current 35. PLAN: 1. Recommendations for continuation of disposition with plan and intent to discharge to [facility] for long-term management and disposition planning. 2. Recommendations for continuation of medications including Risperdal 3 mg q.h.s., Invega Sustenna next injection on the . 3. Recommendations for discontinuation of Ativan IM injectable based on the patient's considerable improvement with compliance of medications.
--- NOTE | 2017-08-11 15:31 | NUR ---
Biofuels Plant Superintendent/Counselor S:"I need to find out about my SSI. I need you to call my ip attorney." O: Patient denies SI and HI, no auditory and visual hallucinations. No depression or anxiety. A: Patient is cooperative, unkept, guarded, disheveled, labile, suspicious, limited insight, poor judgment. Friendly when spoken to. Somewhat demanding about his follow up care, i.e. requests to have CM call about his SSI, to speak to the public health outreach worker, etc. P: Follow the care plan, coordinate with out-patient providers.
--- NOTE | 2017-08-11 17:08 | NUR ---
Nursing Dayshift: S: "Can you send me a copy of my arrests." O: Patient requesting information from his development manager via the phone. Has been out of his room per his usual for meals, snacks, and appropriate requests. A: Calm. Cooperative. P: CPOC. Monitor mood and behavior.
[2017-08-11] MEDS: risperiDONE 1 mg Tablet PO SCH (20:25)
--- NOTE | 2017-08-11 23:44 | NUR ---
Observations 1900 to 0700 Pt ate a snack. Pt remained in room throughout shift lying in bed. Pt has flat, blunt affect. Pt maintained behavioral control. Pt appeared asleep at 2130 and has remained asleep. Pt respirations were observed when asleep. Staff completed 15 min close observations as ordered.
--- NOTE | 2017-08-12 04:08 | NUR ---
Nursing Noc Taking all scheduled medications as directed. Isolative to room except when out for snacks and HS medications. Observed good eye contact when engaged with assembly instructions writer. Noted to be asleep at 2130 and remained asleep throughout the shift. Prolactin level elevated to 46.5 ng/ml. Continuing to monitor mood, behavior, emotional state, sleep quality and quantity. [facility] Q15 minute safety checks as directed. Addendum: 08/12/17 at 0600 by ANUEL BRANNON RN Patient up at 0600 reporting increased pain to groin nodule and requested AM dose of Allopurinol at this time. Medication administered as directed.
--- NOTE | 2017-08-12 12:09 | NUR ---
[id number]. nurs. S/O: Pt taking meds as sheduled, asks staff for assistance getting meals and meeting hygiene needs ,to use phone. Pt otherwise mostly isolates in bedrm. Nitesh speech, disengaged facial expression, flat , blunt, avoidant. Does appear to be thinking of situational needs after discharged given content of some of his requests and contacts with coomunity agencies. Pt does not interact with peers. Remains guarded, behaviour controlled. Denies pxs with depression, anxiety, thoughts of self harm and not overtly expressing delusional and PI, although has recently to his mo. when visiting. P:CNCP
--- NOTE | 2017-08-12 12:57 | PROG NOTE ---
[address] [address] PROGRESS NOTE PATIENT: DARBY BUSBY : 1980 MR#: [id number] ADMIT: 06/26/2017 JOB ID: [id number] DATE: 08/12/2017 CHIEF COMPLAINT: "I don't know why I have to stay here." This per patient report. HISTORY OF PRESENT ILLNESS: As stated above the patient continues to contest the reason for his continuation of hospitalization. I have explained to him several times that he is currently on a MR 90, awaiting transfer to [facility], both for mental health and also a competency evaluation with point of entry for competency evaluation on the of this month. He reportedly has remained isolative to his room but has remained compliant with his medication administration. He makes piercing eye contact at times throughout the course of conversation and shows a continuation of the difficulties with inappropriate behaviors. His speech is of normal tone, frequency, and volume. His mood was mildly dysphoric. His affect is irritable, labile. His thought process shows no evidence of racing thoughts, flight of ideas, loose or disconnected thinking. Thought content: He denied any evidence of suicidal, homicidal ideation. He remains quite paranoid and defensive. He denies any active hallucinations or delusions, but does appear to be responding to internal stimulus at times during the course of interview. He was alert, oriented to time and place. His attention and concentration are fleeting. Insight and judgment are poor. PHYSICAL EXAMINATION: Vital signs of current: Temperature is 36.1, pulse 94, respirations 16, BP 122/81. MEDICATION REVIEW: Includes Risperdal 3 mg q.h.s., allopurinol 300 mg daily, Invega Sustenna 156 mg next injection on the . ASSESSMENT: [place] I: Schizophrenia, paranoid type. [place] II: Antisocial personality disorder. [place] III: History of gout. [place] IV: Stressors are noted for chronic mental health disturbance, long-term disposition. [place] V: Global Assessment of Functioning of current 35. PLAN: 1. Continuation of disposition planning. 2. Continuation of all medications as noted. 3. Recommendations for continuation of supportive therapies per unit protocol.
[2017-08-12 13:34] VITALS: BP 117/72; PULSE 90; RESP 16
--- NOTE | 2017-08-12 18:09 | NUR ---
Investor Relations Coordinator/Counselor: S/O: Patient slept 8.5 hours last night per staff. Patient denies S/I and H/I. She also denies auditory and visual hallucinations. Depression and anxiety were 0/10. When asked his mood, patient stated, "Fine." A: Patient is cooperative, anxious, irritable, labile, isolative, inappropriate behaviors, paranoid, poor insight, poor judgment. P: Follow the care plan, coordinate with out-patient providers.
--- NOTE | 2017-08-12 18:31 | NUR ---
[facility] Day Shift Pt affect and behavior unchanged from previous shifts. Pt maintained behavioral control throughout the shift. Pt continues to spend most of the shift resting in his room, only entering the dining room to attend meals and request unit amenities. Pt appears more polite and appropriate with staff and peers when active on the unit. Pt did not attend community meeting or group activities throughout the shift. Pt attended all meals and ate approx 90% of all meals.
[2017-08-12] MEDS: risperiDONE 1 mg Tablet PO SCH (20:52)
--- NOTE | 2017-08-13 04:49 | NUR ---
nursing, nights, 11-7 s/o- has appeared to sleep after 2244 during q 15 minute assessments. a- no apparent distress. p- monitor behavior/emotional state, quality, times and amount of sleep, use and effect of medication. cindy
--- NOTE | 2017-08-13 10:46 | NUR ---
[id number]. nurs S/O: No noted changes from pt's prev days pattern of isolating in bedrm and coming out to meals and to get needs met re hygiene and laundry. Pt interacts with staff briefly only to make requests. Pt taking meds as sheduled. Pt affect blunted brief stares when interacting. No delusional or PI expressed and denies other concerns. Pt using phone to speak with mother. P:CNCP
--- NOTE | 2017-08-13 13:23 | PROG NOTE ---
[address] [address] PROGRESS NOTE PATIENT: DARBY BUSBY : 1980 MR#: [id number] ADMIT: 06/26/2017 JOB ID: [id number] DATE: 08/13/2017 CHIEF COMPLAINT: "I wanna talk to my family law attorney." This per patient report. The patient was given the name and number of Pedro Villalba, with telephone number corresponding. HISTORY OF PRESENT ILLNESS: As stated above the patient he did identify that he would like to speak with his family law attorney in reference to the competency hearing and evaluation that is pending at [facility] on the of this month. He indicated that he has not spoken with him for quite some time and wanted to actually have telephone contact. The patient was seen out in the Day Area earlier this morning and has shown significant improvement with social interaction and self-care. He reportedly has been showering every morning this week and is showing gains of insight into the need of cooperation with staff and medication management. OBJECTIVE: On mental status exam, he maintained good eye contact throughout. He denied any evidence of acute distress. His speech was of normal tone, frequency, and volume. His mood was neutral. Affect was blunted. His thought process showed no evidence of racing thoughts, flight of ideas, loose or disconnected thinking. Thought content: He denied any evidence of current suicidal, homicidal ideation. He continues to have a mild paranoid flavor to him. He denies any evidence of active hallucinations, but at times appears to be responding to internal stimulus with visual tracking throughout the course of conversation. His attention and concentration are fair. Insight and judgment are poor. PHYSICAL EXAMINATION: Vital signs of current: Temperature is 36.2, pulse 90, respirations 16, BP 117/72. MEDICATION REVIEW: Includes Invega Sustenna, next injection 156 mg scheduled for tomorrow, Ativan 1 mg q.4 h. p.r.n. anxiety, allopurinol 300 mg daily, Risperdal 3 mg q.h.s. ASSESSMENT: [place] I: Schizophrenia, paranoid type. [place] II: Antisocial personality disorder. [place] III: History of gout. [place] : Stressors are noted for chronic mental health issues, long-term disposition. [place] V: Global Assessment of Functioning of current 35. PLAN: 1. Recommendations for continuation of plan for discharge with more than likely proceeding into competency hearing and evaluation at [facility] on the of this month 2. Continuation of all medications as noted. 3. Continuation of supportive therapies per unit protocol.
[2017-08-13 13:49] VITALS: BP 121/74; PULSE 89; RESP 16
--- NOTE | 2017-08-13 18:00 | NUR ---
Line Installation Supervisor/Counselor: S/O: Patient slept 7.25 hours last night per staff. Patient denies S/I and H/I. She also denies auditory and visual hallucinations. Depression and anxiety were not rated. A: Patient is cooperative, anxious, irritable, labile, inappropriate behaviors, paranoid, poor insight, poor judgment. P: Follow the care plan, coordinate with out-patient providers.
--- NOTE | 2017-08-13 18:42 | NUR ---
[facility] Day Shift Pt affect and behavior mostly unchanged from previous shifts. Pt maintained behavioral control throughout the shift. Pt affect appears brighter than noted on previous shifts. Pt continues to spend most of the shift resting in his room, only entering the dining room to attend meals and request unit amenities. Pt appears more polite and appropriate with staff and peers when active on the unit. Pt did not attend community meeting or group activities throughout the shift. Pt attended all meals and ate approx 90% of all meals.
[2017-08-13] MEDS: risperiDONE 1 mg Tablet PO SCH (20:29)
--- NOTE | 2017-08-14 05:42 | NUR ---
Nursing Note Multiplex Operator 7pm-7am Patient was isolating in room at start of shift. He came out for evening meds and returned to room. He was noted to be in bed asleep at 2230 and remains asleep at current time with 7.5 hours. Pt monitored q 15 minutes for safety, location and accountability.
[2017-08-14] MEDS ORDERED: Paliperidone Palmitate 234 mg/1.5 mL Inj IM SCH (08:30)
[2017-08-14 10:47] VITALS: BP 113/71; PULSE 82; RESP 18
--- NOTE | 2017-08-14 13:35 | NUR ---
[facility] Day Shift Pt affect and behavior mostly unchanged from previous shifts. Pt maintained behavioral control throughout the shift. Pt continues to spend most of the shift resting in his room, only entering the dining room to attend meals and request unit amenities. Pt remains polite and appropriate with staff and peers when active on the unit. Pt did not attend group activities throughout the shift. Pt has attended all meals and has eaten approx 90% of all meals.
--- NOTE | 2017-08-14 13:37 | PROG NOTE ---
[address] [address] PROGRESS NOTE PATIENT: DARBY BUSBY : 1980 MR#: [id number] ADMIT: 06/26/2017 JOB ID: [id number] DATE: 08/14/2017 CHIEF COMPLAINT: "I am supposed to call back my civil rights attorney at 1:30 on Thursday." This is per patient report. HISTORY OF PRESENT ILLNESS: As stated above, the patient did indicate that he had placed calls with his civil rights attorney for the competency declaration hearing and stated that he is aware that he has a telephonic meeting at 1:30 on Thursday. He reports that he has been going out to the day area to obtain his meals and just took a shower this morning. Per nursing staff report, the patient remains cooperative with medication management and has been much more interactive and remains quite polite to staff and peers. He has had no evidence of displays of inappropriate behavior over the past 48 hours. OBJECTIVE: On mental status exam, he makes fairly good eye contact. He does smile inappropriately at times throughout the course of conversation. His speech is of normal tone, frequency, and volume. His mood is neutral. His affect is somewhat inappropriate. His thought process shows no evidence of random flight of ideas, loose or disconnected thinking. Thought content: He denied any evidence of current suicidal or homicidal ideation. He appears to be mildly paranoid at times. He does appear to be responding to internal stimulus with some visual tracking throughout the course of conversation and inappropriate smiling. He was alert, oriented to time and place. His attention and concentration intact. Insight and judgment are fair to poor. PHYSICAL EXAM: Vital signs of current: Temperature is 36.5, pulse 82, respirations 18, BP 113/71. MEDICATION REVIEW: Includes: 1. Invega Sustenna injection to be given today 156 mg. 2. Ativan 1 mg q.4 h. p.r.n. for anxiety. Last given on August 07. 3. Allopurinol 300 mg daily. 4. Risperdal 3 mg q.h.s. with intent to taper and discontinue. Beginning tonight, the patient will drop to 2 mg at bedtime. ASSESSMENT: [place] I. Schizophrenia, paranoid type. [place] II. Antisocial personality disorder. [place] III. History of gout. [place] IV. Stressors are noted for chronic mental health issues, long-term disposition. [place] V. GAF current 35. PLAN: 1. Recommendation is to taper his Risperdal to 2 mg at bedtime with consideration of further taper and discontinuation. 2. Recommendations for continuation of Invega Sustenna. Next injection will be ordered in one month on September 13. 3. Continuation of disposition planning including transfer to [facility] for competency hearing on the and also remaining on the mental health placement pending.
--- NOTE | 2017-08-14 17:38 | NUR ---
Nursing Notes [id number] S: "It went really well". O: Patient referring to meeting with an civil rights attorney today, regarding his criminal case. Patient received his Invega injection this morning. Continues to isolate in room. Out for meals. A: Blunted affect, restricted, cooperative, calm. P: Monitor for safety and response to treatment. Follow plan of care.
--- NOTE | 2017-08-14 19:51 | NUR ---
Pointing Machine Operator/Counselor: S/O: Patient slept 7.5 hours last night per staff. Patient denies S/I and H/I. She also denies auditory and visual hallucinations. Depression and anxiety were not rated. A: Patient is cooperative, anxious, irritable, labile, inappropriate behaviors, paranoid, poor insight, poor judgment. P: Follow the care plan, coordinate with out-patient providers.
[2017-08-14] MEDS: risperiDONE 1 mg Tablet PO SCH (20:28)
[2017-08-15 09:45] VITALS: BP 116/72; PULSE 66; RESP 18
--- NOTE | 2017-08-15 12:45 | PROG NOTE ---
[address] [address] PROGRESS NOTE PATIENT: DARBY BUSBY : 1980 MR#: [id number] ADMIT: 06/26/2017 JOB ID: [id number] DATE: 08/15/2017 CHIEF COMPLAINT: "I don't have any questions." This per patient report. HISTORY OF PRESENT ILLNESS: As stated above, the patient essentially declined interview this morning. He made no eye contact. He remains isolative to his room. He reportedly has been cooperative with medication administration per nursing staff report and consistently denying any active hallucinations. He does appear to be, however, preoccupied with his disposition and his concerns of responding to internal stimulus. He reportedly did receive his most recent Invega Sustenna injection yesterday and I have begun a process of tapering his doses of Risperdal by dropping down to 2 mg at bedtime. OBJECTIVE: On mental status exam, as noted above the patient essentially declined interview. He made no significant eye contact. He indicated that he was trying to sleep. His speech was of normal tone, frequency, and volume. His mood was neutral. Affect was blunted. Thought process shows no evidence of loose or disconnected thinking. Thought content: He denied any evidence of current suicidal or homicidal ideation. He appears to be consistently paranoid and responding to internal stimulus. He was alert, oriented to time and place. Attention and concentration intact. Memory untested. Insight and judgment are poor. PHYSICAL EXAMINATION: Vital signs are current: Temperature is 36.1, pulse 66, respirations 18, BP 116/72. MEDICATION REVIEW: Includes Risperdal 2 mg q.h.s. which he refused last evening. Invega Sustenna 156 mg daily, Ativan 1 mg q.4 h. p.r.n., allopurinol 3 mg q.h.s., p.r.n. doses of Zyprexa 5 mg IM if the patient refuses Risperdal which was not given last evening. ASSESSMENT: [place] I: Schizophrenia, paranoid type. [place] II: Antisocial personality disorder. [place] III: History of gout. [place] IV: Stressors are noted for chronic mental health issues, long-term disposition. [place] V: Global Assessment of Functioning of current 35. PLAN: 1. Continuation of Risperdal 2 mg at bedtime. If patient refuses, injection of Zyprexa 5 mg IM. 2. Continuation of disposition planning including transfer to [facility] with possible placement on mental health if bed unavailable. Patient is committed to an admission to evaluate for competency on the of this month.
--- NOTE | 2017-08-15 16:32 | NUR ---
Area Mechanic/Counselor S:"I want you to call my mom." O: Patient has come out of his room to make requests to speak to the CM, and for this travel writer to call his mom. He stated that he would be released after his forensic assessment with [facility]. A: Patient is cooperative but has limited insight. He is labile, paranoid and anxious. P: Follow care plan and coordinate with outpatient providers.
--- NOTE | 2017-08-15 16:41 | NUR ---
Observations 0700 to 1900 Pt did not attend community meeting. Pt did not attend recreational activities. Pt ate a snack. Pt showered. Pt remained in room resting in bed throughout shift. Pt maintained behavioral control. Breakfast: 100%. Lunch: 75%. Staff completed 15 min close observations as ordered.
--- NOTE | 2017-08-15 17:50 | NUR ---
Nursing Notes [id number] S: "Can you let me know when it is time to eat again"? O: Patient continues to mostly isolate in his room, out for meals and snacks. Patient did stay out after super this evening and watched TV for a while-even smiling at times. Patient seeks out staff appropriately, cooperative with treatment. A: Blunted, guarded, restricted, isolative, cooperative. P: Monitor for safety and response to treatment. Follow plan of care.
[2017-08-15] MEDS: risperiDONE 1 mg Tablet PO SCH (20:28)
--- NOTE | 2017-08-15 21:56 | NUR ---
NIGHT NURSE NOTE [id number]: Pt was in his room at the beginning of the shift. Pt came out for snack and HS meds, appropriately interacting with staff. Pt stated he sleeps well at night, and had a good day. Pt monitored q15 min for safety, location and accountability.
[2017-08-16 10:30] VITALS: BP 136/85; PULSE 161; RESP 18
--- NOTE | 2017-08-16 14:28 | PROG NOTE ---
[address] [address] PROGRESS NOTE PATIENT: DARBY BUSBY : 1980 MR#: [id number] ADMIT: 06/26/2017 JOB ID: [id number] DATE: 08/16/2017 CHIEF COMPLAINT: "My mom is coming in later on today, I hope she brings my stuff." This is per patient report. HISTORY OF PRESENT ILLNESS: As stated above, the patient did confirm that his mother will be visiting the 1st time within the past two weeks. He indicated that he is hoping that she will bring in additional belongings. He reportedly has shown significant improvement per nursing staff report. Has actually been out in the Day Area for several hours yesterday, participating appropriately, watching TV, and smiling with positive affect. The patient reportedly was reaffirmed of the need to be compliant with medications, including his Risperdal administration at bedtime at 2 mg. He reports that on Thursday evening, he had refused the medication. Yesterday, I did confirm that he needs to cooperate with medication administration or he will be provided with an IM injection of Zyprexa. He reportedly did cooperate last evening per nursing staff report. He is aware that he will remain on low-dose therapy of Risperdal with tapering doses and eventual discontinuation if he maintains his current status. His last dose of injection of Invega was noted on the . OBJECTIVE: On mental status exam, he maintained good eye contact throughout. He did smile. We had discussion of the fact that his mom is coming in to visit. His speech is of normal tone, frequency, and volume. Mood is neutral. Affect is congruent. His thought process showed no evidence of racing thoughts, flight of ideas, loose or disconnected thinking. Thought content: No evidence of suicidal/homicidal ideation. No evidence of paranoia, no evidence of active hallucinations, delusions. There have been no further reports of responding to stimulus per nursing report, over the past 24 hours. His attention and concentration intact. Insight and judgment are poor. PHYSICAL EXAM: Vital signs, current: Temperature is 36.1, pulse 66, respirations 18, BP 116/72. MEDICATION REVIEW: Includes: 1. Risperdal 2 mg q.h.s. 2. Invega Sustenna, last injection 156 mg on the , q. month. 3. Ativan 1 mg q.4 h. Last given on August 07. 4. Allopurinol 300 mg daily. ASSESSMENT: [place] I. Schizophrenia, paranoid type. [place] II. Antisocial personality disorder. [place] III. History of gout. [place] IV. Stressors are chronic mental health issues, prison disposition planning. [place] V. Global Assessment of Functioning current 35. PLAN: 1. Continuation of all medications noted. 2. Continuation of discharge planning including transfer to [facility], both for mental health placement under MR 90 status and competency evaluation on August 24.
--- NOTE | 2017-08-16 15:18 | NUR ---
Medical Van Driver/Counselor S:"Tell me when my mom is here." O: Patient denies any SI or HI, no auditory or visual hallucinations, no anxiety or depression. A: Patient is cooperative but has limited insight. He is labile, paranoid and anxious. P: Follow care plan and coordinate with outpatient providers. Addendum: 08/16/17 at 1623 by JOAO MCNEILL [place]EE Patient had a lengthy visit with his mom, and played cards with her in the multipurpose room.
--- NOTE | 2017-08-16 16:46 | NUR ---
Observations 0700 - 1900 Pt affect and mood remained the same as previous shifts. Pt declined coming out for community meeting and declined to set a daily goal. Pt was in his room and in bed most of the morning. Pt spent some of the afternoon walking hallway and sitting in [facility]. Pt visited with mom, played cards with her and it appeared to go well. Pt was pleasant, polite and cooperative when approached. Pt maintained behavior throughout the shift. Pt continues to be unsocial and keeps to himself when out of his room. Pt attended meals in D.R. and ate 100% of meals. Pt ate snacks. Pt continues to ask frequent questions about discharge, going to [facility] and about his criminal court case. Pt was observed every 15 minutes through the shift as ordered.
--- NOTE | 2017-08-16 16:52 | NUR ---
Nursing Notes [id number] S: "I want to visit with my mom, can I have a piece of paper"? O: Patient seeking staff appropriately. Not interacting with peers. Continues to isolate-out for meals/snacks. Patient to have scheduled Risperdal po at bedtime-if patient refused-to have IM backup. A: Brighter affect, less restrictive, less blunted. P: Monitor for safety and response to treatment. Follow plan of care.
[2017-08-16] MEDS: risperiDONE 1 mg Tablet PO SCH (20:40)
--- NOTE | 2017-08-17 05:46 | NUR ---
Nursing Note Perinatal Breastfeeding Assistant 7pm-7am Patient was isolating in room at start of shift. He came out to dining room for evening snack, took HS meds and returned to room. Patient was calm and cooperative. Patient was noted to be in bed asleep at 2230 and through the rest of the night. Pt monitored q 15 minutes for safety, location and accountability.
--- NOTE | 2017-08-17 10:58 | NUR ---
Nursing Dayshift: S: "Thanks." O: Patient showing appreciation for medication admin. Up for meals and snacks with a good appetite. Watching TV after breakfast for a bit. Easily approachable. A: Quiet. Calm. Cooperative. P: CPOC. Monitor mood and behavior.
[2017-08-17 12:30] VITALS: BP 129/97; PULSE 111; RESP 18
--- NOTE | 2017-08-17 14:48 | NUR ---
Observations 0700 - 1900 Pt affect and mood remained the same as previous shifts. Pt declined to set a daily goal. Pt was in his room most of the shift, coming out briefly for meals, check the time and use the telephone. Pt was pleasant, polite and cooperative when approached. Pt maintained behavior throughout the shift. Pt continues to be unsocial and keeps to himself when out of his room. Pt attended meals in D.R. and ate 100% of meals. Pt ate snack. Pt took a shower and washed a load of clothes. Pt was observed every 15 minutes through the shift as ordered.
--- NOTE | 2017-08-17 15:04 | PROG NOTE ---
[address] [address] PROGRESS NOTE PATIENT: DARBY BUSBY : 1980 MR#: [id number] ADMIT: 06/26/2017 JOB ID: [id number] DATE: 08/17/2017 CHIEF COMPLAINT: "I took my Risperdal last night." This is per patient report. HISTORY OF PRESENT ILLNESS: As stated above, the patient did confirm that he did take his scheduled dose of Risperdal last evening. He reports that he does feel that things are going well. He indicated that his mother visited yesterday and brought in some additional personal products. He remains isolated to his room for the majority of the day but is showing significant improvement with staff notation of interaction on the unit during the daytime hours. He had urinated on the floor. I did inform him that the expectation would be that he could actually clean up after himself. He indicated that he would talk to the cleaning lady to actually get the floor cleaned. OBJECTIVE: On mental status exam, he made intermittent eye contact. His speech is of normal tone, frequency, and volume. His mood is neutral. Affect was congruent. His thought process shows no evidence of racing thoughts, flight of ideas, loose or disconnected thinking. No evidence of current suicidal, homicidal ideation. No evidence of active hallucinations, delusions. He was alert, oriented to time and place. His attention and concentration intact. Memory intact in the short term, detention, recent. Insight and judgment are fair. PHYSICAL EXAM: Vital signs, current: Temperature is 36.2, pulse 161, respirations 18, BP 136/85. MEDICATION REVIEW: Includes: 1. Risperdal 2 mg q.h.s. with intent to taper and discontinue. 2. Invega Sustenna 156 mg q.30 days, last injection on the . 3. Ativan 1 mg q.4 h. p.r.n., last dose given on August 07. 4. Allopurinol 300 mg daily. ASSESSMENT: [place] I. Schizophrenia, paranoid type. [place] II. Antisocial personality disorder. [place] III. History of gout. [place] IV. Chronic mental health issues, technician terminal and repeater disposition planning. [place] V. Global Assessment of Functioning current 35. PLANS: 1. Continuation of all medications noted. 2. Continuation of discharge planning including transfer to [facility] both for mental health placement under MR 90 status and competency [facility] evaluation on August 24.
--- NOTE | 2017-08-17 16:58 | NUR ---
Negotiator/Counselor S;"I'm good." O: Patient denies any SI or HI, no auditory or visual hallucinations, no anxiety or depression. Patient has been out on the unit more over the last few days. A: Patient is cooperative but has limited insight. He is labile, paranoid and anxious. P: Follow care plan and coordinate with outpatient providers.
[2017-08-17] MEDS: risperiDONE 1 mg Tablet PO SCH (20:03)
--- NOTE | 2017-08-18 06:21 | NUR ---
Nursing Note Ostrich Farmer 7pm-7am Patient was in room at start of shift. He came out to dining room for evening snack, took HS meds and returned to room. He was pleasant, calm and cooperative. Patient was noted to be in bed asleep at 2030 and through the rest of the night. Pt monitored q 15 minutes for safety, location and accountability.
[2017-08-18 13:59] VITALS: BP 116/70; PULSE 92
--- NOTE | 2017-08-18 14:56 | PROG NOTE ---
[address] [address] PROGRESS NOTE PATIENT: DARBY BUSBY : 1980 MR#: [id number] ADMIT: 06/26/2017 JOB ID: [id number] DATE: 08/18/2017 CHIEF COMPLAINT: "I'd be fine with that." This per patient report. HISTORY OF PRESENT ILLNESS: As stated above the patient identified his acknowledgement that we are looking at a potential assessment on the unit from [facility] officials for the competency uatsdin. Calls were placed with myself, the community health director Kaylan Donovan, and the court system to expedite; interview possible next Thursday. I am unaware of the wait list at this point in time for [facility] mental health MR 90 status. OBJECTIVE: On mental status exam, he was cooperative, polite. He maintained intermittent eye contact. He continues to show significant isolation, withdrawal from the general unit milieu but periodically is seen interacting with others. His speech is of normal tone, frequency, and volume. His mood is neutral. Affect is inappropriate at times. His thought process remains at best questionable with validity. He has significant paucity of responses throughout and often contemplates inappropriate posturing. He was redirected multiple times by myself about his self-stim behavior. He denies any evidence of active suicidal, homicidal ideation. No evidence of active hallucinations, delusions. He was alert, oriented to time and place. Attention and concentration intact. PHYSICAL EXAMINATION: Vital signs of current: Temperature is 36.3, pulse 92, respirations unlisted, BP 116/70. MEDICATION REVIEW: Includes Risperdal 2 mg q.h.s. Invega Sustenna 156 mg q. 30 days IM, last injection on the . Allopurinol 300 mg daily. ASSESSMENT: [place] I: Schizophrenia, paranoid type. [place] II: Antisocial personality disorder. [place] III: History of gout. [place] IV: Disposition planning, court competency hearing. [place] V: Global Assessment of Functioning of current 35. PLAN: 1. Recommendations for taper of Risperdal to 1 mg q.h.s. with potential discontinuation over the next several days. 2. Continuation of all other medications same. 3. Recommendations for court allowance of interview process middle of next week with potential discharge if competency is [facility].
--- NOTE | 2017-08-18 15:17 | NUR ---
Automotive Software Engineer/Counselor S:"I just want to sleep." O: Patient denies any SI or HI, no AVH, no anxiety or depression. A: Patient isolated himself to his room for the day. Disheveled, and not very cooperative when asked questions. P: Follow care plan and coordinate with outpatient providers.
--- NOTE | 2017-08-18 18:29 | NUR ---
Nursing Notes [id number] S: "The doctor said I could take less medication". O: Patient isolating, out for meals, snacks and showers. Denies depression, anxiety, HI/SI and hallucinations. A: Blunted, anxious, isolative, cooperative. P: Monitor for safety and response to treatment. Follow plan of care.
--- NOTE | 2017-08-18 18:41 | NUR ---
Obs Dayshift Pt has little to no change from obs from last week. Calm, polite upon approach, isolating to his room. Comes out mostly for a phone call or meals. Has reasonable requests, and is appropriate. Good eye contact, linear. Good ADL's, Good meals
[2017-08-18] MEDS: risperiDONE 1 mg Tablet PO SCH (20:15)
--- NOTE | 2017-08-18 22:06 | NUR ---
Evening [id number] Pt took all meds as scheduled without issues and ate HS snack, then went back to his room. No behavioral issues, outbursts or yelling this time. Continue to monitor for emotional well being, changes in behavior and q15min checks for safety. Care continues.
--- NOTE | 2017-08-19 05:44 | NUR ---
Nursing Note Cold Work Operator 11pm-7am Patient in room asleep at start of shift. He was noted to be in bed asleep at 2030 and through the rest of the night. Pt monitored q 15 minutes for safety, location and accountability.
--- NOTE | 2017-08-19 12:11 | PROG NOTE ---
[address] [address] PROGRESS NOTE PATIENT: DARBY BUSBY : 1980 MR#: [id number] ADMIT: 06/26/2017 JOB ID: [id number] DATE: 08/19/2017 CHIEF COMPLAINT: "I don't have any questions." This per patient report. HISTORY OF PRESENT ILLNESS: As stated above, the patient identified that he is doing well this morning. He denied any evidence of acute distress. He indicated that he slept through the evening with the lower dose of Risperdal and denies any evidence of difficulties. OBJECTIVE: On mental status exam, he was interviewed along with the case preparer and liner, RYAN. He made intermittent eye contact. He denied any evidence of current distress. His speech is of normal tone, frequency, and volume. His mood was neutral. Affect was congruent. His thought process shows no evidence of racing thoughts, flight of ideas, loose or disconnected thinking. Thought content: He denied any evidence of current suicidal, homicidal ideation. No evidence of active hallucinations, delusions. He was alert, oriented to time and place. Attention and concentration intact. Insight and judgment are fair. PHYSICAL EXAMINATION: Vital signs of current: Temperature is 36.3, pulse 92, respirations 16, BP 116/70. MEDICATION REVIEW: Includes: Risperdal 1 mg q.h.s. Invega Sustenna 156 mg, last injection on the 15. Allopurinol 300 mg daily. ASSESSMENT: [place] I: Schizophrenia, paranoid type. [place] II: Antisocial personality disorder. [place] III: History of gout. [place] IV: Stressors are noted for disposition planning, chronic mental health issues. [place] V: Global Assessment of Functioning of current 35. PLAN: 1. Recommendations for continuation of MR 90, wait list at [facility]. 2. Recommendations for [facility] competency evaluation on Thursday at 9:00 with possible discharge to senior care if the patient is proven to be competent to stand trial. 3. Continuation of all medications noted.
--- NOTE | 2017-08-19 13:28 | NUR ---
Storage Receipt Poster/Counselor: S: "What time is it?" O: Patient slept 7.25+ hours last night per staff. Patient denies S/I and H/I. He also denies auditory and visual hallucinations. Depression is 0/10 and anxiety is 0/10. When asked his mood, patient stated, "Fine." A: Patient is cooperative, improving, fair insight, fair judgment. P: Follow the care plan, coordinate with out-patient providers.
[2017-08-19] MEDS: risperiDONE 1 mg Tablet PO SCH (20:42)
--- NOTE | 2017-08-20 05:18 | NUR ---
nursing, nights, 11-7 s/o- has appeared to sleep after 2300 during q 15 minute assessments. a- no apparent distress. p- monitor behavior/emotional state, quality, times and amount of sleep, use and effect of medication. cindy
[2017-08-20 11:00] VITALS: BP 116/72; PULSE 73; RESP 15
--- NOTE | 2017-08-20 13:42 | PROG NOTE ---
[address] [address] PROGRESS NOTE PATIENT: DARBY BUSBY : 1980 MR#: [id number] ADMIT: 06/26/2017 JOB ID: [id number] DATE: 08/20/2017 CHIEF COMPLAINT: "I don't have any questions." This is per patient report. HISTORY OF PRESENT ILLNESS: As stated above, the patient openly identified that he feels that things are going okay. He seems to be tolerating the lower dose of Risperdal without any significant breakthrough evidence of psychoses, delusions. MENTAL STATUS EXAMINATION: He was cooperative, polite. He maintained intermittent eye contact throughout with myself and did confirm that he has no questions about the plan and intent to discharge on Thursday, post the competency evaluation. His speech is of normal tone, frequency, and volume. His mood was neutral. Affect was congruent. His thought process showed no evidence of racing thoughts, flight of ideas, loose or disconnected thinking. Thought content: He denied any evidence of current suicidal, homicidal ideation. No evidence of active hallucinations, delusions. He was alert, oriented to time and place. Attention and concentration intact. Insight and judgment are fair. PHYSICAL EXAMINATION: Vital signs of current. Temperature is 36.4, pulse 73, respirations 15, BP 116/72. MEDICATION REVIEW: Includes: 1. Risperdal 1 mg q.h.s. 2. Invega Sustenna 156 mg. Last injection on the . 3. Allopurinol 300 mg daily. ASSESSMENT: AXIS I: Schizophrenia, paranoid type. AXIS II: Antisocial personality disorder. AXIS III: History of gout. AXIS IV: Stressors are noted for chronic mental health issues, disposition planning. AXIS V: Global Assessment of Functioning, current, 40. PLAN: 1. Recommendations to proceed for discharge, probable on Thursday, post competency jehovah's witness. 2. Recommendations for continuation of MR 90. 3. Recommendations for continuation of all medications noted.
--- NOTE | 2017-08-20 18:44 | NUR ---
Obs Dayshift Pt is calm, cooperative, appropriate. Sat in the milieu watching TV for a large part of this shift. Polite and reasonable requests. Good eye contact. Pt is planning for his meeting w/ WS on Thursday, requesting for his mom to be a part of it if possible. Pt has very good ADL's, Good meals
[2017-08-20] MEDS: risperiDONE 1 mg Tablet PO SCH (20:25)
[2017-08-20] MEDS: LORazepam 1 mg Tablet PO PRN (20:27)
--- NOTE | 2017-08-21 00:13 | NUR ---
Observations 1900 to 0700 Pt did not attend wrap up group. Pt ate a snack. Pt had clothes washed. Pt mainly keeps to self in room where he lays down. Pt maintained behavioral control. Pt appeared asleep at 2230 and has remained asleep. Pt respirations were observed when asleep. Staff completed 15 min close observations as ordered.
--- NOTE | 2017-08-21 05:26 | NUR ---
Nursing Noc s/o- has appeared to sleep after 2300 during q 15 minute assessments. a- no apparent distress. Patient making good eye contact and ambulated to med room for HS medications. Patient requested PRN for anxiety and sleep this shift. p- monitor behavior/emotional state, quality, times and amount of sleep, use and effect of medication.
--- NOTE | 2017-08-21 10:46 | NUR ---
nursing:"i need the Allopurinol because my groin hurts...' Tried to talk with him further about this in private but he said it didn't hurt anymore. He is compliant with meds and polite in his requests. He stays most of the shift in his bed with his blanket around his head like a benito. Addendum: 08/21/17 at 1442 by NIELS LERMA RN cont'd but did get up and showered and changed independently; some voices continue.but there is no more interaction
--- NOTE | 2017-08-21 11:21 | PROG NOTE ---
[address] [address] PROGRESS NOTE PATIENT: DARBY BUSBY : 1980 MR#: [id number] ADMIT: 06/26/2017 JOB ID: [id number] DATE: 08/21/2017 CHIEF COMPLAINT: "I don't have any questions." This per patient report. HISTORY OF PRESENT ILLNESS: As stated above, the patient continues to remain cooperative maintaining fairly good eye contact. He isolates for much of the day to his room but has been seen in the day area at times. He is aware that he has a meeting with [facility] on Thursday and potentially will be released to the courts post the interview process. OBJECTIVE: On mental status examination, he was cooperative, polite. He maintained intermittent eye contact. His speech was of normal tone, frequency and volume. His mood was neutral. Affect was congruent. His thought process showed no evidence of racing thoughts, flight of ideas, loose or disconnected thinking. Thought content: No evidence of current suicidal, homicidal ideation. No evidence of active hallucinations, delusions. He was alert, oriented to time and place. Attention and concentration intact. Memory intact in the short term, jail, recent. Insight and judgment are fair. PHYSICAL EXAMINATION: Vital signs of current. Temperature is 36.4, pulse 73, respirations 15, BP 116/72. MEDICATION REVIEW: Includes: 1. Risperdal 1 mg q.h.s. to be discontinued on Thursday. 2. Invega Sustenna 156 q.30 days, last injection on the . 3. Ativan 1 mg q.4 hours p.r.n., last usage last evening at 8 p.m. 4. Allopurinol 300 mg daily. ASSESSMENT: AXIS I Schizophrenia, paranoid type. AXIS II Antisocial personality disorder. AXIS III History of gout. AXIS IV Stressors are noted for disposition planning, chronic mental health issues. AXIS V Global assessment of functioning of current 35. PLANS: 1. Continuation of pursuit of MR 90 wait list at [facility]. 2. Recommendations for competency evaluation on Thursday with consideration of discharge of the patient to [facility] if he has been proven competent to stand trial. 3. Continuation of all medications with discontinuation of Risperdal oral doses on Thursday.
--- NOTE | 2017-08-21 18:32 | NUR ---
Administrator Pesticide/Counselor: S/O: Patient slept 7.5 hours last night per staff. Patient denies S/I and H/I. He also denies auditory and visual hallucinations. Depression is 0/10 and anxiety is 0/10. Patient wants his mother to be present during the screening, Thursday, with [facility]. A: Patient is cooperative, isolative fair insight, fair judgment. P: Follow the care plan, coordinate with out-patient providers.
[2017-08-21 18:39] VITALS: BP 133/92; PULSE 96; RESP 16
[2017-08-21] MEDS: risperiDONE 1 mg Tablet PO SCH (20:12)
[2017-08-21] MEDS: LORazepam 1 mg Tablet PO PRN (20:13)
--- NOTE | 2017-08-22 05:00 | NUR ---
Nursing Noc s/o- has appeared to sleep after 2100 during q 15 minute assessments. a- no apparent distress. Patient making good eye contact and ambulated to med room for HS medications. Patient requested PRN for anxiety and sleep this shift. Pt has requested sleep aid the last two days now. p- monitor behavior/emotional state, quality, times and amount of sleep, use and effect of medication
[2017-08-22] MEDS: LORazepam 1 mg Tablet PO PRN ×2 (12:08→20:27)
--- NOTE | 2017-08-22 12:41 | NUR ---
Nursing: Continues to isolate in his room except for meals and snacks. Can't describe how he feels. Says it's 'OK here". Is calm, cooperative and compliant with meds. Denies voices or disturbing thoughts. Lorazepam @ 1215 per his request and pt napped after.
--- NOTE | 2017-08-22 13:33 | PROG NOTE ---
[address] [address] PROGRESS NOTE PATIENT: DARBY BUSBY : 1980 MR#: [id number] ADMIT: 06/26/2017 JOB ID: [id number] DATE: CHIEF COMPLAINT: "So why can't my mom sit in on the evaluation?" This is per patient report. HISTORY OF PRESENT ILLNESS: As stated above, the patient indicated that he would like to have his mother be present during the course of the [facility] evaluation. I have indicated to the patient more than likely this will not take place due to the significant degree of intensity that the evaluation will incur. I have encouraged him to consider placing a call with his mother for a visit after the evaluation is completed. OBJECTIVE: On mental status exam, the patient was cooperative, polite. He maintained good eye contact. He is aware that tonight will be his last dose of Risperdal. His speech is of normal tone, frequency, and volume. His mood was neutral. Affect was congruent. His thought process showed no evidence of racing thoughts, flight of ideas, loose or disconnected thinking. Thought content: No evidence of current suicidal, homicidal ideation. No evidence of active hallucinations, delusion. He was alert, oriented to time and place. Attention and concentration intact. Memory intact in the short term, buttermaker, recent. Insight and judgment are poor. PHYSICAL EXAM: Vital signs current: Temperature is 36.3, pulse 96, respirations 16, BP 133/92. MEDICATION REVIEW: Includes: 1. Risperdal 1 mg q.h.s., last dose this evening. 2. Invega Sustenna 156 mg q.30 days, last injection on the . 3. Ativan 1 mg q.4 h. p.r.n., last given at 12:08 today. 4. Allopurinol 300 mg daily. ASSESSMENT: [place] I. Schizophrenia, paranoid type. [place] II. Antisocial personality disorder. [place] III. History of gout. [place] IV. Stressors are noted for disposition planning, chronic mental health issues. [place] V. Global Assessment of Functioning current 35. PLANS: 1. Continuation of pursuit of MR 90 wait list at [facility]. 2. Competency evaluation on Thursday with consideration of discharge to on Thursday. 3. Continuation of all other medications noted.
[2017-08-22 16:26] VITALS: BP 121/82; PULSE 100; RESP 22
--- NOTE | 2017-08-22 17:55 | NUR ---
Business Associate/Counselor S:"i'm fine." O: Patient denies any SI or HI, no auditory or visual hallucinations. NO anxiety or depression. A: Patient isolative for most of the day, but came out to watch movies in the afternoon. Cooperative but flat. P:Follow care plan and coordinate with outpatient providers.
--- NOTE | 2017-08-22 18:16 | NUR ---
Observations 0700 - 1900 Pt affect and mood remained the same as previous shifts. Pt declined to set a daily goal. Pt was in his room most of the morning. Pt came out in the afternoon and asked to watch a couple of movies. Pt was pleasant, polite and cooperative when approached. Pt maintained behavior throughout the shift. Pt does smile at peers and appears slightly more social. Pt attended meals in D.R. and ate 100% of meals. Pt ate snack. Pt took a shower and washed a load of clothes. Pt was observed every 15 minutes through the shift as ordered.
[2017-08-22] MEDS: risperiDONE 1 mg Tablet PO SCH (20:24)
--- NOTE | 2017-08-22 22:42 | NUR ---
NURSING NOTE [id number] Mood: "okay" Affect: flat, appropriate in conversation w/this aligner typewriter Behavior: pt. has been more visible this evening than evening prior; watching movies w/peers, Thought processes: denies AH/VH, no delusional thought content noted. Pt. expressed feeling anxious @ HS, 1 mg Ativan PRN given.
--- NOTE | 2017-08-23 06:07 | NUR ---
Nursing Note Market Development Director 11pm-7am Patient in room asleep at start of shift. He was noted to be in bed asleep at 2100 and through the rest of the night. Pt monitored q 15 minutes for safety, location and accountability.
--- NOTE | 2017-08-23 15:11 | PROG NOTE ---
[address] [address] PROGRESS NOTE PATIENT: DARBY BUSBY : 1980 MR#: [id number] ADMIT: 06/26/2017 JOB ID: [id number] DATE: 08/23/2017 CHIEF COMPLAINT: "I am fine." This is per patient report. HISTORY OF PRESENT ILLNESS: As stated above, the patient identified that he has no questions, no evidence of concerns at this time. He makes intermittent eye contact and states that he is aware of the plan for tomorrow. OBJECTIVE: On mental status exam, as noted above, he made intermittent eye contact. He was seen resting. His speech is of normal tone, frequency, and volume. His mood was neutral. Affect was blunted. His thought process shows no evidence of racing thoughts, flight of ideas, loose or disconnected thinking. Thought content: He denied any evidence of current suicidal, homicidal ideation. No evidence of active hallucinations, delusions. He was alert, oriented to time and place. Attention and concentration intact. Memory intact in the short term, keno terminal operator, recent. Insight and judgment are poor. PHYSICAL EXAM: Vital signs, current: Temperature is 36.3, pulse 100, respirations 22, BP 121/82. MEDICATION REVIEW: Includes: 1. Invega Sustenna 156 mg. Last injection on the . 2. Ativan 1 mg q.4 h. p.r.n., last given last evening at 8:00. 3. Allopurinol 300 mg daily. ASSESSMENT: [place]ona I. Schizophrenia, paranoid type. [place] II. Antisocial personality disorder. [place] III. History of gout. [place] IV. Stressors are noted for chronic disturbance of mental health, disposition planning with court process tomorrow. [place] V. Global Assessment of Functioning current 40. PLANS: 1. Continuation of all medications noted. 2. Recommendations for probable discharge tomorrow, post competency evaluation. 3. Recommendations for followup injections to be scheduled through the court process.
--- NOTE | 2017-08-23 17:28 | NUR ---
[facility] Day Shift Pt affect and behavior mostly unchanged from previous shifts. Pt maintained behavioral control throughout the shift. Pt continues to spend most of the shift resting in his room, only entering the dining room to attend meals and request unit amenities. Pt remains polite and appropriate with staff and peers when active on the unit. Pt spends most of the evening watching TV in the dining room. Pt has attended all meals and has eaten approx 90% of all meals.
--- NOTE | 2017-08-23 17:38 | NUR ---
Vp Emerging Media/Counselor S:"Can you talk to my mom?" O: Patient denies any SI or HI, no auditory or visual hallucinations. No anxiety or depression. A: Patient has secluded himself to his room for most of the day but came out in the afternoon to watch tv. Somewhat interactive with peers. Disheveled, cooperative, friendly when spoken to. P:Follow care plan and coordinate with outpatient providers.
--- NOTE | 2017-08-23 17:40 | NUR ---
[id number]. nurs. S:: "They said she can't come" O: Pt continued to exhibit same pattern of behaviour of remaining in bed resting, wrapped in blankets, unoccupied except to get up for meals and take care of showering and laundry . Pt with flat affect, brief responses, is aware of mtg for tomorrow and states although he wanted to have his mother present he has been informed that she cannot attend. Pt not verbalizing any delusional or PI and not observed to be responding to internal stim. P:CNCP Addendum: 08/23/17 at 1756 by MILLA CHACON RN Pt does come out to DR to watch TV in porsche pt does not interact with peers.
[2017-08-23 17:53] VITALS: BP 123/81; PULSE 115; RESP 18
--- NOTE | 2017-08-24 06:06 | NUR ---
Nursing Note Quartz Mounter 7pm-7am Patient isolating in room at start of shift. He was noted to be asleep at 2130 and through the rest of the night. Pt monitored q 15 minutes for safety, location and accountability.
--- NOTE | 2017-08-24 14:24 | PROG NOTE ---
[address] [address] PROGRESS NOTE PATIENT: DARBY BUSBY : 1980 MR#: [id number] ADMIT: 06/26/2017 JOB ID: [id number] DATE: 08/24/2017 CHIEF COMPLAINT: "So when do you think I get to leave." This is per patient report. HISTORY OF PRESENT ILLNESS: As stated above, the patient did inquire with myself post his evaluation through [facility] which identified the patient is cleared for competency, his plan of departure. Discussion at this time was held that the patient's court date is not until September 03 and the plan and intent is to discharge to the court on September 03 for status. If the patient is available to a transfer to [facility], prior to such, the patient will be coordinated through that site. OBJECTIVE: On mental status exam, the patient was cooperative, polite. No evidence of current distress. His speech is of normal tone, frequency, and volume. His mood was neutral. Affect was congruent. His thought process showed no evidence of racing thoughts, flight of ideas, loose or disconnected thinking. Thought content: He denied any evidence of current suicidal, homicidal ideation. No evidence of active hallucinations, delusions. He was alert, oriented to time and place. Attention and concentration intact. Insight and judgment are fair. PHYSICAL EXAM: Vital signs, current: Temperature is 35.9, pulse 115, respirations 18, BP 123/81. MEDICATION REVIEW: Includes: 1. Invega Sustenna 156 q.30 days. Last injection on the . 2. Ativan 1 mg q.4 h. p.r.n. 3. Allopurinol 300 mg daily. ASSESSMENT: [place] I. Schizophrenia, paranoid type. [place] II. Antisocial personality disorder. [place] III. History of gout. [place]el IV. Stressors are noted for disposition planning. [place] V. Global Assessment of Functioning current 40. PLANS: 1. Recommendations for the patient to continue with his current hospitalization due to a considerable risk of decompensation in the community. The patient will proceed into court hearing on September 03 for status of disposition hearing. 2. Recommendations for consideration of transfer to [facility], if there is a bed available. Prior to such an arrangement, to transport to the court hearing as noted.
--- NOTE | 2017-08-24 14:41 | NUR ---
pt is having a good day his mom came for his morning meeting and took shower was very pleasant he is having a good day is out in tv room watching a movie
[2017-08-24 14:42] VITALS: BP 152/102; PULSE 150; RESP 19
--- NOTE | 2017-08-24 16:03 | NUR ---
Deep Well Contractor/Counselor S:"court went alright today." O: Patient reported no SI or HI, auditory or visual hallucinations. He reported his anxiety and depression as low. Patient slept 8+ hours per staff report. Patients mood was good. A:Patient appeared to be social today he was out of his room for the majority of the day watching TV and walking the halls. P:Follow care plan and coordinate with outpatient providers.
--- NOTE | 2017-08-24 18:33 | NUR ---
Nursing Dayshift: S: "Can I watch a movie?" O: Patient has been out in the TV area this afternoon through present watching TV. Eating well at meals. Cooperative with medications. Pleasant on approach. A: No agitation or aggression. Calm. Keeping occupied. P: CPOC. Monitor mood and behavior.
[2017-08-24] MEDS: LORazepam 1 mg Tablet PO PRN (19:34)
--- NOTE | 2017-08-25 06:07 | NUR ---
Nursing Note Revenue Audit Clerk 7pm-7am Patient isolating in room at start of shift. He came to med room door, requested and was given prn Ativan 1 mg at 1933, stating he was feeling anxious, but unable to rate his anxiety. He denied AH/VH. He returned to room and was noted to be asleep at 2114 and through the rest of the night. Pt monitored q 15 minutes for safety, location and accountability.
--- NOTE | 2017-08-25 13:09 | PROG NOTE ---
[address] [address] PROGRESS NOTE PATIENT: DARBY BUSBY : 1980 MR#: [id number] ADMIT: 06/26/2017 JOB ID: [id number] DATE: 08/25/2017 CHIEF COMPLAINT: "I do not have any questions." HISTORY OF PRESENT ILLNESS: As stated above, the patient denied any evidence of current concerns, indicated that things are going okay. He is aware that he will be held until September 03, the date of his court intervention. He denies any evidence of acute distress. His speech was of normal tone, frequency and volume. His mood was neutral. Affect was congruent. His thought process showed no evidence of racing thoughts, flight of ideas, loose or disconnected thinking. Thought content, he denied any evidence of current suicidal or homicidal ideation. No evidence of active hallucinations or delusions. He was alert, oriented to time and place. Attention and concentration are poor. Insight and judgment are poor. PHYSICAL EXAMINATION: Vital signs of current, temperature is 36.4, pulse 150, respirations 19, BP 152/102. MEDICATION REVIEW: Includes: 1. Invega Sustenna 156 mg. Last injection on August 14. 2. Ativan 1 mg q.4 h. p.r.n. Last given at 7 p.m. last evening. 3. Allopurinol 300 mg daily. Last given this morning. ASSESSMENT: AXIS I Schizophrenia, paranoid type. AXIS II Antisocial personality disorder. AXIS III History of gout. AXIS IV Stressors are noted for disposition planning including a court presentation on September 03. AXIS V Global Assessment of Functioning current 40. PLAN: 1. Continuation of all medications noted. 2. Continuation of disposition planning including hearing on September 03 with probable release to the local correction system.
--- NOTE | 2017-08-25 13:11 | NUR ---
Nursing Dayshift: S/O: Patient has been out of his room for meals and snacks today. Good appetite at meals. Cordial to staff. No complaints verbalized. A: Quiet. Calm and cooperative. P: CPOC. Monitor mood and behavior.
--- NOTE | 2017-08-25 17:04 | NUR ---
Clothing Presser/Counselor Clothing Presser/Counselor S:"I'm ok?" O: Patient denies any SI or HI, no auditory or visual hallucinations. No anxiety or depression. A: Patient has spent a majority of the day watching tv. Friendly and cooperative when engaged. P:Follow care plan and coordinate with outpatient providers.
--- NOTE | 2017-08-25 17:22 | NUR ---
Obs Dayshift Pt spent the first half of the shift in bed, then he got up, cleaned his room, showered, did laundry and sat out in the milieu watching TV for the last half. Pt talked to mom on the phone, making plans for his next court appt., and forward thinking. Pt is calm, good eye contact, cooperative, and working well w/ staff. Good ADL's, Good meals
[2017-08-25] MEDS: LORazepam 1 mg Tablet PO PRN (19:48)
--- NOTE | 2017-08-26 01:26 | NUR ---
Observations 1900 to 0700 Pt ate a snack. Pt continues to isolate to room and has a flat, blunt affect. Pt remained in bed throughout shift. Pt maintained behavioral control and showed no signs of abnormal behavior. Pt respirations were observed when asleep. Pt appeared asleep at 2100 and has remained asleep. Staff completed 15 min close observations as ordered.
[2017-08-26 09:54] VITALS: BP 119/81; PULSE 141; RESP 18
--- NOTE | 2017-08-26 13:09 | PROG NOTE ---
[address] [address] PROGRESS NOTE PATIENT: DARBY BUSBY : 1980 MR#: [id number] ADMIT: 06/26/2017 JOB ID: [id number] DATE: 08/26/2017 CHIEF COMPLAINT: "I am doing okay." This per patient report. HISTORY OF PRESENT ILLNESS: As stated above, the patient met with myself in the hallway. He indicated that he has no evidence of concerns. He reports that things are going okay. He is aware of the plan and intent to continue his hospitalization through September 03. OBJECTIVE: On mental status exam, he was cooperative, polite. He was seen out in the Day Area, getting his meals. He denies any evidence of acute distress. His speech was of normal tone, frequency, and volume. His mood was neutral. Affect was congruent. His thought process shows no evidence of racing thoughts, flight of ideas, loose or disconnected thinking. Thought content: No evidence of current suicidal, homicidal ideation. No evidence of active hallucinations, delusions. Insight and judgment are fair. PHYSICAL EXAMINATION: Vital signs are current: Temperature is 36.0, pulse 141, respirations 18, BP 119/81. MEDICATION REVIEW: Includes Invega Sustenna last injection on August 14, Ativan 1 mg q.4 h. p.r.n., allopurinol 300 mg daily. ASSESSMENT: [place] I: Schizophrenia, paranoid type. [place] II: Antisocial personality disorder. [place] III: History of gout. [place] IV: Stressors are noted for disposition planning. [place] V: Global Assessment of Functioning of current 40. PLAN: 1. Continuation of MR 90. Disposition to court process on September 03 pending. 2. Recommendations for continuation of all medications noted.
--- NOTE | 2017-08-26 14:13 | NUR ---
NURSING NOTE [id number] Mood: "fine" Affect: neutral Behavior: pt. out of his room intermittently to eat meals or request snacks, otherwise mostly staying in bed. Pt. med compliant. Pt. took a shower. Thought processes: pt. continues to deny AH/VH and does not appear to be responding to internal stim this shift. Pt. logical and coherent and maintaining behavioral control.
--- NOTE | 2017-08-26 17:09 | NUR ---
Rental Counter Clerk/Counselor: S:"I'm stressing because I can't get my mom to answer the phone." O: Patient slept 9 hours last night per staff. Patient denies S/I and H/I. He also denies auditory and visual hallucinations. Depression is 0/10 and anxiety is 0/10. When asked his mood, patient stated, "Stressed." A: Patient is cooperative, anxious, fair insight, fair judgment. P: Follow the care plan, coordinate with out-patient providers.
--- NOTE | 2017-08-26 18:23 | NUR ---
[facility] Day Shift Pt affect and behavior mostly unchanged from previous shifts. Pt maintained behavioral control throughout the shift. Pt continues to spend most of the shift resting in his room, only entering the dining room to attend meals and request unit amenities. Pt remains polite and appropriate with staff and peers when active on the unit. Pt spends most of the evening watching TV in the dining room. Pt has attended all meals and has eaten approx 90% of all meals.
--- NOTE | 2017-08-26 20:41 | NUR ---
nursing note 3-11pm A)no change in behavior or presentation, cooperative with care and staff P) anticipate DC after court Sep 03, continue to monitor behavior and medication effectiveness
[2017-08-26] MEDS: LORazepam 1 mg Tablet PO PRN (20:57)
--- NOTE | 2017-08-27 03:52 | NUR ---
nursing, nights, 11-7 s/o- has appeared to sleep after 2214 during q 15 minute assessments. a- no apparent distress. p- monitor behavior/emotional state, quality, times and amount of sleep, use and effect of medication. cindy
--- NOTE | 2017-08-27 14:08 | PROG NOTE ---
[address] [address] PROGRESS NOTE PATIENT: DARBY BUSBY : 1980 MR#: [id number] ADMIT: 06/26/2017 JOB ID: [id number] DATE: 08/27/2017 CHIEF COMPLAINT: "I didn't even talk to my mother." This per patient report. HISTORY OF PRESENT ILLNESS: As stated above. The patient identified that he was inquiring whether anybody has spoken with his mother. He indicated that he was not able to get a hold of her yesterday. He did report that he continues to struggle with sleep onset with the discontinuation of Risperdal. I have suggested trial doses of melatonin to help achieve such. OBJECTIVE: On mental status examination, he was cooperative and polite. He maintained good eye contact. He denied any evidence of current suicidal or homicidal ideation. No evidence of active hallucinations, delusions. He was alert, oriented to person, place, time, situation. Insight and judgment were deemed poor. PHYSICAL EXAMINATION: All vital signs are current. Temperature is 36.0, pulse 141, respirations 18, BP 119/81. MEDICATION REVIEW: Includes: 1. Invega Sustenna 156 mg, last injection August 14. 2. Allopurinol 300 mg daily. 3. Ativan 1 mg q.4 hours p.r.n. ASSESSMENT: AXIS I Schizophrenia, paranoid type. AXIS II Antisocial personality disorder. AXIS III History of gout. AXIS IV Stressors are noted for disposition and planning. AXIS V Global assessment of functioning of current 40. PLANS: 1. Recommendations to continue with all medications noted. 2. Institution of melatonin 5 mg at h.s. for sleep. 3. Disposition: Plan for discharge on September [address].
--- NOTE | 2017-08-27 14:28 | NUR ---
NURSE NOTE DAY Mood: "Fine." Denies depression and anxiety. Affect: Restricted. Thought Process/Content: "Can I get my medicine?" Goal-oriented. Linear, linked. Makes clear, coherent requests of staff. Denies ROMY, VH. Denies SI HI. Behavior: Up for breakfast. Isolated in room all morning, up watching movie in the afternoon. Appropriate and polite with staff. PRNs/NURS: Took as scheduled medications. Pt appears tremulous at rest.
[2017-08-27 18:52] VITALS: BP 122/81; PULSE 120; RESP 16
--- NOTE | 2017-08-27 19:04 | NUR ---
Applications Programmer/Counselor: S:"[facility] O: Patient slept 7 hours last night per staff. Patient denies S/I and H/I. He also denies auditory and visual hallucinations. Depression is 0/10 and anxiety is 0/10. When asked his mood, patient stated, "Alright, I guess." A: Patient is cooperative, anxious, fair insight, fair judgment. P: Follow the care plan, coordinate with out-patient providers.
[2017-08-27] MEDS: LORazepam 1 mg Tablet PO PRN (20:45)
--- NOTE | 2017-08-28 11:33 | NUR ---
NURSING NOTE [id number] Mood: "fine" Affect: polite, cooperative Behavior: pt. came to med room at 08:30 asking for his "sleeping pills." Explained to pt. it was morning and time to be awake for the day and encouraged him to eat his breakfast. Pt. stated "I don't want breakfast", then drank some of his juice and returned to bed. Pt. did take his scheduled a.m. medication. Thought processes: denies AH/VH/SI/depression. Reported: "I just want to sleep" when asked what his goal for the day was.
--- NOTE | 2017-08-28 13:10 | PROG NOTE ---
[address] [address] PROGRESS NOTE PATIENT: DARBY BUSBY : 1980 MR#: [id number] ADMIT: 06/26/2017 JOB ID: [id number] DATE: 08/28/2017 CHIEF COMPLAINT: "I think I am doing better, I did sleep a little bit." This is per patient report. HISTORY OF PRESENT ILLNESS: As stated above, the patient identified some beneficial response from initiation of melatonin last evening. He indicated that he slept a little bit better but states that he wonders if he needs a bigger dose. OBJECTIVE: On mental status exam, he was cooperative, polite. He maintained good eye contact with myself and the medical student. He has been seen in the day area more interactive. His speech is of normal tone, frequency, and volume. His mood was neutral. Affect was congruent. Thought process showed no evidence of random flight of ideas, loose or disconnected thinking. Thought content: No evidence of current suicidal, homicidal ideation. No evidence of active hallucinations, delusions. He was alert, oriented to time and place. Attention and concentration intact. Insight and judgment are fair. PHYSICAL EXAM: Vital signs, current: Temperature is 36.4, pulse 120, respirations 16, BP 122/81. MEDICATION REVIEW: Includes: 1. Melatonin 5 mg q.h.s. 2. Invega Sustenna 156 mg q.30 days. Last injection on the . 3. Ativan 1 mg q.4 h. p.r.n. Last usage on the . 4. Allopurinol 300 mg daily. ASSESSMENT: [place] I. Paranoid schizophrenia. [place] II. Antisocial personality disorder. [place] III. History of gout. [place] IV. Disturbance of coping, transition, and disposition planning. [place] V. Global Assessment of Functioning current 40. PLAN: 1. Recommendations for continuation of all medications with titration of melatonin to 10 mg q.h.s. 2. Recommendations for continuation of disposition planning with probable discharge on September 03.
[2017-08-28 13:59] VITALS: BP 135/89; PULSE 106; RESP 18
--- NOTE | 2017-08-28 17:45 | NUR ---
[facility] Day Shift Pt affect and behavior mostly unchanged from previous shifts. Pt maintained behavioral control throughout the shift. Pt continues to spend most of the shift resting in his room, only entering the dining room to attend meals and request unit amenities. Pt remains polite and appropriate with staff and peers when active on the unit. Pt spends most of the late afternoon and evening watching TV in the dining room. Pt has attended all meals; pt declined to eat breakfast and ate approx 100% of lunch and dinner.
--- NOTE | 2017-08-28 19:16 | NUR ---
Bioinformaticist/Counselor: S/O: Patient denies S/I and H/I. He also denies auditory and visual hallucinations. Depression is 0/10 and anxiety is 0/10. When asked his mood, patient stated, "Fine." A: Patient is cooperative, anxious, fair insight, fair judgment. P: Follow the care plan, coordinate with out-patient providers.
[2017-08-28] MEDS ORDERED: Alum-Mag Hydrox-Simeth 30 mL Suspension ONE (19:54)
--- NOTE | 2017-08-29 05:10 | NUR ---
Nursing Note Coroner Forensic Technician 7pm to 7am Pt complained of a sharp burning sensation this evening on the right lower side of his chest. Pt denied shortness of breath, BP 118/78, p. 82, 02 sat 98. It is suspected that this discomfort was related to indigestion as pt. reported he had used 5 packets of Mrs. Arias seasoning on his dinner. Pt given Maalox with good effect and went to bed. No further issues reported or observed. Pt slept through the night. Monitored pt. with q 15 minutes face checks for safety location and accountability
[2017-08-29] MEDS: LORazepam 1 mg Tablet PO PRN ×2 (08:11→12:03)
--- NOTE | 2017-08-29 09:36 | NUR ---
day shift nursing note-Psychosis/SI/HI/Depression/Appetite/Socialization S/O-"I'm fine..., I need my meds...,may I have an Ativan?" Pt. stated he slept well last night. His goal was to stay quiet in his room. He declined breakfast. He has direct eye contact with soft spoken words. He has an even steady gait. He prefers to keep to himself and is polite with staff. He denies SI, HI, hallucinations or depression. He has maintained behavioral control. A-Psychosis. Getting to baseline functioning. Isolative. P-Monitor for safety per protocol. Assess efficacy of meds to manage psychosis. Encourage engagement in milieu. Decrease stimuli as needed.
[2017-08-29] MEDS ORDERED: .Epic Conversion Completed XX PRN (10:05)
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
[2017-08-29 12:09] VITALS: BP 141/85; PULSE 101; RESP 17
--- NOTE | 2017-08-29 13:37 | NUR ---
PRN meds "I need an ativan for my shaky hands..., I can not rate my anxiety." Pt. requested and was given 1 mg. of Ativan PO at 0811 and 1203. Pt. reported it was helpful.
--- NOTE | 2017-08-29 15:16 | NUR ---
Observations 0700 to 1900 Pt did not attend community meeting. Pt did not attend recreational activities. Pt ate a snack. Pt showered. Pt spent free time resting in bed. Pt is isolative and refused to set a daily goal. Pt maintained behavioral control and showed no signs of abnormal behavior. Breakfast: 100%. Lunch: 100%. Staff completed 15 min close observations as ordered.
--- NOTE | 2017-08-29 17:07 | NUR ---
Assistant Spa Director/Counselor S:"Who is transporting me on thursday?" O: Patient denies any SI or HI, no auditory or visual hallucinations, no anxiety or depression. A: Patient is cooperative, anxious, fair insight and judgment. Patient was watching movies with peers. P:Follow care plan and coordinate with outpatient providers.
== END 2017-08-30 01:28 | disposition admitted as inpatient to this hospital (09) | DRG 951 ==
LOC: SED 16:47 → UNDOADMIN 06-26 12:49 → MHC 06-26 12:49
PROVIDERS: ADMIT Psychiatry & Neurology Psychiatry; ATTEND Psychiatry & Neurology Psychiatry
DX: R69 Illness, unspecified (principal)